=== PATIENT | male | born 1940 | race Caucasian/White ===

== ENCOUNTER 2018-01-11 00:01 | Inpatient (IN) | payer MEDICARE, OTHER, SELFPAY ==
[2018-01-11] VITALS (19 sets, daily range): BP systolic 108–172; BP diastolic 46–68; PULSE 80–84; RESP 13–29; TEMP 36.9–38.6; O2SAT 93–100
--- NOTE | 2018-01-11 00:02 | DI.RAD.S_ITS ---
PROCEDURE: XR CHEST 1V INDICATIONS: 77 year-old male with shortness of breath. TECHNIQUE: One view of the chest was acquired. COMPARISON: [facility], , CHEST 1 VIEW, 07/28/2017, 4:42. [facility], CR, CHEST 1 VIEW, 03/27/2017, 19:44. [facility], CR, XR CHEST 2VW, 05/14/2016, 15:29. FINDINGS: Surgical changes and devices: Left chest wall dual chamber pacemaker is present. Lungs and pleura: No pleural effusions or pneumothorax. Lungs are clear. Mediastinum: Mediastinal contours appear normal. Heart size is normal. There is aortic atherosclerosis. Bones and chest wall: No suspicious bony lesions. Overlying soft tissues appear unremarkable. IMPRESSION: No acute cardiopulmonary disease. Dictated by: Piotr Marsh M.D. on 01/11/2018 at 6:00 Approved by: Piotr Marsh M.D. on 01/11/2018 at 6:00
--- NOTE | 2018-01-11 00:02 | DI.CT.S_ITS ---
PROCEDURE: CT HEAD/BRAIN WO CON INDICATIONS: 77 year-old male with confusion. TECHNIQUE: Noncontrast 4.5 mm thick angled axial sections acquired from the foramen magnum to the vertex, with coronal and sagittal reformats. For radiation dose reduction, the following was used: automated exposure control, adjustment of mA and/or kV according to patient size. COMPARISON: [facility], CT, HEAD WITHOUT CONTRAST, 03/27/2017, 19:55. FINDINGS: Preliminary interpretation rendered by [facility]. Image quality: Several images are degraded by patient motion. CSF spaces: Basal cisterns are patent. No extra-axial fluid collections. The ventricles are symmetric in size and shape. Brain: No intracranial bleeds or masses. Nonacute left subinsular lacunar infarct is again noted. There is intracranial internal carotid and bilateral vertebral artery atherosclerosis. Skull and face: Calvarium and visualized facial bones appear intact, without suspicious lesions. Sinuses: There is near-complete opacification of the right maxillary sinus. Other visualized sinuses and mastoids are clear. IMPRESSION: 1. No acute intracranial abnormalities. Nonacute left subinsular lacunar infarct. 2. Interval decreased amount of right maxillary sinus fluid opacification, consistent with persistent or recurrent chronic sinusitis. Dictated by: Piotr Marsh M.D. on 01/11/2018 at 6:16 Approved by: Piotr Marsh M.D. on 01/11/2018 at 6:22
--- NOTE | 2018-01-11 00:04 | ED_ITS ---
HPI - Altered Mental Status General Chief Complaint: Altered Mental Status Stated Complaint: Confusion Time Seen by Provider: 01/11/18 00:03 Source: EMS Mode of arrival: EMS Limitations: other (Patient's willingness/ability to be involved with the history and physical.) History of Present Illness HPI narrative: Patient arrived by EMS after they were called by someone who the patient is living with. EMS did not know who initially made the call. They did report that the house was in disarray. Unsure as the exact reason why they were called however they were told that the patient was ?altered ?in some way. Was also some concerns for cellulitis of his left lower extremity. Patient was only minimally helpful in providing history of why he was here. Would only answer some of the questions that he was asked. He denied any symptoms at the time of my evaluation. Related Data Home Medications Medication Instructions Recorded Confirmed atorvastatin [Lipitor] 20 mg PO QDAY #0 03/28/17 escitalopram oxalate [Lexapro] 10 mg PO QDAY #0 08/19/17 potassium chloride [K-Tab] 20 meq PO BID #810 10/29/17 torsemide 20 mg PO QDAY #90 10/29/17 [KRILL OIL] 1 cap PO QDAY #0 11/01/17 calcium carbonate-vitamin D3 1 cap PO BID #0 11/01/17 [Calcium 600 with Vitamin D3] eplerenone 25 mg PO QDAY #0 11/01/17 folic acid 0.4 mg PO QDAY #0 11/01/17 ipratropium-albuterol [Combivent 1 puff INH BID #0 11/01/17 Respimat] magnesium oxide 500 mg PO TID #0 11/01/17 metoprolol tartrate 12.5 mg PO BID #0 11/01/17 multivitamin [Multiple Vitamins] 1 tab PO QDAY #0 11/01/17 nitroglycerin [Nitrostat] 0.4 mg SUBLINGUAL PRN PRN #0 11/01/17 Previous Rx's Medication Instructions Recorded glipizide [Glucotrol XL] 10 mg PO AMCC #30 tab 10/29/16 metolazone 2.5 mg PO EVERY OTHER DAY #30 tab 03/28/17 Glucose: Test Strips 0 str SEE INSTRUCTIONS #100 str 05/13/17 gabapentin [Neurontin] 900 mg PO TID #270 cap 09/23/17 diphenoxylate-atropine 1 tab PO PRN #30 tab 10/04/17 cefazolin 2,000 mg IV Q8H 24 Days #0 ml 11/05/17 phytonadione (vitamin K1) 10 mg PO QDAY #3 tab 11/05/17 [Mephyton] omeprazole 20 mg PO BID #60 cap 12/17/17 Allergies Allergy/AdvReac Type Severity Reaction Status Date / Time camphor [CAMPHOR] Allergy Mild RASH Verified 01/11/18 00:30 cyclobenzaprine Allergy Mild HIVES Verified 01/11/18 00:30 [CYCLOBENZAPRINE] lisinopril [LISINOPRIL] Allergy Mild COUGH/DRY Verified 01/11/18 00:30 THROAT menthol [MENTHOL] Allergy Mild RASH Verified 01/11/18 00:30 methyl salicylate Allergy Mild RASH Verified 01/11/18 00:30 [METHYL SALICYLATE] Review of Systems Review of Systems unobtainable due to mental condition Exam Initial Vital Signs Initial Vital Signs: Vital Signs Temperature 98.4 F 01/11/18 00:03 Pulse Rate 80 01/11/18 00:03 Respiratory Rate 29 H 01/11/18 00:03 Pulse Oximetry 100 01/11/18 00:03 Const General: comfortable and No acute distress Nutritional Appearance: average body habitus Orientation: alert, awake, oriented to person, oriented to place, not oriented to time and confused [facility] Head: normal to inspection and normocephalic Ears: hearing grossly normal bilaterally Nose: external nose normal Eyes Pupils: PERRL EOM: EOM intact bilaterally Resp Effort & Inspection: normal respiratory effort, no respiratory distress and no use of accessory muscles Auscultation: not clear to auscultation bilaterally, no rales, no rhonchi and wheezes expiratory wheezes, left lower and left upper Cardio Rate: regular rate Heart Sounds: no click, no gallops, no murmurs and no rubs Pulses: normal peripheral pulses GI Inspection: normal to inspection and non-distended Palpation: soft Back/Spine/Pelvis Back: No CVA tenderness Skin Other: Patient with chronic venous changes bilateral lower extremities Patient with red and warm and tender left lower extremity from knee to toes. Does have 2 wounds on the bottom of his left foot and not draining. Neuro General: alert and awake Speech: speech normal Extrem Other: No gross deformities Moves all 4 extremities See skin section for description of left lower extremity Psych Appearance: disheveled Affect: blunted Course Orders Ordered: ED Orders 01/11/18 MRSA PCR Stat 01/11/18 00:01 B Type Natriuretic Peptide Stat Complete Blood Count AUTO DIFF Stat Comprehensive Metabolic Panel Stat Ethanol (ETOH) Stat Partial Thromboplastin Time Stat Prothrombin Time INR Stat Troponin I Stat 01/11/18 00:02 CT head/brain wo con Stat XR chest 1V Stat EKG-12 Lead Stat 01/11/18 00:16 Lactate (Lactic Acid) Stat 01/11/18 00:38 Arterial Blood Gas Stat 01/11/18 00:42 Blood Culture Stat 01/11/18 02:25 Consult to Physician Routine 01/11/18 05:00 Troponin I Stat Hydromorphone HCl (Dilaudid) 0.5 mg IV Q4HR PRN PRN Reason: Pain, Severe Sodium Chloride (Normal Saline 0.9%) 1,000 mls @ 150 mls/hr IV CONT DANNY Last Admin: 01/11/18 01:05 Dose: 150 mls/hr Ondansetron HCl 4 mg/ Sodium (Chloride) 102 mls @ 204 mls/hr IV Q4HR DANNY Discontinued Medications Albuterol/Ipratropium (Duoneb) 3 ml INH NOW ONE Stop: 01/11/18 00:02 Last Admin: 01/11/18 00:15 Dose: 3 ml Vancomycin HCl/Dextrose (Vancomycin) 1,000 mg in 200 mls @ 200 mls/hr IV NOW ONE Stop: 01/11/18 01:53 Last Infusion: 01/11/18 02:15 Dose: 0 mls/hr Admin: 01/11/18 01:05 Dose: 200 mls/hr Morphine Sulfate (Morphine) 4 mg IV NOW ONE Stop: 01/11/18 01:19 Last Admin: 01/11/18 01:27 Dose: 4 mg Vital Signs - 8 hr 01/11/18 00:03 01/11/18 00:35 01/11/18 00:40 Temperature 98.4 F Pulse Rate 80 82 84 Respiratory Rate 29 H 22 28 H Blood Pressure Blood Pressure [Right Arm] 141/66 H Pulse Oximetry 100 97 100 01/11/18 02:13 01/11/18 02:53 01/11/18 03:11 Temperature 101.5 F H Pulse Rate 80 80 80 Respiratory Rate 19 21 28 H Blood Pressure 139/53 H 142/53 H Blood Pressure [Right Arm] 145/61 H Pulse Oximetry 96 95 98 MDM - Altered Mental Status Lab Data Attestation: I reviewed the patient's lab results. Result diagrams: 01/11/18 00:01 01/11/18 00:01 Lab Results 01/11/18 01/11/18 01/11/18 Range/Units 00:01 00:01 00:01 WBC 17.6 H (4.5-11.0) X10^3/uL RBC 4.67 (4.5-5.9) X10^6/uL Hgb 11.6 L (13.5-17.5) g/dL Hct 36.4 L (41-53) % MCV 77.8 L (80-100) fL MCH 24.9 L (26-34) PG MCHC 32.0 (30-36) % RDW 18.1 H (11.6-14.8) % Plt Count 153 (150-400) X10^3/uL Neut % (Auto) 87.5 H (50-75) % Lymph % (Auto) 6.4 L (25-40) % [place] % (Auto) 6.0 (3-14) % Eos % (Auto) 0.0 L (2-4) % Baso % (Auto) 0.1 (0-2) % Neut # (Auto) 97559 H (3011-7877) /uL PT 20.7 H (10.1-12.7) SECONDS INR 1.9 H (0.9-1.3) APTT 32 (26.4-36.2) SECONDS ABG pH (7.35-7.45) ABG pCO2 (35-45) mmHg ABG pO2 (80-105) mmHg ABG HCO3 (23-27) mmol/L ABG Total CO2 (23-27) mmol/L ABG O2 Saturation (95-100) % ABG Base Excess (-2-3) mmol/L FiO2 Sodium (137-145) mmol/L Potassium (3.4-5.1) mmol/L Chloride (98-107) mmol/L Carbon Dioxide (22-32) mmol/L BUN (9-20) mg/dL Creatinine (0.66-1.25) mg/dL Estimated GFR (>60) mL/min BUN/Creatinine Ratio (6-22) Glucose (80-110) mg/dL Lactate (0.7-2.1) mmol/L Calcium (8.4-10.2) mg/dL Total Bilirubin (0.2-1.3) mg/dL AST (17-59) IU/L ALT (21-72) IU/L Alkaline Phosphatase (38-126) U/L Troponin I (0.01-0.034) ng/mL B-Natriuretic Peptide 498.0 H (<100) Total Protein (6.3-8.2) g/dL Albumin (3.5-5.0) g/dL Globulin (1.7-4.1) g/dL Albumin/Globulin Ratio (1.0-2.8) Ethyl Alcohol < 10 mg/dL 01/11/18 01/11/18 01/11/18 Range/Units 00:01 00:16 00:38 WBC (4.5-11.0) X10^3/uL RBC (4.5-5.9) X10^6/uL Hgb (13.5-17.5) g/dL Hct (41-53) % MCV (80-100) fL MCH (26-34) PG MCHC (30-36) % RDW (11.6-14.8) % Plt Count (150-400) X10^3/uL Neut % (Auto) (50-75) % Lymph % (Auto) (25-40) % [place] % (Auto) (3-14) % Eos % (Auto) (2-4) % Baso % (Auto) (0-2) % Neut # (Auto) (0673-1663) /uL PT (10.1-12.7) SECONDS INR (0.9-1.3) APTT (26.4-36.2) SECONDS ABG pH 7.48 H (7.35-7.45) ABG pCO2 24.4 L* (35-45) mmHg ABG pO2 72 L (80-105) mmHg ABG HCO3 18 L (23-27) mmol/L ABG Total CO2 19 L (23-27) mmol/L ABG O2 Saturation 96 (95-100) % ABG Base Excess -5.0 L (-2-3) mmol/L FiO2 21 Sodium 139 (137-145) mmol/L Potassium 4.4 (3.4-5.1) mmol/L Chloride 99 (98-107) mmol/L Carbon Dioxide 22 (22-32) mmol/L BUN 53 H (9-20) mg/dL Creatinine 2.80 H (0.66-1.25) mg/dL Estimated GFR 22.0 L (>60) mL/min BUN/Creatinine Ratio 18.9 (6-22) Glucose 188 H (80-110) mg/dL Lactate 2.8 H (0.7-2.1) mmol/L Calcium 8.8 (8.4-10.2) mg/dL Total Bilirubin 2.9 H (0.2-1.3) mg/dL AST 111 H (17-59) IU/L ALT 90 H (21-72) IU/L Alkaline Phosphatase 94 (38-126) U/L Troponin I 0.111 H (0.01-0.034) ng/mL B-Natriuretic Peptide (<100) Total Protein 7.5 (6.3-8.2) g/dL Albumin 3.8 (3.5-5.0) g/dL Globulin 3.7 (1.7-4.1) g/dL Albumin/Globulin Ratio 1.0 (1.0-2.8) Ethyl Alcohol mg/dL Imaging Data CT scan - head: Radiologist's impression: Stable mild cerebral atrophy. Stable mild bilateral periventricular small vessel ischemic disease Chest x-ray: Radiologist's impression: Mild CHF. Dual chamber cardiac pacer ECG Data Attestation: I personally reviewed and interpreted this ECG as follows: Prior ECG tracings: not available for review Interpretation: Ventricularly paced Rate of 81 MDM Narrative Medical decision making narrative: Patient somewhat unwilling/unable to participate in the history and physical. Does have an elevated white blood cell count and elevated lactate and in the setting of his left lower extremity physical exam concerning for worsening cellulitis of his left lower extremity. Patient is on Coumadin secondary to his atrial fibrillation. This was obtained by reviewing his medical records. Patient also has an elevated troponin. He denied any chest pain. EKG is not consistent with ST-elevation [place]. Patient stated that he was allergic to aspirin so he was not given an aspirin here in the ER. Patient with baseline chronic kidney disease with seems to be worsening over the past several months. Given his infection elevated white count and elevated lactate to does meet sepsis criteria. He was given vancomycin here in the ER. Blood cultures were obtained. His cellulitis most likely the source of this infection. He was not hypotensive. Fluids were given at a maintenance rate secondary to his reported history of CHF. Patient clinically not in heart failure currently. I discussed the case with Dr. Rudolph who will admit the patient. I did inform the patient of my recommendation for him to be admitted the hospital. He did expressed understanding and agreement plan Discharge Plan Departure Patient Disposition: Admitted As Inpatient Clinical Impression: Cellulitis of left foot, Sepsis, Elevated troponin, Chronic kidney disease Discharge Date/Time: 01/11/18 02:54 Interventions: ED Discharge Assessment Last Done: 01/11/18 02:53 Admit Date/Time: 01/11/18 02:34 Admit Provider: Baylee Rudolph
[2018-01-11] MEDS: ALBUTEROL/IPRATROPIUM 3 ML AMPUL INH (00:15)
[2018-01-11 00:21] LABS: Add Manual Diff / Slide Review NO; Basophils Percent Auto 0.1 % (0-2); Hematocrit 36.4 % (41-53); Hemoglobin 11.6 g/dL (13.5-17.5); INR 1.9 (0.9-1.3); Lymphocytes Percent Auto 6.4 % (25-40); Mean Corpuscular Hemoglobin 24.9 PG (26-34); Mean Corpuscular Volume 77.8 fL (80-100); Neutrophils Absolute Auto 15400 /uL (3000-5900); Neutrophils Percent Auto 87.5 % (50-75); Platelet Count 153 X10^3/uL (150-400); Prothrombin Time 20.7 SECONDS (10.1-12.7); Red Blood Cell Count 4.67 X10^6/uL (4.5-5.9); Red Cell Distribution Width 18.1 % (11.6-14.8); White Blood Cell Count 17.6 X10^3/uL (4.5-11.0)
[2018-01-11 00:24] LABS: Ethanol (ETOH) < 10 mg/dL; PTT Partial Thromboplastin Tim 32 SECONDS (26.4-36.2)
[2018-01-11 00:25] LABS: Alanine Aminotransferase 90 IU/L (21-72); Albumin 3.8 g/dL (3.5-5.0); Alkaline Phosphatase 94 U/L (38-126); Aspartate Aminotransferase 111 IU/L (17-59); BUN Creatinine Ratio 18.9 (6-22); Bilirubin Total 2.9 mg/dL (0.2-1.3); Blood Urea Nitrogen 53 mg/dL (9-20); Calcium 8.8 mg/dL (8.4-10.2); Carbon Dioxide 22 mmol/L (22-32); Chloride 99 mmol/L (98-107); Globulin 3.7 g/dL (1.7-4.1); Glucose 188 mg/dL (80-110); HEMOLYSIS < 15 (0-50); Potassium 4.4 mmol/L (3.4-5.1); Sodium 139 mmol/L (137-145); Total Protein 7.5 g/dL (6.3-8.2)
[2018-01-11 00:36] LABS: Troponin I 0.111 ng/mL (0.01-0.034)
[2018-01-11 00:45] LABS: Lactate (Lactic Acid) 2.8 mmol/L (0.7-2.1)
[2018-01-11] MEDS: SODIUM CHLORIDE 0.9% 1,000 ML 150 ML IV ×4 (01:05→22:18)
[2018-01-11] MEDS: VANCOMYCIN 1,000 MG/200 ML FROZ.PIGGY 200 MG IV (01:05)
[2018-01-11] MEDS: MORPHINE 4 MG/ML INJ IV (01:27)
[2018-01-11 01:34] LABS: pH ABG 7.48 (7.35-7.45)
[2018-01-11 01:35] LABS: PCO2 ABG 24.4 mmHg (35-45)
[2018-01-11 01:36] LABS: Fractionated Inspired Oxygen 21; HCO3 ABG 18 mmol/L (23-27); Oxygen Saturation ABG 96 % (95-100); PO2 ABG 72 mmHg (80-105); TCO2 ABG 19 mmol/L (23-27)
[2018-01-11] MEDS: HYDROMORPHONE 0.5 MG INJ IV (03:40)
[2018-01-11 04:33] LABS: Reflexed Lactate in 2 Hours Y
[2018-01-11 05:24] LABS: Lactate 2HR (Lactic Acid Rflx) 2.3 mmol/L (0.7-2.1)
--- NOTE | 2018-01-11 05:30 | PC.ADMIT ---
[email or web address] Admission Note: The patient,Arben Peacock,77 y/o, was given written information regarding hospital policies, unit procedures and contact persons. Patient's smoking status: Never smoker. Vital Signs - 8 hr 01/11/18 00:03 01/11/18 00:35 01/11/18 00:40 Temperature 98.4 F Pulse Rate 80 82 84 Respiratory Rate 29 H 22 28 H Blood Pressure Blood Pressure [Right Arm] 141/66 H Pulse Oximetry 100 97 100 01/11/18 02:13 01/11/18 02:53 01/11/18 03:11 Temperature 101.5 F H Pulse Rate 80 80 80 Respiratory Rate 19 21 28 H Blood Pressure 139/53 H 142/53 H Blood Pressure [Right Arm] 145/61 H Pulse Oximetry 96 95 98 01/11/18 04:59 Temperature Pulse Rate Respiratory Rate Blood Pressure Blood Pressure [Right Arm] Pulse Oximetry 97 Patient admitted to ICU room 101 at 0245. Awake, mostly non-verbal, not answering admit questions, will nod or say yes/no to simple questions. Grimaces and moans during turning. 0.5mg IV Dilaudid given per prn order. Temp upon admit 101.1, no extra blankets, A-fib CVR, BBB. SpO2 96% on 2L, mild shortness of breath with exertion, breath sounds clear. LLE elevated on pillow, hot to touch, erythema, edema, no weeping noted. NS @ 150ml/hr
[2018-01-11 05:37] LABS: Troponin I 0.108 ng/mL (0.01-0.034)
[2018-01-11] MEDS: NYSTATIN 30 GM POWDER 1 APPLIC TOP (08:17)
[2018-01-11] MEDS: CEFAZOLIN 2 GM/100 ML FROZ.PIGGY IV ×2 (08:17→15:11)
[2018-01-11 08:47] LABS: Bacteria Urine None Seen
[2018-01-11 09:02] LABS: Amorphous Sediment Urine 2+; Culture Indicated Urine Cult Not Indicated; RBC Urine 10-30/HPF (0-5/HPF); WBC Urine 0-1/HPF (0-5/HPF)
[2018-01-11 09:05] LABS: Alanine Aminotransferase 94 IU/L (21-72); Albumin 3.6 g/dL (3.5-5.0); Alkaline Phosphatase 96 U/L (38-126); Aspartate Aminotransferase 120 IU/L (17-59); BUN Creatinine Ratio 20.7 (6-22); Bilirubin Total 3.1 mg/dL (0.2-1.3); Blood Urea Nitrogen 56 mg/dL (9-20); Calcium 8.5 mg/dL (8.4-10.2); Carbon Dioxide 20 mmol/L (22-32); Chloride 102 mmol/L (98-107); Globulin 3.6 g/dL (1.7-4.1); Glucose 187 mg/dL (80-110); HEMOLYSIS < 15 (0-50); Potassium 4.6 mmol/L (3.4-5.1); Sodium 139 mmol/L (137-145); Total Protein 7.2 g/dL (6.3-8.2)
[2018-01-11 09:10] LABS: Hematocrit 35.1 % (41-53); Hemoglobin 11.4 g/dL (13.5-17.5); Mean Corpuscular HGB Conc 32.4 % (30-36); Mean Corpuscular Hemoglobin 24.7 PG (26-34); Mean Corpuscular Volume 76.2 fL (80-100); Platelet Count 102 X10^3/uL (150-400); Red Blood Cell Count 4.61 X10^6/uL (4.5-5.9); White Blood Cell Count 13.3 X10^3/uL (4.5-11.0)
[2018-01-11 09:11] LABS: Add Manual Diff / Slide Review YES
[2018-01-11 09:49] LABS: Neutrophils Absolute Manual 11837 /uL (3000-5900); Total Cells Counted 100
--- NOTE | 2018-01-11 10:38 | CM.DANOTE ---
DCP: assessment: Case received, EMR reviewed (ER note only physician note yet available), spoke with Dr. Rudolph and then with [employer] Mary Jane Barnes Called pt's daughter (oldest of 6) Miranda Bautista/Chadron [phone] in response to her earlier call to ICU and introduced self and role. 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 Dr. Rudolph is seeing him this weekend. PCP: Dr. Campbell. Pt is currently not A/O and is unable to be interviewed at this point. DCP template completed with information currently available and including info from Miranda. Pt lives in [place] with his spouse Tierney. NO POA has been granted to anyone. Pt was recently in and did d/c to [facility] for rehab/recovery under his Medicare benefit. [facility], confirms he has only uses a small portion of his 100 snf days. Payer: Medicare and [employer]. Miranda states that she and other siblings (adult children and step children: total of 8) had planned to meet on January 27 to put together a plan for care of pt and his that will meet theri needs going forward. She has been looking into assisted living facilities in [facility]. Pt's has been at [facility] [place] for about 3 weeks. She was taken to ER by her , was airlifted to [facility] [place] and is currently on the ventilator. Pt has been driving back and forth to see her, staying for 2-3 days at a time at the hospital mot. Miranda says the family know this is not a great situation but my dad is very stubborn. At this point Dr. Rudolph and Miranda would like to see pt transition to [facility] for snf level care when he is stable to leave hospital. Unclear if IV antibiotics will be needed. Referral is into [facility] who does have a bed and will accept. Plan: discuss above with pt when he is medically and cognitively able to do so.
[2018-01-11 10:46] LABS: Troponin I 0.101 ng/mL (0.01-0.034)
[2018-01-11] MEDS: INSULIN ASPART 100 UNIT/ML INSULN PEN SUBCUT ×3 (11:43→21:14)
--- NOTE | 2018-01-11 11:58 | PM.HP.1 ---
History of Present Illness Date Patient Seen: 01/11/18 Time Patient Seen: 07:30 Chief complaint: Confusion Narrative: Patient is a 77-year-old male with type 2 diabetes, diabetic neuropathy, hypertension, hyperlipidemia, atrial fibrillation on chronic anticoagulation and CKD stage 3 also with recurrent left lower extremity wound. Patient was unable to provide any history today. History obtained from ER notes and past records. Patient was reportedly at home when a friend or neighbor called EMS last night due to confusion in the patient. In the emergency department patient was minimally responsive to questions and disoriented. He was found to have erythema of his left lower leg consistent with cellulitis. Labs were remarkable for elevated white blood cell count, elevated lactate and elevated troponin. EKG without acute ST changes to suggest ACS. Head CT and chest x-ray were negative. He was started on IV fluids and vancomycin. Later after transfer to the floor nursing discovered that his has been hospitalized at [facility] recently and he has not had any help at home. Family was planning to come to [facility] soon to help. In review of available clinic records it appears that he has no showed several Coumadin checks in the last month. Last clinic visit was in November. Patient History Medical History Osteomyelitis of left foot (Chronic) Chronic obstructive pulmonary disease (Chronic 07/08/15) Chronic diastolic congestive heart failure (Chronic 05/23/15) Chronic renal failure, stage 2 (mild) (Chronic 04/04/15) Chronic atrial fibrillation (Chronic 02/17/15) Uncontrolled type 2 diabetes mellitus with hyperglycemia, without long-term current use of insulin (Chronic 08/20/17) Osteoarthritis, knee (Chronic) Hyperlipidemia (Chronic) Peripheral neuropathy (Chronic) Bilateral shoulder pain (Chronic) Coronary artery disease (Chronic) Current use of intermediate card tender anticoagulation (Chronic) Diabetic foot ulcer (Chronic) Obstructive sleep apnea syndrome (Chronic 04/03/11) Gastroesophageal reflux disease without esophagitis (Chronic 04/03/11) Migraine with aura and without status migrainosus, not intractable (Chronic 04/03/11) Gout (Chronic 04/03/11) Essential hypertension (Chronic 12/14/11) 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) 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) Dyskinesia of esophagus (Chronic 12/14/11) Chronic pain of both knees (Chronic 03/23/16) Morbid obesity with body mass index (BMI) of 40.0 to 44.9 in adult (Chronic 03/23/16) Surgical History Prostate cancer (Chronic 04/03/11) History of knee replacement (10/12/13) Status post endoscopic retrograde cholangiopancreatography Status post laparoscopic cholecystectomy Family & Social History Family History: Reviewed 01/11/18 by Baylee Rudolph DO Social History: household members spouse Prior Living Arrangements House Tobacco & Substance use: Smoking Status Never smoker alcohol intake frequency 0-2 drinks per day Substance Use Type does not use Meds Home Medications Medication Instructions Recorded Confirmed Type glipizide [Glucotrol XL] 10 mg PO AMCC #30 tab 10/29/16 01/11/18 Rx atorvastatin [Lipitor] 20 mg PO QDAY #0 03/28/17 01/11/18 History metolazone 2.5 mg PO EVERY OTHER DAY #30 tab 03/28/17 01/11/18 Rx Glucose: Test Strips 0 str SEE INSTRUCTIONS #100 str 05/13/17 01/11/18 Rx escitalopram oxalate [Lexapro] 10 mg PO QDAY #0 08/19/17 01/11/18 History gabapentin [Neurontin] 900 mg PO TID #270 cap 09/23/17 01/11/18 Rx diphenoxylate-atropine 1 tab PO PRN #30 tab 10/04/17 01/11/18 Rx potassium chloride [K-Tab] 20 meq PO BID #810 10/29/17 01/11/18 History torsemide 20 mg PO QDAY #90 10/29/17 01/11/18 History [KRILL OIL] 1 cap PO QDAY #0 11/01/17 01/11/18 History calcium carbonate-vitamin D3 1 cap PO BID #0 11/01/17 01/11/18 History [Calcium 600 with Vitamin D3] eplerenone 25 mg PO QDAY #0 11/01/17 01/11/18 History folic acid 0.4 mg PO QDAY #0 11/01/17 01/11/18 History ipratropium-albuterol [Combivent 1 puff INH BID #0 11/01/17 01/11/18 History Respimat] magnesium oxide 500 mg PO TID #0 11/01/17 01/11/18 History metoprolol tartrate 12.5 mg PO BID #0 11/01/17 01/11/18 History multivitamin [Multiple Vitamins] 1 tab PO QDAY #0 11/01/17 01/11/18 History nitroglycerin [Nitrostat] 0.4 mg SUBLINGUAL PRN PRN #0 11/01/17 01/11/18 History cefazolin 2,000 mg IV Q8H 24 Days #0 ml 11/05/17 01/11/18 Rx phytonadione (vitamin K1) 10 mg PO QDAY #3 tab 11/05/17 01/11/18 Rx [Mephyton] omeprazole 20 mg PO BID #60 cap 12/17/17 01/11/18 Rx Allergies Allergy/AdvReac Type Severity Reaction Status Date / Time camphor [CAMPHOR] Allergy Mild RASH Verified 01/11/18 00:30 cyclobenzaprine Allergy Mild HIVES Verified 01/11/18 00:30 [CYCLOBENZAPRINE] lisinopril [LISINOPRIL] Allergy Mild COUGH/DRY Verified 01/11/18 00:30 THROAT menthol [MENTHOL] Allergy Mild RASH Verified 01/11/18 00:30 methyl salicylate Allergy Mild RASH Verified 01/11/18 00:30 [METHYL SALICYLATE] Review of Systems Review of Systems Patient unable to provide review of systems. Exam Vital Signs (past 8 hours): Vital Signs - 8 hr 01/11/18 04:59 01/11/18 06:03 01/11/18 07:51 Temperature 100.6 F H Pulse Rate 80 80 Respiratory Rate 18 20 Blood Pressure 124/46 H 172/61 H Pulse Oximetry 97 96 96 01/11/18 08:56 01/11/18 09:03 01/11/18 10:00 Temperature 99.0 F Pulse Rate 80 80 Respiratory Rate 19 18 Blood Pressure 118/50 L 109/48 L Pulse Oximetry 95 98 96 01/11/18 11:54 Temperature Pulse Rate 80 Respiratory Rate 13 Blood Pressure Pulse Oximetry 97 Pulse Oximetry 97 Oxygen Delivery Method Nasal Cannula Oxygen Flow Rate 2 Narrative Exam Narrative: General: Ill-appearing older gentleman resting in bed with eyes closed. Does not answer questions. HEENT: NCAT, EOMI, moist oral mucosa CV: Regular rate and rhythm, no murmurs, rubs or gallops Lungs: Breathing slightly labored. CTAB, no wheezes, rales, or rhonchi. Abdomen: Soft, nontender; bowel tones active; no hepatosplenomegaly Extremities: Warm, no edema of the right lower extremity, 1+ edema in diffuse erythema of the left lower extremity. On the plantar surface near the fifth metatarsal head is a black callus which appears nontender to palpation. Objective Labs Result Diagrams: 01/11/18 08:40 01/11/18 08:40 Labs: Laboratory Results - last 24 hr 01/11/18 01/11/18 01/11/18 00:01 00:01 00:01 WBC 17.6 H RBC 4.67 Hgb 11.6 L Hct 36.4 L MCV 77.8 L MCH 24.9 L MCHC 32.0 RDW 18.1 H Plt Count 153 Neut % (Auto) 87.5 H Lymph % (Auto) 6.4 L [place] % (Auto) 6.0 Eos % (Auto) 0.0 L Baso % (Auto) 0.1 Neut # (Auto) 39049 H Total Counted Seg Neutrophils % Lymphocytes % (Manual) Monocytes % (Manual) Neutrophils # (Manual) RBC Morphology PT 20.7 H INR 1.9 H APTT 32 ABG pH ABG pCO2 ABG pO2 ABG HCO3 ABG Total CO2 ABG O2 Saturation ABG Base Excess FiO2 Sodium Potassium Chloride Carbon Dioxide BUN Creatinine Estimated GFR BUN/Creatinine Ratio Glucose Lactate Calcium Total Bilirubin AST ALT Alkaline Phosphatase Troponin I B-Natriuretic Peptide 498.0 H Total Protein Albumin Globulin Albumin/Globulin Ratio Urine RBC Urine WBC Amorphous Sediment Urine Bacteria Ur Culture Indicated? Micro UA Comment Nasal Screen MRSA (PCR) Ethyl Alcohol < 10 01/11/18 01/11/18 01/11/18 00:01 00:16 00:38 WBC RBC Hgb Hct MCV MCH MCHC RDW Plt Count Neut % (Auto) Lymph % (Auto) [place] % (Auto) Eos % (Auto) Baso % (Auto) Neut # (Auto) Total Counted Seg Neutrophils % Lymphocytes % (Manual) Monocytes % (Manual) Neutrophils # (Manual) RBC Morphology PT INR APTT ABG pH 7.48 H ABG pCO2 24.4 L* ABG pO2 72 L ABG HCO3 18 L ABG Total CO2 19 L ABG O2 Saturation 96 ABG Base Excess -5.0 L FiO2 21 Sodium 139 Potassium 4.4 Chloride 99 Carbon Dioxide 22 BUN 53 H Creatinine 2.80 H Estimated GFR 22.0 L BUN/Creatinine Ratio 18.9 Glucose 188 H Lactate 2.8 H Calcium 8.8 Total Bilirubin 2.9 H AST 111 H ALT 90 H Alkaline Phosphatase 94 Troponin I 0.111 H B-Natriuretic Peptide Total Protein 7.5 Albumin 3.8 Globulin 3.7 Albumin/Globulin Ratio 1.0 Urine RBC Urine WBC Amorphous Sediment Urine Bacteria Ur Culture Indicated? Micro UA Comment Nasal Screen MRSA (PCR) Ethyl Alcohol 01/11/18 01/11/18 01/11/18 03:00 04:55 04:55 WBC RBC Hgb Hct MCV MCH MCHC RDW Plt Count Neut % (Auto) Lymph % (Auto) [place] % (Auto) Eos % (Auto) Baso % (Auto) Neut # (Auto) Total Counted Seg Neutrophils % Lymphocytes % (Manual) Monocytes % (Manual) Neutrophils # (Manual) RBC Morphology PT INR APTT ABG pH ABG pCO2 ABG pO2 ABG HCO3 ABG Total CO2 ABG O2 Saturation ABG Base Excess FiO2 Sodium Potassium Chloride Carbon Dioxide BUN Creatinine Estimated GFR BUN/Creatinine Ratio Glucose Lactate 2.3 H Calcium Total Bilirubin AST ALT Alkaline Phosphatase Troponin I 0.108 H B-Natriuretic Peptide Total Protein Albumin Globulin Albumin/Globulin Ratio Urine RBC Urine WBC Amorphous Sediment Urine Bacteria Ur Culture Indicated? Micro UA Comment Nasal Screen MRSA (PCR) Positive for mrsa H Ethyl Alcohol 01/11/18 01/11/18 01/11/18 08:40 08:40 08:40 WBC 13.3 H RBC 4.61 Hgb 11.4 L Hct 35.1 L MCV 76.2 L MCH 24.7 L MCHC 32.4 RDW 18.0 H Plt Count 102 L Neut % (Auto) Not Reportable Lymph % (Auto) Not Reportable [place] % (Auto) Not Reportable Eos % (Auto) Not Reportable Baso % (Auto) Not Reportable Neut # (Auto) Total Counted 100 Seg Neutrophils % 89.0 H Lymphocytes % (Manual) 5.0 L Monocytes % (Manual) 6.0 Neutrophils # (Manual) 33531 H RBC Morphology Not Reportable PT INR APTT ABG pH ABG pCO2 ABG pO2 ABG HCO3 ABG Total CO2 ABG O2 Saturation ABG Base Excess FiO2 Sodium 139 Potassium 4.6 Chloride 102 Carbon Dioxide 20 L BUN 56 H Creatinine 2.70 H Estimated GFR 23.0 L BUN/Creatinine Ratio 20.7 Glucose 187 H Lactate 2.0 Calcium 8.5 Total Bilirubin 3.1 H AST 120 H ALT 94 H Alkaline Phosphatase 96 Troponin I B-Natriuretic Peptide Total Protein 7.2 Albumin 3.6 Globulin 3.6 Albumin/Globulin Ratio 1.0 Urine RBC Urine WBC Amorphous Sediment Urine Bacteria Ur Culture Indicated? Micro UA Comment Nasal Screen MRSA (PCR) Ethyl Alcohol 01/11/18 01/11/18 08:40 08:40 WBC RBC Hgb Hct MCV MCH MCHC RDW Plt Count Neut % (Auto) Lymph % (Auto) [place] % (Auto) Eos % (Auto) Baso % (Auto) Neut # (Auto) Total Counted Seg Neutrophils % Lymphocytes % (Manual) Monocytes % (Manual) Neutrophils # (Manual) RBC Morphology PT INR APTT ABG pH ABG pCO2 ABG pO2 ABG HCO3 ABG Total CO2 ABG O2 Saturation ABG Base Excess FiO2 Sodium Potassium Chloride Carbon Dioxide BUN Creatinine Estimated GFR BUN/Creatinine Ratio Glucose Lactate Calcium Total Bilirubin AST ALT Alkaline Phosphatase Troponin I 0.101 H B-Natriuretic Peptide Total Protein Albumin Globulin Albumin/Globulin Ratio Urine RBC 10-30/hpf H Urine WBC 0-1/hpf Amorphous Sediment 2+ Urine Bacteria None seen Ur Culture Indicated? Cult not indicated Micro UA Comment Not Reportable Nasal Screen MRSA (PCR) Ethyl Alcohol Assessment & Plan (1) Sepsis: Qualifiers: Sepsis type: sepsis due to unspecified organism Qualified Code(s): A41.9 - Sepsis, unspecified organism Current visit: Yes Status: Acute (2) Elevated troponin: Current visit: Yes Status: Acute (3) Chronic kidney disease: Qualifiers: Chronic kidney disease stage: unspecified stage Qualified Code(s): N18.9 - Chronic kidney disease, unspecified Current visit: Yes Status: Acute (4) Chronic kidney disease, stage 3: Current visit: Yes Status: Acute (5) Acute encephalopathy: Current visit: Yes Status: Acute (6) Cellulitis of left lower extremity: Current visit: Yes Status: Acute (7) Chronic diastolic congestive heart failure: Current visit: No Status: Chronic (8) Uncontrolled type 2 diabetes mellitus with hyperglycemia, without long-term current use of insulin: Current visit: No Status: Chronic (9) Obstructive sleep apnea syndrome: Current visit: No Status: Chronic Plan: Assessment/Plan Narrative: Sepsis present on admission with fever and leukocytosis. Presumed source cellulitis of the left lower extremity, probable chronic osteomyelitis. - this is the patient's third hospitalization in the last six months for infection in his left leg - past wound cultures have grown MSSA sensitive to cefazolin so will discontinue vancomycin and start cefazolin, no open wounds to culture now - plan for now will be to treat his sepsis with antibiotics and IV fluids, he likely will need more intervention on his left foot such as wound care or orthopedic evaluation, will defer this until he is more stable Acute metabolic encephalopathy secondary to sepsis - negative head CT - already beginning to clear with treatment of sepsis Elevated troponin without associated acute EKG changes - down trending, likely due to chronic kidney disease rather than ACS Atrial fibrillation on chronic anticoagulation - currently rate controlled, hold metoprolol due to lower blood pressures - continue warfarin, monitor INR Chronic kidney disease stage 3 - slightly worse from baseline, continue fluid resuscitation and monitor creatinine Chronic diastolic congestive heart failure without acute exacerbation - monitor volume status closely, restart diuretics as needed Type 2 diabetes - monitor blood sugars, restart glipizide when more alert Obstructive sleep apnea - CPAP Diabetic diet DVT prophylaxis: Warfarin Code status: Full code Disposition: I anticipate care of this patient across at least two midnights and likely more while treating sepsis and cellulitis. Will consult social work for discharge planning as he was obviously failing at home with no support. He is date at [facility] in the past after his previous hospitalizations. Quality VTE Deep Vein Thrombosis/Pulmonary Embolism Present on Admission: No
[2018-01-11 12:06] LABS: Enterococcus species Not Detected (Not Detect); Listeria monocytogenes Not Detected (Not Detect); Staphylococcus species Not Detected (Not Detect)
[2018-01-11 12:07] LABS: Acinetobacter baumannii Not Detected (Not Detect); Candida albicans Not Detected (Not Detect); Candida glabrata Not Detected (Not Detect); Candida krusei Not Detected (Not Detect); Candida parapsilosis Not Detected (Not Detect); Candida tropicalis Not Detected (Not Detect); E. coli Not Detected (Not Detect); Enterobacter cloacae complex Not Detected (Not Detect); Enterobacteriaceae species Not Detected (Not Detect); Haemophilus influenzae Not Detected (Not Detect); Neisseria meningitidis Not Detected (Not Detect); Proteus species Not Detected (Not Detect); Pseudomonas aeruginosa Not Detected (Not Detect); Serratia marcescens Not Detected (Not Detect); Streptococcus agalactiae (Gr B Detected (Not Detect); Streptococcus pneumonia Not Detected (Not Detect); Streptococcus pyogenes (Gr A) Not Detected (Not Detect); Streptococcus species Detected (Not Detect)
[2018-01-11] MEDS: WARFARIN 3 MG TABLET PO (17:30)
--- NOTE | 2018-01-11 22:03 | PC.NURSE ---
Patient answers questions with yes/no answers. Mostly noncommunicative- sighing when asked questions about pain/comfort. INquired if he would rather be home, and patient chucklled. Patient's daughter in to visit, and agreed patient not talking due to not feeling well. However denied pain/ discomfort when asked with each check. Breathing in the low 20's, large obese abdomen- says he sleeps in recliner at home. REluctant to reposition off his back. Daughter says patient's is in ICU @ [facility] on ventilator- has been ill for past several weeks.
[2018-01-12] VITALS (11 sets, daily range): BP systolic 112–132; BP diastolic 54–80; PULSE 80–82; RESP 17–22; TEMP 36.8–38.3; O2SAT 95–98
[2018-01-12] MEDS: CEFAZOLIN 2 GM/100 ML FROZ.PIGGY IV ×4 (00:28→23:48)
[2018-01-12] MEDS: ACETAMINOPHEN 325 MG TABLET 650 MG PO ×3 (00:29→23:50)
[2018-01-12 05:30] LABS: INR 2.1 (0.9-1.3); Prothrombin Time 22.9 SECONDS (10.1-12.7)
[2018-01-12 05:32] LABS: Hematocrit 30.4 % (41-53); Hemoglobin 9.8 g/dL (13.5-17.5); Mean Corpuscular HGB Conc 32.2 % (30-36); Mean Corpuscular Hemoglobin 24.7 PG (26-34); Mean Corpuscular Volume 76.6 fL (80-100); Platelet Count 107 X10^3/uL (150-400); Red Blood Cell Count 3.96 X10^6/uL (4.5-5.9); White Blood Cell Count 7.6 X10^3/uL (4.5-11.0)
[2018-01-12] MEDS: SODIUM CHLORIDE 0.9% 1,000 ML 150 ML IV (05:37)
[2018-01-12 05:44] LABS: Alanine Aminotransferase 81 IU/L (21-72); Albumin 2.8 g/dL (3.5-5.0); Albumin Globulin Ratio 0.8 (1.0-2.8); Alkaline Phosphatase 73 U/L (38-126); Aspartate Aminotransferase 97 IU/L (17-59); Bilirubin Total 1.8 mg/dL (0.2-1.3); Blood Urea Nitrogen 52 mg/dL (9-20); Calcium 7.8 mg/dL (8.4-10.2); Carbon Dioxide 20 mmol/L (22-32); Chloride 101 mmol/L (98-107); Globulin 3.5 g/dL (1.7-4.1); Glucose 157 mg/dL (80-110); HEMOLYSIS < 15 (0-50); Sodium 131 mmol/L (137-145); Total Protein 6.3 g/dL (6.3-8.2)
[2018-01-12 05:56] LABS: Add Manual Diff / Slide Review YES
--- NOTE | 2018-01-12 06:57 | PC.NURSE ---
Patient has been awake most of the night watching TV, calm and more interactive, expresses needs and uses call light appropriately, but still not answering some questions. Denies pain, PO Tylenol given for Temp 101.0, 98.8 in am. IV Abx given as ordered, tolerating NS @ 150ml/hr without respiratory distress, SpO2 >94% on RA, occas non-productive cough. Edema to LLE has decreased some, PPP.
[2018-01-12 08:01] LABS: Neutrophils Absolute Manual 5852 /uL (3000-5900); Nucleated Red Blood Cells 1 #/Diff; Ovalocytes 1+; Total Cells Counted 100
[2018-01-12] MEDS: PANTOPRAZOLE 20 MG TABLET PO ×2 (08:41→20:57)
[2018-01-12] MEDS: NYSTATIN 30 GM POWDER 1 APPLIC TOP (08:41)
[2018-01-12] MEDS: INSULIN ASPART 100 UNIT/ML INSULN PEN SUBCUT ×4 (08:41→20:56)
[2018-01-12] MEDS: glipiZIDE XL 5 MG TAB 10 MG PO (08:41)
[2018-01-12] MEDS: EPLERENONE 25 MG TABLET PO (08:41)
[2018-01-12] MEDS: DOCUSATE 100 MG CAPSULE PO (08:42)
--- NOTE | 2018-01-12 12:05 | P.PN_ITS ---
Subjective Date Patient Seen: 01/12/18 Time Patient Seen: 08:30 Interval history: No overnight events however patient was febrile. He is feeling significantly improved today though still quite tired. He is oriented and able to converse. Denies pain this morning. He is short of breath but states ?I am always short of breath and have been for a long time. His is hospitalized at [facility] in [place]. When asked why his in the hospital patient states, ?the short answer is dementia. He does not volunteer much information. Before this hospitalization he was home and sustained a fall. He was down for an unknown amount of time, he believes at least several hours but less than a day. Friends or acquaintances attempted to help him off the floor but were unsuccessful. Another neighbor or friend arrived to help in ultimately contacted EMS. Patient states [facility] because of his 's condition. Exam Vital Signs (past 8 hours): Vital Signs - 8 hr 3 01/12/18 04:00 01/12/18 05:35 01/12/18 06:00 Temperature 98.9 F 98.9 F Pulse Rate 81 80 Respiratory Rate 20 19 Blood Pressure 121/57 H 118/59 L Pulse Oximetry 95 96 3 01/12/18 07:38 Temperature 99.1 F Pulse Rate 82 Respiratory Rate 22 Blood Pressure 122/62 H Pulse Oximetry 96 Pulse Oximetry 96 Oxygen Delivery Method Room Air Oxygen Flow Rate 2 General: Obese older gentleman sitting up watching TV, NAD. Speaks in full sentences though breathing appears somewhat labored. HEENT: NCAT, EOMI, moist oral mucosa CV: Regular rate and rhythm, no murmurs, rubs or gallops Lungs: CTAB, no wheezes, rales, or rhonchi Abdomen: Large abdomen. Soft, nontender; bowel tones active; no hepatosplenomegaly Extremities: Darkening erythema of left lower extremity with 1+ edema. Black callus remains unchanged on the plantar surface of the fifth metatarsal. Trace edema of the right lower extremity. Objective Labs Result Diagrams: 01/12/18 04:50 01/12/18 04:50 Labs: Laboratory Results - last 24 hr 01/11/18 01/12/18 01/12/18 10:45 04:50 04:50 WBC 7.6 RBC 3.96 L Hgb 9.8 L Hct 30.4 L MCV 76.6 L MCH 24.7 L MCHC 32.2 RDW 18.0 H Plt Count 107 L Neut % (Auto) Not Reportable Lymph % (Auto) Not Reportable [place] % (Auto) Not Reportable Eos % (Auto) Not Reportable Baso % (Auto) Not Reportable Total Counted 100 Seg Neutrophils % 77.0 H Lymphocytes % (Manual) 13.0 L Monocytes % (Manual) 9.0 Eosinophils % (Manual) 1.0 L Neutrophils # (Manual) 5852 Nucleated RBCs 1 H RBC Morphology Not Reportable Ovalocytes 1+ H PT 22.9 H INR 2.1 H Sodium Potassium Chloride Carbon Dioxide BUN Creatinine Estimated GFR BUN/Creatinine Ratio Glucose Calcium Total Bilirubin AST ALT Alkaline Phosphatase Total Protein Albumin Globulin Albumin/Globulin Ratio A. baumannii (PCR) Not detected Mary albicans (PCR) Not detected C. glabrata (PCR) Not detected C. krusei (PCR) Not detected C. parapsilosis (PCR) Not detected C. tropicalis (PCR) Not detected Enterobacteriac sp PCR Not detected E. cloacae complex PCR Not detected Enterococcus sp PCR Not detected E. coli (PCR) Not detected H. influenzae (PCR) Not detected Klebsiella oxytoca PCR Not detected Klebsiella pneumoniae Not detected List. monocytogenes PCR Not detected N. meningitidis (PCR) Not detected Proteus species (PCR) Not detected Serratia marcescens PCR Not detected Staphylococcus sp PCR Not detected Staph aureus (PCR) Not detected mecA-Methicil Res Gene TNP Streptococcus sp PCR Detected H Group A Strep (PCR) Not detected Strep agalactiae (PCR) Detected H Strep pneumoniae (PCR) Not detected P. aeruginosa (PCR) Not detected Saranya/B-Vanco Res Genes TNP KPC-Carbap Res Gene PCR TNP 01/12/18 04:50 WBC RBC Hgb Hct MCV MCH MCHC RDW Plt Count Neut % (Auto) Lymph % (Auto) [place] % (Auto) Eos % (Auto) Baso % (Auto) Total Counted Seg Neutrophils % Lymphocytes % (Manual) Monocytes % (Manual) Eosinophils % (Manual) Neutrophils # (Manual) Nucleated RBCs RBC Morphology Ovalocytes PT INR Sodium 131 L Potassium 4.0 Chloride 101 Carbon Dioxide 20 L BUN 52 H Creatinine 2.60 H Estimated GFR 24.0 L BUN/Creatinine Ratio 20.0 Glucose 157 H Calcium 7.8 L Total Bilirubin 1.8 H AST 97 H ALT 81 H Alkaline Phosphatase 73 Total Protein 6.3 Albumin 2.8 L Globulin 3.5 Albumin/Globulin Ratio 0.8 L A. baumannii (PCR) Mary albicans (PCR) C. glabrata (PCR) C. krusei (PCR) C. parapsilosis (PCR) C. tropicalis (PCR) Enterobacteriac sp PCR E. cloacae complex PCR Enterococcus sp PCR E. coli (PCR) H. influenzae (PCR) Klebsiella oxytoca PCR Klebsiella pneumoniae List. monocytogenes PCR N. meningitidis (PCR) Proteus species (PCR) Serratia marcescens PCR Staphylococcus sp PCR Staph aureus (PCR) mecA-Methicil Res Gene Streptococcus sp PCR Group A Strep (PCR) Strep agalactiae (PCR) Strep pneumoniae (PCR) P. aeruginosa (PCR) Saranya/B-Vanco Res Genes KPC-Carbap Res Gene PCR Assessment & Plan (1) Sepsis: Qualifiers: Sepsis type: sepsis due to unspecified organism Qualified Code(s): A41.9 - Sepsis, unspecified organism Current visit: Yes Status: Acute (2) Cellulitis of left lower extremity: Current visit: Yes Status: Acute (3) Acute encephalopathy: Current visit: Yes Status: Acute (4) Chronic kidney disease, stage 3: Current visit: Yes Status: Chronic (5) Chronic diastolic congestive heart failure: Current visit: No Status: Chronic (6) Chronic obstructive pulmonary disease: Current visit: No Status: Chronic (7) Chronic atrial fibrillation: Current visit: No Status: Chronic (8) Uncontrolled type 2 diabetes mellitus with hyperglycemia, without long-term current use of insulin: Current visit: No Status: Chronic Plan: Assessment/Plan Narrative: Sepsis secondary to left lower extremity cellulitis - two of two blood cultures with group B strep, awaiting sensitivities - continue cefazolin - consider wound care consultation tomorrow for the left lower extremity wound Acute encephalopathy - resolved with treatment of sepsis Chronic diastolic congestive heart failure without acute exacerbation - monitoring volume status closely, will decrease IV fluids today, likely need to restart diuretics tomorrow Atrial fibrillation - hold metoprolol due to lower blood pressures - INR is therapeutic, continue warfarin Chronic kidney disease - slowly improving with IV fluid support - monitor daily Type 2 diabetes - continue glipizide, monitor blood sugars Disposition: Appreciate care management assistance with discharge planning. I expect patient will need to remain in the hospital several more days. There certainly are concerns about his ability to care for himself at home, especially during this time when his is hospitalized in [place]. [facility] has taken care of him in the past and is willing to have him again if needed. Quality VTE Deep Vein Thrombosis/Pulmonary Embolism Present on Admission: No
--- NOTE | 2018-01-12 13:06 | PT.IIE ---
Current Diagnoses Sepsis, unspecified organism (01/11/18) Type 2 diabetes mellitus with hyperglycemia (01/11/18) Obstructive sleep apnea (adult) (pediatric) (01/11/18) Encephalopathy, unspecified (01/11/18) Chronic atrial fibrillation (01/11/18) Chronic diastolic (congestive) heart failure (01/11/18) Chronic obstructive pulmonary disease, unspecified (01/11/18) Cellulitis of left lower limb (01/11/18) Chronic kidney disease, stage 3 (moderate) (01/11/18) Chronic kidney disease, unspecified (01/11/18) Abnormal levels of other serum enzymes (01/11/18) Surgical History (Last Reviewed 01/11/18 @ 12:15 by Baylee Rudolph DO) Prostate cancer (Chronic 04/03/11) History of knee replacement (10/12/13) Status post endoscopic retrograde cholangiopancreatography Status post laparoscopic cholecystectomy Medical History (Last Updated 01/12/18 @ 12:04 by Baylee Rudolph DO) Osteomyelitis of left foot (Chronic) Chronic obstructive pulmonary disease (Chronic 07/08/15) Chronic diastolic congestive heart failure (Chronic 05/23/15) Chronic atrial fibrillation (Chronic 02/17/15) Uncontrolled type 2 diabetes mellitus with hyperglycemia, without long-term current use of insulin (Chronic 08/20/17) Osteoarthritis, knee (Chronic) Hyperlipidemia (Chronic) Peripheral neuropathy (Chronic) Bilateral shoulder pain (Chronic) Coronary artery disease (Chronic) Current use of termite treater helper anticoagulation (Chronic) Diabetic foot ulcer (Chronic) Obstructive sleep apnea syndrome (Chronic 04/03/11) Gastroesophageal reflux disease without esophagitis (Chronic 04/03/11) Migraine with aura and without status migrainosus, not intractable (Chronic 04/03/11) Gout (Chronic 04/03/11) Essential hypertension (Chronic 12/14/11) 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) 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 I/ADLs including driving (was driving currently to [facility] to visit his ) . Social History Household Members spouse Living Arrangements House Number of Floors (Floors) Two Floors Number of Stairs To Enter/Railing? 10 bilateral rails. 6 steps bilateral rails inside. Home Environment Standard Height Toilet Walk in Shower Home Equipment Straight Cane Employment Status Retired Additional Social History Comment currently hospitalized @ [facility], reportedly on a ventilator currently. M2 PT-IP Current Condition Start: 01/12/18 12:55 Freq: Status: Active Protocol: Document 01/12/18 12:10 [facility] (Rec: 01/12/18 13:06 [facility] [email or web address]) Physical Therapy Current Condition Current Condition Evaluation Date 01/12/18 Treatment Diagnosis Sepsis, LLE cellulitis, confusion, impaired activity tolerance Onset Date 01/11/18 Precautions Other Precautions Contact precautions. M3 PT-IP Subjective Start: 01/12/18 12:55 Freq: Status: Active Protocol: Document 01/12/18 12:10 [facility] (Rec: 01/12/18 13:06 [facility] [email or web address]) Subjective Physical Therapy Visit Type Type Initial Evaluation Visit Start Time 11:45 Visit Stop Time 12:10 Total Visit Minutes 25 Number of FISH CONSERVATIONIST Visits 0 Physical Therapy Visit Comments Patient Comments Pt initially not wanting to mobilize but agreeable to stand. Patient/Caregiver Goals Get better. Therapy Pain Assessment Pain Present Pain Present Pain Reported Location Left Leg Pain Behaviors Facial Grimacing Wincing Pain Management Techniques Modification of Treatment M4 PT-IP Mobility and Gait Start: 01/12/18 12:55 Freq: Status: Active Protocol: Document 01/12/18 12:10 [facility] (Rec: 01/12/18 13:06 [facility] [email or web address]) PT-Bed Mobility Assessment Supine to Sit Supine to Sit Moderate Assistance 1 Person Assistance Scooting Scooting to Edge of Bed Moderate Assistance PT-Transfer Assessment Sit to and From Stand Sit to and from Stand Moderate Assistance 1 Person Assistance Equipment Transfer Assistive Device Gait Belt Front Wheeled Walker Transfers Transfer Destination Chair Transfer Technique Stand Step Pivot Transfer Ability Level of Assist Minimal Assistance 1 Person Assistance Comments Mobility Comments Decreased foot clearance, antalgic LLE in standing. Gait Assessment Comments Gait Comments not able to tolerate. PT-Balance Assessment Sitting Balance and Reactions Static Sitting Balance Ability Good Dynamic Sitting Balance Ability Good Standing Balance and Reactions Static Standing Balance Ability Fair Dynamic Standing Balance Ability Poor Device Used FWW M5 PT-IP Objective Assessments Start: 01/12/18 12:55 Freq: Status: Active Protocol: Document 01/12/18 12:10 [facility] (Rec: 01/12/18 13:06 [facility] [email or web address]) Orientation Orientation/Cognition Level of Alertness Alert Orientation Name Place Situation Safety Awareness Decreased Safety Awareness Strength Comments Strength Comments L hip flexion 3/5, R 3+/5; grossly 3+/5 Coordination Assessment Gross Coordination Gross Coordination WNL Sensation Assessment Sensation Gross Sensation Right LE Impaired Left LE Impaired Sensation Description Numbness Comments Sensation Comments peripheral neuropathy. M6 PT-IP Treatment Start: 01/12/18 12:55 Freq: Status: Active Protocol: Document 01/12/18 12:10 [facility] (Rec: 01/12/18 13:06 [facility] [email or web address]) Physical Therapy Treatment Education Education Provided Safety M7 PT-IP Assessment and Plan Start: 01/12/18 12:55 Freq: Status: Active Protocol: Document 01/12/18 12:10 [facility] (Rec: 01/12/18 13:06 [facility] [email or web address]) PT Summary Assessment and Plan Potential Rehabilitation Potential Good Status of Condition at Evaluation Evolving Summary Impairments Pain Strength Balance Sensation Cognition Bed Mobility Transfers Gait Activity Tolerance Assessment Summary Pt lethargic, able to respond appropriately to questions but flat affect. Pt agreeable to get up to standing and to chair, with increased coaxing. Overall, pt appears to be well below his functional baseline of an indep. community ambulator with a SPC and driving. He is not safe to return to his prior living situation at this time, and no caregiver assist at home. Pt would greatly from SNF rehabilitation upon d/c to promote a safe d/c, increase safety and activity tolerance, and to return to prior level of function. Goals Bed Mobility Goal Contact Guard Assistance Transfer Goal Contact Guard Assistance Gait Goal Contact Guard Assistance Gait Distance 150 Other Goals up/down 10 step with B rails and CGA Days to Meet Goals 5 Frequency of Treatment Frequency Of Treatment Twice a Day Treatment Plan Physical Therapy Treatment Plan Bed Mobility Training Transfer Training Gait Training Therapeutic Exercise Balance Retraining Discharge Planning Neuromuscular Re-ed Recommendations To Nursing Amount of Assist Needed 2 Person Assist Discharge Recommendations PT Discharge Recommendations SNF Rehab Provider Visit Care Team Role Provider Type Hernesto Campbell MD Family Provider Physician Primary Care Provider Specialty: Internal Medicine Price Hui DO Emergency Provider Physician Specialty: Emergency Medicine Baylee Rudolph DO Admit Provider Physician Attending Provider Other Providers Specialty: Family Practice
[2018-01-12] MEDS: SODIUM CHLORIDE 0.9% 1,000 ML 75 ML IV (13:37)
--- NOTE | 2018-01-12 14:05 | PC.NURSE ---
pt continues with flat affect at times not responding to questioning at all- he did get up to chair with PT - he lasted approx 15 minutes before requesting to go back to bed- declined in staff removing gus will come out tomorrow- this RN instructed him-he continues to have a npc and reports this as baseline-
--- NOTE | 2018-01-12 14:42 | PT.IPTN ---
Current Diagnoses Sepsis, unspecified organism (01/11/18) Type 2 diabetes mellitus with hyperglycemia (01/11/18) Obstructive sleep apnea (adult) (pediatric) (01/11/18) Encephalopathy, unspecified (01/11/18) Chronic atrial fibrillation (01/11/18) Chronic diastolic (congestive) heart failure (01/11/18) Chronic obstructive pulmonary disease, unspecified (01/11/18) Cellulitis of left lower limb (01/11/18) Chronic kidney disease, stage 3 (moderate) (01/11/18) Chronic kidney disease, unspecified (01/11/18) Abnormal levels of other serum enzymes (01/11/18) Physical Therapy Treatment Note M2 PT-IP Current Condition Start: 01/12/18 12:55 Freq: Status: Active Protocol: Document 01/12/18 12:10 [facility] (Rec: 01/12/18 13:06 [facility] [email or web address]) Physical Therapy Current Condition Current Condition Evaluation Date 01/12/18 Treatment Diagnosis Sepsis, LLE cellulitis, confusion, impaired activity tolerance Onset Date 01/11/18 Precautions Other Precautions Contact precautions. M3 PT-IP Subjective Start: 01/12/18 12:55 Freq: Status: Active Protocol: Document 01/12/18 14:20 [facility] (Rec: 01/12/18 14:41 [facility] [id number]) Subjective Physical Therapy Visit Type Type Treatment Note Visit Start Time 14:20 Visit Stop Time 14:30 Total Visit Minutes 10 Number of TRAILER TRUCK DRIVER Visits 1 Physical Therapy Visit Comments Patient Comments Pt refused to get OOB but agreed to bed ther ex. M4 PT-IP Mobility and Gait Start: 01/12/18 12:55 Freq: Status: Active Protocol: Document 01/12/18 12:10 [facility] (Rec: 01/12/18 13:06 [facility] [email or web address]) PT-Bed Mobility Assessment Supine to Sit Supine to Sit Moderate Assistance 1 Person Assistance Scooting Scooting to Edge of Bed Moderate Assistance PT-Transfer Assessment Sit to and From Stand Sit to and from Stand Moderate Assistance 1 Person Assistance Equipment Transfer Assistive Device Gait Belt Front Wheeled Walker Transfers Transfer Destination Chair Transfer Technique Stand Step Pivot Transfer Ability Level of Assist Minimal Assistance 1 Person Assistance Comments Mobility Comments Decreased foot clearance, antalgic LLE in standing. Gait Assessment Comments Gait Comments not able to tolerate. PT-Balance Assessment Sitting Balance and Reactions Static Sitting Balance Ability Good Dynamic Sitting Balance Ability Good Standing Balance and Reactions Static Standing Balance Ability Fair Dynamic Standing Balance Ability Poor Device Used FWW M5 PT-IP Objective Assessments Start: 01/12/18 12:55 Freq: Status: Active Protocol: Document 01/12/18 12:10 [facility] (Rec: 01/12/18 13:06 [facility] [email or web address]) Orientation Orientation/Cognition Level of Alertness Alert Orientation Name Place Situation Safety Awareness Decreased Safety Awareness Strength Comments Strength Comments L hip flexion 3/5, R 3+/5; grossly 3+/5 Coordination Assessment Gross Coordination Gross Coordination WNL Sensation Assessment Sensation Gross Sensation Right LE Impaired Left LE Impaired Sensation Description Numbness Comments Sensation Comments peripheral neuropathy. M6 PT-IP Treatment Start: 01/12/18 12:55 Freq: Status: Active Protocol: Document 01/12/18 14:20 [facility] (Rec: 01/12/18 14:41 [facility] [id number]) Physical Therapy Treatment Exercises Exercises Ankle Pumps Quad Sets Heel Slides M7 PT-IP Assessment and Plan Start: 01/12/18 12:55 Freq: Status: Active Protocol: Document 01/12/18 14:20 [facility] (Rec: 01/12/18 14:41 [facility] [id number]) PT Summary Assessment and Plan Potential Rehabilitation Potential Good Status of Condition at Evaluation Evolving Summary Impairments Pain Strength Balance Sensation Cognition Bed Mobility Transfers Gait Activity Tolerance Assessment Summary Pt refused to get OOB stating he was extremely fatigued but was willing to do ther ex in bed. Pt was able to perform 10 reps of each exercise only needing assist with heel slides do to socks not able to slip on bed sheets. Pt would benefit from skilled rehab to increase activity tolerance as he seems below his prior functional baseline at this time. Goals Bed Mobility Goal Contact Guard Assistance Transfer Goal Contact Guard Assistance Gait Goal Contact Guard Assistance Gait Distance 150 Other Goals up/down 10 step with B rails and CGA Days to Meet Goals 5 Frequency of Treatment Frequency Of Treatment Twice a Day Treatment Plan Physical Therapy Treatment Plan Bed Mobility Training Transfer Training Gait Training Therapeutic Exercise Balance Retraining Discharge Planning Neuromuscular Re-ed Recommendations To Nursing Amount of Assist Needed 2 Person Assist Discharge Recommendations PT Discharge Recommendations SNF Rehab
[2018-01-12] MEDS: WARFARIN 3 MG TABLET PO (17:18)
[2018-01-12] MEDS: ESCITALOPRAM 10 MG TABLET PO (17:18)
[2018-01-12] MEDS: TRAMADOL 50 MG TABLET PO (17:20)
--- NOTE | 2018-01-12 23:15 | PC.NURSE ---
pt not having pain control with tylenol. Pt does not want narcotics. Called and got order for tramadol. Pt says it did not help leg pain.
[2018-01-13] MEDS: SODIUM CHLORIDE 0.9% 1,000 ML 75 ML IV ×2 (03:36→17:13)
[2018-01-13] MEDS: TRAMADOL 50 MG TABLET PO ×3 (03:40→21:49)
[2018-01-13 03:41] VITALS: BP 134/71; PULSE 80; RESP 23; TEMP 37.3; O2SAT 95
[2018-01-13 05:32] LABS: Add Manual Diff / Slide Review NO; Basophils Percent Auto 0.3 % (0-2); Eosinophils Percent Auto 0.6 % (2-4); Hematocrit 32.8 % (41-53); Hemoglobin 10.5 g/dL (13.5-17.5); Lymphocytes Percent Auto 9.1 % (25-40); Mean Corpuscular HGB Conc 31.9 % (30-36); Mean Corpuscular Hemoglobin 24.5 PG (26-34); Mean Corpuscular Volume 76.8 fL (80-100); Monocytes Percent Auto 10.3 % (3-14); Neutrophils Absolute Auto 8200 /uL (3000-5900); Neutrophils Percent Auto 79.7 % (50-75); Platelet Count 116 X10^3/uL (150-400); Red Blood Cell Count 4.27 X10^6/uL (4.5-5.9); Red Cell Distribution Width 17.8 % (11.6-14.8); White Blood Cell Count 10.3 X10^3/uL (4.5-11.0)
[2018-01-13 05:39] LABS: Alanine Aminotransferase 37 IU/L (21-72); Albumin 3.1 g/dL (3.5-5.0); Albumin Globulin Ratio 0.9 (1.0-2.8); Alkaline Phosphatase 102 U/L (38-126); Aspartate Aminotransferase 94 IU/L (17-59); BUN Creatinine Ratio 19.2 (6-22); Bilirubin Total 1.6 mg/dL (0.2-1.3); Blood Urea Nitrogen 46 mg/dL (9-20); Calcium 8.1 mg/dL (8.4-10.2); Carbon Dioxide 20 mmol/L (22-32); Chloride 100 mmol/L (98-107); Estimated Glomerular Filt Rate 26.3 mL/min (>60); Globulin 3.6 g/dL (1.7-4.1); Glucose 157 mg/dL (80-110); HEMOLYSIS < 15 (0-50); Potassium 4.1 mmol/L (3.4-5.1); Sodium 134 mmol/L (137-145); Total Protein 6.7 g/dL (6.3-8.2)
[2018-01-13 06:15] LABS: INR 3.6 (0.9-1.3); Prothrombin Time 38.3 SECONDS (10.1-12.7)
--- NOTE | 2018-01-13 08:21 | PM.PN.1 ---
Subjective Date Patient Seen: 01/13/18 Time Patient Seen: 08:21 Interval history: Patient seems to be at or near baseline from a mental status standpoint to me this morning. He is somewhat slow to answer but he normally is. Can't tell me a lot of detail about his who is hospitalized in [place] because of a significant aortic dissection (she is also my patient so I have basic details). He says he is not having any pain in his leg right now. Feels somewhat better today than he did when he 1st came to the hospital. Does not have a lot of recollection about the last couple of days at home prior to coming to the hospital. Exam Vital Signs (past 8 hours): Vital Signs - 8 hr 01/13/18 03:41 Temperature 99.1 F Pulse Rate 80 Respiratory Rate 23 Blood Pressure 134/71 H Pulse Oximetry 95 Pulse Oximetry 95 Oxygen Delivery Method Room Air Oxygen Flow Rate 2 Narrative Exam Narrative: Chronically ill-appearing elderly male in no obvious distress lying in hospital bed in the ICU HEENT-unremarkable, normocephalic atraumatic Neck-no lymphadenopathy no bruits Lungs-clear anteriorly and posteriorly no wheezes no crackles good breath sounds Heart-irregular rate and rhythm no murmur rub or gallop normal S1-S2 Abdomen-positive bowel tones soft nontender nondistended no hepatosplenomegaly no masses palpable Neuro-alert and oriented to self and place and myself, no focal defects, gait not tested Extremities-bilateral lower extremity chronic edema with bright red erythema left lower extremity that is also warm to the touch, right lower extremity shows chronic darker colored erythema that is not warm, 3+ pitting edema pretibial areas bilaterally, eschar right toe unchanged from previous Objective Labs Result Diagrams: 01/13/18 04:43 01/13/18 04:43 Labs: Laboratory Results - last 24 hr 01/13/18 01/13/18 01/13/18 04:43 04:43 04:43 WBC 10.3 RBC 4.27 L Hgb 10.5 L Hct 32.8 L MCV 76.8 L MCH 24.5 L MCHC 31.9 RDW 17.8 H Plt Count 116 L Neut % (Auto) 79.7 H Lymph % (Auto) 9.1 L [place] % (Auto) 10.3 Eos % (Auto) 0.6 L Baso % (Auto) 0.3 Neut # (Auto) 8200 H PT 38.3 H D INR 3.6 H Sodium 134 L Potassium 4.1 Chloride 100 Carbon Dioxide 20 L BUN 46 H Creatinine 2.40 H Estimated GFR 26.3 L BUN/Creatinine Ratio 19.2 Glucose 157 H Calcium 8.1 L Total Bilirubin 1.6 H AST 94 H ALT 37 Alkaline Phosphatase 102 Total Protein 6.7 Albumin 3.1 L Globulin 3.6 Albumin/Globulin Ratio 0.9 L Assessment & Plan Plan: Assessment/Plan Narrative: 1. Sepsis secondary to lower extremity cellulitis infection now growing group B strep from blood. On appropriate IV antibiotics. Vital signs stabilized. White count now normal. Continue with current therapies. 2. Acute on chronic renal failure-numbers continue to improve with IV hydration. Continue with current IV fluids without change. Will probably need to institute some element of diuretic therapy next 24-48 hours. Patient's baseline creatinine is somewhere between 1.6 and 2.2 or so. 3. Chronic anticoagulation-patient is super therapeutic this morning. Will hold warfarin and recheck tomorrow. Likely due to multiple factors as above. 4. Chronic atrial fibrillation-patient is adequately rate controlled 5. COPD-patient seems to be asymptomatic at this time. Continue with current meds. 6. Metabolic encephalopathy-patient appears to be either cleared or certainly very near having completely cleared his encephalopathic picture from previous. 7. Type 2 diabetes-patient's numbers are not out of control but not well controlled. We will advance his coverage regimen. 8. Disposition-seems unlikely the patient will be able to go home. Will insure social director and physical therapy are consulted regarding discharge planning. Will probably need to go to [facility] upon discharge. Anticipate several more days in the hospital however. Quality VTE Deep Vein Thrombosis/Pulmonary Embolism Present on Admission: No
[2018-01-13 08:23] VITALS: BP 151/80; PULSE 82; RESP 24; TEMP 37.1; O2SAT 95
--- NOTE | 2018-01-13 08:26 | P.PN_ITS ---
Subjective Date Patient Seen: 01/13/18 Time Patient Seen: 08:21 Interval history: Patient seems to be at or near baseline from a mental status standpoint to me this morning. He is somewhat slow to answer but he normally is. Can't tell me a lot of detail about his who is hospitalized in [place] because of a significant aortic dissection (she is also my patient so I have basic details). He says he is not having any pain in his leg right now. Feels somewhat better today than he did when he 1st came to the hospital. Does not have a lot of recollection about the last couple of days at home prior to coming to the hospital. Exam Vital Signs (past 8 hours): Vital Signs - 8 hr 3 01/13/18 03:41 Temperature 99.1 F Pulse Rate 80 Respiratory Rate 23 Blood Pressure 134/71 H Pulse Oximetry 95 Pulse Oximetry 95 Oxygen Delivery Method Room Air Oxygen Flow Rate 2 Narrative Exam Narrative: Chronically ill-appearing elderly male in no obvious distress lying in hospital bed in the ICU HEENT-unremarkable, normocephalic atraumatic Neck-no lymphadenopathy no bruits Lungs-clear anteriorly and posteriorly no wheezes no crackles good breath sounds Heart-irregular rate and rhythm no murmur rub or gallop normal S1-S2 Abdomen-positive bowel tones soft nontender nondistended no hepatosplenomegaly no masses palpable Neuro-alert and oriented to self and place and myself, no focal defects, gait not tested Extremities-bilateral lower extremity chronic edema with bright red erythema left lower extremity that is also warm to the touch, right lower extremity shows chronic darker colored erythema that is not warm, 3+ pitting edema pretibial areas bilaterally, eschar right toe unchanged from previous Objective Labs Result Diagrams: 01/13/18 04:43 01/13/18 04:43 Labs: Laboratory Results - last 24 hr 01/13/18 01/13/18 01/13/18 04:43 04:43 04:43 WBC 10.3 RBC 4.27 L Hgb 10.5 L Hct 32.8 L MCV 76.8 L MCH 24.5 L MCHC 31.9 RDW 17.8 H Plt Count 116 L Neut % (Auto) 79.7 H Lymph % (Auto) 9.1 L [place] % (Auto) 10.3 Eos % (Auto) 0.6 L Baso % (Auto) 0.3 Neut # (Auto) 8200 H PT 38.3 H D INR 3.6 H Sodium 134 L Potassium 4.1 Chloride 100 Carbon Dioxide 20 L BUN 46 H Creatinine 2.40 H Estimated GFR 26.3 L BUN/Creatinine Ratio 19.2 Glucose 157 H Calcium 8.1 L Total Bilirubin 1.6 H AST 94 H ALT 37 Alkaline Phosphatase 102 Total Protein 6.7 Albumin 3.1 L Globulin 3.6 Albumin/Globulin Ratio 0.9 L Assessment & Plan Plan: Assessment/Plan Narrative: 1. Sepsis secondary to lower extremity cellulitis infection now growing group B strep from blood. On appropriate IV antibiotics. Vital signs stabilized. White count now normal. Continue with current therapies. 2. Acute on chronic renal failure-numbers continue to improve with IV hydration. Continue with current IV fluids without change. Will probably need to institute some element of diuretic therapy next 24-48 hours. Patient's baseline creatinine is somewhere between 1.6 and 2.2 or so. 3. Chronic anticoagulation-patient is super therapeutic this morning. Will hold warfarin and recheck tomorrow. Likely due to multiple factors as above. 4. Chronic atrial fibrillation-patient is adequately rate controlled 5. COPD-patient seems to be asymptomatic at this time. Continue with current meds. 6. Metabolic encephalopathy-patient appears to be either cleared or certainly very near having completely cleared his encephalopathic picture from previous. 7. Type 2 diabetes-patient's numbers are not out of control but not well controlled. We will advance his coverage regimen. 8. Disposition-seems unlikely the patient will be able to go home. Will insure social work coordinator and physical therapy are consulted regarding discharge planning. Will probably need to go to jail upon discharge. Anticipate several more days in the hospital however. Quality VTE Deep Vein Thrombosis/Pulmonary Embolism Present on Admission: No
[2018-01-13] MEDS: CEFAZOLIN 2 GM/100 ML FROZ.PIGGY IV ×2 (08:50→17:12)
--- NOTE | 2018-01-13 08:51 | PT.IPTN ---
Current Diagnoses Sepsis, unspecified organism (01/11/18) Type 2 diabetes mellitus with hyperglycemia (01/11/18) Obstructive sleep apnea (adult) (pediatric) (01/11/18) Encephalopathy, unspecified (01/11/18) Chronic atrial fibrillation (01/11/18) Chronic diastolic (congestive) heart failure (01/11/18) Chronic obstructive pulmonary disease, unspecified (01/11/18) Cellulitis of left lower limb (01/11/18) Chronic kidney disease, stage 3 (moderate) (01/11/18) Chronic kidney disease, unspecified (01/11/18) Abnormal levels of other serum enzymes (01/11/18) Physical Therapy Treatment Note Subjective Physical Therapy Visit Type Type Administrative Note Visit Start Time 08:50 Visit Stop Time 08:50 Total Visit Minutes 0 Notes Pt refused all attempts at any form of mobility or exercises . Pt rather short and impatient with this public relations writer, requesting we just leave him alone to sleep.
[2018-01-13] MEDS: EPLERENONE 25 MG TABLET PO (08:52)
[2018-01-13] MEDS: NYSTATIN 30 GM POWDER 1 APPLIC TOP (08:52)
[2018-01-13] MEDS: PANTOPRAZOLE 20 MG TABLET PO ×2 (08:52→21:46)
[2018-01-13] MEDS: glipiZIDE XL 5 MG TAB 10 MG PO (08:52)
[2018-01-13] MEDS: INSULIN ASPART 100 UNIT/ML INSULN PEN 6 UNIT SUBCUT ×2 (08:52→12:17)
[2018-01-13] MEDS: ACETAMINOPHEN 325 MG TABLET 650 MG PO (08:59)
[2018-01-13] MEDS: DOCUSATE 100 MG CAPSULE PO (09:00)
[2018-01-13] MEDS: ESCITALOPRAM 10 MG TABLET PO (09:00)
[2018-01-13] MEDS: INSULIN ASPART 100 UNIT/ML INSULN PEN SUBCUT ×3 (12:19→21:46)
[2018-01-13 14:04] VITALS: BP 134/62; PULSE 82; RESP 18; TEMP 37.1; O2SAT 95
--- NOTE | 2018-01-13 14:32 | PC.NURSE ---
pt doing better this date- able to sit on edge of bed unassisted - has refused pt but is more verbal- pt refused weber removal today- told him it will be removed 01-14-18 in am he is agreeable to this
[2018-01-13 16:13] VITALS: BP 139/62; PULSE 81; RESP 14; TEMP 37.5; O2SAT 96
--- NOTE | 2018-01-13 16:38 | PT.IPTN ---
Current Diagnoses Sepsis, unspecified organism (01/11/18) Type 2 diabetes mellitus with hyperglycemia (01/11/18) Obstructive sleep apnea (adult) (pediatric) (01/11/18) Encephalopathy, unspecified (01/11/18) Chronic atrial fibrillation (01/11/18) Chronic diastolic (congestive) heart failure (01/11/18) Chronic obstructive pulmonary disease, unspecified (01/11/18) Cellulitis of left lower limb (01/11/18) Chronic kidney disease, stage 3 (moderate) (01/11/18) Chronic kidney disease, unspecified (01/11/18) Abnormal levels of other serum enzymes (01/11/18) Physical Therapy Treatment Note M2 PT-IP Current Condition Start: 01/12/18 12:55 Freq: Status: Active Protocol: Document 01/12/18 12:10 RCC (Rec: 01/12/18 13:06 RCC [id number]) Physical Therapy Current Condition Current Condition Evaluation Date 01/12/18 Treatment Diagnosis Sepsis, LLE cellulitis, confusion, impaired activity tolerance Onset Date 01/11/18 Precautions Other Precautions Contact precautions. M3 PT-IP Subjective Start: 01/12/18 12:55 Freq: Status: Active Protocol: Document 01/13/18 16:36 TMS (Rec: 01/13/18 16:37 TMS [id number]) Subjective Physical Therapy Visit Type Type Patient Refusal Physical Therapy Visit Comments Patient Comments Pt. states he was up this morning, not willing to get up again. Will check on pt. in AM. M4 PT-IP Mobility and Gait Start: 01/12/18 12:55 Freq: Status: Active Protocol: Document 01/12/18 12:10 RCC (Rec: 01/12/18 13:06 RCC [email or web address]) PT-Bed Mobility Assessment Supine to Sit Supine to Sit Moderate Assistance 1 Person Assistance Scooting Scooting to Edge of Bed Moderate Assistance PT-Transfer Assessment Sit to and From Stand Sit to and from Stand Moderate Assistance 1 Person Assistance Equipment Transfer Assistive Device Gait Belt Front Wheeled Walker Transfers Transfer Destination Chair Transfer Technique Stand Step Pivot Transfer Ability Level of Assist Minimal Assistance 1 Person Assistance Comments Mobility Comments Decreased foot clearance, antalgic LLE in standing. Gait Assessment Comments Gait Comments not able to tolerate. PT-Balance Assessment Sitting Balance and Reactions Static Sitting Balance Ability Good Dynamic Sitting Balance Ability Good Standing Balance and Reactions Static Standing Balance Ability Fair Dynamic Standing Balance Ability Poor Device Used FWW M5 PT-IP Objective Assessments Start: 01/12/18 12:55 Freq: Status: Active Protocol: Document 01/12/18 12:10 RCC (Rec: 01/12/18 13:06 RCC [email or web address]) Orientation Orientation/Cognition Level of Alertness Alert Orientation Name Place Situation Safety Awareness Decreased Safety Awareness Strength Comments Strength Comments L hip flexion 3/5, R 3+/5; grossly 3+/5 Coordination Assessment Gross Coordination Gross Coordination WNL Sensation Assessment Sensation Gross Sensation Right LE Impaired Left LE Impaired Sensation Description Numbness Comments Sensation Comments peripheral neuropathy. M6 PT-IP Treatment Start: 01/12/18 12:55 Freq: Status: Active Protocol: Document 01/12/18 14:20 CLB (Rec: 01/12/18 14:41 CLB [id number]) Physical Therapy Treatment Exercises Exercises Ankle Pumps Quad Sets Heel Slides M7 PT-IP Assessment and Plan Start: 01/12/18 12:55 Freq: Status: Active Protocol: Document 01/12/18 14:20 CLB (Rec: 01/12/18 14:41 CLB [id number]) PT Summary Assessment and Plan Potential Rehabilitation Potential Good Status of Condition at Evaluation Evolving Summary Impairments Pain Strength Balance Sensation Cognition Bed Mobility Transfers Gait Activity Tolerance Assessment Summary Pt refused to get OOB stating he was extremely fatigued but was willing to do ther ex in bed. Pt was able to perform 10 reps of each exercise only needing assist with heel slides do to socks not able to slip on bed sheets. Pt would benefit from skilled rehab to increase activity tolerance as he seems below his prior functional baseline at this time. Goals Bed Mobility Goal Contact Guard Assistance Transfer Goal Contact Guard Assistance Gait Goal Contact Guard Assistance Gait Distance 150 Other Goals up/down 10 step with B rails and CGA Days to Meet Goals 5 Frequency of Treatment Frequency Of Treatment Twice a Day Treatment Plan Physical Therapy Treatment Plan Bed Mobility Training Transfer Training Gait Training Therapeutic Exercise Balance Retraining Discharge Planning Neuromuscular Re-ed Recommendations To Nursing Amount of Assist Needed 2 Person Assist Discharge Recommendations PT Discharge Recommendations SNF Rehab
[2018-01-13 21:00] VITALS: BP 121/55; PULSE 78; RESP 16; TEMP 37.1; O2SAT 95
--- NOTE | 2018-01-13 23:14 | PC.NURSE ---
veronica note pt refused to work with phys. therapy this afternoon. Later in shift, pt wanted to sit at edge of bed. Pt required 2 person assist to get to edge of bed. Max assist with FWW to stand pt and do side steps to reposition higher inbed. Pt initally refused offer of tylenol and tramadol, but accepted tramadol at bedtime.
[2018-01-14] VITALS (7 sets, daily range): BP systolic 123–146; BP diastolic 54–76; PULSE 76–84; RESP 17–20; TEMP 36.6–37.3; O2SAT 94–97
[2018-01-14] MEDS: CEFAZOLIN 2 GM/100 ML FROZ.PIGGY IV ×3 (00:15→15:45)
[2018-01-14 05:13] LABS: Blood Urea Nitrogen 44 mg/dL (9-20); Calcium 8.2 mg/dL (8.4-10.2); Carbon Dioxide 20 mmol/L (22-32); Chloride 102 mmol/L (98-107); Estimated Glomerular Filt Rate 29.1 mL/min (>60); Glucose 135 mg/dL (80-110); HEMOLYSIS < 15 (0-50); Potassium 3.7 mmol/L (3.4-5.1); Sodium 134 mmol/L (137-145)
[2018-01-14 05:38] LABS: INR 6.3 (0.9-1.3)
[2018-01-14 05:39] LABS: Prothrombin Time 67.8 SECONDS (10.1-12.7)
--- NOTE | 2018-01-14 07:49 | PM.PN.1 ---
Subjective Date Patient Seen: 01/14/18 Time Patient Seen: 07:49 Interval history: Patient appears to be doing better. I think his mental status is actually improving. May have been a bit optimistic yesterday about his return to baseline but I do think he is closer to that today than yesterday. He and I were able have a reasonable conversation about his 's medical history and status in the hospital in [place]. (I received a large volume of records from [facility] on her yesterday) No new complaints. Was able to get up with physical therapy yesterday morning but refused in the afternoon. Exam Vital Signs (past 8 hours): Vital Signs - 8 hr 01/14/18 00:00 01/14/18 00:15 01/14/18 04:00 Temperature 98.5 F 98.7 F Pulse Rate 80 84 Respiratory Rate 17 17 Blood Pressure 146/76 H 141/71 H Pulse Oximetry 96 94 97 Pulse Oximetry 97 Oxygen Delivery Method Room Air Oxygen Flow Rate 0 Narrative Exam Narrative: HEENT-unremarkable, normocephalic atraumatic Neck-no lymphadenopathy no bruits Lungs-clear anteriorly and posteriorly no wheezes no crackles diminished breath sounds bilaterally Heart-regular rate and rhythm no murmur rub or gallop normal S1-S2 Abdomen-positive bowel tones soft nontender nondistended no hepatosplenomegaly no masses palpable Neuro-normal to screening exam, gait not tested Extremities-erythema left lower extremity less bright red/pink and becoming darker, leg is also less warm than yesterday and similar to right side, basically improved Objective Labs Result Diagrams: 01/13/18 04:43 01/14/18 04:38 Labs: Laboratory Results - last 24 hr 01/14/18 01/14/18 04:38 04:38 PT 67.8 H D INR 6.3 H* Sodium 134 L Potassium 3.7 Chloride 102 Carbon Dioxide 20 L BUN 44 H Creatinine 2.20 H Estimated GFR 29.1 L BUN/Creatinine Ratio 20.0 Glucose 135 H Calcium 8.2 L Assessment & Plan Plan: Assessment/Plan Narrative: 1. Sepsis-resolved 2. Cellulitis left lower extremity-appears to be improving slowly. Has chronic venous stasis changes and this is present bilaterally of course. However he has improving erythema decreased edema and his temperature or the palpable warmth of the left lower extremity is if not back to baseline almost there. White count remained normal as of yesterday. No changed antibiotic therapy 3. Acute on chronic renal failure-numbers continue to improve. I am concerned about volume overload now at this point which has been an issue for this patient with significant diastolic dysfunction. I am going to therefore DC IV fluids and monitor carefully. 4. Chronic anticoagulation-patient remains supratherapeutic with an INR that actually went up. I am going to DC the warfarin altogether and give some vitamin K over the next 3 days. Patient's risk due to excessive anticoagulation is higher than his risk of lack of anticoagulation. 5. COPD-patient is relatively asymptomatic. Having a bit more dyspnea which has always been difficult to sort out with him whether it is primary lung disease verses congestive heart failure versus other 6. Metabolic encephalopathy-patient appears to be approaching baseline. There still seems to be a overall slowness to his cognition but he was able to tell me for instance this morning that he was expecting a [employer] baseball game at 7 when he finally realized it was morning not evening and he laughed at that. I think he is not quite normal but approaching same 7. Type 2 diabetes-numbers do appear to be improved with changes to insulin regimen yesterday. I am not going to make further changes today but if necessary we will alter again tomorrow 8. Disposition-patient clearly needs snf. Continue with physical therapy and when appropriate occupational therapy. He is probably within 3 days or so plus-minus a couple of days from discharge from medical standpoint. Quality VTE Deep Vein Thrombosis/Pulmonary Embolism Present on Admission: No
--- NOTE | 2018-01-14 07:56 | P.PN_ITS ---
Subjective Date Patient Seen: 01/14/18 Time Patient Seen: 07:49 Interval history: Patient appears to be doing better. I think his mental status is actually improving. May have been a bit optimistic yesterday about his return to baseline but I do think he is closer to that today than yesterday. He and I were able have a reasonable conversation about his 's medical history and status in the hospital in [place]. (I received a large volume of records from [facility] on her yesterday) No new complaints. Was able to get up with physical therapy yesterday morning but refused in the afternoon. Exam Vital Signs (past 8 hours): Vital Signs - 8 hr 3 01/14/18 00:00 01/14/18 00:15 01/14/18 04:00 Temperature 98.5 F 98.7 F Pulse Rate 80 84 Respiratory Rate 17 17 Blood Pressure 146/76 H 141/71 H Pulse Oximetry 96 94 97 Pulse Oximetry 97 Oxygen Delivery Method Room Air Oxygen Flow Rate 0 Narrative Exam Narrative: HEENT-unremarkable, normocephalic atraumatic Neck-no lymphadenopathy no bruits Lungs-clear anteriorly and posteriorly no wheezes no crackles diminished breath sounds bilaterally Heart-regular rate and rhythm no murmur rub or gallop normal S1-S2 Abdomen-positive bowel tones soft nontender nondistended no hepatosplenomegaly no masses palpable Neuro-normal to screening exam, gait not tested Extremities-erythema left lower extremity less bright red/pink and becoming darker, leg is also less warm than yesterday and similar to right side, basically improved Objective Labs Result Diagrams: 01/13/18 04:43 01/14/18 04:38 Labs: Laboratory Results - last 24 hr 01/14/18 01/14/18 04:38 04:38 PT 67.8 H D INR 6.3 H* Sodium 134 L Potassium 3.7 Chloride 102 Carbon Dioxide 20 L BUN 44 H Creatinine 2.20 H Estimated GFR 29.1 L BUN/Creatinine Ratio 20.0 Glucose 135 H Calcium 8.2 L Assessment & Plan Plan: Assessment/Plan Narrative: 1. Sepsis-resolved 2. Cellulitis left lower extremity-appears to be improving slowly. Has chronic venous stasis changes and this is present bilaterally of course. However he has improving erythema decreased edema and his temperature or the palpable warmth of the left lower extremity is if not back to baseline almost there. White count remained normal as of yesterday. No changed antibiotic therapy 3. Acute on chronic renal failure-numbers continue to improve. I am concerned about volume overload now at this point which has been an issue for this patient with significant diastolic dysfunction. I am going to therefore DC IV fluids and monitor carefully. 4. Chronic anticoagulation-patient remains supratherapeutic with an INR that actually went up. I am going to DC the warfarin altogether and give some vitamin K over the next 3 days. Patient's risk due to excessive anticoagulation is higher than his risk of lack of anticoagulation. 5. COPD-patient is relatively asymptomatic. Having a bit more dyspnea which has always been difficult to sort out with him whether it is primary lung disease verses congestive heart failure versus other 6. Metabolic encephalopathy-patient appears to be approaching baseline. There still seems to be a overall slowness to his cognition but he was able to tell me for instance this morning that he was expecting a [employer] baseball game at 7 when he finally realized it was morning not evening and he laughed at that. I think he is not quite normal but approaching same 7. Type 2 diabetes-numbers do appear to be improved with changes to insulin regimen yesterday. I am not going to make further changes today but if necessary we will alter again tomorrow 8. Disposition-patient clearly needs shelter. Continue with physical therapy and when appropriate occupational therapy. He is probably within 3 days or so plus-minus a couple of days from discharge from medical standpoint. Quality VTE Deep Vein Thrombosis/Pulmonary Embolism Present on Admission: No
[2018-01-14] MEDS: PHYTONADIONE (VIT K1) 5 MG TABLET 10 MG PO (08:10)
[2018-01-14] MEDS: EPLERENONE 25 MG TABLET PO (08:13)
[2018-01-14] MEDS: glipiZIDE XL 5 MG TAB 10 MG PO (08:13)
[2018-01-14] MEDS: ESCITALOPRAM 10 MG TABLET PO (08:13)
[2018-01-14] MEDS: INSULIN ASPART 100 UNIT/ML INSULN PEN 6 UNIT SUBCUT ×3 (08:14→17:17)
[2018-01-14] MEDS: PANTOPRAZOLE 20 MG TABLET PO ×2 (08:14→20:34)
--- NOTE | 2018-01-14 10:46 | CM.DPC ---
DCP Cont: Per MD, pt making progress but likely still here another couple days before d/c to SNF. [facility] has accepted. SW met bedside with pt and explained role and pt confirmed that he is agreeable with d/c plan to [facility] before safe return home. SW provided his Medicare Rights and pt signed his Medicare Message. Plan: SW to follow for pt d/c to [facility] when medically stable. SW to keep family updated if not bedside at d/c. JAMES Shaw
[2018-01-14] MEDS: TRAMADOL 50 MG TABLET PO ×2 (10:56→20:32)
[2018-01-14] MEDS: INSULIN ASPART 100 UNIT/ML INSULN PEN SUBCUT ×2 (12:41→17:17)
--- NOTE | 2018-01-14 15:25 | PT.IPTN ---
Current Diagnoses Sepsis, unspecified organism (01/11/18) Type 2 diabetes mellitus with hyperglycemia (01/11/18) Obstructive sleep apnea (adult) (pediatric) (01/11/18) Encephalopathy, unspecified (01/11/18) Chronic atrial fibrillation (01/11/18) Chronic diastolic (congestive) heart failure (01/11/18) Chronic obstructive pulmonary disease, unspecified (01/11/18) Cellulitis of left lower limb (01/11/18) Chronic kidney disease, stage 3 (moderate) (01/11/18) Chronic kidney disease, unspecified (01/11/18) Abnormal levels of other serum enzymes (01/11/18) Physical Therapy Treatment Note M2 PT-IP Current Condition Start: 01/12/18 12:55 Freq: Status: Active Protocol: Document 01/12/18 12:10 RCC (Rec: 01/12/18 13:06 RCC [id number]) Physical Therapy Current Condition Current Condition Evaluation Date 01/12/18 Treatment Diagnosis Sepsis, LLE cellulitis, confusion, impaired activity tolerance Onset Date 01/11/18 Precautions Other Precautions Contact precautions. M3 PT-IP Subjective Start: 01/12/18 12:55 Freq: Status: Active Protocol: Document 01/14/18 15:22 AB (Rec: 01/14/18 15:25 AB [id number]) Subjective Physical Therapy Visit Type Type Patient Unavailable Notes checked with pt and pt refused therapy. educated pt regarding importance of therapy and pt got agitated when asked to do therapy again . pt stated that he understands but also adamantly staing I told you already, I don't want to do it. informed nurse. pt with repeated refusals and has refused since eval. nurse aware that pt will be discharged from PT at this time until pt is willing to participate. nurse agreed. Pt will be d/c'd from PT.
[2018-01-14] MEDS: ACETAMINOPHEN 325 MG TABLET 650 MG PO (15:45)
[2018-01-14] MEDS: NYSTATIN 30 GM POWDER 1 APPLIC TOP (20:34)
[2018-01-14] MEDS: MAGNESIUM HYDROXIDE 30 ML UDC PO (20:52)
--- NOTE | 2018-01-14 21:27 | PC.NURSE ---
Pt daughter request pain rx. States that pt is moaning. Pt reports pain 6 of 10 to LLE. LE elevated, erythemic and warm to touch. Faint pulses. Tramadol given. Discussed bowel meds, pt agreeable to take MOM. Snack provided.
[2018-01-15] MEDS: CEFAZOLIN 2 GM/100 ML FROZ.PIGGY IV ×3 (00:29→16:34)
[2018-01-15] MEDS: ACETAMINOPHEN 325 MG TABLET 650 MG PO (00:29)
[2018-01-15 00:36] VITALS: BP 138/66; PULSE 84; RESP 22; TEMP 36.9; O2SAT 94
[2018-01-15 04:53] VITALS: BP 139/58; PULSE 95; RESP 20; TEMP 36.9; O2SAT 94
[2018-01-15 05:48] LABS: BUN Creatinine Ratio 20.5 (6-22); Blood Urea Nitrogen 43 mg/dL (9-20); Calcium 8.3 mg/dL (8.4-10.2); Carbon Dioxide 20 mmol/L (22-32); Chloride 103 mmol/L (98-107); Estimated Glomerular Filt Rate 30.7 mL/min (>60); Glucose 125 mg/dL (80-110); HEMOLYSIS < 15 (0-50); Potassium 3.6 mmol/L (3.4-5.1); Sodium 137 mmol/L (137-145)
[2018-01-15 05:49] LABS: Add Manual Diff / Slide Review NO; Basophils Percent Auto 0.5 % (0-2); Eosinophils Percent Auto 2.5 % (2-4); Hematocrit 32.3 % (41-53); Hemoglobin 10.5 g/dL (13.5-17.5); Lymphocytes Percent Auto 9.2 % (25-40); Mean Corpuscular HGB Conc 32.5 % (30-36); Mean Corpuscular Hemoglobin 24.5 PG (26-34); Mean Corpuscular Volume 75.6 fL (80-100); Monocytes Percent Auto 7.7 % (3-14); Neutrophils Absolute Auto 7700 /uL (3000-5900); Neutrophils Percent Auto 80.1 % (50-75); Platelet Count 157 X10^3/uL (150-400); Red Blood Cell Count 4.28 X10^6/uL (4.5-5.9); Red Cell Distribution Width 18.3 % (11.6-14.8); White Blood Cell Count 9.6 X10^3/uL (4.5-11.0)
[2018-01-15 05:55] LABS: INR 2.2 (0.9-1.3); Prothrombin Time 23.6 SECONDS (10.1-12.7)
--- NOTE | 2018-01-15 06:42 | PC.NURSE ---
Patient has been offered urinal or toileting throughout night, has refused need to void and brief has been dry. This am at 0615 says his brief is wet, but refused to allow staff to change it at this time, he will be assist to shower soon, states I don't want a new brief on now, then have to have another one after I shower Patient is irritable.
[2018-01-15 07:39] VITALS: BP 126/71; PULSE 79; RESP 20; TEMP 36.8; O2SAT 95
--- NOTE | 2018-01-15 07:53 | P.PN_ITS ---
Subjective Date Patient Seen: 01/15/18 Time Patient Seen: 07:52 Interval history: Patient really has no new complaints. He has basically been refusing care. He has refused physical therapy enough that they have DC physical therapy. He is refusing to have his brief change this morning even though he is wet. He does not really want to even get up to a chair. As I spoke to him however though he knowledge is that he is in the hospital in part because he was too weak and basically just collapsed at home. He recognizes that he is not going to just jump out of the bed and resume his usual activities that will take time for him to recover. Still with this however he really does not want to cooperate with any interventions. To some degree this is patient's baseline, which as he himself said, probably contributed to why he is here in the hospital in the 1st place Exam Vital Signs (past 8 hours): Vital Signs - 8 hr 3 01/15/18 00:36 01/15/18 04:53 01/15/18 07:39 Temperature 98.5 F 98.4 F 98.3 F Pulse Rate 84 95 H 79 Respiratory Rate 22 20 20 Blood Pressure 138/66 H 139/58 H 126/71 H Pulse Oximetry 94 94 95 Pulse Oximetry 95 Oxygen Delivery Method Room Air Oxygen Flow Rate 0 Narrative Exam Narrative: HEENT-unremarkable Neck-no lymphadenopathy Lungs-decreased breath sounds perhaps some crackles at the bases although such limited breath sounds hard to know Heart-irregular Abdomen-benign Extremities-erythema left lower extremity still present, appears in darker than when I 1st examined him 2 days ago and similar to yesterday, still warm to the touch Objective Labs Result Diagrams: 01/15/18 04:42 01/15/18 04:42 Labs: Laboratory Results - last 24 hr 01/15/18 01/15/18 01/15/18 04:42 04:42 04:42 WBC 9.6 RBC 4.28 L Hgb 10.5 L Hct 32.3 L MCV 75.6 L MCH 24.5 L MCHC 32.5 RDW 18.3 H Plt Count 157 Neut % (Auto) 80.1 H Lymph % (Auto) 9.2 L Day % (Auto) 7.7 Eos % (Auto) 2.5 Baso % (Auto) 0.5 Neut # (Auto) 7700 H PT 23.6 H D INR 2.2 H Sodium 137 Potassium 3.6 Chloride 103 Carbon Dioxide 20 L BUN 43 H Creatinine 2.10 H Estimated GFR 30.7 L BUN/Creatinine Ratio 20.5 Glucose 125 H Calcium 8.3 L Assessment & Plan Plan: Assessment/Plan Narrative: 1. Sepsis-resolved 2. Cellulitis left lower extremity-appears to be improving slowly. Has chronic venous stasis changes and this is present bilaterally of course. However he has improving erythema decreased edema and his temperature or the palpable warmth of the left lower extremity is if not back to baseline almost there. White count remained normal as of yesterday. No change in antibiotic therapy 3. Acute on chronic renal failure-numbers continue to improve. I am concerned about volume overload now at this point which has been an issue for this patient with significant diastolic dysfunction. He is complaining of some increased dyspnea. Urine output has been very limited since we took the catheter out of course. I am going to add back some furosemide and follow carefully 4. Chronic anticoagulation-patient remains supratherapeutic with an INR that actually went up. Vitamin K was administered yesterday. Pharmacy convince me that single dose and re-evaluate was appropriate and indeed his INR is within therapeutic range today. I will resume warfarin today and monitor carefully. I anticipate his INRs like to go down due to the vitamin K before it begins to go up. 5. COPD-patient is relatively asymptomatic. Having a bit more dyspnea which has always been difficult to sort out with him whether it is primary lung disease verses congestive heart failure versus other, I am going to add Lasix as above. 6. Metabolic encephalopathy-patient appears to be approaching baseline. There still seems to be a overall slowness to his cognition but his contrary nature is coming through which I think is assigned he is returning to normal. 7. Type 2 diabetes-numbers do appear to be improved with changes to insulin regimen. I am not going to make further changes today but if necessary we will alter again tomorrow. Does appear to be improved. 8. Disposition-patient clearly needs custodial. Think at this point we should plan to discharge patient to custodial in the next 24-48 hours. I have done my best to convince him to cooperate with skilled therapies. 9. Depression-patient's affect and overall appearance is consistent with increasing depressive symptoms. He certainly has reasons for this that are logical. I am going to increase his dose of Lexapro. Quality VTE Deep Vein Thrombosis/Pulmonary Embolism Present on Admission: No
[2018-01-15] MEDS: EPLERENONE 25 MG TABLET PO (08:08)
[2018-01-15] MEDS: glipiZIDE XL 5 MG TAB 10 MG PO (08:08)
[2018-01-15] MEDS: ESCITALOPRAM 10 MG TABLET 20 MG PO (08:09)
[2018-01-15] MEDS: FUROSEMIDE 40 MG/4 ML VIAL IV (08:09)
[2018-01-15] MEDS: INSULIN ASPART 100 UNIT/ML INSULN PEN SUBCUT ×3 (08:09→16:45)
[2018-01-15] MEDS: PANTOPRAZOLE 20 MG TABLET PO ×2 (08:09→20:58)
[2018-01-15] MEDS: INSULIN ASPART 100 UNIT/ML INSULN PEN 6 UNIT SUBCUT ×3 (08:10→16:44)
[2018-01-15] MEDS: SODIUM CHLORIDE 0.9% FLUSH 10 ML IV ×2 (08:11→20:58)
[2018-01-15 11:59] VITALS: BP 130/83; PULSE 91; RESP 22; TEMP 36.9; O2SAT 95
[2018-01-15] MEDS: TRAMADOL 50 MG TABLET PO (13:48)
--- NOTE | 2018-01-15 16:02 | PC.NURSE ---
1550 - Physical therapy arrived to work with patient. Patient refused to listen or move with therapist. This nurse came in to do physical assessment. Patient answered a couple of questions appropriately, but then became angry and yelled just get out of here and leave me alone. Patient refuses to participate in care at this time. Resting in bed with bed alarm on.
[2018-01-15 16:05] VITALS: BP 149/68; PULSE 82; RESP 20; TEMP 37.4; O2SAT 95
--- NOTE | 2018-01-15 16:31 | PT.IPTN ---
Current Diagnoses Sepsis, unspecified organism (01/11/18) Type 2 diabetes mellitus with hyperglycemia (01/11/18) Obstructive sleep apnea (adult) (pediatric) (01/11/18) Encephalopathy, unspecified (01/11/18) Chronic atrial fibrillation (01/11/18) Chronic diastolic (congestive) heart failure (01/11/18) Chronic obstructive pulmonary disease, unspecified (01/11/18) Cellulitis of left lower limb (01/11/18) Chronic kidney disease, stage 3 (moderate) (01/11/18) Chronic kidney disease, unspecified (01/11/18) Abnormal levels of other serum enzymes (01/11/18) Physical Therapy Treatment Note M2 PT-IP Current Condition Start: 01/12/18 12:55 Freq: Status: Active Protocol: Document 01/12/18 12:10 RCC (Rec: 01/12/18 13:06 RCC [id number]) Physical Therapy Current Condition Current Condition Evaluation Date 01/12/18 Treatment Diagnosis Sepsis, LLE cellulitis, confusion, impaired activity tolerance Onset Date 01/11/18 Precautions Other Precautions Contact precautions. M3 PT-IP Subjective Start: 01/12/18 12:55 Freq: Status: Active Protocol: Document 01/15/18 16:27 AB (Rec: 01/15/18 16:31 AB [id number]) Subjective Physical Therapy Visit Type Type Patient Refusal Notes checked pt for PT eval. Pt ignoring PT when PT came in to inform regarding doctor's order for evaluation. talked to nurse and nurse talked to pt with PT present. Pt did not say anything. Motivated pt to participate and educated on importance of PT. When PT started to assist pt to mobility, pt said Just leave me be! informed nurse. Pt has h/o refusals and was just d/c'd from PT due to refusals. Will f/u tomorrow but if pt continues to refuse, will d/c PT eval order.
[2018-01-15] MEDS: WARFARIN 3 MG TABLET PO (17:29)
[2018-01-15 19:26] VITALS: BP 144/71; PULSE 91; RESP 19; TEMP 37.7; O2SAT 94
[2018-01-16] MEDS: SODIUM CHLORIDE 0.9% FLUSH 10 ML IV ×2 (00:13→08:45)
[2018-01-16] MEDS: CEFAZOLIN 2 GM/100 ML FROZ.PIGGY IV ×2 (00:13→08:44)
[2018-01-16 00:36] VITALS: BP 131/61; PULSE 80; RESP 20; TEMP 37.4; O2SAT 95
[2018-01-16] MEDS: TRAMADOL 50 MG TABLET PO (05:02)
[2018-01-16 05:07] VITALS: BP 133/67; PULSE 80; RESP 18; TEMP 37.4; O2SAT 95
[2018-01-16 06:01] LABS: BUN Creatinine Ratio 18.5 (6-22); Blood Urea Nitrogen 37 mg/dL (9-20); Calcium 8.4 mg/dL (8.4-10.2); Carbon Dioxide 19 mmol/L (22-32); Chloride 103 mmol/L (98-107); Estimated Glomerular Filt Rate 32.5 mL/min (>60); Glucose 117 mg/dL (80-110); HEMOLYSIS < 15 (0-50); Potassium 3.6 mmol/L (3.4-5.1); Sodium 137 mmol/L (137-145)
[2018-01-16 06:16] LABS: INR 2.1 (0.9-1.3)
[2018-01-16 08:10] VITALS: BP 123/58; PULSE 80; RESP 19; TEMP 36.8; O2SAT 97
--- NOTE | 2018-01-16 08:34 | PM.DS.1 ---
History of Present Illness Date Patient Seen: 01/16/18 Time Patient Seen: 08:35 Chief complaint: Confusion Narrative: Patient is a 77-year-old male with type 2 diabetes, diabetic neuropathy, hypertension, hyperlipidemia, atrial fibrillation on chronic anticoagulation and CKD stage 3 also with recurrent left lower extremity wound. Patient was unable to provide any history today. History obtained from ER notes and past records. Patient was reportedly at home when a friend or neighbor called EMS last night due to confusion in the patient. In the emergency department patient was minimally responsive to questions and disoriented. He was found to have erythema of his left lower leg consistent with cellulitis. Labs were remarkable for elevated white blood cell count, elevated lactate and elevated troponin. EKG without acute ST changes to suggest ACS. Head CT and chest x-ray were negative. He was started on IV fluids and vancomycin. Later after transfer to the floor nursing discovered that his has been hospitalized at [facility] recently and he has not had any help at home. Family was planning to come to [facility] soon to help. In review of available clinic records it appears that he has no showed several Coumadin checks in the last month. Last clinic visit was in November. {from Dr. Rudolph's history and physical 01/11/18} Discharge Providers Date of admission: 01/11/18 02:34 Primary care physician: Hernesto Campbell MD Consults: Discharge provider: Hernesto Campbell MD Discharge Date: 01/16/18 Summary Discharge Diagnosis: 1. Sepsis, resolved 2. Cellulitis left lower extremity, improving 3. Group B strep growing from blood 4. Iatrogenic coagulopathy, improved 5. Acute on chronic (stage III) renal failure, improving 6. COPD 7. Acute on chronic diastolic base congestive heart failure, resolved 8. Type 2 diabetes 9. Depression 10. Metabolic encephalopathy, resolved 11. Paroxysmal atrial fibrillation 12. Long-term use of oral anticoagulation 13. Chronic bilateral lower extremity venous stasis with dermatitis Hospital Course: 1. Cellulitis-patient's cellulitis was treated with IV antibiotics. Blood cultures did subsequent return group B strep. He did show slow but steady improvement in his cellulitis with decreasing warmth and his bright pink erythema became more darker color consistent with his longstanding venous stasis. Patient will need to continue on extended course of antibiotic therapy as an outpatient but it was felt to be improved enough to switch to oral antibiotic therapy. 1st generation cephalosporin was employed and seem to be effective and will be continued as an outpatient. 2. Sepsis-patient was septic with evidence of renal dysfunction febrile as well as confusional state and evidence of obvious infection. With appropriate treatment of underlying medical issues patient's sepsis seems to resolve 3. Mental status-patient was fairly encephalopathic upon admission. This resolved with appropriate treatment of his infection and replacement of his fluids in his dehydrated state. At baseline he is somewhat slow functioning but seems to be normal. Time of discharge he had not yet returned completely to baseline but seemed to be improving day by day by day 4. Acute on chronic renal failure-patient's numbers improved back to baseline with IV fluids which were eventually discontinued during this hospitalization. Patient was restarted on his chronic diuretic therapy for his known chronic diastolic dysfunction. 5. Depression-patient is felt to be significantly depressed on top of everything else. His long-term antidepressant Lexapro was increased in dose although no specific improvement was noted during this short hospitalization 6. Diabetes-patient's diabetes was poorly controlled initially. Preprandial insulin with additional coverage short-acting insulin was added and patient much improved blood sugar control. He will continue on this in correction 7. Weakness-patient was found down at home obviously too weak to participate with anything here in the hospital. He also refused physical therapy and was discontinued from physical therapy. He is not able to return home and will need to go to correction facility to continue to work with skilled therapies to help regain his strength so he may return home. Part of his refusal to participate I believe ties into his encephalopathic picture which was improving although not completely resolved at time of discharge 8. Paroxysmal atrial fibrillation with long-term anticoagulation-patient's protime spiked up with an INR peaking at over 6. His warfarin was held and his dose was reduced. He is given a single dose of oral vitamin K which helps significantly. At time of discharge his INR was 2.1 which is well within the therapeutic range on need to be followed carefully Status at Discharge Cognitive/behavioral status at discharge: Patient still has disorder thinking and seems to be slowly of mental function not quite back to baseline. Functional status at discharge: bed bound Overall status at discharge: patient is not back to baseline Time Spent with Patient Greater than 30 minutes Exam Vital Signs (past 8 hours): Vital Signs - 8 hr 01/16/18 00:36 01/16/18 05:07 Temperature 99.4 F 99.3 F Pulse Rate 80 80 Respiratory Rate 20 18 Blood Pressure 131/61 H 133/67 H Pulse Oximetry 95 95 Pulse Oximetry 95 Oxygen Delivery Method Room Air Oxygen Flow Rate 0 Narrative Exam Narrative: HEENT-unremarkable, normocephalic atraumatic Neck-no lymphadenopathy no bruits Lungs-clear anteriorly and posteriorly no wheezes no crackles diminished breath sounds bilaterally Heart-regular rate and rhythm no murmur rub or gallop normal S1-S2 Abdomen-positive bowel tones soft nontender nondistended no hepatosplenomegaly no masses palpable Neuro-normal to screening exam, gait not tested Extremities-bilateral chronic edema lower extremities, erythema left lower extremity becoming darker, warmth left lower extremity improved over yesterday, venous stasis changes bilateral with venous stasis dermatitis present bilaterally, overall improved Objective Labs Result Diagrams: 01/15/18 04:42 01/16/18 04:52 Labs: Laboratory Results - last 24 hr 01/16/18 01/16/18 04:52 04:52 PT 23.0 H INR 2.1 H Sodium 137 Potassium 3.6 Chloride 103 Carbon Dioxide 19 L BUN 37 H Creatinine 2.00 H Estimated GFR 32.5 L BUN/Creatinine Ratio 18.5 Glucose 117 H Calcium 8.4 Discharge Plan Discharge Plan Patient Disposition: SNF Transfer to: [facility] Under care of provider: Khoi Campbell MD [facility] Labs: PROTIME/INR 01/18/18 Consult as needed: Dental, Hearing, Mental health, Podiatry and Vision I certify the postop hospital correction care is medically necessary on a continuing basis for any conditions for which he/ she received care during this hospitalization.: Yes The receiving facility has agreed to accept transfer and provide medical treatment.: Yes Discharge Health Status Multidrug resistant organism: No MDRO Precautions: [place] Provider Discharge Instructions Diet: Diet as Tolerated and Carb-consistent/Diabetic Liquid consistency: Normal/Thin Food texture: Regular Activity: AD MINDY, FALL PRECAUTIONS Special Rehabilitation Services Reason for rehabilitation: Recovery r/t decondition Rehab type: Physical therapy and Occupational therapy Discharge Data Primary Care Provider: Hernesto Campbell Attending Provider: Baylee Rudolph Admit Date/Time: 01/11/18 02:34 Discharges patient from system. Discharge Date/Time: 01/16/18 15:16 Quality VTE Deep Vein Thrombosis/Pulmonary Embolism Present on Admission: No
[2018-01-16] MEDS: INSULIN ASPART 100 UNIT/ML INSULN PEN SUBCUT ×2 (08:43→13:45)
[2018-01-16] MEDS: INSULIN ASPART 100 UNIT/ML INSULN PEN 6 UNIT SUBCUT ×2 (08:44→13:45)
[2018-01-16] MEDS: glipiZIDE XL 5 MG TAB 10 MG PO (08:44)
[2018-01-16] MEDS: EPLERENONE 25 MG TABLET PO (08:44)
[2018-01-16] MEDS: FUROSEMIDE 40 MG/4 ML VIAL IV (08:45)
[2018-01-16] MEDS: PANTOPRAZOLE 20 MG TABLET PO (08:45)
[2018-01-16] MEDS: ESCITALOPRAM 10 MG TABLET 20 MG PO (08:45)
--- NOTE | 2018-01-16 08:47 | P.DS_ITS ---
History of Present Illness Date Patient Seen: 01/16/18 Time Patient Seen: 08:35 Chief complaint: Confusion Narrative: Patient is a 77-year-old male with type 2 diabetes, diabetic neuropathy, hypertension, hyperlipidemia, atrial fibrillation on chronic anticoagulation and CKD stage 3 also with recurrent left lower extremity wound. Patient was unable to provide any history today. History obtained from ER notes and past records. Patient was reportedly at home when a friend or neighbor called EMS last night due to confusion in the patient. In the emergency department patient was minimally responsive to questions and disoriented. He was found to have erythema of his left lower leg consistent with cellulitis. Labs were remarkable for elevated white blood cell count, elevated lactate and elevated troponin. EKG without acute ST changes to suggest ACS. Head CT and chest x-ray were negative. He was started on IV fluids and vancomycin. Later after transfer to the floor nursing discovered that his has been hospitalized at [facility] recently and he has not had any help at home. Family was planning to come to [facility] soon to help. In review of available clinic records it appears that he has no showed several Coumadin checks in the last month. Last clinic visit was in November. {from Dr. Rudolph's history and physical 01/11/18} Discharge Providers Date of admission: 01/11/18 02:34 Primary care physician: Hernesto Campbell MD Consults: Discharge provider: Hernesto Campbell MD Discharge Date: 01/16/18 Summary Discharge Diagnosis: 1. Sepsis, resolved 2. Cellulitis left lower extremity, improving 3. Group B strep growing from blood 4. Iatrogenic coagulopathy, improved 5. Acute on chronic (stage III) renal failure, improving 6. COPD 7. Acute on chronic diastolic base congestive heart failure, resolved 8. Type 2 diabetes 9. Depression 10. Metabolic encephalopathy, resolved 11. Paroxysmal atrial fibrillation 12. Long-term use of oral anticoagulation 13. Chronic bilateral lower extremity venous stasis with dermatitis Hospital Course: 1. Cellulitis-patient's cellulitis was treated with IV antibiotics. Blood cultures did subsequent return group B strep. He did show slow but steady improvement in his cellulitis with decreasing warmth and his bright pink erythema became more darker color consistent with his longstanding venous stasis. Patient will need to continue on extended course of antibiotic therapy as an outpatient but it was felt to be improved enough to switch to oral antibiotic therapy. 1st generation cephalosporin was employed and seem to be effective and will be continued as an outpatient. 2. Sepsis-patient was septic with evidence of renal dysfunction febrile as well as confusional state and evidence of obvious infection. With appropriate treatment of underlying medical issues patient's sepsis seems to resolve 3. Mental status-patient was fairly encephalopathic upon admission. This resolved with appropriate treatment of his infection and replacement of his fluids in his dehydrated state. At baseline he is somewhat slow functioning but seems to be normal. Time of discharge he had not yet returned completely to baseline but seemed to be improving day by day by day 4. Acute on chronic renal failure-patient's numbers improved back to baseline with IV fluids which were eventually discontinued during this hospitalization. Patient was restarted on his chronic diuretic therapy for his known chronic diastolic dysfunction. 5. Depression-patient is felt to be significantly depressed on top of everything else. His long-term antidepressant Lexapro was increased in dose although no specific improvement was noted during this short hospitalization 6. Diabetes-patient's diabetes was poorly controlled initially. Preprandial insulin with additional coverage short-acting insulin was added and patient much improved blood sugar control. He will continue on this in [facility] 7. Weakness-patient was found down at home obviously too weak to participate with anything here in the hospital. He also refused physical therapy and was discontinued from physical therapy. He is not able to return home and will need to go to [facility] facility to continue to work with skilled therapies to help regain his strength so he may return home. Part of his refusal to participate I believe ties into his encephalopathic picture which was improving although not completely resolved at time of discharge 8. Paroxysmal atrial fibrillation with long-term anticoagulation-patient's protime spiked up with an INR peaking at over 6. His warfarin was held and his dose was reduced. He is given a single dose of oral vitamin K which helps significantly. At time of discharge his INR was 2.1 which is well within the therapeutic range on need to be followed carefully Status at Discharge Cognitive/behavioral status at discharge: Patient still has disorder thinking and seems to be slowly of mental function not quite back to baseline. Functional status at discharge: bed bound Overall status at discharge: patient is not back to baseline Time Spent with Patient Greater than 30 minutes Exam Vital Signs (past 8 hours): Vital Signs - 8 hr 3 01/16/18 00:36 01/16/18 05:07 Temperature 99.4 F 99.3 F Pulse Rate 80 80 Respiratory Rate 20 18 Blood Pressure 131/61 H 133/67 H Pulse Oximetry 95 95 Pulse Oximetry 95 Oxygen Delivery Method Room Air Oxygen Flow Rate 0 Narrative Exam Narrative: HEENT-unremarkable, normocephalic atraumatic Neck-no lymphadenopathy no bruits Lungs-clear anteriorly and posteriorly no wheezes no crackles diminished breath sounds bilaterally Heart-regular rate and rhythm no murmur rub or gallop normal S1-S2 Abdomen-positive bowel tones soft nontender nondistended no hepatosplenomegaly no masses palpable Neuro-normal to screening exam, gait not tested Extremities-bilateral chronic edema lower extremities, erythema left lower extremity becoming darker, warmth left lower extremity improved over yesterday, venous stasis changes bilateral with venous stasis dermatitis present bilaterally, overall improved Objective Labs Result Diagrams: 01/15/18 04:42 01/16/18 04:52 Labs: Laboratory Results - last 24 hr 01/16/18 01/16/18 04:52 04:52 PT 23.0 H INR 2.1 H Sodium 137 Potassium 3.6 Chloride 103 Carbon Dioxide 19 L BUN 37 H Creatinine 2.00 H Estimated GFR 32.5 L BUN/Creatinine Ratio 18.5 Glucose 117 H Calcium 8.4 Discharge Plan Discharge Plan Patient Disposition: SNF Transfer to: [facility] Under care of provider: Khoi Campbell MD [facility] Labs: PROTIME/INR 01/18/18 Consult as needed: Dental, Hearing, Mental health, Podiatry and Vision I certify the postop hospital [facility] care is medically necessary on a continuing basis for any conditions for which he/ she received care during this hospitalization.: Yes The receiving facility has agreed to accept transfer and provide medical treatment.: Yes Discharge Health Status Multidrug resistant organism: No MDRO Precautions: [place] Provider Discharge Instructions Diet: Diet as Tolerated and Carb-consistent/Diabetic Liquid consistency: Normal/Thin Food texture: Regular Activity: AD MINDY, FALL PRECAUTIONS Special Rehabilitation Services Reason for rehabilitation: Recovery r/t decondition Rehab type: Physical therapy and Occupational therapy Discharge Data Primary Care Provider: Hernesto Campbell Attending Provider: Baylee Rudolph Admit Date/Time: 01/11/18 02:34 Discharges patient from system. Discharge Date/Time: 01/16/18 15:16 Quality VTE Deep Vein Thrombosis/Pulmonary Embolism Present on Admission: No
[2018-01-16 13:13] VITALS: BP 124/67; PULSE 80; RESP 18; TEMP 36.7; O2SAT 95
--- NOTE | 2018-01-16 14:20 | CM.DPNOTE ---
DC Note: DC order in place for [facility]. Met w/pt, reviewed DCP, he remains agreeable. Updated Viv at [facility] and faxed completed PASSR and signed DC meds/ppk to [facility]. Arranged w/c p/u for 143, RN agreeable. According to the pt, no one needs to be contacted re his DC today. JAMES Mathsi
== END 2018-01-16 15:16 | DRG 871 ==
LOC: ED 02:32 → ICU 10:35
PROVIDERS: Admitting Provider Family Medicine; Emergency Provider Emergency Medicine; Family Provider Internal Medicine; PCP Internal Medicine; Visit Provider Family Medicine
DX: A40.1 Sepsis due to streptococcus, group B (principal); G93.41 Metabolic encephalopathy; I50.33 Acute on chronic diastolic (congestive) heart failure; L03.116 Cellulitis of left lower limb; N17.9 Acute kidney failure, unspecified; I13.0 Hypertensive heart and chronic kidney disease with heart failure and stage 1 through stage 4 chronic kidney disease, or unspecified chronic kidney disease; D68.8 Other specified coagulation defects; R65.20 Severe sepsis without septic shock; E11.22 Type 2 diabetes mellitus with diabetic chronic kidney disease; E11.65 Type 2 diabetes mellitus with hyperglycemia; N18.3 Chronic kidney disease, stage 3 (moderate); Z79.84 Long term (current) use of oral hypoglycemic drugs; E11.40 Type 2 diabetes mellitus with diabetic neuropathy, unspecified; E11.21 Type 2 diabetes mellitus with diabetic nephropathy; G47.33 Obstructive sleep apnea (adult) (pediatric); E66.9 Obesity, unspecified; Z68.39 Body mass index [BMI] 39.0-39.9, adult; Z79.01 Long term (current) use of anticoagulants; E78.5 Hyperlipidemia, unspecified; Z91.19 Patient's noncompliance with other medical treatment and regimen; F32.9 Major depressive disorder, single episode, unspecified; I25.10 Atherosclerotic heart disease of native coronary artery without angina pectoris; K21.9 Gastro-esophageal reflux disease without esophagitis; E11.621 Type 2 diabetes mellitus with foot ulcer; I87.8 Other specified disorders of veins; J44.9 Chronic obstructive pulmonary disease, unspecified; I48.0 Paroxysmal atrial fibrillation
CPT/HCPCS: 36415; 36600; 70450; 71045; 80048; 80053; 80320; 81015; 82805; 82962; 83605; 83880; 84484; 85025; 85610; 85730; 87040; 87077; 87150; 87186; 87205; 87797; 93005; 94640; 94760; 96361; 96365; 96375; 97110; 97162; 99223; 99233; 99238; 99283; 99285; J0690; J1170; J1940; J2270; J3370

== ENCOUNTER → 2018-03-18 13:04 | Outpatient (CLI) | payer MEDICARE, OTHER, SELFPAY | PROVIDERS: Family Provider Internal Medicine; PCP Internal Medicine; Visit Provider Internal Medicine | DX: E11.621 Type 2 diabetes mellitus with foot ulcer (principal); L97.524 Non-pressure chronic ulcer of other part of left foot with necrosis of bone; I87.2 Venous insufficiency (chronic) (peripheral); L97.821 Non-pressure chronic ulcer of other part of left lower leg limited to breakdown of skin | CPT/HCPCS: 11042; 87070; 87075; 87077; 87147; 87186; 87205 ==

== ENCOUNTER → 2018-03-25 13:39 | Outpatient (CLI) | payer MEDICARE, OTHER, SELFPAY | PROVIDERS: Family Provider Internal Medicine; PCP Internal Medicine; Visit Provider Internal Medicine | DX: E11.622 Type 2 diabetes mellitus with other skin ulcer (principal); L97.822 Non-pressure chronic ulcer of other part of left lower leg with fat layer exposed; E11.621 Type 2 diabetes mellitus with foot ulcer; L97.522 Non-pressure chronic ulcer of other part of left foot with fat layer exposed; L08.89 Other specified local infections of the skin and subcutaneous tissue | CPT/HCPCS: 11042; 36415; 80048; 83036; 83735; 85025; 85610; 85651; 86140 ==

== ENCOUNTER → 2018-03-25 16:51 | Outpatient (CLI) | payer MEDICARE, OTHER, SELFPAY ==
[2018-03-25 17:31] LABS: Add Manual Diff / Slide Review NO; Eosinophils Percent Auto 3.9 % (2-4); Hematocrit 34.7 % (41-53); Lymphocytes Percent Auto 28.3 % (25-40); Mean Corpuscular HGB Conc 31.7 % (30-36); Monocytes Percent Auto 9.1 % (3-14); Neutrophils Absolute Auto 3800 /uL (3000-5900); Neutrophils Percent Auto 56.7 % (50-75); Platelet Count 216 X10^3/uL (150-400); Red Blood Cell Count 4.39 X10^6/uL (4.5-5.9); Red Cell Distribution Width 21.3 % (11.6-14.8); White Blood Cell Count 6.7 X10^3/uL (4.5-11.0)
[2018-03-25 17:36] LABS: INR 2.9 (0.9-1.3); Prothrombin Time 31.9 SECONDS (10.1-12.7)
[2018-03-25 17:43] LABS: Hemoglobin A1C% w Est Avg Glu 6.1 % (4.0-6.0)
[2018-03-25 17:50] LABS: BUN Creatinine Ratio 13.7 (6-22); Blood Urea Nitrogen 37 mg/dL (9-20); C-Reactive Protein Quant 0.7 mg/dL (<1.0); Calcium 9.1 mg/dL (8.4-10.2); Carbon Dioxide 24 mmol/L (22-32); Chloride 103 mmol/L (98-107); Estimated Glomerular Filt Rate 22.9 mL/min (>60); Glucose 132 mg/dL (80-110); HEMOLYSIS < 15 (0-50); Magnesium 1.8 mg/dL (1.6-2.3); Sodium 139 mmol/L (137-145)
[2018-03-25 17:53] LABS: Potassium 5.8 mmol/L (3.4-5.1)
[2018-03-25 18:36] LABS: Microcytosis 1+; Ovalocytes 1+; Poikilocytosis 1+; Polychromasia 1+
[2018-03-25 19:29] LABS: Erythrocyte Sedimentation Rate 31 MM/HR (0-15)
== END ==
PROVIDERS: Family Provider Internal Medicine; PCP Internal Medicine; Visit Provider Internal Medicine
DX: L98.9 Disorder of the skin and subcutaneous tissue, unspecified (principal); L03.116 Cellulitis of left lower limb; N18.3 Chronic kidney disease, stage 3 (moderate); E11.65 Type 2 diabetes mellitus with hyperglycemia; R79.1 Abnormal coagulation profile
CPT/HCPCS: 36415; 80048; 83036; 83735; 85025; 85610; 85651; 86140

== ENCOUNTER 2018-03-26 09:01 | Day surgery (SDC) | payer MEDICARE, OTHER, SELFPAY ==
[2018-03-24 07:30] VITALS: BMI 37.4
[2018-03-26] VITALS (12 sets, daily range): BP systolic 81–125; BP diastolic 47–76; PULSE 78–97; RESP 13–19; TEMP 36.3–36.6; O2SAT 91–97; BMI 37.4
[2018-03-26] MEDS: LACTATED RINGERS 1,000 ML 100 ML IV (10:32)
--- NOTE | 2018-03-26 11:15 | SUR.OPER ---
Supine on padded OR bed, head on pillow, arms secured on padded arm boards at <90 degrees abduction, legs uncrossed, safety belt at thigh, tape over blanket over lower legs.
[2018-03-26] MEDS: CEFAZOLIN 2 GM/100 ML FROZ.PIGGY IV (12:02)
[2018-03-26] MEDS: BUPIVACAINE 0.5% (PF) VIAL 30 ML INJ (12:11)
[2018-03-26] MEDS: LIDOCAINE 1% W/EPI INJ 5 ML INJ (12:13)
--- NOTE | 2018-03-26 14:59 | PC.NURSE ---
1255 Pt arrived from PACU via bed, post op I & D LLE. Site is covered with an samia wrap, pp+, Pt is sleepy/drowsy, arouses with loud verbal stim. Pt has a band aide to L elbow skin tear from a previous fall. VS wnl. SL to R wrist. Pt on r/a, sats 97%. 1430 Pt is awake on & off now.
[2018-03-26] MEDS: GABAPENTIN 300 MG CAPSULE 900 MG PO ×2 (17:06→21:14)
[2018-03-26] MEDS: TORSEMIDE 10 MG TABLET 20 MG PO (17:07)
[2018-03-26] MEDS: EPLERENONE 25 MG TABLET PO (17:07)
[2018-03-26] MEDS: ATORVASTATIN 20 MG TABLET PO (17:07)
[2018-03-26] MEDS: ESCITALOPRAM 10 MG TABLET 20 MG PO (17:07)
[2018-03-26] MEDS: glipiZIDE XL 5 MG TAB 10 MG PO (17:08)
[2018-03-26] MEDS: WARFARIN 3 MG TABLET PO (17:08)
[2018-03-26] MEDS: POTASSIUM CHLORIDE 20 MEQ TAB 40 MEQ PO (21:14)
[2018-03-26] MEDS: METOPROLOL 12.5 MG TABLET PO (21:14)
[2018-03-27 04:46] VITALS: BP 107/60; PULSE 80; RESP 16; TEMP 36.7; O2SAT 95
[2018-03-27] MEDS: PANTOPRAZOLE 20 MG TABLET PO (05:49)
[2018-03-27 08:00] VITALS: BP 116/57; PULSE 81; RESP 16; TEMP 36.6; O2SAT 95
--- NOTE | 2018-03-27 09:02 | CM.DANOTE ---
DCP: Case received, EMR reviewed and met with patient. Introduced self and role. DCP template completed with information currently available. Patient is a 78 year old male who admitted yesterday morning to the care of the hospitalist team. PCP: Dr. Campbell. Payer: confirmed: Medicare/ididwork. Patient came in for excisional debridement of left leg wound. Patient alert and oriented. Stated that his is currently at [facility], but he does have a caregiver come in to help out. P: DCP to continue to assess. Patient may benefit from home health, if ongoing wound care is needed. Gris Hinkle RN/[employer]
--- NOTE | 2018-03-27 09:11 | CM.DPC ---
DCP Cont: Checked patient's record contact. Has a daughter named Miranda. Left her a message to call this caser up for further questions regarding patient's care at home, and what his baseline has been. Gris Hinkle RN/[employer] Technician
[2018-03-27] MEDS: EPLERENONE 25 MG TABLET PO (09:30)
[2018-03-27] MEDS: METOPROLOL 12.5 MG TABLET PO (09:30)
[2018-03-27] MEDS: metOLazone 2.5 MG TABLET PO (09:30)
[2018-03-27] MEDS: MAGNESIUM OXIDE 400 MG TABLET PO (09:30)
[2018-03-27] MEDS: GABAPENTIN 300 MG CAPSULE 900 MG PO (09:30)
[2018-03-27] MEDS: POTASSIUM CHLORIDE 20 MEQ TAB 40 MEQ PO (09:30)
[2018-03-27] MEDS: TORSEMIDE 10 MG TABLET 20 MG PO (09:31)
[2018-03-27] MEDS: glipiZIDE XL 5 MG TAB 10 MG PO (09:31)
[2018-03-27] MEDS: ESCITALOPRAM 10 MG TABLET 20 MG PO (09:31)
[2018-03-27] MEDS: buPROPion SR 150 MG TAB PO (09:31)
[2018-03-27] MEDS: ATORVASTATIN 20 MG TABLET PO (09:31)
[2018-03-27 12:00] VITALS: BP 104/57; PULSE 80; RESP 16; TEMP 36.8; O2SAT 97
--- NOTE | 2018-03-27 13:35 | CM.DPC ---
DCP Cont: Did get in touch with daughter Miranda, she is POA, and she resides in [place]. Asked her about history of patient, there is a marker delivery, who happens to be the grandaughter of his . She lives with patient, and has a 7 year old son. Daughter stated that she has been performing wound care as well, due to patient's history of wounds. Has been going to wound clinic as well. Asked her if patient had ever received any home health, stated he did not, and patient is not home bound, for he drives to [facility] to see his at [facility]. Daughter stated that since caregiver has been living with patient, she has been able to clean up home, for patient and have been hoarders. She also fixes their meals. Asked her if patient had funds to pay for taxi if he is discharged, and she stated that he does. Awaiting for doctor who performed surgery to come in and see patient. Updated nurse Sarah, and encouraged to ask if patient will be going to wound clinic. P: DCP continue to assess. Plan is for patient to go home. Gris Hinkle RN/Central Processing Technician
--- NOTE | 2018-03-27 14:18 | PM.PN.1 ---
Subjective Date Patient Seen: 03/27/18 Time Patient Seen: 14:18 Interval history: No complaints. Very much wants to go home today. Sitting in a chair with his legs in dependent position Exam Vital Signs (past 8 hours): - 03/27/18 08:00 Temperature 98 F Pulse Rate 81 Respiratory Rate 16 Blood Pressure 116/57 L Pulse Oximetry 95 Oxygen Delivery Method Room Air Oxygen Flow Rate 0 Narrative Exam Narrative: Brawny edema is noted bilaterally. Dressing is in place and not to tight. Assessment & Plan Plan: Assessment/Plan Narrative: Cultures still pending. Will discharge to home. He has a follow up appointment with the wound care center tomorrow. Follow up with our office as needed. Quality VTE Deep Vein Thrombosis/Pulmonary Embolism Present on Admission: No
--- NOTE | 2018-03-27 14:38 | CM.DPC ---
DCP Cont: Patient is to be discharged home. Is to be followed up at wound clinic tomorrow. Went ahead and called taxi for patient. Updated daughter, Miranda. P: Discharged home today. Gris Hinkle RN/[employer]
--- NOTE | 2018-03-27 15:04 | PC.NURSE ---
discharge pt spent most of day sleeping in chair. declines pain. up with SBA to bathroom. pt states he took all belongings with her. d/c instructions provided to pt. notified of f/u apt with wound care tomorrow at 1130AM. notified to contact MD if any questions or concerns as well. Pt taken to hospital entrance by RN and picked up by taxi to take pt home.
--- NOTE | 2018-05-29 19:38 | P.OP_ITS ---
Operative Date/Time/Diagnoses Date of procedure: 03/26/18 Time of procedure: 09:36 Pre-op diagnosis: Left lower extremity ulcer Post-op diagnosis: same Procedure & Clinicians Procedure: Exploration, incision, and drainage of left lower extremity wound Same procedure as scheduled: Yes Indications: Nonhealing left lower extremity wound Surgeon: Asya Vizcarra Click Yes if Unassisted: Yes Anesthesia Type: General Operative Notes Findings: Thickened and edematous tissue without gross evidence of infection. No discrete pockets. All 3 lesions on the left lower leg communicate in the subcutaneous tissue. Severe venous insufficiency Closure Type: not applicable Specimen(s): other (Culture of the subcutaneous tissue) Estimated Blood Loss (mL): 10 Procedure in detail: After obtaining informed consent, the patient brought to the operating room and placed in the supine position on the operating table. Following successful induction of general endotracheal anesthesia, appropriate padding of all bony prominences, placement of appropriate monitors, the left lower extremity is prepped and draped in the standard surgical fashion. A time- out was held per [facility] protocol. I began by exploring the open wound in the left lower extremity with a hemostat. It was immediately apparent that all 3 of these left lower extremity wounds communicate in the subcutaneous tissue. An incision was created in the bulus part of the larger wound and drained only some serous fluid. This fluid was cultured. The the muscle tissue that was visible was carefully evaluated. It was pale in color but not necrotic. It was viable as demonstrated by its ability to contract. The entire wound was irrigated with a mixture of saline and Betadine solution. Betadine-soaked quarter-inch gauze was then placed in the subcutaneous tissue connecting all 3 of these open wounds and allowing them to drain. Dry fluffs and a wrap were applied to the lower extremity and covered with a elastic bandage. All sponge, needle, and instrument counts were correct at the conclusion of the case. The patient was taken to the postanesthesia care unit in satisfactory condition Complications: none Condition: stable Disposition: PACU Plan for aftercare: Admit for 23 hr observation.
== END 2018-03-27 15:00 | disposition home or self-care (01) ==
LOC: OR 09:09 → AC 10:40
PROVIDERS: PCP Internal Medicine; Visit Provider Surgery
PROC: (CPT 10140; principal; 2018-03-26 11:00)
DX: E11.622 Type 2 diabetes mellitus with other skin ulcer (principal); Z79.4 Long term (current) use of insulin; E11.42 Type 2 diabetes mellitus with diabetic polyneuropathy; I87.2 Venous insufficiency (chronic) (peripheral); Z79.01 Long term (current) use of anticoagulants; Z95.0 Presence of cardiac pacemaker; I25.10 Atherosclerotic heart disease of native coronary artery without angina pectoris; J44.9 Chronic obstructive pulmonary disease, unspecified; G47.33 Obstructive sleep apnea (adult) (pediatric); I50.32 Chronic diastolic (congestive) heart failure; E66.9 Obesity, unspecified; Z68.41 Body mass index [BMI] 40.0-44.9, adult; N18.3 Chronic kidney disease, stage 3 (moderate); I12.9 Hypertensive chronic kidney disease with stage 1 through stage 4 chronic kidney disease, or unspecified chronic kidney disease; I48.2 Chronic atrial fibrillation
CPT/HCPCS: 10140; 82962; 87070; 87075; 87077; 87147; 87186; 87205; J0690; J2250

== ENCOUNTER → 2018-03-28 11:31 | Outpatient (CLI) | payer MEDICARE, OTHER, SELFPAY ==
[2018-03-26 12:08] VITALS: BMI 37.4
== END ==
PROVIDERS: PCP Internal Medicine; Visit Provider Internal Medicine
DX: I87.2 Venous insufficiency (chronic) (peripheral) (principal); L97.822 Non-pressure chronic ulcer of other part of left lower leg with fat layer exposed; E11.621 Type 2 diabetes mellitus with foot ulcer; L97.522 Non-pressure chronic ulcer of other part of left foot with fat layer exposed; L08.89 Other specified local infections of the skin and subcutaneous tissue
CPT/HCPCS: 11042

== ENCOUNTER 2018-03-31 16:45 | Observation (INO) | payer MEDICARE, OTHER, SELFPAY ==
[2018-03-26 12:08] VITALS: BMI 37.4
[2018-03-31] VITALS (11 sets, daily range): BP systolic 105–128; BP diastolic 53–79; PULSE 78–91; RESP 10–20; TEMP 36.2–36.4; O2SAT 92–100; BMI 35.7; BMI 33.0
--- NOTE | 2018-03-31 18:03 | DI.CT.S_ITS ---
PROCEDURE: CT HEAD/BRAIN WO CON INDICATIONS: falls on coumadin TECHNIQUE: Noncontrast 4.5 mm thick angled axial sections acquired from the foramen magnum to the vertex, with coronal and sagittal reformats. For radiation dose reduction, the following was used: automated exposure control, adjustment of mA and/or kV according to patient size. COMPARISON: None. FINDINGS: Image quality: Excellent. CSF spaces: Basal cisterns are patent. No extra-axial fluid collections. The ventricles are symmetric in size and shape. Brain: No intracranial bleeds or masses. There is cerebral volume loss for age, with resultant ventricular and sulcal prominence. There are periventricular and deep white matter chronic small vessel ischemic changes. There is intracranial internal carotid artery atherosclerosis. Skull and face: Calvarium and visualized facial bones appear intact, without suspicious lesions. Sinuses: There is mild mucosal thickening of the right frontal sinus. Visualized sinuses and mastoids are was clear. IMPRESSION: 1. No acute intracranial findings. 2. Extensive findings likely associated with chronic microvascular ischemic changes. Dictated by: Ivette Talavera M.D. on 03/31/2018 at 18:43 Approved by: Ivette Talavera M.D. on 03/31/2018 at 18:45
--- NOTE | 2018-03-31 18:03 | DI.RAD.S_ITS ---
PROCEDURE: XR CHEST 1V INDICATIONS: falls TECHNIQUE: One view of the chest was acquired. COMPARISON: [facility], , XR CHEST 1V, 01/10/2018, 23:48. FINDINGS: Surgical changes and devices: Cardiac pacer is unchanged. Lungs and pleura: No pleural effusions or pneumothorax. Lungs are clear. Mediastinum: Mediastinal contours appear normal. Heart size is normal. Bones and chest wall: There is a questionable minimally displaced right mid thoracic rib fracture versus rotation of the patient. IMPRESSION: Questionable right lateral rib fracture. Dedicated rib views may be helpful if there is high clinical suspicion for fracture in this region. No other acute cardiopulmonary findings. Dictated by: Ivette Talavera M.D. on 03/31/2018 at 18:40 Approved by: Ivette Talavera M.D. on 03/31/2018 at 18:41
[2018-03-31 18:14] LABS: INR 3.3 (0.9-1.3); Prothrombin Time 36.8 SECONDS (10.1-12.7)
--- NOTE | 2018-03-31 18:15 | ED.WEAKNESS ---
HPI - Weakness General Chief complaint: Weakness Stated complaint: Increased weakness, falls Time Seen by Provider: 03/31/18 17:57 Source: patient and EMS Mode of arrival: EMS Limitations: no limitations History of Present Illness HPI Narrative: Pleasant 78-year-old male with a history of hypertension, coronary artery disease, type 2 diabetes and ongoing treatment for a left leg wound presents by EMS for evaluation of multiple falls this week. The patient lives at home and has 2 caregivers that live with him that have been taking care of him. He has had a size changer the past few days and is now having increasing difficulty managing at home. He has been unable to transfer from bed to toilet and has increasing weakness and is unstable.He was recently seen and evaluated by Dr. Vizcarra who did a surgical debridement of his left leg wound. He denies any fever chills nor nausea or vomiting. he has no chest pain or shortness of breath. He denies striking his head when he fell but he is on Coumadin, hence that head CT. MD Complaint: generalized weakness Onset (ago): day(s) Duration: constant Location: generalized Migration: none Relieving factors: none Exacerbating factors: none Context: recent surgery Associated symptoms: denies other symptoms Related Data Home Medications Medication Instructions Recorded Confirmed potassium chloride [K-Tab] 40 meq PO BID #810 10/29/17 03/31/18 torsemide 10 mg PO QDAY #90 10/29/17 03/31/18 calcium carbonate-vitamin D3 1 cap PO BID #0 11/01/17 03/31/18 [Calcium 600 with Vitamin D3] eplerenone 25 mg PO QDAY #0 11/01/17 03/31/18 folic acid 0.4 mg PO QDAY #0 11/01/17 03/31/18 magnesium oxide 500 mg PO TID #0 11/01/17 03/31/18 metoprolol tartrate 12.5 mg PO BID #0 11/01/17 03/31/18 multivitamin [Multiple Vitamins] 1 tab PO QDAY #0 11/01/17 03/31/18 nitroglycerin [Nitrostat] 0.4 mg SUBLINGUAL PRN PRN #0 11/01/17 03/31/18 ipratropium 20 mcg-albuterol 100 1 puff INHALATION BID gram 03/20/18 03/31/18 mcg/actuation mist for inhalation krill oil 500 mg capsule 500 mg PO DAILY cap 03/20/18 03/31/18 oxycodone 10 mg tablet See Label Instructions .ROUTE 03/20/18 03/31/18 .COMPLEX PRN simvastatin 20 mg tablet 20 mg PO QPM 03/20/18 03/31/18 warfarin [Coumadin] See Label Instructions .ROUTE 03/24/18 03/31/18 .COMPLEX cholestyramine-aspartame 4 g PO BEDTIME 03/31/18 03/31/18 [Prevalite] ipratropium bromide 2 spray INTRANASAL BID 03/31/18 03/31/18 metolazone 2.5 mg PO Q OTHER DAY 03/31/18 03/31/18 Previous Rx's Medication Instructions Recorded glipizide [Glucotrol XL] 10 mg PO [facility] #30 tab 10/29/16 Glucose: Test Strips 0 str SEE INSTRUCTIONS #100 str 05/13/17 gabapentin [Neurontin] 900 mg PO TID #270 cap 09/23/17 omeprazole 20 mg PO BID #60 cap 12/17/17 Disabled [address]ing #1 [id number] 03/25/18 Allergies Allergy/AdvReac Type Severity Reaction Status Date / Time camphor [CAMPHOR] Allergy Mild RASH Verified 03/26/18 09:41 cyclobenzaprine Allergy Mild HIVES Verified 03/26/18 09:41 [CYCLOBENZAPRINE] lisinopril [LISINOPRIL] Allergy Mild COUGH/DRY Verified 03/26/18 09:41 THROAT menthol [MENTHOL] Allergy Mild RASH Verified 03/26/18 09:41 methyl salicylate Allergy Mild RASH Verified 03/26/18 09:41 [METHYL SALICYLATE] Review of Systems Review of Systems All systems reviewed & are unremarkable except as noted in HPI and below Constitutional Denies chills, Denies fever(s), Denies lethargy and Reports weakness Eyes Denies change in vision, Denies eye discharge, Denies irritation and Denies loss of vision ENT Ears, Nose, Mouth, and Throat: Denies change in voice, Denies neck pain and Denies sore throat Cardiovascular Denies chest pain, Denies irregular heart rhythm, Denies lightheadedness, Denies palpitations, Denies dyspnea, Denies dyspnea on exertion and Denies orthopnea Respiratory Denies cough, Denies dyspnea, Denies dyspnea on exertion and Denies wheezing Gastrointestinal Gastrointestinal: Denies abdominal pain, Denies change in bowel habits, Denies diarrhea, Denies nausea and Denies vomiting Genitourinary Denies hematuria, Denies flank pain, Denies urinary incontinence and Denies urinary urgency Musculoskeletal Denies neck pain Integumentary/Breasts Denies pruritus, Denies erythema, Denies rash and Denies wounds Neurologic Denies confusion, Denies loss of vision and Reports weakness Psychiatric Denies anxiety, Denies confusion, Denies depression, Denies homicidal ideation and Denies suicidal ideation Endocrine Denies palpitations Hematologic/Lymphatic Denies easy bruising Allergic/Immunologic Denies wheezing [facility] Medical History Coronary artery disease (Chronic) Hyperlipidemia (Chronic) 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) Essential hypertension (Chronic 12/14/11) Diabetic foot ulcer (Chronic) Edema (Chronic) Leg wound, left (Chronic) Generalized weakness (Chronic) Alcohol use (Chronic) Cellulitis of left lower extremity (Chronic) Chronic kidney disease, stage 3 (Chronic) Osteomyelitis of left foot (Chronic) Skin lesion of left lower extremity (Chronic) Chronic obstructive pulmonary disease (Chronic 07/08/15) Chronic diastolic congestive heart failure (Chronic 05/23/15) Chronic atrial fibrillation (Chronic 02/17/15) Uncontrolled type 2 diabetes mellitus with hyperglycemia, without long-term current use of insulin (Chronic 08/20/17) Osteoarthritis, knee (Chronic) Anemia in chronic kidney disease (Chronic) Prostate cancer (Chronic 04/03/11) Bilateral shoulder pain (Chronic) Current use of fpc anticoagulation (Chronic) Obstructive sleep apnea syndrome (Chronic 04/03/11) Gastroesophageal reflux disease without esophagitis (Chronic 04/03/11) Migraine with aura and without status migrainosus, not intractable (Chronic 04/03/11) Gout (Chronic 04/03/11) Dyskinesia of esophagus (Chronic 12/14/11) Chronic pain of both knees (Chronic 03/23/16) Morbid obesity with body mass index (BMI) of 40.0 to 44.9 in adult (Resolved 03/23/16) Surgical History History of knee replacement (Resolved 10/12/13) History of prostatectomy (Resolved) Status post endoscopic retrograde cholangiopancreatography (Resolved 12/2014) Status post laparoscopic cholecystectomy (Resolved 12/2014) Status post placement of cardiac pacemaker (Resolved 11/2011) Social History marital status: number of children: 6 household members: friend(s) lives independently: Yes caregiver/support person: Yes (Minimal) housing: house pets and animals: Yes education level: master's degree occupational status: other (Retired.) Previous occupational history: Technical Training and Safety Engineering. alberto/moravian: [employer] leisure activities: reading and other (Watching TV) Smoking Status: Former smoker Tobacco: How many years used: 4 Smokeless tobacco user: other (Cigarettes and Pipe) quit status: quit date established (~1981) second hand exposure: No alcohol intake: current substance use type: does not use Exam Narrative Exam Narrative: Frail 78-year-old male appears quite weak, he states this is a departure from his normal Initial Vital Signs Initial Vital Signs: Vital Signs Pulse Rate 80 03/31/18 16:45 Respiratory Rate 18 03/31/18 16:45 Blood Pressure 109/64 03/31/18 16:45 Pulse Oximetry 97 03/31/18 16:45 Const General: cooperative, in distress and frail appearing Nutritional Appearance: well nourished Orientation: alert, awake, oriented x3 and not confused HENMN Head: normocephalic and atraumatic Ears: external ears normal and TM's normal bilaterally Nose: external nose normal and No nasal discharge Face and sinus: sinuses nontender, face symmetric, no sinus tenderness and dry mucous membranes Mouth: moist mucous membranes Throat: tonsils normal and uvula midline Eyes General: appearance normal, both eyes and all related structures Eyelids: eyelids normal Conjunctivae: conjunctivae normal Sclera: sclerae normal Pupils: PERRL EOM: EOM intact bilaterally Chest Chest: normal inspection of the chest Resp Effort & Inspection: normal respiratory effort, able to speak in complete sentences, no respiratory distress and no use of accessory muscles Auscultation: clear to auscultation bilaterally, no rales, no rhonchi and no wheezes Cardio Rate: regular rate Rhythm: regular rhythm Heart Sounds: no click, no gallops, no murmurs and no rubs Pulses: normal peripheral pulses GI Inspection: non-distended Palpation: soft, no hepatosplenomegaly, No guarding, No pulsatile mass and No tender Auscultation: normal bowel sounds Back/Spine/Pelvis Back: No CVA tenderness Cervical Spine: cervical ROM normal and No pain with cervical ROM Thoracic/Lumbar Spine: thoracic and lumbar spine normal to inspection Skin Other: dry scaly skin, poor turgor Course Orders Ordered: ED Orders 03/31/18 17:46 Complete Blood Count AUTO DIFF Stat Comprehensive Metabolic Panel Stat Lipase Stat Partial Thromboplastin Time Stat Prothrombin Time INR Stat Troponin & CK Cardiac Panel Stat 03/31/18 17:58 Urine Microscopic Stat 03/31/18 18:03 CT head/brain wo con Stat XR chest 1V Stat 03/31/18 18:23 XR finger LT min 2V Stat XR knee RT 3V Stat 03/31/18 21:55 Consult to Physical Therapy Evaluate & Treat Sodium Chloride (Normal Saline 0.9%) 1,000 mls @ 80 mls/hr IV CONT DANNY Last Admin: 03/31/18 22:22 Dose: 80 mls/hr Discontinued Medications Sodium Chloride (Normal Saline 0.9%) 1,000 mls @ 1,000 mls/hr IV BOLUS ONE Stop: 03/31/18 18:57 Last Infusion: 03/31/18 19:31 Dose: 0 mls/hr Admin: 03/31/18 18:31 Dose: 1,000 mls/hr Sodium Chloride (Normal Saline 0.9%) 1,000 mls @ 150 mls/hr IV CONT DANNY Last Admin: 03/31/18 22:23 Dose: Consultations Consultation #1: Dr. Carlin happy to admit Vital Signs - 8 hr 03/31/18 18:00 03/31/18 18:46 03/31/18 19:23 Temperature Pulse Rate 80 83 Pulse Rate [Orthostatic Lying] Pulse Rate [Orthostatic Sitting] Pulse Rate [Orthostatic Standing] Respiratory Rate 18 20 10 L Blood Pressure Blood Pressure [Orthostatic Lying] Blood Pressure [Orthostatic Sitting] Blood Pressure [Orthostatic Standing] Blood Pressure [Right Arm] 122/66 H 115/62 Pulse Oximetry 100 97 100 03/31/18 20:07 03/31/18 20:37 03/31/18 21:03 Temperature Pulse Rate 80 83 Pulse Rate [Orthostatic Lying] 91 H Pulse Rate [Orthostatic Sitting] 80 Pulse Rate [Orthostatic Standing] 80 Respiratory Rate 12 18 17 Blood Pressure Blood Pressure [Orthostatic Lying] 128/78 H Blood Pressure [Orthostatic Sitting] 121/79 H Blood Pressure [Orthostatic Standing] 112/55 L Blood Pressure [Right Arm] 109/57 L 118/66 Pulse Oximetry 94 92 95 03/31/18 21:50 03/31/18 23:49 Temperature 97.2 F L 97.4 F L Pulse Rate 79 78 Pulse Rate [Orthostatic Lying] Pulse Rate [Orthostatic Sitting] Pulse Rate [Orthostatic Standing] Respiratory Rate 16 19 Blood Pressure 121/58 H 109/67 Blood Pressure [Orthostatic Lying] Blood Pressure [Orthostatic Sitting] Blood Pressure [Orthostatic Standing] Blood Pressure [Right Arm] Pulse Oximetry 98 99 MDM - Weakness Differential Diagnosis Differential diagnosis: Likely acute myocardial infarction, anemia, hypoglycemia, hypothyroidism, rhabdomyolysis, sepsis, dehydration and other Medical Records Attestation: I reviewed the patient's medical records. Lab Data Attestation: I reviewed the patient's lab results. Result diagrams: 03/31/18 17:46 03/31/18 17:46 Lab Results 03/31/18 03/31/18 03/31/18 Range/Units 17:46 17:46 17:46 WBC 7.4 (4.5-11.0) X10^3/uL RBC 4.26 L (4.5-5.9) X10^6/uL Hgb 10.6 L (13.5-17.5) g/dL Hct 32.9 L (41-53) % MCV 77.3 L (80-100) fL MCH 25.0 L (26-34) PG MCHC 32.3 (30-36) % RDW 20.4 H (11.6-14.8) % Plt Count 130 L (150-400) X10^3/uL Neut % (Auto) 54.0 (50-75) % Lymph % (Auto) 27.8 (25-40) % [place] % (Auto) 13.3 (3-14) % Eos % (Auto) 3.7 (2-4) % Baso % (Auto) 1.2 (0-2) % Neut # (Auto) 4000 (5972-5172) /uL RBC Morphology Not Reportable Poikilocytosis 1+ H Anisocytosis 2+ H Microcytosis 1+ H PT 36.8 H (10.1-12.7) SECONDS INR 3.3 H (0.9-1.3) APTT 36 D (26.4-36.2) SECONDS Sodium 140 (137-145) mmol/L Potassium 3.8 D (3.4-5.1) mmol/L Chloride 99 (98-107) mmol/L Carbon Dioxide 30 (22-32) mmol/L BUN 43 H (9-20) mg/dL Creatinine 1.90 H (0.66-1.25) mg/dL Estimated GFR 34.4 L (>60) mL/min BUN/Creatinine Ratio 22.6 H (6-22) Glucose 124 H (80-110) mg/dL Calcium 8.6 (8.4-10.2) mg/dL Total Bilirubin 1.2 (0.2-1.3) mg/dL AST 28 (17-59) IU/L ALT 26 (21-72) IU/L Alkaline Phosphatase 140 H (38-126) U/L Total Creatine Kinase 29 L (55-170) U/L CK-MB (CK-2) TNP Troponin I < 0.012 (0.01-0.034) ng/mL Total Protein 7.2 (6.3-8.2) g/dL Albumin 3.7 (3.5-5.0) g/dL Globulin 3.5 (1.7-4.1) g/dL Albumin/Globulin Ratio 1.1 (1.0-2.8) Lipase 161 (23-300) U/L Urine RBC (0-5/HPF) Urine WBC (0-5/HPF) Ur Squamous Epith Cells Urine Bacteria (None) Ur Culture Indicated? Micro UA Comment 03/31/18 Range/Units 17:58 WBC (4.5-11.0) X10^3/uL RBC (4.5-5.9) X10^6/uL Hgb (13.5-17.5) g/dL Hct (41-53) % MCV (80-100) fL MCH (26-34) PG MCHC (30-36) % RDW (11.6-14.8) % Plt Count (150-400) X10^3/uL Neut % (Auto) (50-75) % Lymph % (Auto) (25-40) % [place] % (Auto) (3-14) % Eos % (Auto) (2-4) % Baso % (Auto) (0-2) % Neut # (Auto) (2587-8749) /uL RBC Morphology Poikilocytosis Anisocytosis Microcytosis PT (10.1-12.7) SECONDS INR (0.9-1.3) APTT (26.4-36.2) SECONDS Sodium (137-145) mmol/L Potassium (3.4-5.1) mmol/L Chloride (98-107) mmol/L Carbon Dioxide (22-32) mmol/L BUN (9-20) mg/dL Creatinine (0.66-1.25) mg/dL Estimated GFR (>60) mL/min BUN/Creatinine Ratio (6-22) Glucose (80-110) mg/dL Calcium (8.4-10.2) mg/dL Total Bilirubin (0.2-1.3) mg/dL AST (17-59) IU/L ALT (21-72) IU/L Alkaline Phosphatase (38-126) U/L Total Creatine Kinase (55-170) U/L CK-MB (CK-2) Troponin I (0.01-0.034) ng/mL Total Protein (6.3-8.2) g/dL Albumin (3.5-5.0) g/dL Globulin (1.7-4.1) g/dL Albumin/Globulin Ratio (1.0-2.8) Lipase (23-300) U/L Urine RBC 5-10/hpf H (0-5/HPF) Urine WBC None seen (0-5/HPF) Ur Squamous Epith Cells 0-1 /hpf Urine Bacteria Occasional (0-1) (None) Ur Culture Indicated? Cult not indicated Micro UA Comment Not Reportable MDM Narrative Medical decision making narrative: 78-year-old male with complicated medical history who presents with increasing weakness and multiple falls over the course of the week. He has an unremarkable exam and labs appear at his baseline. He admitted the feels unsafe at home and though he has some help states that his knees exceed the help that he can receive. Patient required significant help from multiple people to get up and transfer today. He has multiple falls and takes Coumadin and poses a significant risk to himself going home prior to being stabilized Discharge Plan Departure Patient Disposition: Admitted as Observation Clinical Impression: Episode of generalized weakness Discharge Date/Time: 03/31/18 21:44 Interventions: ED Discharge Assessment Last Done: 03/31/18 21:43 Admit Date/Time: 03/31/18 20:42 Admit Provider: Eliazar Carlin
[2018-03-31 18:17] LABS: PTT Partial Thromboplastin Tim 36 SECONDS (26.4-36.2)
[2018-03-31 18:22] LABS: Alanine Aminotransferase 26 IU/L (21-72); Albumin 3.7 g/dL (3.5-5.0); Albumin Globulin Ratio 1.1 (1.0-2.8); Alkaline Phosphatase 140 U/L (38-126); Aspartate Aminotransferase 28 IU/L (17-59); BUN Creatinine Ratio 22.6 (6-22); Bilirubin Total 1.2 mg/dL (0.2-1.3); Blood Urea Nitrogen 43 mg/dL (9-20); Calcium 8.6 mg/dL (8.4-10.2); Carbon Dioxide 30 mmol/L (22-32); Chloride 99 mmol/L (98-107); Creatine Kinase 29 U/L (55-170); Estimated Glomerular Filt Rate 34.4 mL/min (>60); Globulin 3.5 g/dL (1.7-4.1); Glucose 124 mg/dL (80-110); HEMOLYSIS < 15 (0-50); Lipase 161 U/L (23-300); Potassium 3.8 mmol/L (3.4-5.1); Sodium 140 mmol/L (137-145); Total Protein 7.2 g/dL (6.3-8.2)
--- NOTE | 2018-03-31 18:23 | DI.RAD.S_ITS ---
PROCEDURE: XR KNEE RT 3V INDICATIONS: fall with knee pain TECHNIQUE: 3 views of the knee were acquired. COMPARISON: None. FINDINGS: Bones: No fractures or dislocations. No suspicious bony lesions. Soft tissues: No joint effusion. No suspicious soft tissue calcifications. IMPRESSION: No acute radiographic findings. If pain persists, repeat study in 5-7 days is recommended to exclude occult fracture. Dictated by: Ivette Talavera M.D. on 03/31/2018 at 18:41 Approved by: Ivette Talavera M.D. on 03/31/2018 at 18:41
--- NOTE | 2018-03-31 18:23 | DI.RAD.S_ITS ---
PROCEDURE: XR FINGER LT MIN 2V INDICATIONS: fall with pain TECHNIQUE: AP hand, 2 views of the left second finger(s) acquired. COMPARISON: None. FINDINGS: Bones: There is posterior dislocation of the PIP joint of the left second digit. No definite fracture visualized. No other fractures or dislocations. Soft tissues: No suspicious soft tissue calcifications. IMPRESSION: Dislocated second PIP joint. No definite fracture. If pain persists, repeat study in 5-7 days is recommended to exclude occult fracture. Dictated by: Ivette Talavera M.D. on 03/31/2018 at 18:41 Approved by: Ivette Talavera M.D. on 03/31/2018 at 18:42
[2018-03-31] MEDS: SODIUM CHLORIDE 0.9% 1,000 ML 1000 ML IV (18:31)
[2018-03-31 18:35] LABS: Troponin I < 0.012 ng/mL (0.01-0.034)
[2018-03-31 18:46] LABS: WBC Urine None Seen (0-5/HPF)
[2018-03-31 18:48] LABS: Add Manual Diff / Slide Review NO; Basophils Percent Auto 1.2 % (0-2); Eosinophils Percent Auto 3.7 % (2-4); Hematocrit 32.9 % (41-53); Hemoglobin 10.6 g/dL (13.5-17.5); Lymphocytes Percent Auto 27.8 % (25-40); Mean Corpuscular HGB Conc 32.3 % (30-36); Mean Corpuscular Volume 77.3 fL (80-100); Monocytes Percent Auto 13.3 % (3-14); Neutrophils Absolute Auto 4000 /uL (3000-5900); Platelet Count 130 X10^3/uL (150-400); Red Blood Cell Count 4.26 X10^6/uL (4.5-5.9); Red Cell Distribution Width 20.4 % (11.6-14.8); White Blood Cell Count 7.4 X10^3/uL (4.5-11.0)
[2018-03-31 18:56] LABS: Bacteria Urine Occasional (0-1); Culture Indicated Urine Cult Not Indicated; RBC Urine 5-10/HPF (0-5/HPF); Squamous Epithelial Cell Urine 0-1 /HPF
[2018-03-31 19:18] LABS: Anisocytosis 2+; Microcytosis 1+; Poikilocytosis 1+
--- NOTE | 2018-03-31 20:25 | ED_ITS ---
HPI - Weakness General Chief complaint: Weakness Stated complaint: Increased weakness, falls Time Seen by Provider: 03/31/18 17:57 Source: patient and EMS Mode of arrival: EMS Limitations: no limitations History of Present Illness HPI Narrative: Pleasant 78-year-old male with a history of hypertension, coronary artery disease, type 2 diabetes and ongoing treatment for a left leg wound presents by EMS for evaluation of multiple falls this week. The patient lives at home and has 2 caregivers that live with him that have been taking care of him. 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 He has been unable to transfer from bed to toilet and has increasing weakness and is unstable.He was recently seen and evaluated by Dr. Vizcarra who did a surgical debridement of his left leg wound. He denies any fever chills nor nausea or vomiting. he has no chest pain or shortness of breath. He denies striking his head when he fell but he is on Coumadin, hence that head CT. MD Complaint: generalized weakness Onset (ago): day(s) Duration: constant Location: generalized Migration: none Relieving factors: none Exacerbating factors: none Context: recent surgery Associated symptoms: denies other symptoms Related Data Home Medications Medication Instructions Recorded Confirmed potassium chloride [K-Tab] 40 meq PO BID #810 10/29/17 03/31/18 torsemide 10 mg PO QDAY #90 10/29/17 03/31/18 calcium carbonate-vitamin D3 1 cap PO BID #0 11/01/17 03/31/18 [Calcium 600 with Vitamin D3] eplerenone 25 mg PO QDAY #0 11/01/17 03/31/18 folic acid 0.4 mg PO QDAY #0 11/01/17 03/31/18 magnesium oxide 500 mg PO TID #0 11/01/17 03/31/18 metoprolol tartrate 12.5 mg PO BID #0 11/01/17 03/31/18 multivitamin [Multiple Vitamins] 1 tab PO QDAY #0 11/01/17 03/31/18 nitroglycerin [Nitrostat] 0.4 mg SUBLINGUAL PRN PRN #0 11/01/17 03/31/18 ipratropium 20 mcg-albuterol 100 1 puff INHALATION BID gram 03/20/18 03/31/18 mcg/actuation mist for inhalation krill oil 500 mg capsule 500 mg PO DAILY cap 03/20/18 03/31/18 oxycodone 10 mg tablet See Label Instructions .ROUTE 03/20/18 03/31/18 .COMPLEX PRN simvastatin 20 mg tablet 20 mg PO QPM 03/20/18 03/31/18 warfarin [Coumadin] See Label Instructions .ROUTE 03/24/18 03/31/18 .COMPLEX cholestyramine-aspartame 4 g PO BEDTIME 03/31/18 03/31/18 [Prevalite] ipratropium bromide 2 spray INTRANASAL BID 03/31/18 03/31/18 metolazone 2.5 mg PO Q OTHER DAY 03/31/18 03/31/18 Previous Rx's Medication Instructions Recorded glipizide [Glucotrol XL] [address] [facility] #30 tab 10/29/16 Glucose: Test Strips 0 str SEE INSTRUCTIONS #100 str 05/13/17 gabapentin [Neurontin] 900 mg PO TID #270 cap 09/23/17 omeprazole 20 mg PO BID #60 cap 12/17/17 Disabled Parking #1 [id number] 03/25/18 Allergies Allergy/AdvReac Type Severity Reaction Status Date / Time camphor [CAMPHOR] Allergy Mild RASH Verified 03/26/18 09:41 cyclobenzaprine Allergy Mild HIVES Verified 03/26/18 09:41 [CYCLOBENZAPRINE] lisinopril [LISINOPRIL] Allergy Mild COUGH/DRY Verified 03/26/18 09:41 THROAT menthol [MENTHOL] Allergy Mild RASH Verified 03/26/18 09:41 methyl salicylate Allergy Mild RASH Verified 03/26/18 09:41 [METHYL SALICYLATE] Review of Systems Review of Systems All systems reviewed & are unremarkable except as noted in HPI and below Constitutional Denies chills, Denies fever(s), Denies lethargy and Reports weakness Eyes Denies change in vision, Denies eye discharge, Denies irritation and Denies loss of vision ENT Ears, Nose, Mouth, and Throat: Denies change in voice, Denies neck pain and Denies sore throat Cardiovascular Denies chest pain, Denies irregular heart rhythm, Denies lightheadedness, Denies palpitations, Denies dyspnea, Denies dyspnea on exertion and Denies orthopnea Respiratory Denies cough, Denies dyspnea, Denies dyspnea on exertion and Denies wheezing Gastrointestinal Gastrointestinal: Denies abdominal pain, Denies change in bowel habits, Denies diarrhea, Denies nausea and Denies vomiting Genitourinary Denies hematuria, Denies flank pain, Denies urinary incontinence and Denies urinary urgency Musculoskeletal Denies neck pain Integumentary/Breasts Denies pruritus, Denies erythema, Denies rash and Denies wounds Neurologic Denies confusion, Denies loss of vision and Reports weakness Psychiatric Denies anxiety, Denies confusion, Denies depression, Denies homicidal ideation and Denies suicidal ideation Endocrine Denies palpitations Hematologic/Lymphatic Denies easy bruising Allergic/Immunologic Denies wheezing [facility] Medical History Coronary artery disease (Chronic) Hyperlipidemia (Chronic) 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) Essential hypertension (Chronic 12/14/11) Diabetic foot ulcer (Chronic) Edema (Chronic) Leg wound, left (Chronic) Generalized weakness (Chronic) Alcohol use (Chronic) Cellulitis of left lower extremity (Chronic) Chronic kidney disease, stage 3 (Chronic) Osteomyelitis of left foot (Chronic) Skin lesion of left lower extremity (Chronic) Chronic obstructive pulmonary disease (Chronic 07/08/15) Chronic diastolic congestive heart failure (Chronic 05/23/15) Chronic atrial fibrillation (Chronic 02/17/15) Uncontrolled type 2 diabetes mellitus with hyperglycemia, without long-term current use of insulin (Chronic 08/20/17) Osteoarthritis, knee (Chronic) Anemia in chronic kidney disease (Chronic) Prostate cancer (Chronic 04/03/11) Bilateral shoulder pain (Chronic) Current use of halfway anticoagulation (Chronic) Obstructive sleep apnea syndrome (Chronic 04/03/11) Gastroesophageal reflux disease without esophagitis (Chronic 04/03/11) Migraine with aura and without status migrainosus, not intractable (Chronic 04/07) Gout (Chronic 04/03/11) Dyskinesia of esophagus (Chronic 12/14/11) Chronic pain of both knees (Chronic 03/23/16) Morbid obesity with body mass index (BMI) of 40.0 to 44.9 in adult (Resolved ) Surgical History History of knee replacement (Resolved 10/12/13) History of prostatectomy (Resolved) Status post endoscopic retrograde cholangiopancreatography (Resolved 12/2014) Status post laparoscopic cholecystectomy (Resolved 12/2014) Status post placement of cardiac pacemaker (Resolved 11/2011) Social History marital status: number of children: 6 household members: friend(s) lives independently: Yes caregiver/support person: Yes (Minimal) housing: house pets and animals: Yes education level: master's degree occupational status: other (Retired.) Previous occupational history: Technical Training and Safety Engineering. alberto/yazidism: Taoism leisure activities: reading and other (Watching TV) Smoking Status: Former smoker Tobacco: How many years used: 4 Smokeless tobacco user: other (Cigarettes and Pipe) quit status: quit date established (~1981) second hand exposure: No alcohol intake: current substance use type: does not use Exam Narrative Exam Narrative: Frail 78-year-old male appears quite weak, he states this is a departure from his normal Initial Vital Signs Initial Vital Signs: Vital Signs Pulse Rate 80 03/31/18 16:45 Respiratory Rate 18 03/31/18 16:45 Blood Pressure 109/64 03/31/18 16:45 Pulse Oximetry 97 03/31/18 16:45 Const General: cooperative, in distress and frail appearing Nutritional Appearance: well nourished Orientation: alert, awake, oriented x3 and not confused HENWV Head: normocephalic and atraumatic Ears: external ears normal and TM's normal bilaterally Nose: external nose normal and No nasal discharge Face and sinus: sinuses nontender, face symmetric, no sinus tenderness and dry mucous membranes Mouth: moist mucous membranes Throat: tonsils normal and uvula midline Eyes General: appearance normal, both eyes and all related structures Eyelids: eyelids normal Conjunctivae: conjunctivae normal Sclera: sclerae normal Pupils: PERRL EOM: EOM intact bilaterally Chest Chest: normal inspection of the chest Resp Effort & Inspection: normal respiratory effort, able to speak in complete sentences, no respiratory distress and no use of accessory muscles Auscultation: clear to auscultation bilaterally, no rales, no rhonchi and no wheezes Cardio Rate: regular rate Rhythm: regular rhythm Heart Sounds: no click, no gallops, no murmurs and no rubs Pulses: normal peripheral pulses GI Inspection: non-distended Palpation: soft, no hepatosplenomegaly, No guarding, No pulsatile mass and No tender Auscultation: normal bowel sounds Back/Spine/Pelvis Back: No CVA tenderness Cervical Spine: cervical ROM normal and No pain with cervical ROM Thoracic/Lumbar Spine: thoracic and lumbar spine normal to inspection Skin Other: dry scaly skin, poor turgor Course Orders Ordered: ED Orders 03/31/18 17:46 Complete Blood Count AUTO DIFF Stat Comprehensive Metabolic Panel Stat Lipase Stat Partial Thromboplastin Time Stat Prothrombin Time INR Stat Troponin & CK Cardiac Panel Stat 03/31/18 17:58 Urine Microscopic Stat 03/31/18 18:03 CT head/brain wo con Stat XR chest 1V Stat 03/31/18 18:23 XR finger LT min 2V Stat XR knee RT 3V Stat 03/31/18 21:55 Consult to Physical Therapy Evaluate & Treat Sodium Chloride (Normal Saline 0.9%) 1,000 mls @ 80 mls/hr IV CONT DANNY Last Admin: 03/31/18 22:22 Dose: 80 mls/hr Discontinued Medications Sodium Chloride (Normal Saline 0.9%) 1,000 mls @ 1,000 mls/hr IV BOLUS ONE Stop: 03/31/18 18:57 Last Infusion: 03/31/18 19:31 Dose: 0 mls/hr Admin: 03/31/18 18:31 Dose: 1,000 mls/hr Sodium Chloride (Normal Saline 0.9%) 1,000 mls @ 150 mls/hr IV CONT DANNY Last Admin: 03/31/18 22:23 Dose: Consultations Consultation #1: Dr. Carlin happy to admit Vital Signs - 8 hr 03/31/18 18:00 03/31/18 18:46 03/31/18 19:23 Temperature Pulse Rate 80 83 Pulse Rate [Orthostatic Lying] Pulse Rate [Orthostatic Sitting] Pulse Rate [Orthostatic Standing] Respiratory Rate 18 20 10 L Blood Pressure Blood Pressure [Orthostatic Lying] Blood Pressure [Orthostatic Sitting] Blood Pressure [Orthostatic Standing] Blood Pressure [Right Arm] 122/66 H 115/62 Pulse Oximetry 100 97 100 03/31/18 20:07 03/31/18 20:37 03/31/18 21:03 Temperature Pulse Rate 80 83 Pulse Rate [Orthostatic Lying] 91 H Pulse Rate [Orthostatic Sitting] 80 Pulse Rate [Orthostatic Standing] 80 Respiratory Rate 12 18 17 Blood Pressure Blood Pressure [Orthostatic Lying] 128/78 H Blood Pressure [Orthostatic Sitting] 121/79 H Blood Pressure [Orthostatic Standing] 112/55 L Blood Pressure [Right Arm] 109/57 L 118/66 Pulse Oximetry 94 92 95 03/31/18 21:50 03/31/18 23:49 Temperature 97.2 F L 97.4 F L Pulse Rate 79 78 Pulse Rate [Orthostatic Lying] Pulse Rate [Orthostatic Sitting] Pulse Rate [Orthostatic Standing] Respiratory Rate 16 19 Blood Pressure 121/58 H 109/67 Blood Pressure [Orthostatic Lying] Blood Pressure [Orthostatic Sitting] Blood Pressure [Orthostatic Standing] Blood Pressure [Right Arm] Pulse Oximetry 98 99 MDM - Weakness Differential Diagnosis Differential diagnosis: Likely acute myocardial infarction, anemia, hypoglycemia , hypothyroidism, rhabdomyolysis, sepsis, dehydration and other Medical Records Attestation: I reviewed the patient's medical records. Lab Data Attestation: I reviewed the patient's lab results. Result diagrams: 03/31/18 17:46 03/31/18 17:46 Lab Results 03/31/18 03/31/18 03/31/18 Range/Units 17:46 17:46 17:46 WBC 7.4 (4.5-11.0) X10^3/uL RBC 4.26 L (4.5-5.9) X10^6/uL Hgb 10.6 L (13.5-17.5) g/dL Hct 32.9 L (41-53) % MCV 77.3 L (80-100) fL MCH 25.0 L (26-34) PG MCHC 32.3 (30-36) % RDW 20.4 H (11.6-14.8) % Plt Count 130 L (150-400) X10^3/uL Neut % (Auto) 54.0 (50-75) % Lymph % (Auto) 27.8 (25-40) % [place] % (Auto) 13.3 (3-14) % Eos % (Auto) 3.7 (2-4) % Baso % (Auto) 1.2 (0-2) % Neut # (Auto) 4000 (6726-4774) /uL RBC Morphology Not Reportable Poikilocytosis 1+ H Anisocytosis 2+ H Microcytosis 1+ H PT 36.8 H (10.1-12.7) SECONDS INR 3.3 H (0.9-1.3) APTT 36 D (26.4-36.2) SECONDS Sodium 140 (137-145) mmol/L Potassium 3.8 D (3.4-5.1) mmol/L Chloride 99 (98-107) mmol/L Carbon Dioxide 30 (22-32) mmol/L BUN 43 H (9-20) mg/dL Creatinine 1.90 H (0.66-1.25) mg/dL Estimated GFR 34.4 L (>60) mL/min BUN/Creatinine Ratio 22.6 H (6-22) Glucose 124 H (80-110) mg/dL Calcium 8.6 (8.4-10.2) mg/dL Total Bilirubin 1.2 (0.2-1.3) mg/dL AST 28 (17-59) IU/L ALT 26 (21-72) IU/L Alkaline Phosphatase 140 H (38-126) U/L Total Creatine Kinase 29 L (55-170) U/L CK-MB (CK-2) TNP Troponin I < 0.012 (0.01-0.034) ng/mL Total Protein 7.2 (6.3-8.2) g/dL Albumin 3.7 (3.5-5.0) g/dL Globulin 3.5 (1.7-4.1) g/dL Albumin/Globulin Ratio 1.1 (1.0-2.8) Lipase 161 (23-300) U/L Urine RBC (0-5/HPF) Urine WBC (0-5/HPF) Ur Squamous Epith Cells Urine Bacteria (None) Ur Culture Indicated? Micro UA Comment 03/31/18 Range/Units 17:58 WBC (4.5-11.0) X10^3/uL RBC (4.5-5.9) X10^6/uL Hgb (13.5-17.5) g/dL Hct (41-53) % MCV (80-100) fL MCH (26-34) PG MCHC (30-36) % RDW (11.6-14.8) % Plt Count (150-400) X10^3/uL Neut % (Auto) (50-75) % Lymph % (Auto) (25-40) % [place] % (Auto) (3-14) % Eos % (Auto) (2-4) % Baso % (Auto) (0-2) % Neut # (Auto) (1907-4401) /uL RBC Morphology Poikilocytosis Anisocytosis Microcytosis PT (10.1-12.7) SECONDS INR (0.9-1.3) APTT (26.4-36.2) SECONDS Sodium (137-145) mmol/L Potassium (3.4-5.1) mmol/L Chloride (98-107) mmol/L Carbon Dioxide (22-32) mmol/L BUN (9-20) mg/dL Creatinine (0.66-1.25) mg/dL Estimated GFR (>60) mL/min BUN/Creatinine Ratio (6-22) Glucose (80-110) mg/dL Calcium (8.4-10.2) mg/dL Total Bilirubin (0.2-1.3) mg/dL AST (17-59) IU/L ALT (21-72) IU/L Alkaline Phosphatase (38-126) U/L Total Creatine Kinase (55-170) U/L CK-MB (CK-2) Troponin I (0.01-0.034) ng/mL Total Protein (6.3-8.2) g/dL Albumin (3.5-5.0) g/dL Globulin (1.7-4.1) g/dL Albumin/Globulin Ratio (1.0-2.8) Lipase (23-300) U/L Urine RBC 5-10/hpf H (0-5/HPF) Urine WBC None seen (0-5/HPF) Ur Squamous Epith Cells 0-1 /hpf Urine Bacteria Occasional (0-1) (None) Ur Culture Indicated? Cult not indicated Micro UA Comment Not Reportable MDM Narrative Medical decision making narrative: 78-year-old male with complicated medical history who presents with increasing weakness and multiple falls over the course of the week. He has an unremarkable exam and labs appear at his baseline. He admitted the feels unsafe at home and though he has some help states that his knees exceed the help that he can receive. Patient required significant help from multiple people to get up and transfer today. He has multiple falls and takes Coumadin and poses a significant risk to himself going home prior to being stabilized Discharge Plan Departure Patient Disposition: Admitted as Observation Clinical Impression: Episode of generalized weakness Discharge Date/Time: 03/31/18 21:44 Interventions: ED Discharge Assessment Last Done: 03/31/18 21:43 Admit Date/Time: 03/31/18 20:42 Admit Provider: Eliazar Carlin
--- NOTE | 2018-03-31 20:25 | PC.NURSE ---
Patient was able to sit and then stand at bedside, became weak in his legs quickly and after 30 seconds started to sway and at that point I helped him back into bed safely.
[2018-03-31] MEDS: SODIUM CHLORIDE 0.9% 1,000 ML 80 ML IV (22:22)
--- NOTE | 2018-03-31 22:41 | PC.ADMIT ---
[email or web address] Admission Note: The patient,Arben Peacock,78 y/o, was given written information regarding hospital policies, unit procedures and contact persons. Patient's smoking status: Former smoker. Vital Signs - 8 hr 03/31/18 16:45 03/31/18 17:03 03/31/18 17:30 Temperature 97.6 F Pulse Rate 80 80 80 Pulse Rate [Orthostatic Lying] Pulse Rate [Orthostatic Sitting] Pulse Rate [Orthostatic Standing] Respiratory Rate 18 16 18 Blood Pressure 115/53 L Blood Pressure [Orthostatic Lying] Blood Pressure [Orthostatic Sitting] Blood Pressure [Orthostatic Standing] Blood Pressure [Right Arm] 109/64 115/53 L 105/57 L Pulse Oximetry 97 99 100 03/31/18 18:00 03/31/18 18:46 03/31/18 19:23 Temperature Pulse Rate 80 83 Pulse Rate [Orthostatic Lying] Pulse Rate [Orthostatic Sitting] Pulse Rate [Orthostatic Standing] Respiratory Rate 18 20 10 L Blood Pressure Blood Pressure [Orthostatic Lying] Blood Pressure [Orthostatic Sitting] Blood Pressure [Orthostatic Standing] Blood Pressure [Right Arm] 122/66 H 115/62 Pulse Oximetry 100 97 100 03/31/18 20:07 03/31/18 20:37 03/31/18 21:03 Temperature Pulse Rate 80 83 Pulse Rate [Orthostatic Lying] 91 H Pulse Rate [Orthostatic Sitting] 80 Pulse Rate [Orthostatic Standing] 80 Respiratory Rate 12 18 17 Blood Pressure Blood Pressure [Orthostatic Lying] 128/78 H Blood Pressure [Orthostatic Sitting] 121/79 H Blood Pressure [Orthostatic Standing] 112/55 L Blood Pressure [Right Arm] 109/57 L 118/66 Pulse Oximetry 94 92 95 03/31/18 21:50 Temperature 97.2 F L Pulse Rate 79 Pulse Rate [Orthostatic Lying] Pulse Rate [Orthostatic Sitting] Pulse Rate [Orthostatic Standing] Respiratory Rate 16 Blood Pressure 121/58 H Blood Pressure [Orthostatic Lying] Blood Pressure [Orthostatic Sitting] Blood Pressure [Orthostatic Standing] Blood Pressure [Right Arm] Pulse Oximetry 98 pt arrived to ac floor via stretcher. 2 assist to ac bed via slider board. Pt tolerated well. A&O, calm and cooperative.
--- NOTE | 2018-03-31 23:25 | PC.NURSE ---
Desirae shift note: Patient admitted to AC from ED in stable condition, alert, oriented, and pleasant. Ambulated to bathroom with FWW, steady gait, no weakness or dizziness. Had BM x1 and voided. Dressing to LLE lateral distal leg, dressed by wound care. Bruising to large left upper buttocks, right lateral hip, right knee (quarter size). Left 4th finger with echymosis, edema, and limited ROM d/t dislocation. Edema LLE 2+. Dressing to Right forearm, from skin tear. Checked BG 140. Awaiting for Hospitalist for further orders.
[2018-04-01] VITALS (9 sets, daily range): BP systolic 92–113; BP diastolic 54–69; PULSE 79–82; RESP 16–18; TEMP 36.4–36.7; O2SAT 94–98
--- NOTE | 2018-04-01 05:51 | PC.NURSE ---
Assumed care of pt from outgoing shift at 2300 8-27. Pt dressing changed to sites. pt compliant with nursing assessments. pt complains of discomfort to left shoulder, pt has bandaid to left shoulder and states oh well they must have given me a flu shot then, huh?. Pt dressing to left outer cheema is saturated, removed and wet to dry dressing replaced. (saline cleaned, saline soak gauze placed in wound bed and abd pad placed on top, wrapped in kirlex) Pt tolerated well. Pt uses call light. belongings and call light within reach. will continue to monitor. Pt up to obtain orthostatic vs, and pt complained of dizziness from sitting to standing. Pt had walker to use and he stated he felt more secure with this. bed alarm on. side rails upx3 for pt safety. fluids infusing, tolerating. will continue to monitor.
--- NOTE | 2018-04-01 07:37 | PM.HP.1 ---
History of Present Illness Date Patient Seen: 04/01/18 Time Patient Seen: 07:38 Chief complaint: Increased weakness, falls Narrative: 78-year-old male admitted for weakness Patient was hospitalized here after being found down at home with acute on chronic renal failure severe depression weakness etc. [facility] where he was very slow to improve. He did improve enough that he basically left against medical advise within the last 10 days. He did very poorly at home failing to check his blood sugars failing to be very active at all. He was hospitalized for debridement of the wound on his lower extremity (details of that procedure and hospitalization not yet available in the EMR) and went home at the end of the week last week. Apparently since returning home he has been pretty much in mobile spinning all of his time in his chair at his home. Has some caregivers were providing some assistance but basically failing at home. He actually called my office asking to be readmitted to penitentiary as he was unable to care for himself at home. He has had multiple falls at home. Apparently fractured finger on the left hand has fallen onto his right knee multiple times. Has some shoulder discomfort and bruising on the right shoulder. Basically unable to care for himself at home. In addition his home medication list appears to be inaccurate not clear what he was taking exactly. 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) Essential hypertension (Chronic 12/14/11) Diabetic foot ulcer (Chronic) Edema (Chronic) Leg wound, left (Chronic) Generalized weakness (Chronic) Paroxysmal atrial fibrillation (Chronic) Alcohol use (Chronic) Cellulitis of left lower extremity (Chronic) Chronic kidney disease, stage 3 (Chronic) Osteomyelitis of left foot (Chronic) Skin lesion of left lower extremity (Chronic) Chronic obstructive pulmonary disease (Chronic 07/08/15) Chronic diastolic congestive heart failure (Chronic 05/23/15) Uncontrolled type 2 diabetes mellitus with hyperglycemia, without long-term current use of insulin (Chronic 08/20/17) Osteoarthritis, knee (Chronic) Anemia in chronic kidney disease (Chronic) Prostate cancer (Chronic 04/03/11) Bilateral shoulder pain (Chronic) Current use of senior living anticoagulation (Chronic) Obstructive sleep apnea syndrome (Chronic 04/03/11) Gastroesophageal reflux disease without esophagitis (Chronic 04/03/11) Migraine with aura and without status migrainosus, not intractable (Chronic 04/03/11) Gout (Chronic 04/03/11) Dyskinesia of esophagus (Chronic 12/14/11) Chronic pain of both knees (Chronic 03/23/16) Chronic atrial fibrillation (Resolved 02/17/15) Morbid obesity with body mass index (BMI) of 40.0 to 44.9 in adult (Resolved 03/23/16) Surgical History History of knee replacement (Resolved 10/12/13) History of prostatectomy (Resolved) Status post endoscopic retrograde cholangiopancreatography (Resolved 12/2014) Status post laparoscopic cholecystectomy (Resolved 12/2014) Status post placement of cardiac pacemaker (Resolved 11/2011) Family & Social History Family History: Reviewed 04/01/18 by Hernesto Campbell MD Social History: household members friend(s) Prior Living Arrangements House lives independently Yes caregiver/support person Yes: Minimal Safety & Behavioral: Feels Safe in Current Yes Environment Been Physically Hurt or No Threatened By a Person Suicidal Ideation Description None Suicide Plan Description No Plan Tobacco & Substance use: Smoking Status Former smoker alcohol intake current alcohol intake frequency holiday/special occasion Substance Use Type does not use Meds Home Medications Medication Instructions Recorded Confirmed Type glipizide [Glucotrol XL] 10 mg [facility] tab 10/29/16 03/31/18 Rx Glucose: Test Strips 0 str SEE INSTRUCTIONS #100 str 05/13/17 03/31/18 Rx gabapentin [Neurontin] 900 mg PO TID #270 cap 09/23/17 03/31/18 Rx potassium chloride [K-Tab] 40 meq PO BID #810 10/29/17 03/31/18 History torsemide 10 mg PO QDAY #90 10/29/17 03/31/18 History calcium carbonate-vitamin D3 1 cap PO BID #0 11/01/17 03/31/18 History [Calcium 600 with Vitamin D3] eplerenone 25 mg PO QDAY #0 11/01/17 03/31/18 History folic acid 0.4 mg PO QDAY #0 11/01/17 03/31/18 History magnesium oxide 500 mg PO TID #0 11/01/17 03/31/18 History metoprolol tartrate 12.5 mg PO BID #0 11/01/17 03/31/18 History multivitamin [Multiple Vitamins] 1 tab PO QDAY #0 11/01/17 03/31/18 History nitroglycerin [Nitrostat] 0.4 mg SUBLINGUAL PRN PRN #0 11/01/17 03/31/18 History omeprazole 20 mg PO BID #60 cap 12/17/17 03/31/18 Rx ipratropium 20 mcg-albuterol 100 1 puff INHALATION BID gram 03/20/18 03/31/18 History mcg/actuation mist for inhalation krill oil 500 mg capsule 500 mg PO DAILY cap 03/20/18 03/31/18 History oxycodone 10 mg tablet See Label Instructions .ROUTE 03/20/18 03/31/18 History .COMPLEX PRN simvastatin 20 mg tablet 20 mg PO QPM 03/20/18 03/31/18 History warfarin [Coumadin] See Label Instructions .ROUTE 03/24/18 03/31/18 History .COMPLEX Disabled Parking #1 [id number] 03/25/18 Rx cholestyramine-aspartame 4 g PO BEDTIME 03/31/18 03/31/18 History [Prevalite] ipratropium bromide 2 spray INTRANASAL BID 03/31/18 03/31/18 History metolazone 2.5 mg PO Q OTHER DAY 03/31/18 03/31/18 History Allergies Allergy/AdvReac Type Severity Reaction Status Date / Time camphor [CAMPHOR] Allergy Mild RASH Verified 03/26/18 09:41 cyclobenzaprine Allergy Mild HIVES Verified 03/26/18 09:41 [CYCLOBENZAPRINE] lisinopril [LISINOPRIL] Allergy Mild COUGH/DRY Verified 03/26/18 09:41 THROAT menthol [MENTHOL] Allergy Mild RASH Verified 03/26/18 09:41 methyl salicylate Allergy Mild RASH Verified 03/26/18 09:41 [METHYL SALICYLATE] Review of Systems Constitutional Constitutional: Denies excessive sweating, Denies fever(s), Denies headache(s), Reports lack of energy, Reports malaise, Reports poor appetite, Reports weakness, Denies weight gain and Denies weight loss Eyes Eyes: Denies change in vision, Denies itchy eyes, Denies loss of vision and Denies other visual disturbances ENT Ears, Nose, Mouth, and Throat: No difficulty swallowing, No headache(s) and No neck pain Cardiovascular Cardiovascular: Denies chest pain, Denies fainting, Denies fast heart rate, Denies irregular heart rhythm, Denies rapid, pounding, or irregular heartbeat, Reports shortness of breath (Chronic), Reports shortness of breath with activity (Chronic and unchanged) and Denies slow heart rate Respiratory Respiratory: Reports dyspnea (Chronic) and Reports dyspnea on exertion (Chronic and unchanged) Gastrointestinal Gastrointestinal: Denies abdominal pain, Denies bloating, Denies change in bowel habits, Denies change in stool character, Denies dysphagia, Denies nausea, Denies vomiting and Denies hematemesis Genitourinary Genitourinary: Denies hematuria, Denies difficulty urinating and Denies urinary frequency Musculoskeletal Musculoskeletal: Reports abnormal gait (Very weak unable to really take more than very few steps), Denies myalgias, Denies arthralgias, Denies limited range of motion and Denies neck pain Integumentary/Breasts Skin/Breast: Denies bleeding lesions, Denies change in pigmentation, Denies changing lesions, Denies new lesions, Denies rash, Denies skin swelling, Denies sores and Denies jaundice Neurologic Neurologic: Reports abnormal gait (Very weak unable to really take more than very few steps), Denies behavioral changes, Denies confusion, Denies syncope, Denies headache(s), Denies loss of vision, Denies memory loss and Reports weakness Psychiatric Psychiatric: Denies behavioral changes, Reports change in appetite (Diminished), Denies confusion, Denies difficulty concentrating, Denies auditory hallucinations, Denies memory loss, Denies mood swings and Denies suicidal ideation Endocrine Endocrine: Denies excessive sweating and Denies palpitations Hematologic/Lymphatic Hematologic/Lymphatic: Denies easy bleeding, Denies easy bruising and Denies lymphadenopathy Allergic/Immunologic Allergic/Immunologic: Denies itchy eyes Exam Vital Signs (past 8 hours): - 03/31/18 23:49 04/01/18 01:00 04/01/18 03:59 Temperature 97.4 F L 97.5 F L Pulse Rate 78 79 Pulse Rate [Orthostatic Lying] 82 Pulse Rate [Orthostatic Sitting] 81 Pulse Rate [Orthostatic Standing] 82 Respiratory Rate 19 17 Blood Pressure 109/67 100/58 L Blood Pressure [Orthostatic Lying] 113/67 Blood Pressure [Orthostatic Sitting] 96/58 L Blood Pressure [Orthostatic Standing] 99/60 Pulse Oximetry 99 96 Oxygen Delivery Method Room Air Const General: cooperative, healthy appearing, comfortable and well developed Nutritional Appearance: well nourished Orientation: alert, awake and oriented x3 HENMT Head: normocephalic, atraumatic, No cyanosis of lips/distal nose, No raccoon eyes and No periorbital ecchymosis Ears: hearing grossly normal bilaterally and external ears normal Nose: external nose normal and nares normal Face and sinus: normal facial exam and face symmetric Mouth: oral mucosae normal, lip normal and tongue normal Eyes Alignment and Position: alignment normal Periorbital: periorbital findings normal Eyelids: eyelids normal Conjunctivae: conjunctivae normal Sclera: sclerae normal Cornea: corneas normal Pupils: PERRL EOM: EOM intact bilaterally Neck Neck: normal visual inspection, full ROM, trachea midline and No anterior neck swelling Thyroid: not diffusely enlarged Carotids: normal carotid upstroke Lymphatic: No lymphadenopathy Chest Chest: normal inspection of the chest, No crepitus and No tenderness Breast inspection: normal inspection of the breasts Resp Effort & Inspection: normal respiratory effort, able to speak in complete sentences, no audible wheezes, no cough, no retractions and not tachypneic Auscultation: abnormal I/E ratio (Prolonged expiratory phase), diminished lung sounds (Chronic and at baseline) bilaterally, no rales, no rhonchi, wheezes (End-expiratory) and no rubs Percussion: percussion normal Tactile Fremitus: tactile fremitus absent Cardio Palpation: normal PMI Rate: regular rate Rhythm: regular rhythm Heart Sounds: S1 normal, S2 normal and normal, physiologic split S2 Bruits: no carotid bruits Pulses: brachial pulses present and radial pulses present GI Inspection: normal to inspection Palpation: soft and no hepatosplenomegaly Percussion: normal to percussion Auscultation: normal bowel sounds Back/Spine/Pelvis Back: No CVA tenderness Cervical Spine: normal cervical lordosis Thoracic/Lumbar Spine: thoracic and lumbar spine normal to inspection Skin General: no rashes or lesions noted, ecchymosis, No excoriations, No induration, No jaundice, No mottling and No petechiae Lesions: no lesions (no worrisome/abl lesions) Rashes: no rashes Wounds: no wounds Hair: normal Neuro General: alert, awake, oriented x3, tone normal and normal light touch, pain and propioception Cranial Nerves: CN's II-XI intact bilaterally Cognition: normal cognition Speech: speech normal Motor: muscle tone normal throughout Sensory Exam: no sensory deficits noted DTR's: Rt Biceps: 2+, Lt Biceps: 2+, Rt Brachioradialis: 2+, Lt Brachioradialis: 2+, Rt Patellar: 2+ and Lt Patellar: 2+ Extrem General: normal to inspection, no clubbing, cyanosis or edema and No calf tenderness Right upper extremity: abnormal to inspection (Bruising and scrapes right hand) Left upper extremity: abnormal to inspection Right lower extremity: abnormal to inspection (Bruising right knee) Left lower extremity: abnormal to inspection (Bandage left lower extremity not removed) Psych Appearance: grossly normal Mental Status: mental status grossly normal Speech and Movement: speech and movement normal and speech clear Mood: congruent mood Affect: normal affect Attitude: cooperative Thought Process: normal Thought Content: normal Judgment: judgment good Objective Labs Result Diagrams: 03/31/18 17:46 03/31/18 17:46 Labs: Laboratory Results - last 24 hr 03/31/18 03/31/18 03/31/18 17:46 17:46 17:46 WBC 7.4 RBC 4.26 L Hgb 10.6 L Hct 32.9 L MCV 77.3 L MCH 25.0 L MCHC 32.3 RDW 20.4 H Plt Count 130 L Neut % (Auto) 54.0 Lymph % (Auto) 27.8 Bacon % (Auto) 13.3 Eos % (Auto) 3.7 Baso % (Auto) 1.2 Neut # (Auto) 4000 RBC Morphology Not Reportable Poikilocytosis 1+ H Anisocytosis 2+ H Microcytosis 1+ H PT 36.8 H INR 3.3 H APTT 36 D Sodium 140 Potassium 3.8 D Chloride 99 Carbon Dioxide 30 BUN 43 H Creatinine 1.90 H Estimated GFR 34.4 L BUN/Creatinine Ratio 22.6 H Glucose 124 H Calcium 8.6 Total Bilirubin 1.2 AST 28 ALT 26 Alkaline Phosphatase 140 H Total Creatine Kinase 29 L CK-MB (CK-2) TNP Troponin I < 0.012 Total Protein 7.2 Albumin 3.7 Globulin 3.5 Albumin/Globulin Ratio 1.1 Lipase 161 Urine RBC Urine WBC Ur Squamous Epith Cells Urine Bacteria Ur Culture Indicated? Micro UA Comment 03/31/18 17:58 WBC RBC Hgb Hct MCV MCH MCHC RDW Plt Count Neut % (Auto) Lymph % (Auto) Bacon % (Auto) Eos % (Auto) Baso % (Auto) Neut # (Auto) RBC Morphology Poikilocytosis Anisocytosis Microcytosis PT INR APTT Sodium Potassium Chloride Carbon Dioxide BUN Creatinine Estimated GFR BUN/Creatinine Ratio Glucose Calcium Total Bilirubin AST ALT Alkaline Phosphatase Total Creatine Kinase CK-MB (CK-2) Troponin I Total Protein Albumin Globulin Albumin/Globulin Ratio Lipase Urine RBC 5-10/hpf H Urine WBC None seen Ur Squamous Epith Cells 0-1 /hpf Urine Bacteria Occasional (0-1) Ur Culture Indicated? Cult not indicated Micro UA Comment Not Reportable Assessment & Plan (1) Paroxysmal atrial fibrillation: Current visit: No Status: Chronic Plan: Assessment/Plan Narrative: 1. Global weakness-will have him reassessed by physical therapy and occupational therapy. Patient I think basically left pen[facility]entiary weight 2 soon had not yet achieved independence. I am not actually sure he will be able to achieve independence again. No evidence of complicating factor such as recurrent infection sepsis renal dysfunction etc on his ER evaluation yesterday. At This point he will likely need to return to penitentiary when ready for discharge from the hospital. 2. Lower extremity wound-will consult wound care clinic to ensure continued management of this appropriately. Doubt another surgical intervention necessary. Cultures from last week's debridement are negative. Will hold off on any antibiotic therapy until seen by wound care 3. Diabetes-continue on diabetic diet with usual medications and sliding scale insulin as necessary 4. Chronic renal failure-continue to monitor carefully 5. Depression-this was a significant issue I think complicating his recovery. His spouse had a serious life-threatening event and was hospitalized in [place] for extended length of time. He is now back in pen[facility]entiary in [place] but while physically improving not mentally herself at all. Continue with patient's current antidepressants. 6. Patient's other medical problems including his diabetes his hypertension is generalized weakness his COPD etc. To be stable. Continue usual medications 7. DVT prophylaxis-patient on warfarin and therapeutic Overall, patient is really too debilitated to return home to his independent living environment. Unfortunately were not really finding a lot of active serious medical issues. Patient has lots of chronic medical disease and is chronically ill with multiple things as noted above. However these appear to be relatively stable. He was admitted under observation which I think initially is entirely appropriate. Continue to look for additional issues. Patient is not safe to return home in my opinion. He was certainly benefit from return to penitentiary hopefully we can find appropriate diagnoses and medical issues to help support that. He clearly needs skilled therapies. Quality VTE Deep Vein Thrombosis/Pulmonary Embolism Present on Admission: No
--- NOTE | 2018-04-01 07:44 | P.HP_ITS ---
History of Present Illness Date Patient Seen: 04/01/18 Time Patient Seen: 07:38 Chief complaint: Increased weakness, falls Narrative: 78-year-old male admitted for weakness Patient was hospitalized here after being found down at home with acute on chronic renal failure severe depression weakness etc. He went from [facility] to [facility] where he was very slow to improve. He did improve enough that he basically left against medical advise within the last 10 days. He did very poorly at home failing to check his blood sugars failing to be very active at all. He was hospitalized for debridement of the wound on his lower extremity (details of that procedure and hospitalization not yet available in the EMR) and went home at the end of the week last week. Apparently since returning home he has been pretty much in mobile spinning all of his time in his chair at his home. Has some caregivers were providing some assistance but basically failing at home. He actually called my office asking to be readmitted to [facility] as he was unable to care for himself at home. He has had multiple falls at home. Apparently fractured finger on the left hand has fallen onto his right knee multiple times. Has some shoulder discomfort and bruising on the right shoulder. Basically unable to care for himself at home. In addition his home medication list appears to be inaccurate not clear what he was taking exactly. 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) Essential hypertension (Chronic 12/14/11) Diabetic foot ulcer (Chronic) Edema (Chronic) Leg wound, left (Chronic) Generalized weakness (Chronic) Paroxysmal atrial fibrillation (Chronic) Alcohol use (Chronic) Cellulitis of left lower extremity (Chronic) Chronic kidney disease, stage 3 (Chronic) Osteomyelitis of left foot (Chronic) Skin lesion of left lower extremity (Chronic) Chronic obstructive pulmonary disease (Chronic 07/08/15) Chronic diastolic congestive heart failure (Chronic 05/23/15) Uncontrolled type 2 diabetes mellitus with hyperglycemia, without long-term current use of insulin (Chronic 08/20/17) Osteoarthritis, knee (Chronic) Anemia in chronic kidney disease (Chronic) Prostate cancer (Chronic 04/03/11) Bilateral shoulder pain (Chronic) Current use of half-way anticoagulation (Chronic) Obstructive sleep apnea syndrome (Chronic 04/03/11) Gastroesophageal reflux disease without esophagitis (Chronic 04/03/11) Migraine with aura and without status migrainosus, not intractable (Chronic 04/07) Gout (Chronic 04/03/11) Dyskinesia of esophagus (Chronic 12/14/11) Chronic pain of both knees (Chronic 03/23/16) Chronic atrial fibrillation (Resolved 02/17/15) Morbid obesity with body mass index (BMI) of 40.0 to 44.9 in adult (Resolved ) Surgical History History of knee replacement (Resolved 10/12/13) History of prostatectomy (Resolved) Status post endoscopic retrograde cholangiopancreatography (Resolved 12/2014) Status post laparoscopic cholecystectomy (Resolved 12/2014) Status post placement of cardiac pacemaker (Resolved 11/2011) Family & Social History Family History: Reviewed 04/01/18 by Hernesto Campbell MD Social History: household members friend(s) Prior Living Arrangements House lives independently Yes caregiver/support person Yes: Minimal Safety & Behavioral: Feels Safe in Current Yes Environment Been Physically Hurt or No Threatened By a Person Suicidal Ideation Description None Suicide Plan Description No Plan Tobacco & Substance use: Smoking Status Former smoker alcohol intake current alcohol intake frequency holiday/special occasion Substance Use Type does not use Meds Home Medications Medication Instructions Recorded Confirmed Type glipizide [Glucotrol XL] 10 mg PO [facility] #30 tab 10/29/16 03/31/18 Rx Glucose: Test Strips 0 str SEE INSTRUCTIONS #100 str 05/13/17 03/31/18 Rx gabapentin [Neurontin] 900 mg PO TID #270 cap 09/23/17 03/31/18 Rx potassium chloride [K-Tab] 40 meq PO BID #810 10/29/17 03/31/18 History torsemide 10 mg PO QDAY #90 10/29/17 03/31/18 History calcium carbonate-vitamin D3 1 cap PO BID #0 11/01/17 03/31/18 History [Calcium 600 with Vitamin D3] eplerenone 25 mg PO QDAY #0 11/01/17 03/31/18 History folic acid 0.4 mg PO QDAY #0 11/01/17 03/31/18 History magnesium oxide 500 mg PO TID #0 11/01/17 03/31/18 History metoprolol tartrate 12.5 mg PO BID #0 11/01/17 03/31/18 History multivitamin [Multiple Vitamins] 1 tab PO QDAY #0 11/01/17 03/31/18 History nitroglycerin [Nitrostat] 0.4 mg SUBLINGUAL PRN PRN #0 11/01/17 03/31/18 History omeprazole 20 mg PO BID #60 cap 12/17/17 03/31/18 Rx ipratropium 20 mcg-albuterol 100 1 puff INHALATION BID gram 03/20/18 03/31/18 History mcg/actuation mist for inhalation krill oil 500 mg capsule 500 mg PO DAILY cap 03/20/18 03/31/18 History oxycodone 10 mg tablet See Label Instructions .ROUTE 03/20/18 03/31/18 History .COMPLEX PRN simvastatin 20 mg tablet 20 mg PO QPM 03/20/18 03/31/18 History warfarin [Coumadin] See Label Instructions .ROUTE 03/24/18 03/31/18 History .COMPLEX Disabled Parking #1 [id number] 03/25/18 Rx cholestyramine-aspartame 4 g PO BEDTIME 03/31/18 03/31/18 History [Prevalite] ipratropium bromide 2 spray INTRANASAL BID 03/31/18 03/31/18 History metolazone 2.5 mg PO Q OTHER DAY 03/31/18 03/31/18 History Allergies Allergy/AdvReac Type Severity Reaction Status Date / Time camphor [CAMPHOR] Allergy Mild RASH Verified 03/26/18 09:41 cyclobenzaprine Allergy Mild HIVES Verified 03/26/18 09:41 [CYCLOBENZAPRINE] lisinopril [LISINOPRIL] Allergy Mild COUGH/DRY Verified 03/26/18 09:41 THROAT menthol [MENTHOL] Allergy Mild RASH Verified 03/26/18 09:41 methyl salicylate Allergy Mild RASH Verified 03/26/18 09:41 [METHYL SALICYLATE] Review of Systems Constitutional Constitutional: Denies excessive sweating, Denies fever(s), Denies headache(s), Reports lack of energy, Reports malaise, Reports poor appetite, Reports weakness , Denies weight gain and Denies weight loss Eyes Eyes: Denies change in vision, Denies itchy eyes, Denies loss of vision and Denies other visual disturbances ENT Ears, Nose, Mouth, and Throat: No difficulty swallowing, No headache(s) and No neck pain Cardiovascular Cardiovascular: Denies chest pain, Denies fainting, Denies fast heart rate, Denies irregular heart rhythm, Denies rapid, pounding, or irregular heartbeat, Reports shortness of breath (Chronic), Reports shortness of breath with activity (Chronic and unchanged) and Denies slow heart rate Respiratory Respiratory: Reports dyspnea (Chronic) and Reports dyspnea on exertion (Chronic and unchanged) Gastrointestinal Gastrointestinal: Denies abdominal pain, Denies bloating, Denies change in bowel habits, Denies change in stool character, Denies dysphagia, Denies nausea , Denies vomiting and Denies hematemesis Genitourinary Genitourinary: Denies hematuria, Denies difficulty urinating and Denies urinary frequency Musculoskeletal Musculoskeletal: Reports abnormal gait (Very weak unable to really take more than very few steps), Denies myalgias, Denies arthralgias, Denies limited range of motion and Denies neck pain Integumentary/Breasts Skin/Breast: Denies bleeding lesions, Denies change in pigmentation, Denies changing lesions, Denies new lesions, Denies rash, Denies skin swelling, Denies sores and Denies jaundice Neurologic Neurologic: Reports abnormal gait (Very weak unable to really take more than very few steps), Denies behavioral changes, Denies confusion, Denies syncope, Denies headache(s), Denies loss of vision, Denies memory loss and Reports weakness Psychiatric Psychiatric: Denies behavioral changes, Reports change in appetite (Diminished) , Denies confusion, Denies difficulty concentrating, Denies auditory hallucinations, Denies memory loss, Denies mood swings and Denies suicidal ideation Endocrine Endocrine: Denies excessive sweating and Denies palpitations Hematologic/Lymphatic Hematologic/Lymphatic: Denies easy bleeding, Denies easy bruising and Denies lymphadenopathy Allergic/Immunologic Allergic/Immunologic: Denies itchy eyes Exam Vital Signs (past 8 hours): - 03/31/18 23:49 04/01/18 01:00 04/01/18 03:59 Temperature 97.4 F L 97.5 F L Pulse Rate 78 79 Pulse Rate [Orthostatic Lying] 82 Pulse Rate [Orthostatic Sitting] 81 Pulse Rate [Orthostatic Standing] 82 Respiratory Rate 19 17 Blood Pressure 109/67 100/58 L Blood Pressure [Orthostatic Lying] 113/67 Blood Pressure [Orthostatic Sitting] 96/58 L Blood Pressure [Orthostatic Standing] 99/60 Pulse Oximetry 99 96 Oxygen Delivery Method Room Air Const General: cooperative, healthy appearing, comfortable and well developed Nutritional Appearance: well nourished Orientation: alert, awake and oriented x3 HENMT Head: normocephalic, atraumatic, No cyanosis of lips/distal nose, No raccoon eyes and No periorbital ecchymosis Ears: hearing grossly normal bilaterally and external ears normal Nose: external nose normal and nares normal Face and sinus: normal facial exam and face symmetric Mouth: oral mucosae normal, lip normal and tongue normal Eyes Alignment and Position: alignment normal Periorbital: periorbital findings normal Eyelids: eyelids normal Conjunctivae: conjunctivae normal Sclera: sclerae normal Cornea: corneas normal Pupils: PERRL EOM: EOM intact bilaterally Neck Neck: normal visual inspection, full ROM, trachea midline and No anterior neck swelling Thyroid: not diffusely enlarged Carotids: normal carotid upstroke Lymphatic: No lymphadenopathy Chest Chest: normal inspection of the chest, No crepitus and No tenderness Breast inspection: normal inspection of the breasts Resp Effort & Inspection: normal respiratory effort, able to speak in complete sentences, no audible wheezes, no cough, no retractions and not tachypneic Auscultation: abnormal I/E ratio (Prolonged expiratory phase), diminished lung sounds (Chronic and at baseline) bilaterally, no rales, no rhonchi, wheezes (End -expiratory) and no rubs Percussion: percussion normal Tactile Fremitus: tactile fremitus absent Cardio Palpation: normal PMI Rate: regular rate Rhythm: regular rhythm Heart Sounds: S1 normal, S2 normal and normal, physiologic split S2 Bruits: no carotid bruits Pulses: brachial pulses present and radial pulses present GI Inspection: normal to inspection Palpation: soft and no hepatosplenomegaly Percussion: normal to percussion Auscultation: normal bowel sounds Back/Spine/Pelvis Back: No CVA tenderness Cervical Spine: normal cervical lordosis Thoracic/Lumbar Spine: thoracic and lumbar spine normal to inspection Skin General: no rashes or lesions noted, ecchymosis, No excoriations, No induration , No jaundice, No mottling and No petechiae Lesions: no lesions (no worrisome/abl lesions) Rashes: no rashes Wounds: no wounds Hair: normal Neuro General: alert, awake, oriented x3, tone normal and normal light touch, pain and propioception Cranial Nerves: CN's II-XI intact bilaterally Cognition: normal cognition Speech: speech normal Motor: muscle tone normal throughout Sensory Exam: no sensory deficits noted DTR's: Rt Biceps: 2+, Lt Biceps: 2+, Rt Brachioradialis: 2+, Lt Brachioradialis : 2+, Rt Patellar: 2+ and Lt Patellar: 2+ Extrem General: normal to inspection, no clubbing, cyanosis or edema and No calf tenderness Right upper extremity: abnormal to inspection (Bruising and scrapes right hand) Left upper extremity: abnormal to inspection Right lower extremity: abnormal to inspection (Bruising right knee) Left lower extremity: abnormal to inspection (Bandage left lower extremity not removed) Psych Appearance: grossly normal Mental Status: mental status grossly normal Speech and Movement: speech and movement normal and speech clear Mood: congruent mood Affect: normal affect Attitude: cooperative Thought Process: normal Thought Content: normal Judgment: judgment good Objective Labs Result Diagrams: 03/31/18 17:46 03/31/18 17:46 Labs: Laboratory Results - last 24 hr 03/31/18 03/31/18 03/31/18 17:46 17:46 17:46 WBC 7.4 RBC 4.26 L Hgb 10.6 L Hct 32.9 L MCV 77.3 L MCH 25.0 L MCHC 32.3 RDW 20.4 H Plt Count 130 L Neut % (Auto) 54.0 Lymph % (Auto) 27.8 [place] % (Auto) 13.3 Eos % (Auto) 3.7 Baso % (Auto) 1.2 Neut # (Auto) 4000 RBC Morphology Not Reportable Poikilocytosis 1+ H Anisocytosis 2+ H Microcytosis 1+ H PT 36.8 H INR 3.3 H APTT 36 D Sodium 140 Potassium 3.8 D Chloride 99 Carbon Dioxide 30 BUN 43 H Creatinine 1.90 H Estimated GFR 34.4 L BUN/Creatinine Ratio 22.6 H Glucose 124 H Calcium 8.6 Total Bilirubin 1.2 AST 28 ALT 26 Alkaline Phosphatase 140 H Total Creatine Kinase 29 L CK-MB (CK-2) TNP Troponin I < 0.012 Total Protein 7.2 Albumin 3.7 Globulin 3.5 Albumin/Globulin Ratio 1.1 Lipase 161 Urine RBC Urine WBC Ur Squamous Epith Cells Urine Bacteria Ur Culture Indicated? Micro UA Comment 03/31/18 17:58 WBC RBC Hgb Hct MCV MCH MCHC RDW Plt Count Neut % (Auto) Lymph % (Auto) [place] % (Auto) Eos % (Auto) Baso % (Auto) Neut # (Auto) RBC Morphology Poikilocytosis Anisocytosis Microcytosis PT INR APTT Sodium Potassium Chloride Carbon Dioxide BUN Creatinine Estimated GFR BUN/Creatinine Ratio Glucose Calcium Total Bilirubin AST ALT Alkaline Phosphatase Total Creatine Kinase CK-MB (CK-2) Troponin I Total Protein Albumin Globulin Albumin/Globulin Ratio Lipase Urine RBC 5-10/hpf H Urine WBC None seen Ur Squamous Epith Cells 0-1 /hpf Urine Bacteria Occasional (0-1) Ur Culture Indicated? Cult not indicated Micro UA Comment Not Reportable Assessment & Plan (1) Paroxysmal atrial fibrillation: Current visit: No Status: Chronic Plan: Assessment/Plan Narrative: 1. Global weakness-will have him reassessed by physical therapy and occupational therapy. Patient I think basically left [facility] weight 2 soon had not yet achieved independence. I am not actually sure he will be able to achieve independence again. No evidence of complicating factor such as recurrent infection sepsis renal dysfunction etc on his ER evaluation yesterday. At This point he will likely need to return to [facility] when ready for discharge from the hospital. 2. Lower extremity wound-will consult wound care clinic to ensure continued management of this appropriately. Doubt another surgical intervention necessary. Cultures from last week's debridement are negative. Will hold off on any antibiotic therapy until seen by wound care 3. Diabetes-continue on diabetic diet with usual medications and sliding scale insulin as necessary 4. Chronic renal failure-continue to monitor carefully 5. Depression-this was a significant issue I think complicating his recovery. His spouse had a serious life-threatening event and was hospitalized in [place] for extended length of time. He is now back in [facility] in [place] but while physically improving not mentally herself at all. Continue with patient's current antidepressants. 6. Patient's other medical problems including his diabetes his hypertension is generalized weakness his COPD etc. To be stable. Continue usual medications 7. DVT prophylaxis-patient on warfarin and therapeutic Overall, patient is really too debilitated to return home to his independent living environment. Unfortunately were not really finding a lot of active serious medical issues. Patient has lots of chronic medical disease and is chronically ill with multiple things as noted above. However these appear to be relatively stable. He was admitted under observation which I think initially is entirely appropriate. Continue to look for additional issues. Patient is not safe to return home in my opinion. He was certainly benefit from return to [facility] hopefully we can find appropriate diagnoses and medical issues to help support that. He clearly needs skilled therapies. Quality VTE Deep Vein Thrombosis/Pulmonary Embolism Present on Admission: No
--- NOTE | 2018-04-01 09:11 | CM.DANOTE ---
DCP: Case received, EMR reviewed and met with patient. Introduced self and role. DCP template completed with information currently available. Patient is a 78 year old male who admitted yesterday evening to the care of the hospitalist team. PCP: Dr. Campbell. Payer: confirmed: Medicare/ for Life. Patient was admitted to hospital due to ground level fall, and weakness. Patient has history of falls, his is in a skilled facility, and he lives with 2 caregivers, one is his [id number]. Moira, caregiver, is concerned about the level of care that patient needs at this point. At this time, patient is on observation status. Has a daughter named Shannon, who lives out of town. Her phone number is: [phone]. Left her a message to call this case manager specialist back. Patient has been at [facility] before, but left when he felt better. P: DCP to continue to assess. Is observation status at this time, although skilled may be a more appropriate setting for him. Continue to reach out to daughter, Shannon. Gris Hinkle RN/Photographic Processor
--- NOTE | 2018-04-01 10:01 | CM.DPC ---
DCP Cont: Spoke with Miranda, confirmed that she is patient's durable power of ip technology transactions attorney. She was not aware that patient was in hospital, stated that patient's caregiver, Moira, usually notifies her. Updated daughter, and concerns that caregivers have about him returning home. Discussed options, such as assisted living facilities, stated that he makes about 4,000 dollars a month, but may not object to this. Let her know that at this time, patient is under observation status, unless this changes. , Tierney, is at [facility], and may be discharged soon. P: DCP to continue to assess and update daughter on status. Gris Hinkle RN/Service Crew Leader
[2018-04-01] MEDS: glipiZIDE XL 5 MG TAB 10 MG PO (10:16)
[2018-04-01] MEDS: PANTOPRAZOLE 20 MG TABLET PO ×2 (10:16→21:11)
[2018-04-01] MEDS: METOPROLOL 12.5 MG TABLET PO ×2 (10:17→21:21)
[2018-04-01] MEDS: ESCITALOPRAM 10 MG TABLET 20 MG PO (10:17)
[2018-04-01] MEDS: EPLERENONE 25 MG TABLET PO (10:18)
[2018-04-01] MEDS: FOLIC ACID 0.4 MG TABLET PO (10:18)
[2018-04-01] MEDS: MAGNESIUM OXIDE 400 MG TABLET PO ×3 (10:18→21:10)
[2018-04-01] MEDS: buPROPion SR 150 MG TAB PO (10:19)
[2018-04-01] MEDS: CALCIUM CARB/VIT D3 500/200 TABLET 1 EACH PO ×2 (10:19→21:10)
[2018-04-01] MEDS: GABAPENTIN 300 MG CAPSULE 900 MG PO ×3 (10:19→21:10)
[2018-04-01] MEDS: MULTIVITAMIN 1 TABLET 1 TAB PO (10:20)
[2018-04-01] MEDS: POTASSIUM CHLORIDE 20 MEQ TAB 40 MEQ PO ×2 (10:20→21:11)
[2018-04-01] MEDS: metOLazone 2.5 MG TABLET PO (10:20)
[2018-04-01] MEDS: TORSEMIDE 10 MG TABLET PO (10:21)
--- NOTE | 2018-04-01 11:58 | PC.NURSE ---
Addendum entered by Su Aguilar R.N. 04/01/18 14:49: [facility] - phys therapy in and mobilized to chair, removed kerlex wrap to lle, cleaned with normal saline, gently dried, no discomfort, wound bed bright red w/small qty serosang, gent ointment applied and foam dsg over, noted bandaid to skin tear l elbow was soiled, gently removed, has skin tear from prev fall, placed allevyn dsg, also noted new small superficial opening below l knee, gently cleaned and placed allevyn gentle border dsg over. Original Note: AM NOTE - alert, states did not sleep well last denies, declines any pain medication, including tylenol, kerlex wrap to lle cdi, kerlex to r wrist cdi, small healing diabetic ulcer l plantar area foot w/o drainage, mult abraisons r hand and edema with bruising l index finger, declines ice, hr 78, ra 95%.
[2018-04-01] MEDS: INSULIN ASPART 100 UNIT/ML INSULN PEN SUBCUT (12:17)
--- NOTE | 2018-04-01 12:17 | PT.IIE ---
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) Essential hypertension (Chronic 12/14/11) Diabetic foot ulcer (Chronic) Edema (Chronic) Leg wound, left (Chronic) Generalized weakness (Chronic) Paroxysmal atrial fibrillation (Chronic) Alcohol use (Chronic) Cellulitis of left lower extremity (Chronic) Chronic kidney disease, stage 3 (Chronic) Osteomyelitis of left foot (Chronic) Skin lesion of left lower extremity (Chronic) Chronic obstructive pulmonary disease (Chronic 07/08/15) Chronic diastolic congestive heart failure (Chronic 05/23/15) Uncontrolled type 2 diabetes mellitus with hyperglycemia, without long-term current use of insulin (Chronic 08/20/17) Osteoarthritis, knee (Chronic) Anemia in chronic kidney disease (Chronic) Prostate cancer (Chronic 04/03/11) Bilateral shoulder pain (Chronic) Current use of buttermaker anticoagulation (Chronic) Obstructive sleep apnea syndrome (Chronic 04/03/11) Gastroesophageal reflux disease without esophagitis (Chronic 04/03/11) Migraine with aura and without status migrainosus, not intractable (Chronic 04/03/11) Gout (Chronic 04/03/11) Dyskinesia of esophagus (Chronic 12/14/11) Chronic pain of both knees (Chronic 03/23/16) Chronic atrial fibrillation (Resolved 02/17/15) Morbid obesity with body mass index (BMI) of 40.0 to 44.9 in adult (Resolved 03/23/16) Physical Therapy Inpatient Evaluation/Re-Eval Medical Review Prior Functional Status Medical History Reviewed Yes Diet/Fluid Consistency Regular Mobility and Gait pt reports being mod ind w/ SPC Activities of Daily Living and IADL's pt reports being ind to mod ind for ADLs Prior Functional Level (Other details) does endorse multiple falls Social History Household Members friend(s) Living Arrangements House Number of Floors (Floors) Two Floors Number of Stairs To Enter/Railing? 9E w/ bilat rails, 2x6 steps w/ bilat rails inside Home Environment Standard Height Toilet Walk in Shower Tub/Shower Home Equipment Front Wheel Walker Straight Cane Shower Seat without Backrest Hand Held Shower Additional Social History Comment pt has two people who live with him, he refers to them as caregivers but they don't actually provide him physical assist, they clean his house. Physical Therapy Current Condition Current Condition Evaluation Date 04/01/18 Treatment Diagnosis weakness/mx falls Onset Date 03/31/18 Precautions Other Precautions fall precautions Subjective Physical Therapy Visit Type Type Initial Evaluation Visit Start Time 11:00 Visit Stop Time 11:55 Total Visit Minutes 55 Physical Therapy Visit Comments Patient Comments Pt reports being weak, having multiple falls. Therapy Pain Assessment Pain When Pain Assessed At Rest Pain Present Pain Present Pain Reported PT-Bed Mobility Assessment Supine to Sit Supine to Sit Contact Guard Assistance Sit to Supine Sit to Supine Contact Guard Assistance Scooting Scooting to Edge of Bed Contact Guard Assistance Scooting Up and Down in Bed Maximum Assistance PT-Transfer Assessment Sit to and From Stand Sit to and from Stand Contact Guard Assistance 1 Person Assistance Use of Upper Extremities Equipment Transfer Assistive Device Gait Belt Straight Cane Front Wheeled Walker Transfers Transfer Technique Stand Step Pivot Transfer Ability Level of Assist Minimal Assistance Comments Mobility Comments Pt needs min A when using SPC and CGA when using FWW. Gait Assessment Gait Gait Assistance Required: Minimum Assistance Distance (Feet) (feet) 5 Assistive Devices Assistive Device Gait Belt Straight Cane Gait Deviations General Gait Pattern Antalgic Ataxic Decreased Stride Length Decreased Feet Clearance Wide Based Gait Factors Limiting Gait Function Factors Limiting Gait Function Decreased Activity Tolerance Decreased Sensation Decreased Strength Pain Poor Balance Comments Gait Comments Pt is quite unsteady with SPC and tries to furniture walk when using SPC. With the FWW pt it much more stable but still shaky and slow. Stair Climbing Assessment Comments Stair Climbing Comments not appropriate to assess at this time PT-Balance Assessment Sitting Balance and Reactions Static Sitting Balance Ability Normal Dynamic Sitting Balance Ability Good Standing Balance and Reactions Static Standing Balance Ability Fair Dynamic Standing Balance Ability Poor Orientation Orientation/Cognition Level of Alertness Alert Orientation Name Age Birthday Month Date Year Day of Week Place Situation Language Function Ability No Deficits Noted Safety Awareness Understands Safety Issues Memory Description No Deficits Noted Gross Range of Motion Upper Extremity ROM Assessment Within Functional Limits Lower Extremity ROM Assessment Within Functional Limits Strength Upper Extremity Strength Assessment Within Functional Limits Comments Strength Comments BLE grossly 3/5 but with impaired endurance Physical Therapy Treatment Education Education Provided Precautions Weight Bearing Status Safety PT Summary Assessment and Plan Potential Rehabilitation Potential Fair Status of Condition at Evaluation Evolving Summary Impairments Pain Strength Balance Bed Mobility Transfers Gait Activity Tolerance Progress Towards Goals Progressing Toward Goals Assessment Summary Pt has admitted to after having multiple falls at home. Pt presents today with gross weakness and poor activity tolerance. Most notably pt's balance is poor and is at a high fall risk. Pt is below his reported functional baseline but does have potential for functional improvement. Pt will benefit from transitioning to SNF for ongoing subacute therapies to optimize independence and reduce fall risk. To return home in it's current condition pt will need to be mod ind w/ SPC (pt reports not having room for a walker). Goals Bed Mobility Goal Standby Assistance Transfer Goal Standby Assistance Front Wheeled Walker Gait Goal Standby Assistance Front Wheel Walker Gait Distance 50 Frequency of Treatment Frequency Of Treatment Twice a Day Treatment Plan Physical Therapy Treatment Plan Bed Mobility Training Transfer Training Gait Training Therapeutic Exercise Balance Retraining Discharge Planning Neuromuscular Re-ed Other Recommendations and Next Treatment balance and strengthening Focus Recommendations To Nursing Amount of Assist Needed 1 Person Assist Discharge Recommendations PT Discharge Recommendations SNF Rehab
--- NOTE | 2018-04-01 12:29 | CM.DPC ---
DCP Cont: Spoke to patient and offered Medicare choice list, as far as discharge. Patient was recently at [facility], and should be still covered by Medicare. Left message with Carlie regarding patient, have not yet heard back. Patient stated that he definately wants to go to [facility], because he knows the therapists there. Will continue to follow up with Carlie. P: [facility], pending response from Carlie. Gris Hinkle RN/Hotel Reservation Agent
[2018-04-01] MEDS: GENTAMICIN 0.1% OINT 30 GM 1 APPLIC TOP (14:17)
--- NOTE | 2018-04-01 14:23 | CM.DPC ---
DCP Cont: Did speak to Carlie at [facility] regarding patient. She was going to do research on this patient, for this supportive employment case manager mentioned that patient was there recently, and may qualify under Medicare guidlines. She is aware that patient is under observation status. Other option would be for patient to pay privately, for a short time for rehab and med management. P: DCP continue to assess. Await call back from Carlie at [facility]. Gris Hinkle RN/Health Diagnostics Teacher
--- NOTE | 2018-04-01 15:22 | PT.IPTN ---
Physical Therapy Treatment Note M2 PT-IP Current Condition Start: 04/01/18 08:07 Freq: NEEDED Status: Active Protocol: Document 04/01/18 11:55 RS (Rec: 04/01/18 12:17 RS [email or web address]) Physical Therapy Current Condition Current Condition Evaluation Date 04/01/18 Treatment Diagnosis weakness/mx falls Onset Date 03/31/18 Precautions Other Precautions fall precautions M3 PT-IP Subjective Start: 04/01/18 08:07 Freq: NEEDED Status: Active Protocol: Document 04/01/18 14:45 CLB (Rec: 04/01/18 15:22 CLB [id number]) Subjective Physical Therapy Visit Type Type Treatment Note Visit Start Time 14:45 Visit Stop Time 15:00 Total Visit Minutes 15 Number of TEST EQUIPMENT MECHANIC Visits 1 Physical Therapy Visit Comments Patient Comments Pt agreeable to do therapy. Therapy Pain Assessment Pain When Pain Assessed During Mobility Location Left Leg Intensity 6 Scale Used Numeric (1 - 10) Description Aching Stabbing M4 PT-IP Mobility and Gait Start: 04/01/18 08:07 Freq: NEEDED Status: Active Protocol: Document 04/01/18 14:45 CLB (Rec: 04/01/18 15:22 CLB [id number]) PT-Transfer Assessment Sit to and From Stand Sit to and from Stand Contact Guard Assistance 1 Person Assistance Use of Upper Extremities Equipment Transfer Assistive Device Gait Belt Front Wheeled Walker Orthotic/Prosthetic Devices or Brace: Yes Transfer Ability Level of Assist Contact Guard Assistance Comments Mobility Comments Pt CGA with use of FWW. Gait Assessment Gait Gait Assistance Required: Contact Guard Assist Distance (Feet) (feet) 15 Assistive Devices Assistive Device Gait Belt Front Wheeled Walker Gait Deviations General Gait Pattern Antalgic Ataxic Decreased Stride Length Decreased Feet Clearance Wide Based Gait Factors Limiting Gait Function Factors Limiting Gait Function Decreased Activity Tolerance Decreased Sensation Decreased Strength Pain Poor Balance Comments Gait Comments Pt steadier with FWW although he doesn't like to use it but agreed to this session. Stair Climbing Assessment Comments Stair Climbing Comments not appropriate to assess at this time PT-Balance Assessment Sitting Balance and Reactions Static Sitting Balance Ability Normal Dynamic Sitting Balance Ability Good Standing Balance and Reactions Static Standing Balance Ability Fair Dynamic Standing Balance Ability Poor M5 PT-IP Objective Assessments Start: 04/01/18 08:07 Freq: NEEDED Status: Active Protocol: Document 04/01/18 11:55 RS (Rec: 04/01/18 12:17 RS [email or web address]) Orientation Orientation/Cognition Level of Alertness Alert Orientation Name Age Birthday Month Date Year Day of Week Place Situation Language Function Ability No Deficits Noted Safety Awareness Understands Safety Issues Memory Description No Deficits Noted Gross Range of Motion Upper Extremity ROM Assessment Within Functional Limits Lower Extremity ROM Assessment Within Functional Limits Strength Upper Extremity Strength Assessment Within Functional Limits Comments Strength Comments BLE grossly 3/5 but with impaired endurance M6 PT-IP Treatment Start: 04/01/18 08:07 Freq: NEEDED Status: Active Protocol: Document 04/01/18 11:55 RS (Rec: 04/01/18 12:17 RS [email or web address]) Physical Therapy Treatment Education Education Provided Precautions Weight Bearing Status Safety M7 PT-IP Assessment and Plan Start: 04/01/18 08:07 Freq: NEEDED Status: Active Protocol: Document 04/01/18 14:45 CLB (Rec: 04/01/18 15:22 CLB [email or web address]) PT Summary Assessment and Plan Potential Rehabilitation Potential Fair Status of Condition at Evaluation Evolving Summary Impairments Pain Strength Balance Bed Mobility Transfers Gait Activity Tolerance Progress Towards Goals Progressing Toward Goals Assessment Summary Pt agreed to use FWW agreeing that it is easier to get up from chair with FWW. Pt was able to increase his ambulation with use of FWW needing cues for counter approach and standing inside walker for safety. Pt ambulates slowly and c/o left knee pain. Pt has shoe for offloading left foot but refused to wear it stating he hates it. Pt will benefit from skilled rehab to improve strength and endurance to improve balance for safety. Goals Bed Mobility Goal Standby Assistance Transfer Goal Standby Assistance Front Wheeled Walker Gait Goal Standby Assistance Front Wheel Walker Gait Distance 50 Frequency of Treatment Frequency Of Treatment Twice a Day Treatment Plan Physical Therapy Treatment Plan Bed Mobility Training Transfer Training Gait Training Therapeutic Exercise Balance Retraining Discharge Planning Neuromuscular Re-ed Other Recommendations and Next Treatment balance and strengthening Focus Recommendations To Nursing Amount of Assist Needed 1 Person Assist Discharge Recommendations PT Discharge Recommendations SNF Rehab
--- NOTE | 2018-04-01 15:31 | CM.DPC ---
DCP Cont: Spoke to Carlie at [facility]. Stated that patient has 21 days left of Medicare coverage. Stated that they should be able to take him tomorrow, if discharged. Discussed terminal gauger supervisor plan, and stated that he may benefit from assisted living or adult family home. Did state that patient has been non-compliant at times, from when he was last there, for he left prematurely against medical advice. Will consult with Dr. Campbell tomorrow on plan for discharge. P: DCP continue to assess. May discharge to [facility] Gris Hinkle RN/Electrical Worker
--- NOTE | 2018-04-01 16:14 | OT.IP.EVAL ---
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) Essential hypertension (Chronic 12/14/11) Diabetic foot ulcer (Chronic) Edema (Chronic) Leg wound, left (Chronic) Generalized weakness (Chronic) Paroxysmal atrial fibrillation (Chronic) Alcohol use (Chronic) Cellulitis of left lower extremity (Chronic) Chronic kidney disease, stage 3 (Chronic) Osteomyelitis of left foot (Chronic) Skin lesion of left lower extremity (Chronic) Chronic obstructive pulmonary disease (Chronic 07/08/15) Chronic diastolic congestive heart failure (Chronic 05/23/15) Uncontrolled type 2 diabetes mellitus with hyperglycemia, without long-term current use of insulin (Chronic 08/20/17) Osteoarthritis, knee (Chronic) Anemia in chronic kidney disease (Chronic) Prostate cancer (Chronic 04/03/11) Bilateral shoulder pain (Chronic) Current use of half-way anticoagulation (Chronic) Obstructive sleep apnea syndrome (Chronic 04/03/11) Gastroesophageal reflux disease without esophagitis (Chronic 04/03/11) Migraine with aura and without status migrainosus, not intractable (Chronic 04/03/11) Gout (Chronic 04/03/11) Dyskinesia of esophagus (Chronic 12/14/11) Chronic pain of both knees (Chronic 03/23/16) Chronic atrial fibrillation (Resolved 02/17/15) Morbid obesity with body mass index (BMI) of 40.0 to 44.9 in adult (Resolved 03/23/16) Surgical History (Last Reviewed 04/01/18 @ 07:38 by Hernesto Campbell MD) History of knee replacement (Resolved 10/12/13) History of prostatectomy (Resolved) Status post endoscopic retrograde cholangiopancreatography (Resolved 12/2014) Status post laparoscopic cholecystectomy (Resolved 12/2014) Status post placement of cardiac pacemaker (Resolved 11/2011) Occupational Therapy Inpatient Evaluation/Re-Eval M1 PT/OT-IP Prior Functional Status Start: 04/01/18 08:07 Freq: NEEDED Status: Active Protocol: Document 04/01/18 15:48 GABY (Rec: 04/01/18 16:14 GABY [id number]) Medical Review Prior Functional Status Medical History Reviewed Yes Diet/Fluid Consistency Regular Communication WFL Mobility and Gait pt reports being mod ind w/ SPC Activities of Daily Living and IADL's pt reports being ind to mod ind for ADLs Prior Functional Level (Other details) does endorse multiple falls, pt states he has 3 falls in 10 days he was home, one in shower and 2 while trying to arise from chair. Pt states he has non skid stickers for shower floor which have not been installed and has shower seat but was not using it (it is sitting in my living room') Social History Household Members friend(s) Living Arrangements House Number of Floors (Floors) Two Floors Number of Stairs To Enter/Railing? 9STE w/ bilat rails, 2x6 steps w/ bilat rails inside Home Environment Standard Height Toilet Walk in Shower Tub/Shower Home Equipment Front Wheel Walker Straight Cane Shower Seat without Backrest Hand Held Shower Employment Status Retired Additional Social History Comment pt has two roommates (and 9 yr old child of roommate)who live with him, he refers to them as caregivers but they don't actually provide him physical assist, they clean his house and do yardwork. M2 OT-IP Current Condition Start: 04/01/18 15:44 Freq: Status: Active Protocol: Document 04/01/18 15:48 PJM (Rec: 04/01/18 16:14 [facility] [id number]) Occupational Therapy Current Condition Current Condition Evaluation Date 04/01/18 Treatment Diagnosis decreased self care, mobility, safety awareness s/p multiple falls at home Diagnosis Onset Date 04/01/18 Post Operative Precautions Other Precautions fall precautions, bed/chair alarm M3 OT- IP Subjective and Pain Start: 04/01/18 15:44 Freq: Status: Active Protocol: Document 04/01/18 15:48 PJM (Rec: 04/01/18 16:14 [facility] [id number]) OT- Subjective Occupational Therapy Visit Type Type Initial Evaluation Visit Start Time 15:15 Visit Stop Time 15:37 Total Visit Minutes 23 Occupational Therapy Visit Comments Patient/Caregiver Goals I eventually want to get back home. OT Pain Assessment Pain When Pain Assessed After Treatment Location Left Finger Scale Used L index finger does not rate pain Description Aching Acute Pain Behaviors Guarding M4 OT- IP ADL's Start: 04/01/18 15:44 Freq: Status: Active Protocol: Document 04/01/18 15:48 PJM (Rec: 04/01/18 16:14 [facility] [id number]) OT [id number] General Evaluation Self-Feeding Ability Independent Comments OT Self-Feeding Comments may need some assist with opening containers due to L index finger pain/edema OT ADL-Grooming General Evaluation Grooming Ability Standby Assistance Areas Needing Assistance Retrieving/Set-up of Grooming Items Face Washing Comments OT Grooming Comments seated in chair OT ADL-Oral Care General Eval Oral Care Ability Standby Assistance Areas of Assistance Retrieving/Set-Up of Items Comments Oral Care Comments seated in chair OT ADL-Dressing General Eval Lower Body Dressing Ability Minimal Assistance Areas Needing Assistance Underpants/Brief Socks Shoes Comments OT Dressing Comments Pt reluctant to use technician support association or sock aid despite difficulty completing lower body dressing without them. Located pt's R shoe and L unloading shoe due to ulcer on bottom of L foot. OT ADL-Toileting General Evaluation Toileting Ability Standby Assistance Devices Toileting Assistive Devices Urinal Comments OT Toileting Comments seated in chair OT ADL-Bathing Comments OT Bathing Comments to be assessed; note pt fell in shower at home and was not using shower chair even though one was available in the house M5 OT- IP IADL's Start: 04/01/18 15:44 Freq: Status: Active Protocol: Document 04/01/18 15:48 PJM (Rec: 04/01/18 16:14 [facility] [id number]) OT-Instrumental Activities of Daily Living Deficits IADL Deficits Identified Deficits Home Safety Awareness Awareness of Need for Assistance at Home Decreased Awareness Ability to Problem Solve Emergency Unable to Problem Solve Situations Home Safety Comments pt demonstrates significantly decreased insight into home safety issues; did not have roommates apply non skid stickers to bottom of shower stall and was not using available shower chair Medication Management Medication Management Comments Per chart notes, pt was not checking blood sugar or managing diabetes at home. Pt irritable when asked about this with decreased insight into how this will affect wound healing and overall health. Meal Preparation Meal Preparation Caregiver Provides Assist Meal Preparation Comments pt states he has assistance from roommates Dog Boarder Dog Boarder Caregiver Provides Assist Dog Boarder Comments pt states he has assistance from roommates Driving Driving Concerns Identified Regarding Safety M6 OT- IP Functional Cognition Start: 04/01/18 15:44 Freq: Status: Active Protocol: Document 04/01/18 15:48 PJM (Rec: 04/01/18 16:14 [facility] [id number]) Cognitive Factors Limiting Selfcare Function Cognitive Ability Level of Alertness Alert Patient Orientation Name Month Date Attention Span Ability Capable of Focused Attention Ability to Follow Commands Able to Follow One Step Commands Safety Awareness Decreased Ability to Apply Precautions Underestimates Need for Assistance Problem Solving Ability Needs Assist to Identify Solutions Executive Function Ability Unable to Organize Plans Unable to Integrate Past Experience With Present Action Abstract Thinking Ability Unable to Draw Logical Conclusions Unable to Be Adaptable in Thinking Cognitive Comments Cognitive Assessment Comments Pt appears to have significantly decreased insight into current medical issues and home safety resulting in poor management of diabetes and multiple falls at home. Pt not using bathroom safety equipment at home even though it is available to him. Pt irritable with questions about home safety and diabetes management . OT- Vision and Hearing OT- Hearing Assessment OT- Hearing Assessment WFL OT- Vision Assessment Visual Acuity WFL Vision Assessment Comments Pt denies any recent vision changes M7 OT- IP Mobility and Balance Start: 04/01/18 15:44 Freq: Status: Active Protocol: Document 04/01/18 15:48 PJM (Rec: 04/01/18 16:14 [facility] [id number]) OT-Transfer Assessment Sit to and From Stand Sit to and from Stand Contact Guard Assistance Devices Transfer Assistive Devices Front Wheeled Walker OT- Gait Assessment Comments Gait Ability Comments See P.T. notes OT- Balance Assessment Sitting Balance and Reactions Static Sitting Balance Ability Good Standing Balance and Reactions Static Standing Balance Ability Fair Comments Other Balance Tests/Deviations/Treatment standing with FWW during lower : body clothing management M8 OT- IP Objective Assessments Start: 04/01/18 15:44 Freq: Status: Active Protocol: Document 04/01/18 15:48 PJM (Rec: 04/01/18 16:14 [facility] [id number]) OT Gross Range of Motion Upper Extremity Range of Motion Assessment Within Functional Limits ROM Impairments except L index finger has <50% composite flexion due to PIP dislocation during recent fall , no splint being used OT Strength Upper Extremity Strength Assessment Within Functional Limits Comments Strength Comments decreased functional L hand director semiconductor and pinch strength due to L index finger injury OT- Coordination Assessment Comments Coordination Comments L hand functional coordination impaired by L index finger injury OT-Muscle Tone Assessment Muscle Tone WNL Yes OT Sensation Assessment Comments Summary Comments Pt denies deficits in BUE's Edema Edema Present Edema Comments L index finger mod edema around PIP joint M9 OT- IP Assessment and Plan Start: 04/01/18 15:44 Freq: Status: Active Protocol: Document 04/01/18 15:48 PJWu (Rec: 04/01/18 16:14 PJM [id number]) OT Summary Assessment and Plan Potential Analytic Complexity at Evaluation Low Summary OT Impairments Pain Strength Balance Functional Cognition Functional Mobility Dressing Toileting Bathing Toilet Transfers Shower Transfers Assessment Summary Low complexity OT assessment completed. Pt presents with significant performance deficits in all functional mobility/transfers with multiple falls at home prior to admit. Pt also has performance deficits in standing grooming, dressing, bathing and toileting due to decreased balance and difficulty reaching feet. In addition, pt has new L (non dominant) index finger injury which is impairing functional use of his hand during self care tasks. Pt has significantly decreased insight re: home safety and health management issues and has not been managing diabetes or using bathroom safety equipt available to him at home despite falls. Pt not safe to discharge home at this time. Persons living with him , who he describes as caregivers, are not assisting him with self care of medication management as needed. Goals Grooming Goal Standby Assistance Dressing Goal Standby Assistance Toileting Goal Standby Assistance Bathing Goal Standby Assistance Toilet Transfer Goal Standby Assistance Shower Transfer Goal Contact Guard Assistance Days to Meet Goals 7 Frequency of Treatment Frequency Of Treatment Once a Day Treatment Plan OT Treatment Plan ADL Training Functional Cognition Training Functional Mobility Patient/Family Education Discharge Recommendations OT Discharge Recommendations SNF Rehab Other Discharge Recommendations long-term goal of [facility] vs CARE HOME
[2018-04-01] MEDS: WARFARIN 3 MG TABLET PO (17:07)
[2018-04-01] MEDS: ATORVASTATIN 20 MG TABLET PO (21:09)
--- NOTE | 2018-04-02 00:27 | PC.NURSE ---
Assumed care of pt from outgoing shift at 2300 8-28. Pt awake, denies pain. pt compliant with nursing assessments. Pt dressings throughout body are c/d/i. Pt denies dizziness upon standing. Pt uses urinal at bedside. Pt uses call light. belongings and call light within reach. will continue to monitor. Pt states IV is tender. will continue to monitor.
[2018-04-02 04:22] VITALS: BP 100/56; PULSE 80; RESP 17; TEMP 36.5; O2SAT 94
[2018-04-02 06:09] LABS: Add Manual Diff / Slide Review NO; Basophils Percent Auto 1.5 % (0-2); Eosinophils Percent Auto 5.3 % (2-4); Hematocrit 31.1 % (41-53); Lymphocytes Percent Auto 29.4 % (25-40); Mean Corpuscular HGB Conc 32.1 % (30-36); Mean Corpuscular Hemoglobin 24.9 PG (26-34); Mean Corpuscular Volume 77.7 fL (80-100); Monocytes Percent Auto 14.9 % (3-14); Neutrophils Absolute Auto 3500 /uL (3000-5900); Neutrophils Percent Auto 48.9 % (50-75); Platelet Count 119 X10^3/uL (150-400); Red Cell Distribution Width 20.8 % (11.6-14.8); White Blood Cell Count 7.1 X10^3/uL (4.5-11.0)
[2018-04-02 06:14] LABS: BUN Creatinine Ratio 21.2 (6-22); Blood Urea Nitrogen 36 mg/dL (9-20); Calcium 9.3 mg/dL (8.4-10.2); Carbon Dioxide 29 mmol/L (22-32); Chloride 102 mmol/L (98-107); Estimated Glomerular Filt Rate 39.1 mL/min (>60); Glucose 108 mg/dL (80-110); HEMOLYSIS < 15 (0-50); Potassium 3.9 mmol/L (3.4-5.1); Sodium 141 mmol/L (137-145)
[2018-04-02 06:53] LABS: Anisocytosis 1+
[2018-04-02 07:00] VITALS: O2SAT 95
[2018-04-02 07:35] VITALS: BP 113/55; PULSE 82; RESP 18; TEMP 36.9; O2SAT 94
--- NOTE | 2018-04-02 08:00 | PM.PN.1 ---
Subjective Date Patient Seen: 04/02/18 Time Patient Seen: 08:00 Interval history: Patient basically is doing well. He was up with physical therapy and occupational therapy yesterday and this felt to need [facility] as expected Not yet seen by wound care but no active issues with his foot Blood sugars have been well controlled Basically doing well except for global weakness Exam Vital Signs (past 8 hours): - 04/02/18 04:22 Temperature 97.7 F Pulse Rate 80 Respiratory Rate 17 Blood Pressure 100/56 L Pulse Oximetry 94 Oxygen Delivery Method Room Air Oxygen Flow Rate 0 Narrative Exam Narrative: Unchanged from previous Objective Labs Result Diagrams: 04/02/18 05:44 04/02/18 05:44 Labs: Laboratory Results - last 24 hr 04/02/18 04/02/18 05:44 05:44 WBC 7.1 RBC 4.00 L Hgb 10.0 L Hct 31.1 L MCV 77.7 L MCH 24.9 L MCHC 32.1 RDW 20.8 H Plt Count 119 L Neut % (Auto) 48.9 L Lymph % (Auto) 29.4 [place] % (Auto) 14.9 H Eos % (Auto) 5.3 H Baso % (Auto) 1.5 Neut # (Auto) 3500 RBC Morphology Not Reportable Anisocytosis 1+ H Sodium 141 Potassium 3.9 Chloride 102 Carbon Dioxide 29 BUN 36 H Creatinine 1.70 H Estimated GFR 39.1 L BUN/Creatinine Ratio 21.2 Glucose 108 Calcium 9.3 Assessment & Plan Plan: Assessment/Plan Narrative: 1. Global weakness-readmit to [facility] when possible. Apparently he will still qualify based on his previous admission (at least the way I understand) and if we can assure he has a bed at [facility] he can likely be discharged later today 2. Lower extremity wound-I am going to start doxycycline backup. Cultures were negative at time of debridement. He will receive wound care via in-house news specialist and library sales consultant at [facility] 3. Diabetes-continue with diabetic diet and usual meds. Blood sugar control has been very good 4. Chronic renal failure stage 3-numbers appear to be stable. 5. Depression-patient seems to be much improved over where he was it is worse. He is much more interactive and I think back to baseline basically at this point 6. Atrial fibrillation-patient continues on warfarin with a bit of a supratherapeutic INR. I reduced his dose slightly and will recheck his PT INR later this week Note: Greater than 30 minutes was spent evaluating the patient on the floor, including examining the patient, discussing clinical course with clinical and nursing staff, reviewing clinical course in the computer, preparing documentation and writing orders for continued management of care, discussing status with family as appropriate, reviewing plans for the next 24 hours with both patient/family and nursing staff as appropriate. Quality VTE Deep Vein Thrombosis/Pulmonary Embolism Present on Admission: No
--- NOTE | 2018-04-02 08:03 | PM.DS.1 ---
History of Present Illness Chief complaint: Increased weakness, falls Narrative: 78-year-old male admitted for weakness Patient was hospitalized here after being found down at home with acute on chronic renal failure severe depression weakness etc. He [facility] where he was very slow to improve. He did improve enough that he basically left against medical advise within the last 10 days. He did very poorly at home failing to check his blood sugars failing to be very active at all. He was hospitalized for debridement of the wound on his lower extremity (details of that procedure and hospitalization not yet available in the EMR) and went home at the end of the week last week. Apparently since returning home he has been pretty much in mobile spinning all of his time in his chair at his home. Has some caregivers were providing some assistance but basically failing at home. He actually called my office asking to be readmitted to [facility] as he was unable to care for himself at home. He has had multiple falls at home. Apparently fractured finger on the left hand has fallen onto his right knee multiple times. Has some shoulder discomfort and bruising on the right shoulder. Basically unable to care for himself at home. In addition his home medication list appears to be inaccurate not clear what he was taking exactly. Does not match what he was discharged with from [facility] nor would he should be taking (for instance atorvastatin was not on his list but simvastatin was and that is the opposite of what should be the case, in addition he had no antidepressants on his home med list which is not accurate either) Discharge Providers Date of admission: 03/31/18 20:42 Primary care physician: Hernesto Campbell MD Consults: 03/31/18 21:55 Consult to Physical Therapy Evaluate & Treat Comment: Physician Instructions: Evaluate and Treat 04/01/18 07:51 Consult to Discharge Planning Routine Comment: 04/01/18 07:52 Consult to Occupational Therapy Evaluate & Treat Comment: Physician Instructions: Evaluate and treat Consult to Physical Therapy Evaluate & Treat Comment: Physician Instructions: Evaluate and Treat Discharge provider: Hernesto Campbell MD Discharge Date: 04/02/18 Summary Discharge Diagnosis: 1. Ground level fall x4 2. Generalized weakness 3. Major depression under partial remission 4. Type 2 diabetes 5. Diabetic foot ulcer 6. Osteomyelitis left toe 7. Paroxysmal atrial fibrillation 8. Chronic renal failure stage 3 9. Chronic diastolic congestive heart failure 10. Chronic obstructive pulmonary disease 11. Hyper 12. Coronary artery disease Hospital Course: Patient was admitted to the hospital floor after presenting to the emergency department after multiple falls at home. Basically was unable to care for himself at home in independent setting. His issues with his longstanding left lower extremity diabetic foot ulcer and osteomyelitis which was recently debrided appear to be stable. His blood sugars were stable. His depression was improved. Overall he seems stable for his various medical issues as detailed above however he was just globally weak Physical therapy and occupational therapy saw him and agreed that he would need placement in [facility] for continued rehabilitation before returning to the lower level of care environment. He was felt to be stable for discharge back to [facility] on the morning of discharge He will need continued management of his lower extremity wounds and was placed on doxycycline empirically (cultures obtained at time of surgical debridement were negative). He will need close management of his PT/INR as well with the antibiotic therapy etc. Status at Discharge Cognitive/behavioral status at discharge: Patient still shows evidence of depression much improved over previous Functional status at discharge: uses cane/walker Overall status at discharge: patient is progressing back to baseline Time Spent with Patient Greater than 30 minutes Exam Vital Signs (past 8 hours): - 04/02/18 04:22 Temperature 97.7 F Pulse Rate 80 Respiratory Rate 17 Blood Pressure 100/56 L Pulse Oximetry 94 Oxygen Delivery Method Room Air Oxygen Flow Rate 0 Objective Labs Result Diagrams: 04/02/18 05:44 04/02/18 05:44 Labs: Laboratory Results - last 24 hr 04/02/18 04/02/18 05:44 05:44 WBC 7.1 RBC 4.00 L Hgb 10.0 L Hct 31.1 L MCV 77.7 L MCH 24.9 L MCHC 32.1 RDW 20.8 H Plt Count 119 L Neut % (Auto) 48.9 L Lymph % (Auto) 29.4 [place] % (Auto) 14.9 H Eos % (Auto) 5.3 H Baso % (Auto) 1.5 Neut # (Auto) 3500 RBC Morphology Not Reportable Anisocytosis 1+ H Sodium 141 Potassium 3.9 Chloride 102 Carbon Dioxide 29 BUN 36 H Creatinine 1.70 H Estimated GFR 39.1 L BUN/Creatinine Ratio 21.2 Glucose 108 Calcium 9.3 Discharge Plan Discharge Plan Discharge Problem: Episode of generalized weakness Patient Disposition: SNF Transfer to: [facility] Under care of provider: CLIVE Ca Transportation: Wheelchair Labs: protime/INR 04/03/18 Consult as needed: Dental, Hearing, Mental health, Podiatry and Vision I certify the postop hospital [facility] care is medically necessary on a continuing basis for any conditions for which he/ she received care during this hospitalization.: Yes The receiving facility has agreed to accept transfer and provide medical treatment.: Yes Discharge Health Status Multidrug resistant organism: No MDRO Precautions: [place] Provider Discharge Instructions Diet: Carb-consistent/Diabetic Liquid consistency: Normal/Thin Food texture: Regular Skin/Wound/Dressing Care Other wound treatment: consult in-house wound summer child caregiver for l foot/toe wound management [facility] Reason for rehabilitation: Recovery r/t decondition Rehab type: Physical therapy and Occupational therapy Discharge Data Primary Care Provider: Hernesto Campbell Attending Provider: Hernesto Campbell Admit Date/Time: 03/31/18 20:42 Discharges patient from system. Discharge Date/Time: 04/02/18 13:20 Quality VTE Deep Vein Thrombosis/Pulmonary Embolism Present on Admission: No
--- NOTE | 2018-04-02 08:07 | P.DS_ITS ---
History of Present Illness Chief complaint: Increased weakness, falls Narrative: 78-year-old male admitted for weakness Patient was hospitalized here after being found down at home with acute on chronic renal failure severe depression weakness etc. He went from [facility] to halfway where he was very slow to improve. He did improve enough that he basically left against medical advise within the last 10 days. He did very poorly at home failing to check his blood sugars failing to be very active at all. He was hospitalized for debridement of the wound on his lower extremity (details of that procedure and hospitalization not yet available in the EMR) and went home at the end of the week last week. Apparently since returning home he has been pretty much in mobile spinning all of his time in his chair at his home. Has some caregivers were providing some assistance but basically failing at home. He actually called my office asking to be readmitted to halfway as he was unable to care for himself at home. He has had multiple falls at home. Apparently fractured finger on the left hand has fallen onto his right knee multiple times. Has some shoulder discomfort and bruising on the right shoulder. Basically unable to care for himself at home. In addition his home medication list appears to be inaccurate not clear what he was taking exactly. Does not match what he was discharged with from halfway nor would he should be taking (for instance atorvastatin was not on his list but simvastatin was and that is the opposite of what should be the case, in addition he had no antidepressants on his home med list which is not accurate either) Discharge Providers Date of admission: 03/31/18 20:42 Primary care physician: Hernesto Campbell MD Consults: 03/31/18 21:55 Consult to Physical Therapy Evaluate & Treat Comment: Physician Instructions: Evaluate and Treat 04/01/18 07:51 Consult to Discharge Planning Routine Comment: 04/01/18 07:52 Consult to Occupational Therapy Evaluate & Treat Comment: Physician Instructions: Evaluate and treat Consult to Physical Therapy Evaluate & Treat Comment: Physician Instructions: Evaluate and Treat Discharge provider: Hernesto Campbell MD Discharge Date: 04/02/18 Summary Discharge Diagnosis: 1. Ground level fall x4 2. Generalized weakness 3. Major depression under partial remission 4. Type 2 diabetes 5. Diabetic foot ulcer 6. Osteomyelitis left toe 7. Paroxysmal atrial fibrillation 8. Chronic renal failure stage 3 9. Chronic diastolic congestive heart failure 10. Chronic obstructive pulmonary disease 11. Hyper 12. Coronary artery disease Hospital Course: Patient was admitted to the hospital floor after presenting to the emergency department after multiple falls at home. Basically was unable to care for himself at home in independent setting. His issues with his longstanding left lower extremity diabetic foot ulcer and osteomyelitis which was recently debrided appear to be stable. His blood sugars were stable. His depression was improved. Overall he seems stable for his various medical issues as detailed above however he was just globally weak Physical therapy and occupational therapy saw him and agreed that he would need placement in halfway for continued rehabilitation before returning to the lower level of care environment. He was felt to be stable for discharge back to halfway on the morning of discharge He will need continued management of his lower extremity wounds and was placed on doxycycline empirically (cultures obtained at time of surgical debridement were negative). He will need close management of his PT/INR as well with the antibiotic therapy etc. Status at Discharge Cognitive/behavioral status at discharge: Patient still shows evidence of depression much improved over previous Functional status at discharge: uses cane/walker Overall status at discharge: patient is progressing back to baseline Time Spent with Patient Greater than 30 minutes Exam Vital Signs (past 8 hours): - 04/02/18 04:22 Temperature 97.7 F Pulse Rate 80 Respiratory Rate 17 Blood Pressure 100/56 L Pulse Oximetry 94 Oxygen Delivery Method Room Air Oxygen Flow Rate 0 Objective Labs Result Diagrams: 04/02/18 05:44 04/02/18 05:44 Labs: Laboratory Results - last 24 hr 04/02/18 04/02/18 05:44 05:44 WBC 7.1 RBC 4.00 L Hgb 10.0 L Hct 31.1 L MCV 77.7 L MCH 24.9 L MCHC 32.1 RDW 20.8 H Plt Count 119 L Neut % (Auto) 48.9 L Lymph % (Auto) 29.4 [place] % (Auto) 14.9 H Eos % (Auto) 5.3 H Baso % (Auto) 1.5 Neut # (Auto) 3500 RBC Morphology Not Reportable Anisocytosis 1+ H Sodium 141 Potassium 3.9 Chloride 102 Carbon Dioxide 29 BUN 36 H Creatinine 1.70 H Estimated GFR 39.1 L BUN/Creatinine Ratio 21.2 Glucose 108 Calcium 9.3 Discharge Plan Discharge Plan Discharge Problem: Episode of generalized weakness Patient Disposition: SNF Transfer to: [facility] Under care of provider: CLIVE Ca Transportation: Wheelchair Labs: protime/INR 04/03/18 Consult as needed: Dental, Hearing, Mental health, Podiatry and Vision I certify the postop hospital halfway care is medically necessary on a continuing basis for any conditions for which he/ she received care during this hospitalization.: Yes The receiving facility has agreed to accept transfer and provide medical treatment.: Yes Discharge Health Status Multidrug resistant organism: No MDRO Precautions: [place] Provider Discharge Instructions Diet: Carb-consistent/Diabetic Liquid consistency: Normal/Thin Food texture: Regular Skin/Wound/Dressing Care Other wound treatment: consult in-house wound emergency care attendant for l foot/toe wound management Special Rehabilitation Services Reason for rehabilitation: Recovery r/t decondition Rehab type: Physical therapy and Occupational therapy Discharge Data Primary Care Provider: Hernesto Campbell Attending Provider: Hernesto Campbell Admit Date/Time: 03/31/18 20:42 Discharges patient from system. Discharge Date/Time: 04/02/18 13:20 Quality VTE Deep Vein Thrombosis/Pulmonary Embolism Present on Admission: No
[2018-04-02] MEDS: DOXYCYCLINE HYCLATE 100 MG TABLET PO (08:25)
[2018-04-02] MEDS: METOPROLOL 12.5 MG TABLET PO (08:25)
[2018-04-02] MEDS: MAGNESIUM OXIDE 400 MG TABLET PO (08:25)
[2018-04-02] MEDS: MULTIVITAMIN 1 TABLET 1 TAB PO (08:26)
[2018-04-02] MEDS: glipiZIDE XL 5 MG TAB 10 MG PO (08:26)
[2018-04-02] MEDS: PANTOPRAZOLE 20 MG TABLET PO (08:26)
[2018-04-02] MEDS: TORSEMIDE 10 MG TABLET PO (08:26)
[2018-04-02] MEDS: FOLIC ACID 0.4 MG TABLET PO (08:26)
[2018-04-02] MEDS: GABAPENTIN 300 MG CAPSULE 900 MG PO (08:27)
[2018-04-02] MEDS: DOCUSATE 100 MG CAPSULE PO (08:27)
[2018-04-02] MEDS: EPLERENONE 25 MG TABLET PO (08:27)
[2018-04-02] MEDS: ESCITALOPRAM 10 MG TABLET 20 MG PO (08:27)
[2018-04-02] MEDS: buPROPion SR 150 MG TAB PO (08:27)
[2018-04-02] MEDS: CALCIUM CARB/VIT D3 500/200 TABLET 1 EACH PO (08:27)
--- NOTE | 2018-04-02 09:16 | PM.CN ---
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) Essential hypertension (Chronic 12/14/11) Diabetic foot ulcer (Chronic) Edema (Chronic) Leg wound, left (Chronic) Generalized weakness (Chronic) Paroxysmal atrial fibrillation (Chronic) Alcohol use (Chronic) Cellulitis of left lower extremity (Chronic) Chronic kidney disease, stage 3 (Chronic) Osteomyelitis of left foot (Chronic) Skin lesion of left lower extremity (Chronic) Chronic obstructive pulmonary disease (Chronic 07/08/15) Chronic diastolic congestive heart failure (Chronic 05/23/15) Uncontrolled type 2 diabetes mellitus with hyperglycemia, without long-term current use of insulin (Chronic 08/20/17) Osteoarthritis, knee (Chronic) Anemia in chronic kidney disease (Chronic) Prostate cancer (Chronic 04/03/11) Bilateral shoulder pain (Chronic) Current use of computer terminal operator anticoagulation (Chronic) Obstructive sleep apnea syndrome (Chronic 04/03/11) Gastroesophageal reflux disease without esophagitis (Chronic 04/03/11) Migraine with aura and without status migrainosus, not intractable (Chronic 04/03/11) Gout (Chronic 04/03/11) Dyskinesia of esophagus (Chronic 12/14/11) Chronic pain of both knees (Chronic 03/23/16) Chronic atrial fibrillation (Resolved 02/17/15) Morbid obesity with body mass index (BMI) of 40.0 to 44.9 in adult (Resolved 03/23/16) Surgical History History of knee replacement (Resolved 10/12/13) History of prostatectomy (Resolved) Status post endoscopic retrograde cholangiopancreatography (Resolved 12/2014) Status post laparoscopic cholecystectomy (Resolved 12/2014) Status post placement of cardiac pacemaker (Resolved 11/2011) Family History: Reviewed 04/01/18 by Hernesto Campbell MD Social History marital status: number of children: 6 household members: friend(s) lives independently: Yes caregiver/support person: Yes (Minimal) housing: house pets and animals: Yes education level: master's degree occupational status: other (Retired.) Previous occupational history: Technical Training and Safety Engineering. alberto/cheondoism: Restoration leisure activities: reading and other (Watching TV) Smoking Status: Former smoker Tobacco: How many years used: 4 Smokeless tobacco user: other (Cigarettes and Pipe) quit status: quit date established (~1981) second hand exposure: No alcohol intake: current substance use type: does not use Meds Home Medications Medication Instructions Recorded Confirmed Type glipizide [Glucotrol XL] 10 mg PO AMCC #30 tab 10/29/16 03/31/18 Rx gabapentin [Neurontin] 900 mg PO TID #270 cap 09/23/17 03/31/18 Rx potassium chloride [K-Tab] 40 meq PO BID #810 10/29/17 03/31/18 History torsemide 10 mg PO QDAY #90 10/29/17 03/31/18 History calcium carbonate-vitamin D3 1 cap PO BID #0 11/01/17 03/31/18 History [Calcium 600 with Vitamin D3] eplerenone 25 mg PO QDAY #0 11/01/17 03/31/18 History folic acid 0.4 mg PO QDAY #0 11/01/17 03/31/18 History magnesium oxide 500 mg PO TID #0 11/01/17 03/31/18 History metoprolol tartrate 12.5 mg PO BID #0 11/01/17 03/31/18 History multivitamin [Multiple Vitamins] 1 tab PO QDAY #0 11/01/17 03/31/18 History nitroglycerin [Nitrostat] 0.4 mg SUBLINGUAL PRN PRN #0 11/01/17 03/31/18 History omeprazole 20 mg PO BID #60 cap 12/17/17 03/31/18 Rx ipratropium 20 mcg-albuterol 100 1 puff INHALATION BID gram 03/20/18 03/31/18 History mcg/actuation mist for inhalation cholestyramine-aspartame 4 g PO BEDTIME 03/31/18 03/31/18 History [Prevalite] metolazone 2.5 mg PO Q OTHER DAY 03/31/18 03/31/18 History atorvastatin [Lipitor] 20 mg PO BEDTIME #30 tab 04/02/18 Rx bupropion HCl [Wellbutrin SR] 150 mg PO DAILY #30 tab 04/02/18 Rx doxycycline hyclate 100 mg PO BID #28 tab 04/02/18 Rx escitalopram oxalate [Lexapro] 20 mg PO DAILY #30 tab 04/02/18 Rx gentamicin 1 applictn TOP TID #30 gram 04/02/18 Rx ipratropium bromide 2 spray INTRANASAL BID #1 inh 04/02/18 Rx krill oil 500 mg PO DAILY #30 cap 04/02/18 Rx oxycodone See Label Instructions .ROUTE 04/02/18 Rx .COMPLEX PRN #60 tab warfarin [Coumadin] 3 mg PO DAILY #0 tab 04/02/18 03/31/18 Rx Allergies Allergy/AdvReac Type Severity Reaction Status Date / Time camphor [CAMPHOR] Allergy Mild RASH Verified 03/26/18 09:41 cyclobenzaprine Allergy Mild HIVES Verified 03/26/18 09:41 [CYCLOBENZAPRINE] lisinopril [LISINOPRIL] Allergy Mild COUGH/DRY Verified 03/26/18 09:41 THROAT menthol [MENTHOL] Allergy Mild RASH Verified 03/26/18 09:41 methyl salicylate Allergy Mild RASH Verified 03/26/18 09:41 [METHYL SALICYLATE] Review of Systems Review of Systems All systems reviewed & are unremarkable except as noted in HPI and below Exam Vital Signs (past 8 hours): - 04/02/18 04:22 Temperature 97.7 F Pulse Rate 80 Respiratory Rate 17 Blood Pressure 100/56 L Pulse Oximetry 94 Oxygen Delivery Method Room Air Oxygen Flow Rate 0 Extrem Other: Left lower leg and lateral plantar foot ulcers appear stable; no signs of clinically significant infection Objective Labs Result Diagrams: 04/02/18 05:44 04/02/18 05:44 Labs: Laboratory Results - last 24 hr 04/02/18 04/02/18 05:44 05:44 WBC 7.1 RBC 4.00 L Hgb 10.0 L Hct 31.1 L MCV 77.7 L MCH 24.9 L MCHC 32.1 RDW 20.8 H Plt Count 119 L Neut % (Auto) 48.9 L Lymph % (Auto) 29.4 [place] % (Auto) 14.9 H Eos % (Auto) 5.3 H Baso % (Auto) 1.5 Neut # (Auto) 3500 RBC Morphology Not Reportable Anisocytosis 1+ H Sodium 141 Potassium 3.9 Chloride 102 Carbon Dioxide 29 BUN 36 H Creatinine 1.70 H Estimated GFR 39.1 L BUN/Creatinine Ratio 21.2 Glucose 108 Calcium 9.3 Assessment & Plan Plan: Assessment/Plan Narrative: 1) left lower leg non-pressure ulcer and left plantar foot 5th MTPJ diabetic foot ulcers Both ulcers appear unchanged from my previous review in the wound care clinic. I'd hold antibiotics at this time however the ulcers should be monitored closely for deterioration and signs of infection while in long-term. Dressing changes and wound care will be managed on site in long-term however if need we'll be happy to see him in the wound center also.
--- NOTE | 2018-04-02 09:29 | P.CONS_ITS ---
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) Essential hypertension (Chronic 12/14/11) Diabetic foot ulcer (Chronic) Edema (Chronic) Leg wound, left (Chronic) Generalized weakness (Chronic) Paroxysmal atrial fibrillation (Chronic) Alcohol use (Chronic) Cellulitis of left lower extremity (Chronic) Chronic kidney disease, stage 3 (Chronic) Osteomyelitis of left foot (Chronic) Skin lesion of left lower extremity (Chronic) Chronic obstructive pulmonary disease (Chronic 07/08/15) Chronic diastolic congestive heart failure (Chronic 05/23/15) Uncontrolled type 2 diabetes mellitus with hyperglycemia, without long-term current use of insulin (Chronic 08/20/17) Osteoarthritis, knee (Chronic) Anemia in chronic kidney disease (Chronic) Prostate cancer (Chronic 04/03/11) Bilateral shoulder pain (Chronic) Current use of terminal makeup operator anticoagulation (Chronic) Obstructive sleep apnea syndrome (Chronic 04/03/11) Gastroesophageal reflux disease without esophagitis (Chronic 04/03/11) Migraine with aura and without status migrainosus, not intractable (Chronic 04/07) Gout (Chronic 04/03/11) Dyskinesia of esophagus (Chronic 12/14/11) Chronic pain of both knees (Chronic 03/23/16) Chronic atrial fibrillation (Resolved 02/17/15) Morbid obesity with body mass index (BMI) of 40.0 to 44.9 in adult (Resolved ) Surgical History History of knee replacement (Resolved 10/12/13) History of prostatectomy (Resolved) Status post endoscopic retrograde cholangiopancreatography (Resolved 12/2014) Status post laparoscopic cholecystectomy (Resolved 12/2014) Status post placement of cardiac pacemaker (Resolved 11/2011) Family History: Reviewed 04/01/18 by Hernesto Campbell MD Social History marital status: number of children: 6 household members: friend(s) lives independently: Yes caregiver/support person: Yes (Minimal) housing: house pets and animals: Yes education level: master's degree occupational status: other (Retired.) Previous occupational history: Technical Training and Safety Engineering. alberto/denominational: Denominational leisure activities: reading and other (Watching TV) Smoking Status: Former smoker Tobacco: How many years used: 4 Smokeless tobacco user: other (Cigarettes and Pipe) quit status: quit date established (~1981) second hand exposure: No alcohol intake: current substance use type: does not use Meds Home Medications Medication Instructions Recorded Confirmed Type glipizide [Glucotrol XL] 10 mg PO AMCC #30 tab 10/29/16 03/31/18 Rx gabapentin [Neurontin] 900 mg PO TID #270 cap 09/23/17 03/31/18 Rx potassium chloride [K-Tab] 40 meq PO BID #810 10/29/17 03/31/18 History torsemide 10 mg PO QDAY #90 10/29/17 03/31/18 History calcium carbonate-vitamin D3 1 cap PO BID #0 11/01/17 03/31/18 History [Calcium 600 with Vitamin D3] eplerenone 25 mg PO QDAY #0 11/01/17 03/31/18 History folic acid 0.4 mg PO QDAY #0 11/01/17 03/31/18 History magnesium oxide 500 mg PO TID #0 11/01/17 03/31/18 History metoprolol tartrate 12.5 mg PO BID #0 11/01/17 03/31/18 History multivitamin [Multiple Vitamins] 1 tab PO QDAY #0 11/01/17 03/31/18 History nitroglycerin [Nitrostat] 0.4 mg SUBLINGUAL PRN PRN #0 11/01/17 03/31/18 History omeprazole 20 mg PO BID #60 cap 12/17/17 03/31/18 Rx ipratropium 20 mcg-albuterol 100 1 puff INHALATION BID gram 03/20/18 03/31/18 History mcg/actuation mist for inhalation cholestyramine-aspartame 4 g PO BEDTIME 03/31/18 03/31/18 History [Prevalite] metolazone 2.5 mg PO Q OTHER DAY 03/31/18 03/31/18 History atorvastatin [Lipitor] 20 mg PO BEDTIME #30 tab 04/02/18 Rx bupropion HCl [Wellbutrin SR] 150 mg PO DAILY #30 tab 04/02/18 Rx doxycycline hyclate 100 mg PO BID #28 tab 04/02/18 Rx escitalopram oxalate [Lexapro] 20 mg PO DAILY #30 tab 04/02/18 Rx gentamicin 1 applictn TOP TID #30 gram 04/02/18 Rx ipratropium bromide 2 spray INTRANASAL BID #1 inh 04/02/18 Rx krill oil 500 mg PO DAILY #30 cap 04/02/18 Rx oxycodone See Label Instructions .ROUTE 04/02/18 Rx .COMPLEX PRN #60 tab warfarin [Coumadin] 3 mg PO DAILY #0 tab 04/02/18 03/31/18 Rx Allergies Allergy/AdvReac Type Severity Reaction Status Date / Time camphor [CAMPHOR] Allergy Mild RASH Verified 03/26/18 09:41 cyclobenzaprine Allergy Mild HIVES Verified 03/26/18 09:41 [CYCLOBENZAPRINE] lisinopril [LISINOPRIL] Allergy Mild COUGH/DRY Verified 03/26/18 09:41 THROAT menthol [MENTHOL] Allergy Mild RASH Verified 03/26/18 09:41 methyl salicylate Allergy Mild RASH Verified 03/26/18 09:41 [METHYL SALICYLATE] Review of Systems Review of Systems All systems reviewed & are unremarkable except as noted in HPI and below Exam Vital Signs (past 8 hours): - 04/02/18 04:22 Temperature 97.7 F Pulse Rate 80 Respiratory Rate 17 Blood Pressure 100/56 L Pulse Oximetry 94 Oxygen Delivery Method Room Air Oxygen Flow Rate 0 Extrem Other: Left lower leg and lateral plantar foot ulcers appear stable; no signs of clinically significant infection Objective Labs Result Diagrams: 04/02/18 05:44 04/02/18 05:44 Labs: Laboratory Results - last 24 hr 04/02/18 04/02/18 05:44 05:44 WBC 7.1 RBC 4.00 L Hgb 10.0 L Hct 31.1 L MCV 77.7 L MCH 24.9 L MCHC 32.1 RDW 20.8 H Plt Count 119 L Neut % (Auto) 48.9 L Lymph % (Auto) 29.4 [place] % (Auto) 14.9 H Eos % (Auto) 5.3 H Baso % (Auto) 1.5 Neut # (Auto) 3500 RBC Morphology Not Reportable Anisocytosis 1+ H Sodium 141 Potassium 3.9 Chloride 102 Carbon Dioxide 29 BUN 36 H Creatinine 1.70 H Estimated GFR 39.1 L BUN/Creatinine Ratio 21.2 Glucose 108 Calcium 9.3 Assessment & Plan Plan: Assessment/Plan Narrative: 1) left lower leg non-pressure ulcer and left plantar foot 5th MTPJ diabetic foot ulcers Both ulcers appear unchanged from my previous review in the wound care clinic. I 'd hold antibiotics at this time however the ulcers should be monitored closely for deterioration and signs of infection while in intermediate. Dressing changes and wound care will be managed on site in intermediate however if need we'll be happy to see him in the wound center also.
--- NOTE | 2018-04-02 10:19 | CM.DPC ---
DCP Cont: Spoke to Dr. Campbell's nurse at clinic, Randi, to inquire if physician can sign discharge orders. Dr. Campbell did talk to this clinical case manager and stated that he can sign orders. Spoke to Nikia at [facility], and she stated that she needs to check with her mailroom supervisor before admitting. Let her know that this clinical case manager had spoken to Carlie yesterday, and she stated that they could accept him. Nikia stated that she would call this clinical case manager back. P: To [facility] is they will accept. Will continue to update Dr. Campbell. Gris Hinkle RN/Track And Field Coach
--- NOTE | 2018-04-02 11:31 | CM.DPC ---
Addendum entered by Gris Hinkle R.N. 04/02/18 11:36: Updated daughter, Miranda, regarding plan for patient to go to [facility] today. Original Note: DCP Cont: Dr. Campbell came over to sign discharge orders, as well as medications. Nikia from [facility] came over to assess patient. Was requesting to see wounds, which were skin tears. Also requested certain doses of medications. Went ahead and gave Nikia copies of therapy notes. Faxed over [facility], signed med list, as well as discharge summary. P: Patient is to be picked up at approximately 1:00 to go to [facility]. Gris Hinkle RN/Outside Deliverer
--- NOTE | 2018-04-02 12:07 | PT.IPTN ---
Current Diagnoses Type 2 diabetes mellitus with foot ulcer (03/31/18) Paroxysmal atrial fibrillation (03/31/18) Non-pressure chronic ulcer of other part of left foot with fat layer exposed (03/31/18) Unspecified open wound, left lower leg, initial encounter (03/31/18) Physical Therapy Treatment Note M2 PT-IP Current Condition Start: 04/01/18 08:07 Freq: NEEDED Status: Active Protocol: Document 04/01/18 11:55 RS (Rec: 04/01/18 12:17 RS [email or web address]) Physical Therapy Current Condition Current Condition Evaluation Date 04/01/18 Treatment Diagnosis weakness/hx falls Onset Date 03/31/18 Precautions Other Precautions fall precautions M3 PT-IP Subjective Start: 04/01/18 08:07 Freq: NEEDED Status: Active Protocol: Document 04/02/18 12:01 DLM (Rec: 04/02/18 12:07 DLM [id number]) Subjective Physical Therapy Visit Type Type Treatment Note Visit Start Time 11:31 Visit Stop Time 11:51 Total Visit Minutes 20 Number of AUTOMOTIVE [employer]S ADVISOR Visits 0 Physical Therapy Visit Comments Patient Comments He did not sleep well last night so is tired today M4 PT-IP Mobility and Gait Start: 04/01/18 08:07 Freq: NEEDED Status: Active Protocol: Document 04/02/18 12:01 DLM (Rec: 04/02/18 12:07 DLM [id number]) PT-Bed Mobility Assessment Supine to Sit Supine to Sit Minimal Assistance Scooting Scooting to Edge of Bed Standby Assistance PT-Transfer Assessment Sit to and From Stand Sit to and from Stand Contact Guard Assistance Minimal Assistance Equipment Transfer Assistive Device Gait Belt Front Wheeled Walker Gait Assessment Gait Gait Assistance Required: Contact Guard Assist Distance (Feet) (feet) 16 Assistive Devices Assistive Device Gait Belt Front Wheeled Walker Orthotic/Prosthetic Devices or Brace: No Factors Limiting Gait Function Factors Limiting Gait Function Decreased Activity Tolerance Comments Gait Comments gait to and from bathroom due to urgent need to urinate, he declined his shoes due to urgent need, length of therapy visit limited due to nursing need to change his dressings on multiple wounds, pt left up in recliner with feet elevated PT-Balance Assessment Sitting Balance and Reactions Static Sitting Balance Ability Good Dynamic Sitting Balance Ability Good Standing Balance and Reactions Static Standing Balance Ability Good Dynamic Standing Balance Ability Fair Device Used FWW M5 PT-IP Objective Assessments Start: 04/01/18 08:07 Freq: NEEDED Status: Active Protocol: Document 04/01/18 11:55 RS (Rec: 04/01/18 12:17 RS [id number]) Orientation Orientation/Cognition Level of Alertness Alert Orientation Name Age Birthday Month Date Year Day of Week Place Situation Language Function Ability No Deficits Noted Safety Awareness Understands Safety Issues Memory Description No Deficits Noted Gross Range of Motion Upper Extremity ROM Assessment Within Functional Limits Lower Extremity ROM Assessment Within Functional Limits Strength Upper Extremity Strength Assessment Within Functional Limits Comments Strength Comments BLE grossly 3/5 but with impaired endurance M6 PT-IP Treatment Start: 04/01/18 08:07 Freq: NEEDED Status: Active Protocol: Document 04/01/18 11:55 RS (Rec: 04/01/18 12:17 RS [email or web address]) Physical Therapy Treatment Education Education Provided Precautions Weight Bearing Status Safety M7 PT-IP Assessment and Plan Start: 04/01/18 08:07 Freq: NEEDED Status: Active Protocol: Document 04/02/18 12:01 DLM (Rec: 04/02/18 12:07 DLM [id number]) PT Summary Assessment and Plan Summary Progress Towards Goals Progressing Toward Goals Assessment Summary Pt up ambulating to toilet this visit. He reports he is tired today but agreed to ambulate in his room. Pt left up in recliner with nursing addressing his wounds. Frequency of Treatment Frequency Of Treatment Twice a Day Treatment Plan Physical Therapy Treatment Plan Bed Mobility Training Transfer Training Gait Training Therapeutic Exercise Balance Retraining Discharge Planning Neuromuscular Re-ed Recommendations To Nursing Amount of Assist Needed 1 Person Assist Discharge Recommendations PT Discharge Recommendations SNF Rehab
[2018-04-02] MEDS: GENTAMICIN 0.1% OINT 30 GM 1 APPLIC TOP (12:42)
[2018-04-02] MEDS: POTASSIUM CHLORIDE 20 MEQ TAB 40 MEQ PO (12:43)
== END 2018-04-02 13:20 ==
LOC: ED 20:36 → AC 20:43
PROVIDERS: Emergency Medicine; Admitting Provider Family Medicine; Emergency Provider Emergency Medicine; PCP Internal Medicine; Visit Provider Internal Medicine
DX: I48.0 Paroxysmal atrial fibrillation (principal); S81.802A Unspecified open wound, left lower leg, initial encounter; L97.522 Non-pressure chronic ulcer of other part of left foot with fat layer exposed; E11.621 Type 2 diabetes mellitus with foot ulcer; R53.1 Weakness; I25.10 Atherosclerotic heart disease of native coronary artery without angina pectoris; Z91.81 History of falling; N18.9 Chronic kidney disease, unspecified; J44.9 Chronic obstructive pulmonary disease, unspecified; I12.9 Hypertensive chronic kidney disease with stage 1 through stage 4 chronic kidney disease, or unspecified chronic kidney disease; Z79.4 Long term (current) use of insulin; F32.9 Major depressive disorder, single episode, unspecified; Z87.891 Personal history of nicotine dependence
CPT/HCPCS: 36415; 36591; 70450; 71045; 73140; 73562; 80048; 80053; 81003; 81015; 82550; 82962; 83690; 84484; 85025; 85610; 85730; 93005; 93010; 96360; 97116; 97162; 97165; 97530; 99220; 99226; 99284; 99285; G0378

== ENCOUNTER → 2018-04-21 07:09 | Outpatient (REF) | payer MEDICARE, OTHER, SELFPAY ==
[2018-03-31 21:56] VITALS: BMI 33.0
[2018-04-21 07:48] LABS: INR 2.8 (0.9-1.3); Prothrombin Time 30.8 SECONDS (10.1-12.7)
== END ==
LOC: LAB 07:09
PROVIDERS: PCP Internal Medicine; Visit Provider Hospitalist
DX: I48.91 Unspecified atrial fibrillation (principal)
CPT/HCPCS: 36415; 85610

== ENCOUNTER → 2018-04-28 07:49 | Outpatient (REF) | payer MEDICARE, OTHER, SELFPAY ==
[2018-03-31 21:56] VITALS: BMI 33.0
[2018-04-28 09:07] LABS: INR 2.7 (0.9-1.3); Prothrombin Time 29.6 SECONDS (10.1-12.7)
== END ==
LOC: LAB 07:49
PROVIDERS: PCP Internal Medicine; Visit Provider Hospitalist
DX: Z79.01 Long term (current) use of anticoagulants (principal)
CPT/HCPCS: 36415; 85610

== ENCOUNTER → 2018-04-29 18:40 | Outpatient (REF) | payer MEDICARE, OTHER, SELFPAY ==
[2018-03-31 21:56] VITALS: BMI 33.0
[2018-04-29 19:18] LABS: BUN Creatinine Ratio 21.4 (6-22); Blood Urea Nitrogen 47 mg/dL (9-20); Calcium 9.2 mg/dL (8.4-10.2); Carbon Dioxide 31 mmol/L (22-32); Chloride 95 mmol/L (98-107); Glucose 146 mg/dL (80-110); HEMOLYSIS < 15 (0-50); Magnesium 2.3 mg/dL (1.6-2.3); Potassium 3.2 mmol/L (3.4-5.1); Sodium 140 mmol/L (137-145)
== END ==
LOC: LAB 18:40
PROVIDERS: PCP Internal Medicine; Visit Provider Hospitalist
DX: R25.1 Tremor, unspecified (principal)
CPT/HCPCS: 80048; 83735

== ENCOUNTER → 2018-04-30 07:22 | Outpatient (REF) | payer MEDICARE, OTHER, SELFPAY ==
[2018-03-31 21:56] VITALS: BMI 33.0
[2018-04-30 09:24] LABS: INR 2.5 (0.9-1.3); Prothrombin Time 28.1 SECONDS (10.1-12.7)
[2018-04-30 09:33] LABS: BUN Creatinine Ratio 20.5 (6-22); Blood Urea Nitrogen 45 mg/dL (9-20); Carbon Dioxide 35 mmol/L (22-32); Chloride 97 mmol/L (98-107); Glucose 81 mg/dL (80-110); HEMOLYSIS < 15 (0-50); Magnesium 2.4 mg/dL (1.6-2.3); Sodium 143 mmol/L (137-145)
== END ==
LOC: LAB 07:22
PROVIDERS: PCP Internal Medicine; Visit Provider Hospitalist
DX: N18.9 Chronic kidney disease, unspecified (principal); Z51.81 Encounter for therapeutic drug level monitoring
CPT/HCPCS: 36415; 80048; 83735; 85610

== ENCOUNTER → 2018-05-02 07:21 | Outpatient (REF) | payer MEDICARE, OTHER, SELFPAY ==
[2018-03-31 21:56] VITALS: BMI 33.0
[2018-05-02 08:11] LABS: INR 2.5 (0.9-1.3); Prothrombin Time 28.1 SECONDS (10.1-12.7)
== END ==
LOC: LAB 07:21
PROVIDERS: PCP Internal Medicine
DX: Z51.81 Encounter for therapeutic drug level monitoring (principal)
CPT/HCPCS: 36415; 85610

== ENCOUNTER → 2018-05-05 06:49 | Outpatient (REF) | payer MEDICARE, OTHER, SELFPAY ==
[2018-03-31 21:56] VITALS: BMI 33.0
[2018-05-05 07:51] LABS: INR 2.8 (0.9-1.3); Prothrombin Time 30.6 SECONDS (10.1-12.7)
[2018-05-05 08:01] LABS: BUN Creatinine Ratio 20.9 (6-22); Blood Urea Nitrogen 48 mg/dL (9-20); Calcium 9.3 mg/dL (8.4-10.2); Carbon Dioxide 32 mmol/L (22-32); Chloride 96 mmol/L (98-107); Estimated Glomerular Filt Rate 27.6 mL/min (>60); Glucose 107 mg/dL (80-110); HEMOLYSIS < 15 (0-50); Potassium 2.9 mmol/L (3.4-5.1); Sodium 142 mmol/L (137-145)
== END ==
LOC: LAB 06:49
PROVIDERS: PCP Internal Medicine; Visit Provider Nurse Practitioner
DX: Z79.01 Long term (current) use of anticoagulants (principal)
CPT/HCPCS: 36415; 80048; 85610

== ENCOUNTER → 2018-05-07 08:30 | Outpatient (REF) | payer MEDICARE, OTHER, SELFPAY ==
[2018-03-31 21:56] VITALS: BMI 33.0
[2018-05-07 09:08] LABS: Prothrombin Time 33.8 SECONDS (10.1-12.7)
== END ==
LOC: LAB 08:30
PROVIDERS: PCP Internal Medicine; Visit Provider Hospitalist
DX: I48.91 Unspecified atrial fibrillation (principal)
CPT/HCPCS: 36415; 85610

== ENCOUNTER → 2018-05-12 07:03 | Outpatient (REF) | payer MEDICARE, OTHER, SELFPAY ==
[2018-03-31 21:56] VITALS: BMI 33.0
[2018-05-12 07:39] LABS: INR 2.6 (0.9-1.3); Prothrombin Time 28.4 SECONDS (10.1-12.7)
== END ==
LOC: LAB 07:03
PROVIDERS: PCP Internal Medicine; Visit Provider Hospitalist
DX: Z79.01 Long term (current) use of anticoagulants (principal)
CPT/HCPCS: 36415; 85610

== ENCOUNTER → 2018-05-14 07:57 | Outpatient (REF) | payer MEDICARE, OTHER, SELFPAY ==
[2018-03-31 21:56] VITALS: BMI 33.0
[2018-05-14 08:47] LABS: INR 2.2 (0.9-1.3); Prothrombin Time 24.7 SECONDS (10.1-12.7)
== END ==
LOC: LAB 07:57
PROVIDERS: PCP Internal Medicine; Visit Provider Hospitalist
DX: I48.91 Unspecified atrial fibrillation (principal)
CPT/HCPCS: 36415; 85610

== ENCOUNTER 2018-05-17 14:03 | Emergency (ER) | payer MEDICARE, OTHER, SELFPAY ==
[2018-03-31 21:56] VITALS: BMI 33.0
[2018-05-17 14:11] VITALS: BP 121/76; PULSE 70; RESP 20; TEMP 35.9; O2SAT 99; BMI 38.7
--- NOTE | 2018-05-17 14:21 | DI.RAD.S_ITS ---
PROCEDURE: XR CHEST 1V INDICATIONS: SOB TECHNIQUE: One view of the chest was acquired. COMPARISON: [facility], CR, XR CHEST 1V, 03/31/2018, 17:43. FINDINGS: Surgical changes and devices: Dual-lead cardiac pacer is stable.. Lungs and pleura: No pleural effusions or pneumothorax. Lungs are clear. Possible 1 cm nodule in the right lung base versus nipple shadow. Mediastinum: Mediastinal contours appear normal. Heart size is normal. Bones and chest wall: No suspicious bony lesions. Overlying soft tissues appear unremarkable. IMPRESSION: 1. No acute cardiopulmonary disease process. 2. Possible 1 cm nodule in the right lung base versus nipple shadow. Recommend standard 2 view chest when clinically feasible. Dictated by: Roya Diaz MD, PhD on 05/17/2018 at 14:43 Approved by: Roya Diaz MD, PhD on 05/17/2018 at 14:44
[2018-05-17 15:08] VITALS: BP 133/70; PULSE 75; RESP 14; O2SAT 99
--- NOTE | 2018-05-17 15:15 | PC.NURSE ---
To room 1 w/ h/o rapid weight gain including lower leg / pedal edema, sacral edema. Can not lay flat r/t increased sob. Easy work of breathing at rest. Increased wob w/ exertion. Usually lives alone. Currently at [facility] rehab after a fall for strengthening.
[2018-05-17 15:30] VITALS: BP 126/79; PULSE 70; RESP 18; O2SAT 98
[2018-05-17 15:37] LABS: Add Manual Diff / Slide Review NO; Basophils Percent Auto 1.6 % (0-2); Eosinophils Percent Auto 5.2 % (2-4); Hematocrit 34.7 % (41-53); Hemoglobin 10.8 g/dL (13.5-17.5); Lymphocytes Percent Auto 21.6 % (25-40); Mean Corpuscular Hemoglobin 24.3 PG (26-34); Mean Corpuscular Volume 78.3 fL (80-100); Monocytes Percent Auto 10.6 % (3-14); Neutrophils Absolute Auto 4100 /uL (3000-5900); Platelet Count 193 X10^3/uL (150-400); Red Blood Cell Count 4.43 X10^6/uL (4.5-5.9); Red Cell Distribution Width 18.9 % (11.6-14.8); White Blood Cell Count 6.8 X10^3/uL (4.5-11.0)
[2018-05-17 15:41] LABS: Alanine Aminotransferase 25 IU/L (21-72); Albumin 3.7 g/dL (3.5-5.0); Albumin Globulin Ratio 1.1 (1.0-2.8); Alkaline Phosphatase 134 U/L (38-126); Aspartate Aminotransferase 16 IU/L (17-59); Bilirubin Total 1.1 mg/dL (0.2-1.3); Blood Urea Nitrogen 26 mg/dL (9-20); Calcium 8.8 mg/dL (8.4-10.2); Carbon Dioxide 27 mmol/L (22-32); Chloride 106 mmol/L (98-107); Creatine Kinase 32 U/L (55-170); Estimated Glomerular Filt Rate 32.4 mL/min (>60); Globulin 3.4 g/dL (1.7-4.1); Glucose 126 mg/dL (80-110); HEMOLYSIS < 15 (0-50); Lipase 106 U/L (23-300); Potassium 4.7 mmol/L (3.4-5.1); Sodium 144 mmol/L (137-145); Total Protein 7.1 g/dL (6.3-8.2)
--- NOTE | 2018-05-17 15:49 | ED.SOB ---
HPI - SOB/Dyspnea General Chief Complaint: Shortness of Breath/Dyspnea Stated Complaint: sent from across the street for fluids? Time Seen by Provider: 05/17/18 14:18 Source: patient Mode of arrival: ambulatory Limitations: no limitations History of Present Illness 78M with hx of CHF presents with chief complaint of 12# weight gain and swelling legs for the past week. He denies much in the way of shortness of breath or chest pain. He states that if he walks a long way he feels short of breath and admits that he always is short of breath when lying flat. He denies fever or chills. Denies chest pain. He denies any change in the dosage of his medicines or any dietary indiscretions. Onset (ago): day(s) Severity: moderate Consistency/Duration: constant Relieving factors: nothing Exacerbating factors: nothing Known history of: congestive heart failure Treatment prior to arrival: none Related Data Home oxygen amount: none Home Medications Medication Instructions Recorded Confirmed potassium chloride [K-Tab] 40 meq PO BID #810 10/29/17 03/31/18 torsemide 10 mg PO QDAY #90 10/29/17 03/31/18 calcium carbonate-vitamin D3 1 cap PO BID #0 11/01/17 03/31/18 [Calcium 600 with Vitamin D3] eplerenone 25 mg PO QDAY #0 11/01/17 03/31/18 folic acid 0.4 mg PO QDAY #0 11/01/17 03/31/18 magnesium oxide 500 mg PO TID #0 11/01/17 03/31/18 metoprolol tartrate 12.5 mg PO BID #0 11/01/17 03/31/18 multivitamin [Multiple Vitamins] 1 tab PO QDAY #0 11/01/17 03/31/18 nitroglycerin [Nitrostat] 0.4 mg SUBLINGUAL PRN PRN #0 11/01/17 03/31/18 ipratropium 20 mcg-albuterol 100 1 puff INHALATION BID gram 03/20/18 03/31/18 mcg/actuation mist for inhalation cholestyramine-aspartame 4 g PO BEDTIME 03/31/18 03/31/18 [Prevalite] metolazone 2.5 mg PO Q OTHER DAY 03/31/18 03/31/18 Previous Rx's Medication Instructions Recorded glipizide [Glucotrol XL] 10 mg PO AMCC #30 tab 10/29/16 gabapentin [Neurontin] 900 mg PO TID #270 cap 09/23/17 omeprazole 20 mg PO BID #60 cap 12/17/17 atorvastatin [Lipitor] 20 mg PO BEDTIME #30 tab 04/02/18 bupropion HCl [Wellbutrin SR] 150 mg PO DAILY #30 tab 04/02/18 doxycycline hyclate 100 mg PO BID #28 tab 04/02/18 escitalopram oxalate [Lexapro] 20 mg PO DAILY #30 tab 04/02/18 ipratropium bromide 2 spray INTRANASAL BID #1 inh 04/02/18 krill oil 500 mg PO DAILY #30 cap 04/02/18 oxycodone See Label Instructions .ROUTE 04/02/18 .COMPLEX PRN #60 tab warfarin [Coumadin] 3 mg PO DAILY #0 tab 04/02/18 gentamicin 0.1 % topical ointment 1 applictn TOP TID #30 gram 04/14/18 Allergies Allergy/AdvReac Type Severity Reaction Status Date / Time camphor [CAMPHOR] Allergy Mild RASH Verified 03/26/18 09:41 cyclobenzaprine Allergy Mild HIVES Verified 03/26/18 09:41 [CYCLOBENZAPRINE] lisinopril [LISINOPRIL] Allergy Mild COUGH/DRY Verified 03/26/18 09:41 THROAT menthol [MENTHOL] Allergy Mild RASH Verified 03/26/18 09:41 methyl salicylate Allergy Mild RASH Verified 03/26/18 09:41 [METHYL SALICYLATE] Review of Systems Review of Systems All systems reviewed & are unremarkable except as noted in HPI and below Constitutional Denies chills, Denies fever(s), Denies lethargy and Denies weakness Eyes Denies change in vision, Denies eye discharge, Denies irritation and Denies loss of vision ENT Ears, Nose, Mouth, and Throat: Denies change in voice, Denies neck pain and Denies sore throat Cardiovascular Denies chest pain, Denies irregular heart rhythm, Denies lightheadedness, Denies palpitations, Denies dyspnea, Denies dyspnea on exertion and Denies orthopnea Respiratory Denies cough, Denies dyspnea, Denies dyspnea on exertion and Denies wheezing Gastrointestinal Gastrointestinal: Denies abdominal pain, Denies change in bowel habits, Denies diarrhea, Denies nausea and Denies vomiting Genitourinary Denies hematuria, Denies flank pain, Denies urinary incontinence and Denies urinary urgency Musculoskeletal Denies neck pain Integumentary/Breasts Denies pruritus, Denies erythema, Denies rash and Denies wounds Neurologic Denies confusion, Denies loss of vision and Denies weakness Psychiatric Denies anxiety, Denies confusion, Denies depression, Denies homicidal ideation and Denies suicidal ideation Endocrine Denies palpitations Hematologic/Lymphatic Denies easy bruising Allergic/Immunologic Denies wheezing [facility] Medical History Coronary artery disease (Chronic) Hyperlipidemia (Chronic) 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) Essential hypertension (Chronic 12/14/11) Diabetic foot ulcer (Chronic) Edema (Chronic) Leg wound, left (Chronic) Generalized weakness (Chronic) Paroxysmal atrial fibrillation (Chronic) Alcohol use (Chronic) Cellulitis of left lower extremity (Chronic) Chronic kidney disease, stage 3 (Chronic) Osteomyelitis of left foot (Chronic) Skin lesion of left lower extremity (Chronic) Chronic obstructive pulmonary disease (Chronic 07/08/15) Chronic diastolic congestive heart failure (Chronic 05/23/15) Uncontrolled type 2 diabetes mellitus with hyperglycemia, without long-term current use of insulin (Chronic 08/20/17) Osteoarthritis, knee (Chronic) Anemia in chronic kidney disease (Chronic) Prostate cancer (Chronic 04/03/11) Bilateral shoulder pain (Chronic) Current use of emt intermediate anticoagulation (Chronic) Obstructive sleep apnea syndrome (Chronic 04/03/11) Gastroesophageal reflux disease without esophagitis (Chronic 04/03/11) Migraine with aura and without status migrainosus, not intractable (Chronic 04/03/11) Gout (Chronic 04/03/11) Dyskinesia of esophagus (Chronic 12/14/11) Chronic pain of both knees (Chronic 03/23/16) Chronic atrial fibrillation (Resolved 02/17/15) Morbid obesity with body mass index (BMI) of 40.0 to 44.9 in adult (Resolved 03/23/16) Surgical History History of knee replacement (Resolved 10/12/13) History of prostatectomy (Resolved) Status post endoscopic retrograde cholangiopancreatography (Resolved 12/2014) Status post laparoscopic cholecystectomy (Resolved 12/2014) Status post placement of cardiac pacemaker (Resolved 11/2011) Family History Brother Diabetes mellitus Social History marital status: number of children: 6 household members: friend(s) lives independently: Yes caregiver/support person: Yes (Minimal) housing: house pets and animals: Yes education level: master's degree occupational status: other (Retired.) Previous occupational history: Technical Training and Safety Engineering. alberto/sikh: [employer] leisure activities: reading and other (Watching TV) Smoking Status: Former smoker Tobacco: How many years used: 4 Smokeless tobacco user: other (Cigarettes and Pipe) quit status: quit date established (~1981) second hand exposure: No alcohol intake: current substance use type: does not use Exam Narrative Exam Narrative: GENERAL: This is a well-nourished, well-developed patient, in mild distress. HEAD: Atraumatic. Normocephalic. No temporal or scalp tenderness. EYES: Pupils equal round and reactive. Extraocular motions intact. No scleral icterus. No injection or drainage. ENT: Nose without bleeding, purulent drainage or septal hematoma. Throat without erythema, tonsillar hypertrophy or exudate. Uvula midline. Airway patent. NECK: Trachea midline. No JVD or lymphadenopathy. Supple, nontender, no meningeal signs. CARDIOVASCULAR: Regular rate and rhythm without murmurs, gallops, or rubs. RESPIRATORY: Faint crackles in bilateral bases GASTROINTESTINAL: Abdomen soft, non-tender, nondistended. No hepato-splenomegaly, or palpable masses. No guarding. EXTREMITIES: Chronic wounds on left lower extremity appear stable and at baseline. He does have 1+ pitting edema in bilateral lower extremities consistent with his exacerbation of CHF BACK: Nontender without deformity or crepitance. No flank tenderness. NEURO: AOx3. SKIN: No rash or erythema. Initial Vital Signs Initial Vital Signs: Vital Signs Temperature 96.7 F L 05/17/18 14:11 Pulse Rate 70 05/17/18 14:11 Respiratory Rate 20 05/17/18 14:11 Blood Pressure 121/76 05/17/18 14:11 Pulse Oximetry 99 05/17/18 14:11 Course Orders Ordered: ED Orders 05/17/18 14:21 XR chest 1V Stat EKG-12 Lead Stat 05/17/18 15:00 B Type Natriuretic Peptide Stat Complete Blood Count AUTO DIFF Stat Comprehensive Metabolic Panel Stat Lipase Stat Troponin & CK Cardiac Panel Stat 05/17/18 16:10 Urine Microscopic Stat Discontinued Medications Furosemide (Lasix) 40 mg IV NOW ONE Stop: 05/17/18 15:50 Last Admin: 05/17/18 15:55 Dose: 40 mg Reevaluation(s) Reevaluation #1: Patient produces 900 mL of dilute urine after Lasix 40 mg IVP Vital Signs - 8 hr 05/17/18 14:11 05/17/18 15:08 05/17/18 15:30 Temperature 96.7 F L Pulse Rate 70 75 70 Respiratory Rate 20 14 18 Blood Pressure 121/76 Blood Pressure [Right Arm] 133/70 126/79 Pulse Oximetry 99 99 98 05/17/18 16:03 05/17/18 17:25 Temperature Pulse Rate 70 70 Respiratory Rate 18 18 Blood Pressure Blood Pressure [Right Arm] 126/70 125/70 Pulse Oximetry 98 MDM - SOB/Dyspnea Differential Diagnosis Likely congestive heart failure and community acquired pneumonia Lab Data Result diagrams: 05/17/18 15:00 05/17/18 15:00 Lab Results 05/17/18 05/17/18 05/17/18 Range/Units 15:00 15:00 16:10 WBC 6.8 (4.5-11.0) X10^3/uL RBC 4.43 L (4.5-5.9) X10^6/uL Hgb 10.8 L (13.5-17.5) g/dL Hct 34.7 L (41-53) % MCV 78.3 L (80-100) fL MCH 24.3 L (26-34) PG MCHC 31.0 (30-36) % RDW 18.9 H (11.6-14.8) % Plt Count 193 (150-400) X10^3/uL Neut % (Auto) 61.0 (50-75) % Lymph % (Auto) 21.6 L (25-40) % Bound[place] % (Auto) 10.6 (3-14) % Eos % (Auto) 5.2 H (2-4) % Baso % (Auto) 1.6 (0-2) % Neut # (Auto) 4100 (7798-7945) /uL Sodium 144 (137-145) mmol/L Potassium 4.7 (3.4-5.1) mmol/L Chloride 106 (98-107) mmol/L Carbon Dioxide 27 (22-32) mmol/L BUN 26 H (9-20) mg/dL Creatinine 2.00 H (0.66-1.25) mg/dL Estimated GFR 32.4 L (>60) mL/min BUN/Creatinine Ratio 13.0 (6-22) Glucose 126 H (80-110) mg/dL Calcium 8.8 (8.4-10.2) mg/dL Total Bilirubin 1.1 (0.2-1.3) mg/dL AST 16 L (17-59) IU/L ALT 25 (21-72) IU/L Alkaline Phosphatase 134 H (38-126) U/L Total Creatine Kinase 32 L (55-170) U/L CK-MB (CK-2) TNP CK-MB (CK-2) Rel Index TNP Troponin I < 0.012 (0.01-0.034) ng/mL B-Natriuretic Peptide 853.0 H (<100) Total Protein 7.1 (6.3-8.2) g/dL Albumin 3.7 (3.5-5.0) g/dL Globulin 3.4 (1.7-4.1) g/dL Albumin/Globulin Ratio 1.1 (1.0-2.8) Lipase 106 (23-300) U/L Urine RBC 1-5/hpf (0-5/HPF) Urine WBC None seen (0-5/HPF) Urine Bacteria None seen (None) Ur Culture Indicated? Not Reportable Micro UA Comment Not Reportable Urine Dip Bedside Urine Glucose Negative Bedside Urine Bilirubin - Negative Bedside Urine Ketone - Negative Urine Specific [place] 1.020 Bedside Urine Occult Blood + Bedside Urine pH 6.0 Bedside Urine Protein + 30 Bedside Urine Urobilinogen - Negative Bedside Urine Nitrite - Negative Bedside Urine Leukocytes - Negative Esterase MDM Narrative Medical decision making narrative: Patient has very little in the way of complaints other than some weight gain and swelling in his legs. He denies any shortness of breath or excessive fatigue. At no point is he hypoxic. Though clinically in CHF he does not demonstrate any admission criteria. He responded well to IV Lasix Discharge Plan Departure Patient Disposition: Home Clinical Impression: Acute exacerbation of CHF (congestive heart failure) Discharge Date/Time: 05/17/18 17:27 Interventions: ED Discharge Assessment Last Done: 05/17/18 17:26 Instructions: DI for Heart Failure Activity Restrictions/Additional Instructions: *You have been diagnosed with [ acute CHF ] *What to do: *Take medications as directed: Increase your lasix to 60mg in the morning for the next 3 days *Follow up with your primary care provider in 2-3 days, call for an appointment. Let them know you were seen in the Emergency Department and that we ask that you be seen in follow up *Return to ER if you should have any new, worsening or concerning symptoms Prescriptions: No Action glipizide [Glucotrol XL] 10 MG tablet extended release 24hr 10 mg PO AMCC Qty: 30 RF: 5 gabapentin [Neurontin] 300 MG capsule 900 mg PO TID Qty: 270 RF: 3 torsemide 20 MG tablet 10 mg PO QDAY Qty: 90 RF: 0 potassium chloride [K-Tab] 20 MEQ tablet extended release 40 meq PO BID Qty: 810 RF: 0 eplerenone 25 MG tablet 25 mg PO QDAY Qty: 0 RF: 0 metoprolol tartrate 25 MG tablet 12.5 mg PO BID Qty: 0 RF: 0 folic acid 0.4 MG tablet 0.4 mg PO QDAY Qty: 0 RF: 0 nitroglycerin [Nitrostat] 0.4 MG tablet, sublingual 0.4 mg Sublingual PRN PRN (Reason: Chest Pain) Qty: 0 RF: 0 multivitamin [Multiple Vitamins] 1 EACH tablet 1 tab PO QDAY Qty: 0 RF: 0 calcium carbonate-vitamin D3 [Calcium 600 with Vitamin D3] 600 MG/200 IU capsule 1 cap PO BID Qty: 0 RF: 0 magnesium oxide 500 MG tablet 500 mg PO TID Qty: 0 RF: 0 omeprazole 20 mg capsule,delayed release(DR/EC) 20 mg PO BID Qty: 60 RF: 5 gentamicin 0.1 % ointment 1 applictn TOP TID Qty: 30 RF: 1 ipratropium-albuterol [Combivent Respimat] 20-100 mcg/actuation mist 1 puff INHALATION BID RF: 0 metolazone 2.5 mg Tablet 2.5 mg PO Q OTHER DAY RF: 0 cholestyramine-aspartame [Prevalite] 4 gram Powder In Packet 4 g PO BEDTIME RF: 0 bupropion HCl [Wellbutrin SR] 150 mg Tablet Extended Release 12 Hr 150 mg PO DAILY Qty: 30 RF: 0 atorvastatin [Lipitor] 20 mg Tablet 20 mg PO BEDTIME Qty: 30 RF: 0 doxycycline hyclate 100 mg Tablet 100 mg PO BID Qty: 28 RF: 0 escitalopram oxalate [Lexapro] 10 mg Tablet 20 mg PO DAILY Qty: 30 RF: 0 warfarin [Coumadin] 3 mg tablet 3 mg PO DAILY Qty: 0 RF: 0 oxycodone 10 mg tablet See Label Instructions .ROUTE .COMPLEX PRN (Reason: Pain) Qty: 60 RF: 0 ipratropium bromide 42 mcg (0.06 %) [place],Non-Aerosol 2 spray INTRANASAL BID Qty: 1 RF: 0 krill oil 500 mg capsule 500 mg PO DAILY Qty: 30 RF: 0 Referrals: Hernesto Campbell MD [Primary Care Provider] -
[2018-05-17] MEDS: FUROSEMIDE 40 MG/4 ML VIAL IV (15:55)
[2018-05-17 15:58] LABS: Troponin I < 0.012 ng/mL (0.01-0.034)
[2018-05-17 16:03] VITALS: BP 126/70; PULSE 70; RESP 18
[2018-05-17 16:15] LABS: Bacteria Urine None Seen; WBC Urine None Seen (0-5/HPF)
[2018-05-17 16:27] LABS: RBC Urine 1-5/HPF (0-5/HPF)
[2018-05-17 17:25] VITALS: BP 125/70; PULSE 70; RESP 18; O2SAT 98
== END 2018-05-17 17:27 | disposition home or self-care (01) ==
PROVIDERS: Emergency Provider Emergency Medicine; PCP Internal Medicine
DX: I50.9 Heart failure, unspecified (principal)
CPT/HCPCS: 36591; 71045; 80053; 81003; 81015; 82550; 83690; 83880; 84484; 85025; 93005; 93010; 96374; 99285; J1940

== ENCOUNTER → 2018-05-19 08:31 | Outpatient (REF) | payer MEDICARE, OTHER, SELFPAY ==
[2018-03-31 21:56] VITALS: BMI 33.0
[2018-05-19 10:20] LABS: INR 2.7 (0.9-1.3); Prothrombin Time 29.8 SECONDS (10.1-12.7)
== END ==
LOC: LAB 08:31
PROVIDERS: PCP Internal Medicine; Visit Provider Internal Medicine
DX: I48.91 Unspecified atrial fibrillation (principal); M25.532 Pain in left wrist
CPT/HCPCS: 36415; 85610

== ENCOUNTER → 2018-05-21 08:06 | Outpatient (REF) | payer MEDICARE, OTHER, SELFPAY ==
[2018-03-31 21:56] VITALS: BMI 33.0
[2018-05-21 09:02] LABS: INR 2.9 (0.9-1.3); Prothrombin Time 31.9 SECONDS (10.1-12.7)
[2018-05-21 09:17] LABS: Blood Urea Nitrogen 28 mg/dL (9-20); Carbon Dioxide 30 mmol/L (22-32); Chloride 100 mmol/L (98-107); Estimated Glomerular Filt Rate 32.4 mL/min (>60); Glucose 93 mg/dL (80-110); HEMOLYSIS < 15 (0-50); Potassium 4.6 mmol/L (3.4-5.1); Sodium 141 mmol/L (137-145)
== END ==
LOC: LAB 08:06
PROVIDERS: PCP Internal Medicine; Visit Provider Hospitalist
DX: N18.9 Chronic kidney disease, unspecified (principal)
CPT/HCPCS: 36415; 80048; 85610

== ENCOUNTER → 2018-05-23 07:21 | Outpatient (REF) | payer MEDICARE, OTHER, SELFPAY ==
[2018-03-31 21:56] VITALS: BMI 33.0
[2018-05-23 08:56] LABS: Add Manual Diff / Slide Review NO; Basophils Percent Auto 1.3 % (0-2); Eosinophils Percent Auto 4.2 % (2-4); Hematocrit 33.9 % (41-53); Hemoglobin 10.6 g/dL (13.5-17.5); Lymphocytes Percent Auto 24.6 % (25-40); Mean Corpuscular HGB Conc 31.3 % (30-36); Mean Corpuscular Hemoglobin 24.5 PG (26-34); Mean Corpuscular Volume 78.1 fL (80-100); Monocytes Percent Auto 12.2 % (3-14); Neutrophils Absolute Auto 4000 /uL (3000-5900); Neutrophils Percent Auto 57.7 % (50-75); Platelet Count 194 X10^3/uL (150-400); Red Blood Cell Count 4.34 X10^6/uL (4.5-5.9); Red Cell Distribution Width 18.7 % (11.6-14.8); White Blood Cell Count 6.9 X10^3/uL (4.5-11.0)
[2018-05-23 09:04] LABS: INR 2.5 (0.9-1.3); Prothrombin Time 27.6 SECONDS (10.1-12.7)
[2018-05-23 09:16] LABS: Alanine Aminotransferase 20 IU/L (21-72); Albumin 3.7 g/dL (3.5-5.0); Albumin Globulin Ratio 1.1 (1.0-2.8); Alkaline Phosphatase 133 U/L (38-126); Aspartate Aminotransferase 16 IU/L (17-59); Bilirubin Total 1.2 mg/dL (0.2-1.3); Blood Urea Nitrogen 30 mg/dL (9-20); Calcium 9.2 mg/dL (8.4-10.2); Carbon Dioxide 30 mmol/L (22-32); Chloride 100 mmol/L (98-107); Estimated Glomerular Filt Rate 32.4 mL/min (>60); Globulin 3.4 g/dL (1.7-4.1); Glucose 89 mg/dL (80-110); HEMOLYSIS < 15 (0-50); Magnesium 2.3 mg/dL (1.6-2.3); Phosphorous 3.3 mg/dL (2.3-3.7); Potassium 4.4 mmol/L (3.4-5.1); Sodium 140 mmol/L (137-145); Total Protein 7.1 g/dL (6.3-8.2)
[2018-05-23 09:35] LABS: Vitamin D 25 Hydroxy (D3) 54.8 ng/mL (30.0-100.0)
[2018-05-23 09:45] LABS: Prostate Specific Antigen < 0.064 ng/mL (0.10-4.00)
[2018-05-27 15:03] LABS: Parathyroid Hormone Int 60 pg/mL (14-64)
== END ==
LOC: LAB 07:21
PROVIDERS: PCP Internal Medicine; Visit Provider Hospitalist
DX: E11.9 Type 2 diabetes mellitus without complications (principal); N19 Unspecified kidney failure
CPT/HCPCS: 36415; 80053; 82306; 83735; 83970; 84100; 84153; 85025; 85610

== ENCOUNTER → 2018-05-26 09:54 | Outpatient (REF) | payer MEDICARE, OTHER, SELFPAY ==
[2018-03-31 21:56] VITALS: BMI 33.0
[2018-05-26 11:07] LABS: INR 2.5 (0.9-1.3); Prothrombin Time 27.3 SECONDS (10.1-12.7)
== END ==
LOC: LAB 09:54
PROVIDERS: PCP Internal Medicine; Visit Provider Hospitalist
DX: Z79.01 Long term (current) use of anticoagulants (principal)
CPT/HCPCS: 36415; 85610

== ENCOUNTER → 2018-06-04 08:43 | Outpatient (REF) | payer MEDICARE, OTHER, SELFPAY ==
[2018-03-31 21:56] VITALS: BMI 33.0
[2018-06-04 10:04] LABS: BUN Creatinine Ratio 14.4 (6-22); Blood Urea Nitrogen 26 mg/dL (9-20); Calcium 8.8 mg/dL (8.4-10.2); Carbon Dioxide 26 mmol/L (22-32); Chloride 100 mmol/L (98-107); Estimated Glomerular Filt Rate 36.6 mL/min (>60); Glucose 86 mg/dL (80-110); HEMOLYSIS < 15 (0-50); Potassium 4.4 mmol/L (3.4-5.1); Sodium 139 mmol/L (137-145)
== END ==
LOC: LAB 08:43
PROVIDERS: PCP Internal Medicine; Visit Provider Nurse Practitioner
DX: R44.3 Hallucinations, unspecified (principal)
CPT/HCPCS: 36415; 80048

== ENCOUNTER → 2018-06-05 07:46 | Outpatient (REF) | payer MEDICARE, OTHER, SELFPAY ==
[2018-03-31 21:56] VITALS: BMI 33.0
[2018-06-05 08:01] LABS: Add Manual Diff / Slide Review NO; Basophils Percent Auto 1.3 % (0-2); Eosinophils Percent Auto 4.3 % (2-4); Hematocrit 35.2 % (41-53); Hemoglobin 11.1 g/dL (13.5-17.5); Lymphocytes Percent Auto 28.1 % (25-40); Mean Corpuscular HGB Conc 31.6 % (30-36); Mean Corpuscular Hemoglobin 24.1 PG (26-34); Mean Corpuscular Volume 76.4 fL (80-100); Monocytes Percent Auto 11.6 % (3-14); Neutrophils Absolute Auto 3800 /uL (3000-5900); Neutrophils Percent Auto 54.7 % (50-75); Platelet Count 193 X10^3/uL (150-400); Red Blood Cell Count 4.61 X10^6/uL (4.5-5.9); Red Cell Distribution Width 18.2 % (11.6-14.8)
[2018-06-05 08:19] LABS: Alanine Aminotransferase 27 IU/L (21-72); Albumin 3.9 g/dL (3.5-5.0); Albumin Globulin Ratio 1.2 (1.0-2.8); Alkaline Phosphatase 129 U/L (38-126); Aspartate Aminotransferase 17 IU/L (17-59); BUN Creatinine Ratio 13.9 (6-22); Blood Urea Nitrogen 25 mg/dL (9-20); Calcium 8.9 mg/dL (8.4-10.2); Carbon Dioxide 26 mmol/L (22-32); Chloride 101 mmol/L (98-107); Estimated Glomerular Filt Rate 36.6 mL/min (>60); Globulin 3.3 g/dL (1.7-4.1); Glucose 100 mg/dL (80-110); HEMOLYSIS < 15 (0-50); Potassium 4.5 mmol/L (3.4-5.1); Sodium 140 mmol/L (137-145); Total Protein 7.2 g/dL (6.3-8.2)
== END ==
LOC: LAB 07:46
PROVIDERS: PCP Internal Medicine; Visit Provider Specialist
DX: R03.0 Elevated blood-pressure reading, without diagnosis of hypertension (principal)
CPT/HCPCS: 80053; 85025

== ENCOUNTER → 2018-06-09 08:05 | Outpatient (REF) | payer MEDICARE, OTHER, SELFPAY ==
[2018-03-31 21:56] VITALS: BMI 33.0
[2018-06-09 09:10] LABS: INR 2.2 (0.9-1.3); Prothrombin Time 24.6 SECONDS (10.1-12.7)
== END ==
LOC: LAB 08:05
PROVIDERS: PCP Internal Medicine; Visit Provider Hospitalist
DX: I82.409 Acute embolism and thrombosis of unspecified deep veins of unspecified lower extremity (principal); Z79.01 Long term (current) use of anticoagulants
CPT/HCPCS: 36415; 85610

== ENCOUNTER → 2018-06-16 07:33 | Outpatient (REF) | payer MEDICARE, OTHER, SELFPAY ==
[2018-03-31 21:56] VITALS: BMI 33.0
[2018-06-16 08:11] LABS: Blood Urea Nitrogen 27 mg/dL (9-20); Carbon Dioxide 27 mmol/L (22-32); Chloride 104 mmol/L (98-107); Estimated Glomerular Filt Rate 36.6 mL/min (>60); Glucose 113 mg/dL (80-110); HEMOLYSIS < 15 (0-50); Potassium 4.9 mmol/L (3.4-5.1); Sodium 141 mmol/L (137-145)
[2018-06-20 10:54] LABS: Cholesterol 76 mg/dL (140-199); HDL Cholesterol 32 mg/dL (40-60); LDL Cholesterol Calculated 35 mg/dL (<100); Triglycerides 43 mg/dL (35-150)
== END ==
LOC: LAB 07:33
PROVIDERS: PCP Internal Medicine; Visit Provider Hospitalist
DX: E11.9 Type 2 diabetes mellitus without complications (principal); N18.9 Chronic kidney disease, unspecified
CPT/HCPCS: 36415; 80048; 80061

== ENCOUNTER → 2018-06-23 08:12 | Outpatient (REF) | payer MEDICARE, OTHER, SELFPAY ==
[2018-03-31 21:56] VITALS: BMI 33.0
[2018-06-23 09:23] LABS: INR 2.3 (0.9-1.3); Prothrombin Time 25.1 SECONDS (10.1-12.7)
== END ==
LOC: LAB 08:12
PROVIDERS: PCP Internal Medicine; Visit Provider Nurse Practitioner
DX: Z79.01 Long term (current) use of anticoagulants (principal)
CPT/HCPCS: 36415; 85610

== ENCOUNTER → 2018-07-02 08:59 | Outpatient (REF) | payer MEDICARE, OTHER, SELFPAY ==
[2018-03-31 21:56] VITALS: BMI 33.0
[2018-07-02 10:28] LABS: INR 2.1 (0.9-1.3); Prothrombin Time 23.3 SECONDS (10.1-12.7)
== END ==
LOC: LAB 08:59
PROVIDERS: PCP Internal Medicine; Visit Provider Nurse Practitioner Family
DX: Z51.81 Encounter for therapeutic drug level monitoring (principal)
CPT/HCPCS: 36415; 85610

== ENCOUNTER → 2018-07-04 07:55 | Outpatient (REF) | payer MEDICARE, OTHER, SELFPAY ==
[2018-03-31 21:56] VITALS: BMI 33.0
[2018-07-04 09:58] LABS: BUN Creatinine Ratio 13.8 (6-22); Blood Urea Nitrogen 29 mg/dL (9-20); Calcium 9.1 mg/dL (8.4-10.2); Carbon Dioxide 30 mmol/L (22-32); Chloride 99 mmol/L (98-107); Estimated Glomerular Filt Rate 30.6 mL/min (>60); Glucose 97 mg/dL (80-110); HEMOLYSIS < 15 (0-50); Potassium 3.8 mmol/L (3.4-5.1); Sodium 143 mmol/L (137-145)
== END ==
LOC: LAB 07:55
PROVIDERS: PCP Internal Medicine; Visit Provider Nurse Practitioner Family
DX: R53.1 Weakness (principal); E11.9 Type 2 diabetes mellitus without complications
CPT/HCPCS: 36415; 80048

== ENCOUNTER → 2018-07-10 14:17 | Outpatient (CLI) | payer MEDICARE, OTHER, SELFPAY ==
[2018-03-31 21:56] VITALS: BMI 33.0
[2018-07-10 15:04] LABS: Add Manual Diff / Slide Review NO; Basophils Percent Auto 1.2 % (0-2); Eosinophils Percent Auto 4.3 % (2-4); Hematocrit 36.6 % (41-53); Hemoglobin 11.6 g/dL (13.5-17.5); INR 1.6 (0.9-1.3); Lymphocytes Percent Auto 19.7 % (25-40); Mean Corpuscular HGB Conc 31.6 % (30-36); Mean Corpuscular Hemoglobin 23.4 PG (26-34); Mean Corpuscular Volume 74.1 fL (80-100); Monocytes Percent Auto 12.2 % (3-14); Neutrophils Absolute Auto 5000 /uL (3000-5900); Neutrophils Percent Auto 62.6 % (50-75); Platelet Count 219 X10^3/uL (150-400); Prothrombin Time 18.3 SECONDS (10.1-12.7); Red Blood Cell Count 4.94 X10^6/uL (4.5-5.9); Red Cell Distribution Width 17.3 % (11.6-14.8)
[2018-07-10 15:08] LABS: Hemoglobin A1C% w Est Avg Glu 6.6 % (4.0-6.0)
[2018-07-10 15:19] LABS: Alanine Aminotransferase 22 IU/L (21-72); Albumin 3.9 g/dL (3.5-5.0); Albumin Globulin Ratio 1.1 (1.0-2.8); Alkaline Phosphatase 145 U/L (38-126); Aspartate Aminotransferase 23 IU/L (17-59); BUN Creatinine Ratio 14.7 (6-22); Bilirubin Total 2.6 mg/dL (0.2-1.3); Blood Urea Nitrogen 25 mg/dL (9-20); Calcium 9.4 mg/dL (8.4-10.2); Carbon Dioxide 31 mmol/L (22-32); Chloride 99 mmol/L (98-107); Estimated Glomerular Filt Rate 39.1 mL/min (>60); Globulin 3.5 g/dL (1.7-4.1); Glucose 121 mg/dL (80-110); HEMOLYSIS < 15 (0-50); Potassium 3.5 mmol/L (3.4-5.1); Sodium 143 mmol/L (137-145); Total Protein 7.4 g/dL (6.3-8.2)
== END ==
PROVIDERS: PCP Internal Medicine; Visit Provider Internal Medicine
DX: E11.42 Type 2 diabetes mellitus with diabetic polyneuropathy (principal); I25.10 Atherosclerotic heart disease of native coronary artery without angina pectoris; I48.0 Paroxysmal atrial fibrillation
CPT/HCPCS: 36415; 80053; 83036; 85025; 85610

== ENCOUNTER → 2018-07-15 09:46 | Outpatient (CLI) | payer MEDICARE, OTHER, SELFPAY ==
[2018-03-31 21:56] VITALS: BMI 33.0
== END ==
PROVIDERS: PCP Internal Medicine; Visit Provider Family Medicine
DX: L97.822 Non-pressure chronic ulcer of other part of left lower leg with fat layer exposed (principal); L03.116 Cellulitis of left lower limb; I87.312 Chronic venous hypertension (idiopathic) with ulcer of left lower extremity; Z79.01 Long term (current) use of anticoagulants; N18.3 Chronic kidney disease, stage 3 (moderate)
CPT/HCPCS: 11042; 87070; 87075; 87077; 87147; 87186; 87205; 99213; 99214

== ENCOUNTER → 2018-07-17 13:00 | Outpatient (CLI) | payer MEDICARE, OTHER, SELFPAY ==
[2018-03-31 21:56] VITALS: BMI 33.0
== END ==
PROVIDERS: PCP Internal Medicine; Visit Provider Family Medicine
DX: I87.312 Chronic venous hypertension (idiopathic) with ulcer of left lower extremity (principal); L97.821 Non-pressure chronic ulcer of other part of left lower leg limited to breakdown of skin; L03.116 Cellulitis of left lower limb
CPT/HCPCS: 97602

== ENCOUNTER → 2018-07-24 13:54 | Outpatient (CLI) | payer MEDICARE, OTHER, SELFPAY ==
[2018-03-31 21:56] VITALS: BMI 33.0
== END ==
PROVIDERS: PCP Internal Medicine; Visit Provider Family Medicine
DX: I87.312 Chronic venous hypertension (idiopathic) with ulcer of left lower extremity (principal); L97.822 Non-pressure chronic ulcer of other part of left lower leg with fat layer exposed; L03.116 Cellulitis of left lower limb; Z79.01 Long term (current) use of anticoagulants; N18.3 Chronic kidney disease, stage 3 (moderate); A49.02 Methicillin resistant Staphylococcus aureus infection, unspecified site; I50.32 Chronic diastolic (congestive) heart failure
CPT/HCPCS: 97597; 99213

== ENCOUNTER → 2018-07-31 14:37 | Outpatient (CLI) | payer MEDICARE, OTHER, SELFPAY ==
[2018-03-31 21:56] VITALS: BMI 33.0
== END ==
PROVIDERS: PCP Internal Medicine; Visit Provider Family Medicine
DX: I87.312 Chronic venous hypertension (idiopathic) with ulcer of left lower extremity (principal); L97.822 Non-pressure chronic ulcer of other part of left lower leg with fat layer exposed; L03.116 Cellulitis of left lower limb; Z79.01 Long term (current) use of anticoagulants; A49.02 Methicillin resistant Staphylococcus aureus infection, unspecified site; N18.3 Chronic kidney disease, stage 3 (moderate); I50.32 Chronic diastolic (congestive) heart failure
CPT/HCPCS: 11042

== ENCOUNTER 2018-08-04 09:02 | Inpatient (IN) | payer MEDICARE, OTHER, SELFPAY ==
[2018-03-31 21:56] VITALS: BMI 33.0
[2018-08-04] VITALS (17 sets, daily range): BP systolic 107–136; BP diastolic 38–89; PULSE 80–88; RESP 13–18; TEMP 36.6–37; O2SAT 92–98; BMI 38.8
--- NOTE | 2018-08-04 09:20 | DI.CT.S_ITS ---
PROCEDURE: CT CHEST ABD PEL W CON INDICATIONS: fall, bruising right chest/ right back/side pain on warfarin TECHNIQUE: After the administration of intravenous contrast, 5 mm thick sections acquired from the lung apices to the symphysis. 2.5 mm thick coronal and sagittal reformats were acquired. Additional 7 mm thick coronal maximum intensity projection (MIP) reformats acquired through the lungs. Optional 10-minute delayed imaging may be performed from the kidneys to the bladder. For radiation dose reduction, the following was used: automated exposure control, adjustment of mA and/or kV according to patient size. COMPARISON: None. FINDINGS: Image quality: Excellent. CHEST: Lungs: There is a small right-sided pleural effusion with adjacent contusion/atelectasis in posterior lateral aspect of right lower lobe. Scarring/atelectasis at left lung base is seen. No pneumothorax or hemothorax. Central and peripheral airways appear patent and normal in caliber. Mediastinum: No mediastinal hematomas. Heart size is enlarged. No pericardial effusion. Thoracic aorta and pulmonary arteries demonstrate normal size and enhancement. No mediastinal or hilar adenopathy. Esophagus is normal in caliber. No hiatal hernia. Chest wall: Left chest wall cardiac device leads are seen in the region of right atrium and right ventricle. Acute displaced fracture involving the right lateral sixth and seventh ribs as well as the right posterior medial eighth, ninth and 10th ribs near costovertebral junctions. No subcutaneous emphysema. No axillary or supraclavicular adenopathy. Thyroid gland is within normal limits. ABDOMEN: Solid organs: Liver is normal in size and enhancement, without lacerations. Well circumscribed hypodensities are noted in the right and left hepatic dome measures up to 2.6 x 2 cm in size a left hepatic dome and likely represent hepatic cysts. Gallbladder is surgically absent. Biliary system is non-dilated. Pancreas enhances normally, without transection. Spleen is normal in size and enhancement, without lacerations. No adrenal hematomas. Both kidneys enhance normally, without hydronephrosis or lacerations. There is suggestion of bilateral renal cysts. Peritoneum and bowel: Small to moderate amount of free fluid is seen in the upper abdomen adjacent to liver and spleen. Small amount of free fluid in lower pelvis is also noted. No peritoneal free air. Unenhanced bowel loops demonstrate normal wall thickness and caliber. Nodes and vessels: No retroperitoneal or mesenteric adenopathy. Aorta and inferior vena cava are normal in size and enhancement. Miscellaneous: No ventral hernias. PELVIS: Genitourinary: Bladder wall thickness is normal. Miscellaneous: Mildly prominent right inguinal lymph nodes are seen measures up to 2.3 cm in short axis diameter. Subcentimeter lymph nodes are noted in left inguinal region. No gross inguinal hernia. Bones: There is generalized anasarca. Nondisplaced fracture involving right transverse process of L1 and L2 are seen. Pelvic ring and hip joints appear intact. No vertebral compression fractures. IMPRESSION: 1. Displaced fractures involving right lateral sixth and seventh ribs as well as minimally displaced fractures involving right posterior medial eighth through 10th ribs. Nondisplaced fractures involving right transverse processes of L1 and L2 vertebral bodies. 2. Small right pleural effusion with contusion/atelectasis in posterior lateral aspect of right lower lobe. Scarring/atelectasis in left lung base. No pneumothorax. 3. No mediastinal hematoma. Cardiomegaly, no pericardial effusion. 4. Diffuse anasarca. Small to moderate amount of free fluid in abdomen or pelvis. No gross free air. 5. Likely hepatic cysts as above. No definite solid organ injury within abdomen or pelvis. 6. Nonspecific mildly enlarged right inguinal lymph nodes. Findings were reported to Dr. Campos in the ER at 11:57 AM on 08/04/18. Dictated by: Larry Gloria M.D. on 08/04/2018 at 11:41 Approved by: Larry Gloria M.D. on 08/04/2018 at 11:58
--- NOTE | 2018-08-04 09:22 | ED.FALL ---
HPI - Fall General Chief Complaint: Fall Stated Complaint: Fall yesterday Time Seen by Provider: 08/04/18 09:20 Source: patient, EMS and old records reviewed Mode of arrival: EMS Limitations: no limitations History of Present Illness HPI Narrative: This is a 78-year-old male who states that yesterday he was walking up his stairs from the outside into his house when he fell backwards onto asphalt. Patient states he was on the 2nd stair. Patient states that he was walking into the house he had gone to by [employer] and was caring in both hands, he states he usually has to use at least 1 hand to get up the stairs and did not even though he knew better and fell backwards. He states he did hit his head, he is denying any neck pain but is having pain on his right side and back. He also has a skin tear on his right elbow. He states he does have some bruising. States trying to get up or move around is quite uncomfortable. Patient is on warfarin. Patient states that he is not having any new shortness of breath, he does not really have pain in the anterior chest just on the side and back. He is denying any abdominal pain. He denies any new numbness or weakness. He states he always has some weakness in his legs. Patient has a history of atrial fibrillation which is why he takes the warfarin. He also has a history of congestive heart failure and always has swollen legs. He states that they have been slowly getting worse over 2-3 years but have not had any sudden changes. He denies any headaches, no nausea, no vomiting, no GI or urinary symptoms. Patient states his tetanus is up to date improved Related Data Home Medications Medication Instructions Recorded Confirmed potassium chloride [K-Tab] 40 meq PO BID #810 10/29/17 08/04/18 folic acid 0.4 mg PO DAILY #0 11/01/17 08/04/18 metoprolol tartrate 12.5 mg PO BID #0 11/01/17 08/04/18 nitroglycerin [Nitrostat] 0.4 mg SUBLINGUAL PRN PRN #0 11/01/17 08/04/18 metolazone 2.5 mg tablet 2.5 mg PO TUFR 07/07/18 08/04/18 Fish Oil 500 mg PO DAILY 08/04/18 08/04/18 bupropion HCl [Wellbutrin SR] 150 mg PO BEDTIME 08/04/18 08/04/18 calcium carbonate-vitamin D3 1 tab PO DAILY 08/04/18 08/04/18 [Calcium 600 + D(3)] gabapentin 100 mg PO BID 08/04/18 08/04/18 gabapentin 600 mg PO BID 08/04/18 08/04/18 linezolid 600 mg PO Q12HR 08/04/18 08/04/18 magnesium oxide 400 mg PO TID 08/04/18 08/04/18 multivitamin with minerals 1 tab PO DAILY 08/04/18 08/04/18 warfarin 2 mg PO DAILY 08/04/18 08/04/18 Previous Rx's Medication Instructions Recorded omeprazole 20 mg PO BID #60 cap 12/17/17 atorvastatin [Lipitor] 20 mg PO BEDTIME #30 tab 04/02/18 escitalopram oxalate [Lexapro] 20 mg PO DAILY #30 tab 04/02/18 ipratropium bromide 2 spray INTRANASAL BID #1 inh 04/02/18 lactulose 10 gram/15 mL oral 20 gram PO DAILY PRN #480 ml 07/07/18 solution melatonin 3 mg tablet 3 mg PO BEDTIME PRN #20 tab 07/07/18 tramadol 50 mg tablet 50 mg PO Q6H PRN #30 tab 07/07/18 trazodone 50 mg tablet 25 mg PO BEDTIME #30 tab 07/07/18 furosemide 40 mg tablet 40 mg PO DAILY #30 tab 07/25/18 Allergies Allergy/AdvReac Type Severity Reaction Status Date / Time camphor [CAMPHOR] Allergy Mild RASH Verified 07/10/18 13:29 cyclobenzaprine Allergy Mild HIVES Verified 07/10/18 13:29 [CYCLOBENZAPRINE] lisinopril [LISINOPRIL] Allergy Mild COUGH/DRY Verified 07/10/18 13:29 THROAT menthol [MENTHOL] Allergy Mild RASH Verified 07/10/18 13:29 methyl salicylate Allergy Mild RASH Verified 07/10/18 13:29 [METHYL SALICYLATE] Review of Systems Review of Systems All systems reviewed & are unremarkable except as noted in HPI and below Constitutional Denies chills, Denies fever(s), Denies frequent falls, Denies headache(s), Denies lethargy and Denies weakness ENT Ears, Nose, Mouth, and Throat: Denies headache(s) and Denies neck pain Cardiovascular Denies chest pain, Denies irregular heart rhythm, Denies lightheadedness, Denies palpitations, Denies dyspnea, Denies dyspnea on exertion and Denies orthopnea Respiratory Denies cough, Denies pain with cough, Denies dyspnea, Denies dyspnea on exertion and Denies wheezing Gastrointestinal Gastrointestinal: Denies abdominal pain, Denies change in bowel habits, Denies constipation, Denies diarrhea, Denies nausea and Denies vomiting Genitourinary Denies hematuria, Denies difficulty urinating, Reports flank pain (right flank/back) and Denies urinary urgency Musculoskeletal Reports as per HPI, Reports back pain, Reports limited range of motion, Reports muscle weakness (both legs, no new change), Denies neck pain, Denies numbness, Denies radiating pain into limb and Denies tingling Integumentary/Breasts Reports unusual bruising and Reports wounds (right elbow skin tear) Neurologic Denies frequent falls, Denies headache(s), Denies focal weakness, Denies numbness, Denies tingling and Denies weakness Endocrine Denies palpitations Allergic/Immunologic Denies wheezing Exam Narrative Exam Narrative: GEN: Patient appears in moderate distress. HEAD: No evidence of trauma, no raccoon/Machado sign. NECK: Nontender, painless range of motion, trachea midline Negative Nexus criteria, there is no mid line tenderness, distracting injury, altered mental status, neuro deficit, recent EtOH. EYES: PERRLA, EOMI ENT: External inspection normal, trachea is midline, TM's are normal no hemotypanum, Nares are clear, no septal hematoma, no dental or oral injury, airway is normal and with normal occlusion, No bony tenderness RESP: Chest is nontender and has symmetric movement, patient has small linear area of ecchymosis at the right chest around ribs 9-11, breath sounds are decreased bilaterally, no crackles, wheezes or rales, no tachypnea. CVS: Heart sounds are normal, no murmur noted, No JVD. ABG/GI: Nontender, soft, normal bowel sounds, no distention, no organomegaly, pelvic rock is negative : Patient has erythema of the bilateral inguinal creases and extending underneath towards the gluteal fold and including the entire scrotum. Patient has erythema that in circles the entire penis. Patient has some skin breakdown of the foreskin of the penis. There is some mild swelling. I do not see any subcutaneous tissue. There is some excoriation intermittently. NEURO: Oriented AOx3, neuro is grossly intact, sensation and motor is normal all 4 extremities moving, cranial nerves II through XII are intact, GCS is 15 PSYCH: Normal mood and affect SKIN: Patient has avulsion of the right elbow that is about a cm and half in size. There is no skin flap. Patient also has a healing scab on the left elbow. There is no erythema or signs of cellulitis. warm and dry, no crepitus and without decubitus BACK: No CVA tenderness, no vertebral tenderness, no step-off's, no crepitus EXT: Atraumatic, hips are nontender, no pedal edema, normal color and temperature, normal range of motion of extremities with normal tendon exam, 2+ pulses in all four extremities Initial Vital Signs Initial Vital Signs: Vital Signs Temperature 98.3 F 08/04/18 09:15 Pulse Rate 80 08/04/18 09:15 Respiratory Rate 18 08/04/18 09:15 Blood Pressure 107/77 08/04/18 09:15 Pulse Oximetry 98 08/04/18 09:15 [facility] Medical History Major depression (Chronic) Coronary artery disease (Chronic) Hyperlipidemia (Chronic) 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) Essential hypertension (Chronic 12/14/11) Diabetic foot ulcer (Chronic) Edema (Chronic) Leg wound, left (Chronic) Generalized weakness (Chronic) Paroxysmal atrial fibrillation (Chronic) Alcohol use (Chronic) Cellulitis of left lower extremity (Chronic) Chronic kidney disease, stage 3 (Chronic) Osteomyelitis of left foot (Chronic) Skin lesion of left lower extremity (Chronic) Chronic obstructive pulmonary disease (Chronic 07/08/15) Chronic diastolic congestive heart failure (Chronic 05/23/15) Uncontrolled type 2 diabetes mellitus with hyperglycemia, without long-term current use of insulin (Chronic 08/20/17) Osteoarthritis, knee (Chronic) Anemia in chronic kidney disease (Chronic) Prostate cancer (Chronic 04/03/11) Bilateral shoulder pain (Chronic) Current use of alf anticoagulation (Chronic) Obstructive sleep apnea syndrome (Chronic 04/03/11) Gastroesophageal reflux disease without esophagitis (Chronic 04/03/11) Migraine with aura and without status migrainosus, not intractable (Chronic 04/03/11) Gout (Chronic 04/03/11) Dyskinesia of esophagus (Chronic 12/14/11) Chronic pain of both knees (Chronic 03/23/16) Chronic atrial fibrillation (Resolved 02/17/15) Morbid obesity with body mass index (BMI) of 40.0 to 44.9 in adult (Resolved 03/23/16) Surgical History History of knee replacement (Resolved 10/12/13) History of prostatectomy (Resolved) Status post endoscopic retrograde cholangiopancreatography (Resolved 12/2014) Status post laparoscopic cholecystectomy (Resolved 12/2014) Status post placement of cardiac pacemaker (Resolved 11/2011) Social History marital status: number of children: 6 household members: caregiver lives independently: Yes caregiver/support person: Yes (Minimal) housing: house pets and animals: Yes education level: master's degree occupational status: other (Retired.) Previous occupational history: Technical Training and Safety Engineering. alberto/buddhism: [employer] leisure activities: reading and other (Watching TV) Smoking Status: Former smoker Tobacco: How many years used: 4 Smokeless tobacco user: other (Cigarettes and Pipe) quit status: quit date established (~1981) second hand exposure: No alcohol intake: current substance use type: does not use Course Orders Ordered: ED Orders 08/05/18 04:41 Basic Metabolic Panel Routine Complete Blood Count AUTO DIFF Routine Prothrombin Time INR Routine 08/05/18 19:15 XR chest 1V DAILY 08/06/18 05:00 Basic Metabolic Panel Routine Complete Blood Count AUTO DIFF Routine Acetaminophen (Tylenol) 650 mg PO Q6HR PRN PRN Reason: As Needed for Fever/Mild Pain Atorvastatin Calcium (Lipitor) 20 mg PO BEDTIME [facility] Last Admin: 08/04/18 22:11 Dose: 20 mg Bisacodyl (Dulcolax) 10 mg [place] DAILY PRN PRN Reason: Constipation Bupropion HCl (Wellbutrin Sr) 150 mg PO BEDTIME [facility] Last Admin: 08/04/18 22:12 Dose: 150 mg Docusate Sodium (Colace) 100 mg PO BID [facility] Last Admin: 08/04/18 22:11 Dose: 100 mg Escitalopram Oxalate (Lexapro) 20 mg PO DAILY [facility] Furosemide (Lasix) 40 mg PO DAILY [facility] Gabapentin (Neurontin) 100 mg PO BID [facility] Last Admin: 08/04/18 22:11 Dose: 100 mg Gabapentin (Neurontin) 600 mg PO BID [facility] Last Admin: 08/04/18 22:11 Dose: 600 mg Hydromorphone HCl (Dilaudid) 1 mg IV Q6HR PRN PRN Reason: Pain, Severe (7-10) Last Admin: 08/04/18 22:19 Dose: 1 mg Phytonadione 2.5 mg/ Dextrose 50.25 mls @ 100.5 mls/hr IV NOW ONE Stop: 08/05/18 08:22 Lactulose (Enulose) 20 gm PO DAILY PRN PRN Reason: constipation Magnesium Oxide (Mag Ox) 400 mg PO TID [facility] Last Admin: 08/04/18 22:12 Dose: 400 mg Melatonin (Melatonin) 3 mg PO BEDTIME PRN PRN Reason: sleep Metoprolol Tartrate (Lopressor) 12.5 mg PO BID [facility] Last Admin: 08/04/18 22:13 Dose: 12.5 mg Multivitamins/Calcium (Thera M Plus) 1 tab PO DAILY [facility] Oxycodone HCl (Percolone) 10 mg PO Q6HR PRN PRN Reason: Pain, Severe (7-10) Last Admin: 08/05/18 01:27 Dose: 10 mg Admin: 08/04/18 17:48 Dose: 10 mg Pantoprazole Sodium (Protonix) 20 mg PO BID [facility] Last Admin: 08/04/18 22:15 Dose: 20 mg Sodium Chloride (Normal Saline 0.9% Flush) 10 ml IV PRN PRN PRN Reason: Flush Sodium Chloride (Normal Saline 0.9% Flush) 10 ml IV BID [facility] Trazodone HCl (Desyrel) 25 mg PO BEDTIME [facility] Last Admin: 08/04/18 22:16 Dose: 25 mg Discontinued Medications Morphine Sulfate (Morphine) 4 mg IV NOW ONE Stop: 08/04/18 09:21 Last Admin: 08/04/18 09:42 Dose: 4 mg Morphine Sulfate (Morphine Sulfate) 4 mg IV NOW ONE Stop: 08/04/18 12:45 Last Admin: 08/04/18 12:47 Dose: 4 mg Oxycodone HCl (Percolone) 10 mg PO Q6HR PRN PRN Reason: Pain, Severe (7-10) Phytonadione (Mephyton) 5 mg PO NOW ONE Stop: 08/04/18 12:11 Last Admin: 08/04/18 13:01 Dose: 5 mg Vital Signs - 8 hr 08/05/18 03:09 08/05/18 05:00 08/05/18 08:00 Temperature 98.7 F 97.9 F Pulse Rate 88 81 Respiratory Rate 20 18 Blood Pressure 106/49 L 104/53 L Pulse Oximetry 96 95 96 08/05/18 08:09 Temperature Pulse Rate Respiratory Rate Blood Pressure Pulse Oximetry 96 - Fall Lab Data Attestation: I reviewed the patient's lab results. Result diagrams: 08/05/18 04:41 08/05/18 04:41 Lab Results 08/04/18 08/04/18 08/04/18 Range/Units 09:37 09:37 09:37 WBC 7.6 (4.5-11.0) X10^3/uL RBC 4.15 L (4.5-5.9) X10^6/uL Hgb 9.6 L (13.5-17.5) g/dL Hct 30.5 L (41-53) % MCV 73.3 L (80-100) fL MCH 23.1 L (26-34) PG MCHC 31.4 (30-36) % RDW 18.0 H (11.6-14.8) % Plt Count 87 L (150-400) X10^3/uL Neut % (Auto) 73.7 (50-75) % Lymph % (Auto) 17.9 L (25-40) % Gila % (Auto) 5.6 (3-14) % Eos % (Auto) 2.2 (2-4) % Baso % (Auto) 0.6 (0-2) % Neut # (Auto) 5600 (4742-7399) /uL PT 49.8 H (10.1-12.7) SECONDS INR 4.2 H (0.9-1.3) APTT 35 (26.4-36.2) SECONDS Sodium 135 L (137-145) mmol/L Potassium 3.7 (3.4-5.1) mmol/L Chloride 99 (98-107) mmol/L Carbon Dioxide 20 L (22-32) mmol/L BUN 34 H (9-20) mg/dL Creatinine 2.10 H (0.66-1.25) mg/dL Estimated GFR 30.6 L (>60) mL/min BUN/Creatinine Ratio 16.2 (6-22) Glucose 129 H (80-110) mg/dL Calcium 8.3 L (8.4-10.2) mg/dL Total Bilirubin 1.2 (0.2-1.3) mg/dL AST 26 (17-59) IU/L ALT 28 (21-72) IU/L Alkaline Phosphatase 103 (38-126) U/L Total Protein 6.2 L (6.3-8.2) g/dL Albumin 3.4 L (3.5-5.0) g/dL Globulin 2.8 (1.7-4.1) g/dL Albumin/Globulin Ratio 1.2 (1.0-2.8) Nasal Screen MRSA (PCR) (Negative) Blood Type Antibody Screen 08/04/18 08/04/18 08/05/18 Range/Units 09:38 14:45 04:41 WBC 7.5 (4.5-11.0) X10^3/uL RBC 3.64 L (4.5-5.9) X10^6/uL Hgb 8.4 L (13.5-17.5) g/dL Hct 26.8 L (41-53) % MCV 73.6 L (80-100) fL MCH 23.2 L (26-34) PG MCHC 31.5 (30-36) % RDW 18.1 H (11.6-14.8) % Plt Count 77 L (150-400) X10^3/uL Neut % (Auto) 63.7 (50-75) % Lymph % (Auto) 23.3 L (25-40) % Gila % (Auto) 7.4 (3-14) % Eos % (Auto) 5.0 H (2-4) % Baso % (Auto) 0.6 (0-2) % Neut # (Auto) 4800 (5311-5641) /uL PT (10.1-12.7) SECONDS INR (0.9-1.3) APTT (26.4-36.2) SECONDS Sodium (137-145) mmol/L Potassium (3.4-5.1) mmol/L Chloride (98-107) mmol/L Carbon Dioxide (22-32) mmol/L BUN (9-20) mg/dL Creatinine (0.66-1.25) mg/dL Estimated GFR (>60) mL/min BUN/Creatinine Ratio (6-22) Glucose (80-110) mg/dL Calcium (8.4-10.2) mg/dL Total Bilirubin (0.2-1.3) mg/dL AST (17-59) IU/L ALT (21-72) IU/L Alkaline Phosphatase (38-126) U/L Total Protein (6.3-8.2) g/dL Albumin (3.5-5.0) g/dL Globulin (1.7-4.1) g/dL Albumin/Globulin Ratio (1.0-2.8) Nasal Screen MRSA (PCR) Negative for mrsa (Negative) Blood Type B Positive Antibody Screen Negative 08/05/18 08/05/18 Range/Units 04:41 04:41 WBC (4.5-11.0) X10^3/uL RBC (4.5-5.9) X10^6/uL Hgb (13.5-17.5) g/dL Hct (41-53) % MCV (80-100) fL MCH (26-34) PG MCHC (30-36) % RDW (11.6-14.8) % Plt Count (150-400) X10^3/uL Neut % (Auto) (50-75) % Lymph % (Auto) (25-40) % Gila % (Auto) (3-14) % Eos % (Auto) (2-4) % Baso % (Auto) (0-2) % Neut # (Auto) (8901-6123) /uL PT 42.6 H D (10.1-12.7) SECONDS INR 3.6 H (0.9-1.3) APTT (26.4-36.2) SECONDS Sodium 133 L (137-145) mmol/L Potassium 4.0 (3.4-5.1) mmol/L Chloride 98 (98-107) mmol/L Carbon Dioxide 22 (22-32) mmol/L BUN 32 H (9-20) mg/dL Creatinine 2.10 H (0.66-1.25) mg/dL Estimated GFR 30.6 L (>60) mL/min BUN/Creatinine Ratio 15.2 (6-22) Glucose 124 H (80-110) mg/dL Calcium 8.4 (8.4-10.2) mg/dL Total Bilirubin (0.2-1.3) mg/dL AST (17-59) IU/L ALT (21-72) IU/L Alkaline Phosphatase (38-126) U/L Total Protein (6.3-8.2) g/dL Albumin (3.5-5.0) g/dL Globulin (1.7-4.1) g/dL Albumin/Globulin Ratio (1.0-2.8) Nasal Screen MRSA (PCR) (Negative) Blood Type Antibody Screen Point of Care Testing Glucose POC 120 Urine Dip Bedside Urine Glucose Negative Bedside Urine Bilirubin - Negative Bedside Urine Ketone - Negative Urine Specific [place] 1.015 Bedside Urine Occult Blood - Negative Bedside Urine pH 6.0 Bedside Urine Protein +/- 15 Bedside Urine Urobilinogen - Negative Bedside Urine Nitrite - Negative Bedside Urine Leukocytes - Negative Esterase Imaging Data CT scan - abdomen: Radiologist's impression: [place] [address] CT Scan Report Signed Patient: Arben Peacock MR#: [id number] : 1940 Acct:[id number] Age/Sex: 78 / M Date of Service: 08/04/18 Loc: ED Accession Number: [id number] Procedure: CT chest abd pel w con Ordering Provider: Mitzi Campos D.O. PROCEDURE: CT CHEST ABD PEL W CON INDICATIONS: fall, bruising right chest/ right back/side pain on warfarin TECHNIQUE: After the administration of intravenous contrast, 5 mm thick sections acquired from the lung apices to the symphysis. 2.5 mm thick coronal and sagittal reformats were acquired. Additional 7 mm thick coronal maximum intensity projection (MIP) reformats acquired through the lungs. Optional 10-minute delayed imaging may be performed from the kidneys to the bladder. For radiation dose reduction, the following was used: automated exposure control, adjustment of mA and/or kV according to patient size. COMPARISON: None. FINDINGS: Image quality: Excellent. CHEST: Lungs: There is a small right-sided pleural effusion with adjacent contusion/atelectasis in posterior lateral aspect of right lower lobe. Scarring/atelectasis at left lung base is seen. No pneumothorax or hemothorax. Central and peripheral airways appear patent and normal in caliber. Mediastinum: No mediastinal hematomas. Heart size is enlarged. No pericardial effusion. Thoracic aorta and pulmonary arteries demonstrate normal size and enhancement. No mediastinal or hilar adenopathy. Esophagus is normal in caliber. No hiatal hernia. Chest wall: Left chest wall cardiac device leads are seen in the region of right atrium and right ventricle. Acute displaced fracture involving the right lateral sixth and seventh ribs as well as the right posterior medial eighth, ninth and 10th ribs near costovertebral junctions. No subcutaneous emphysema. No axillary or supraclavicular adenopathy. Thyroid gland is within normal limits. ABDOMEN: Solid organs: Liver is normal in size and enhancement, without lacerations. Well circumscribed hypodensities are noted in the right and left hepatic dome measures up to 2.6 x 2 cm in size a left hepatic dome and likely represent hepatic cysts. Gallbladder is surgically absent. Biliary system is non-dilated. Pancreas enhances normally, without transection. Spleen is normal in size and enhancement, without lacerations. No adrenal hematomas. Both kidneys enhance normally, without hydronephrosis or lacerations. There is suggestion of bilateral renal cysts. Peritoneum and bowel: Small to moderate amount of free fluid is seen in the upper abdomen adjacent to liver and spleen. Small amount of free fluid in lower pelvis is also noted. No peritoneal free air. Unenhanced bowel loops demonstrate normal wall thickness and caliber. Nodes and vessels: No retroperitoneal or mesenteric adenopathy. Aorta and inferior vena cava are normal in size and enhancement. Miscellaneous: No ventral hernias. PELVIS: Genitourinary: Bladder wall thickness is normal. Miscellaneous: Mildly prominent right inguinal lymph nodes are seen measures up to 2.3 cm in short axis diameter. Subcentimeter lymph nodes are noted in left inguinal region. No gross inguinal hernia. Bones: There is generalized anasarca. Nondisplaced fracture involving right transverse process of L1 and L2 are seen. Pelvic ring and hip joints appear intact. No vertebral compression fractures. IMPRESSION: 1. Displaced fractures involving right lateral sixth and seventh ribs as well as minimally displaced fractures involving right posterior medial eighth through 10th ribs. Nondisplaced fractures involving right transverse processes of L1 and L2 vertebral bodies. 2. Small right pleural effusion with contusion/atelectasis in posterior lateral aspect of right lower lobe. Scarring/atelectasis in left lung base. No pneumothorax. 3. No mediastinal hematoma. Cardiomegaly, no pericardial effusion. 4. Diffuse anasarca. Small to moderate amount of free fluid in abdomen or pelvis. No gross free air. 5. Likely hepatic cysts as above. No definite solid organ injury within abdomen or pelvis. 6. Nonspecific mildly enlarged right inguinal lymph nodes. Findings were reported to Dr. Campos in the ER at 11:57 AM on 08/04/18. Dictated by: Larry Gloria M.D. on 08/04/2018 at 11:41 Approved by: Larry Gloria M.D. on 08/04/2018 at 11:58 [facility] Narrative Medical decision making narrative: Patient's CT chest abdomen pelvis shows rib fractures 6 through 10 along with the transverse process fracture L1 and L2. There is a small right pleural effusion which possibly be a hemothorax. Patient's hemoglobin front from 11-9 since the beginning of July. His INR is supratherapeutic at 4 patient's renal function is 2.1 which is close to his baseline. He has been in that range before. Patient pain is somewhat improved with morphine. Based on multiple rib fractures and his age he was upgraded to a modified trauma. Patient was discussed with Dr. Vizcarra from general surgery and she feels he would benefit from being observed here at [facility]. Plane reverse INR but not completely as he does have atrial fibrillation and would benefit from continuing to have that. Patient dose was discussed with Dr. Jackson he has been on vitamin K [address] Lau from Orthopedic surgery and they reviewed the CT imaging and feel that if patient is neurologically intact that this is a stable fracture and he does not have to be on spinal precautions. Initially spoke with the hospitalist but patient actually is a Dr. Campbell patient sewed contacted Dr. Campbell Critical Care Time Critical Care Time: Yes Total Critical Care Time: 90 Attestation: The high probability of a clinically significant, sudden or life threatening deterioration of the [cardiac, respiratory] system(s) required my full and direct attention, intervention and personal management. The aggregate critical care time was [90] minutes. This time is in addition to time spent performing reported procedures but includes the following: [x] Data Review and interpretation [x] Patient assessment and monitoring of vital signs [x] Documentation [x] Medication orders and management Discharge Plan Departure Patient Disposition: Admitted As Inpatient Clinical Impression: Fracture of ribs, multiple, Fracture of transverse process of lumbar vertebra, Supratherapeutic international normalized ratio (INR) Discharge Date/Time: 08/04/18 14:30 Interventions: ED Discharge Assessment Last Done: 08/04/18 14:30 Admit Date/Time: 08/04/18 14:18 Admit Provider: Eliazar Carlin
--- NOTE | 2018-08-04 09:28 | ED_ITS ---
HPI - Fall General Chief Complaint: Fall Stated Complaint: Fall yesterday Time Seen by Provider: 08/04/18 09:20 Source: patient, EMS and old records reviewed Mode of arrival: EMS Limitations: no limitations History of Present Illness HPI Narrative: This is a 78-year-old male who states that yesterday he was walking up his stairs from the outside into his house when he fell backwards onto asphalt. Patient states he was on the 2nd stair. Patient states that he was walking into the house he had gone to by [employer] and was caring in both hands, he states he usually has to use at least 1 hand to get up the stairs and did not even though he knew better and fell backwards. He states he did hit his head, he is denying any neck pain but is having pain on his right side and back. He also has a skin tear on his right elbow. He states he does have some bruising. States trying to get up or move around is quite uncomfortable. Patient is on warfarin. Patient states that he is not having any new shortness of breath, he does not really have pain in the anterior chest just on the side and back. He is denying any abdominal pain. He denies any new numbness or weakness. He states he always has some weakness in his legs. Patient has a history of atrial fibrillation which is why he takes the warfarin. He also has a history of congestive heart failure and always has swollen legs. He states that they have been slowly getting worse over 2-3 years but have not had any sudden changes. He denies any headaches, no nausea, no vomiting, no GI or urinary symptoms. Patient states his tetanus is up to date improved Related Data Home Medications Medication Instructions Recorded Confirmed potassium chloride [K-Tab] 40 meq PO BID #810 10/29/17 08/04/18 folic acid 0.4 mg PO DAILY #0 11/01/17 08/04/18 metoprolol tartrate 12.5 mg PO BID #0 11/01/17 08/04/18 nitroglycerin [Nitrostat] 0.4 mg SUBLINGUAL PRN PRN #0 11/01/17 08/04/18 metolazone 2.5 mg tablet 2.5 mg PO TUFR 07/07/18 08/04/18 Fish Oil 500 mg PO DAILY 08/04/18 08/04/18 bupropion HCl [Wellbutrin SR] 150 mg PO BEDTIME 08/04/18 08/04/18 calcium carbonate-vitamin D3 1 tab PO DAILY 08/04/18 08/04/18 [Calcium 600 + D(3)] gabapentin 100 mg PO BID 08/04/18 08/04/18 gabapentin 600 mg PO BID 08/04/18 08/04/18 linezolid 600 mg PO Q12HR 08/04/18 08/04/18 magnesium oxide 400 mg PO TID 08/04/18 08/04/18 multivitamin with minerals 1 tab PO DAILY 08/04/18 08/04/18 warfarin 2 mg PO DAILY 08/04/18 08/04/18 Previous Rx's Medication Instructions Recorded omeprazole 20 mg PO BID #60 cap 12/17/17 atorvastatin [Lipitor] 20 mg PO BEDTIME #30 tab 04/02/18 escitalopram oxalate [Lexapro] 20 mg PO DAILY #30 tab 04/02/18 ipratropium bromide 2 spray INTRANASAL BID #1 inh 04/02/18 lactulose 10 gram/15 mL oral 20 gram PO DAILY PRN #480 ml 07/07/18 solution melatonin 3 mg tablet 3 mg PO BEDTIME PRN #20 tab 07/07/18 tramadol 50 mg tablet 50 mg PO Q6H PRN #30 tab 07/07/18 trazodone 50 mg tablet 25 mg PO BEDTIME #30 tab 07/07/18 furosemide 40 mg tablet 40 mg PO DAILY #30 tab 07/25/18 Allergies Allergy/AdvReac Type Severity Reaction Status Date / Time camphor [CAMPHOR] Allergy Mild RASH Verified 07/10/18 13:29 cyclobenzaprine Allergy Mild HIVES Verified 07/10/18 13:29 [CYCLOBENZAPRINE] lisinopril [LISINOPRIL] Allergy Mild COUGH/DRY Verified 07/10/18 13:29 THROAT menthol [MENTHOL] Allergy Mild RASH Verified 07/10/18 13:29 methyl salicylate Allergy Mild RASH Verified 07/10/18 13:29 [METHYL SALICYLATE] Review of Systems Review of Systems All systems reviewed & are unremarkable except as noted in HPI and below Constitutional Denies chills, Denies fever(s), Denies frequent falls, Denies headache(s), Denies lethargy and Denies weakness ENT Ears, Nose, Mouth, and Throat: Denies headache(s) and Denies neck pain Cardiovascular Denies chest pain, Denies irregular heart rhythm, Denies lightheadedness, Denies palpitations, Denies dyspnea, Denies dyspnea on exertion and Denies orthopnea Respiratory Denies cough, Denies pain with cough, Denies dyspnea, Denies dyspnea on exertion and Denies wheezing Gastrointestinal Gastrointestinal: Denies abdominal pain, Denies change in bowel habits, Denies constipation, Denies diarrhea, Denies nausea and Denies vomiting Genitourinary Denies hematuria, Denies difficulty urinating, Reports flank pain (right flank/ back) and Denies urinary urgency Musculoskeletal Reports as per HPI, Reports back pain, Reports limited range of motion, Reports muscle weakness (both legs, no new change), Denies neck pain, Denies numbness, Denies radiating pain into limb and Denies tingling Integumentary/Breasts Reports unusual bruising and Reports wounds (right elbow skin tear) Neurologic Denies frequent falls, Denies headache(s), Denies focal weakness, Denies numbness, Denies tingling and Denies weakness Endocrine Denies palpitations Allergic/Immunologic Denies wheezing Exam Narrative Exam Narrative: GEN: Patient appears in moderate distress. HEAD: No evidence of trauma, no raccoon/Machado sign. NECK: Nontender, painless range of motion, trachea midline Negative Nexus criteria, there is no mid line tenderness, distracting injury, altered mental status, neuro deficit, recent EtOH. EYES: PERRLA, EOMI ENT: External inspection normal, trachea is midline, TM's are normal no hemotypanum, Nares are clear, no septal hematoma, no dental or oral injury, airway is normal and with normal occlusion, No bony tenderness RESP: Chest is nontender and has symmetric movement, patient has small linear area of ecchymosis at the right chest around ribs 9-11, breath sounds are decreased bilaterally, no crackles, wheezes or rales, no tachypnea. CVS: Heart sounds are normal, no murmur noted, No JVD. ABG/GI: Nontender, soft, normal bowel sounds, no distention, no organomegaly, pelvic rock is negative : Patient has erythema of the bilateral inguinal creases and extending underneath towards the gluteal fold and including the entire scrotum. Patient has erythema that in circles the entire penis. Patient has some skin breakdown of the foreskin of the penis. There is some mild swelling. I do not see any subcutaneous tissue. There is some excoriation intermittently. NEURO: Oriented AOx3, neuro is grossly intact, sensation and motor is normal all 4 extremities moving, cranial nerves II through XII are intact, GCS is 15 PSYCH: Normal mood and affect SKIN: Patient has avulsion of the right elbow that is about a cm and half in size. There is no skin flap. Patient also has a healing scab on the left elbow. There is no erythema or signs of cellulitis. warm and dry, no crepitus and without decubitus BACK: No CVA tenderness, no vertebral tenderness, no step-off's, no crepitus EXT: Atraumatic, hips are nontender, no pedal edema, normal color and temperature, normal range of motion of extremities with normal tendon exam, 2+ pulses in all four extremities Initial Vital Signs Initial Vital Signs: Vital Signs Temperature 98.3 F 08/04/18 09:15 Pulse Rate 80 08/04/18 09:15 Respiratory Rate 18 08/04/18 09:15 Blood Pressure 107/77 08/04/18 09:15 Pulse Oximetry 98 08/04/18 09:15 [facility] Medical History Major depression (Chronic) Coronary artery disease (Chronic) Hyperlipidemia (Chronic) 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) Essential hypertension (Chronic 12/14/11) Diabetic foot ulcer (Chronic) Edema (Chronic) Leg wound, left (Chronic) Generalized weakness (Chronic) Paroxysmal atrial fibrillation (Chronic) Alcohol use (Chronic) Cellulitis of left lower extremity (Chronic) Chronic kidney disease, stage 3 (Chronic) Osteomyelitis of left foot (Chronic) Skin lesion of left lower extremity (Chronic) Chronic obstructive pulmonary disease (Chronic 07/08/15) Chronic diastolic congestive heart failure (Chronic 05/23/15) Uncontrolled type 2 diabetes mellitus with hyperglycemia, without long-term current use of insulin (Chronic 08/20/17) Osteoarthritis, knee (Chronic) Anemia in chronic kidney disease (Chronic) Prostate cancer (Chronic 04/03/11) Bilateral shoulder pain (Chronic) Current use of long-term anticoagulation (Chronic) Obstructive sleep apnea syndrome (Chronic 04/03/11) Gastroesophageal reflux disease without esophagitis (Chronic 04/03/11) Migraine with aura and without status migrainosus, not intractable (Chronic 04/07) Gout (Chronic 04/03/11) Dyskinesia of esophagus (Chronic 12/14/11) Chronic pain of both knees (Chronic 03/23/16) Chronic atrial fibrillation (Resolved 02/17/15) Morbid obesity with body mass index (BMI) of 40.0 to 44.9 in adult (Resolved ) Surgical History History of knee replacement (Resolved 10/12/13) History of prostatectomy (Resolved) Status post endoscopic retrograde cholangiopancreatography (Resolved 12/2014) Status post laparoscopic cholecystectomy (Resolved 12/2014) Status post placement of cardiac pacemaker (Resolved 11/2011) Social History marital status: number of children: 6 household members: caregiver lives independently: Yes caregiver/support person: Yes (Minimal) housing: house pets and animals: Yes education level: master's degree occupational status: other (Retired.) Previous occupational history: Technical Training and Safety Engineering. alberto/mormon: Congregational leisure activities: reading and other (Watching TV) Smoking Status: Former smoker Tobacco: How many years used: 4 Smokeless tobacco user: other (Cigarettes and Pipe) quit status: quit date established (~1981) second hand exposure: No alcohol intake: current substance use type: does not use Course Orders Ordered: ED Orders 08/05/18 04:41 Basic Metabolic Panel Routine Complete Blood Count AUTO DIFF Routine Prothrombin Time INR Routine 08/05/18 19:15 XR chest 1V DAILY 08/06/18 05:00 Basic Metabolic Panel Routine Complete Blood Count AUTO DIFF Routine Acetaminophen (Tylenol) 650 mg PO Q6HR PRN PRN Reason: As Needed for Fever/Mild Pain Atorvastatin Calcium (Lipitor) 20 mg PO BEDTIME [facility] Last Admin: 08/04/18 22:11 Dose: 20 mg Bisacodyl (Dulcolax) 10 mg [place] DAILY PRN PRN Reason: Constipation Bupropion HCl (Wellbutrin Sr) 150 mg PO BEDTIME [facility] Last Admin: 08/04/18 22:12 Dose: 150 mg Docusate Sodium (Colace) 100 mg PO BID [facility] Last Admin: 08/04/18 22:11 Dose: 100 mg Escitalopram Oxalate (Lexapro) 20 mg PO DAILY [facility] Furosemide (Lasix) 40 mg PO DAILY [facility] Gabapentin (Neurontin) 100 mg PO BID [facility] Last Admin: 08/04/18 22:11 Dose: 100 mg Gabapentin (Neurontin) 600 mg PO BID [facility] Last Admin: 08/04/18 22:11 Dose: 600 mg Hydromorphone HCl (Dilaudid) 1 mg IV Q6HR PRN PRN Reason: Pain, Severe (7-10) Last Admin: 08/04/18 22:19 Dose: 1 mg Phytonadione 2.5 mg/ Dextrose 50.25 mls @ 100.5 mls/hr IV NOW ONE Stop: 08/05/18 08:22 Lactulose (Enulose) 20 gm PO DAILY PRN PRN Reason: constipation Magnesium Oxide (Mag Ox) 400 mg PO TID [facility] Last Admin: 08/04/18 22:12 Dose: 400 mg Melatonin (Melatonin) 3 mg PO BEDTIME PRN PRN Reason: sleep Metoprolol Tartrate (Lopressor) 12.5 mg PO BID [facility] Last Admin: 08/04/18 22:13 Dose: 12.5 mg Multivitamins/Calcium (Thera M Plus) 1 tab PO DAILY [facility] Oxycodone HCl (Percolone) 10 mg PO Q6HR PRN PRN Reason: Pain, Severe (7-10) Last Admin: 08/05/18 01:27 Dose: 10 mg Admin: 08/04/18 17:48 Dose: 10 mg Pantoprazole Sodium (Protonix) 20 mg PO BID [facility] Last Admin: 08/04/18 22:15 Dose: 20 mg Sodium Chloride (Normal Saline 0.9% Flush) 10 ml IV PRN PRN PRN Reason: Flush Sodium Chloride (Normal Saline 0.9% Flush) 10 ml IV BID [facility] Trazodone HCl (Desyrel) 25 mg PO BEDTIME [facility] Last Admin: 08/04/18 22:16 Dose: 25 mg Discontinued Medications Morphine Sulfate (Morphine) 4 mg IV NOW ONE Stop: 08/04/18 09:21 Last Admin: 08/04/18 09:42 Dose: 4 mg Morphine Sulfate (Morphine Sulfate) 4 mg IV NOW ONE Stop: 08/04/18 12:45 Last Admin: 08/04/18 12:47 Dose: 4 mg Oxycodone HCl (Percolone) 10 mg PO Q6HR PRN PRN Reason: Pain, Severe (7-10) Phytonadione (Mephyton) 5 mg PO NOW ONE Stop: 08/04/18 12:11 Last Admin: 08/04/18 13:01 Dose: 5 mg Vital Signs - 8 hr 08/05/18 03:09 08/05/18 05:00 08/05/18 08:00 Temperature 98.7 F 97.9 F Pulse Rate 88 81 Respiratory Rate 20 18 Blood Pressure 106/49 L 104/53 L Pulse Oximetry 96 95 96 08/05/18 08:09 Temperature Pulse Rate Respiratory Rate Blood Pressure Pulse Oximetry 96 - Fall Lab Data Attestation: I reviewed the patient's lab results. Result diagrams: 08/05/18 04:41 08/05/18 04:41 Lab Results 08/04/18 08/04/18 08/04/18 Range/Units 09:37 09:37 09:37 WBC 7.6 (4.5-11.0) X10^3/uL RBC 4.15 L (4.5-5.9) X10^6/uL Hgb 9.6 L (13.5-17.5) g/dL Hct 30.5 L (41-53) % MCV 73.3 L (80-100) fL MCH 23.1 L (26-34) PG MCHC 31.4 (30-36) % RDW 18.0 H (11.6-14.8) % Plt Count 87 L (150-400) X10^3/uL Neut % (Auto) 73.7 (50-75) % Lymph % (Auto) 17.9 L (25-40) % [place] % (Auto) 5.6 (3-14) % Eos % (Auto) 2.2 (2-4) % Baso % (Auto) 0.6 (0-2) % Neut # (Auto) 5600 (0094-1203) /uL PT 49.8 H (10.1-12.7) SECONDS INR 4.2 H (0.9-1.3) APTT 35 (26.4-36.2) SECONDS Sodium 135 L (137-145) mmol/L Potassium 3.7 (3.4-5.1) mmol/L Chloride 99 (98-107) mmol/L Carbon Dioxide 20 L (22-32) mmol/L BUN 34 H (9-20) mg/dL Creatinine 2.10 H (0.66-1.25) mg/dL Estimated GFR 30.6 L (>60) mL/min BUN/Creatinine Ratio 16.2 (6-22) Glucose 129 H (80-110) mg/dL Calcium 8.3 L (8.4-10.2) mg/dL Total Bilirubin 1.2 (0.2-1.3) mg/dL AST 26 (17-59) IU/L ALT 28 (21-72) IU/L Alkaline Phosphatase 103 (38-126) U/L Total Protein 6.2 L (6.3-8.2) g/dL Albumin 3.4 L (3.5-5.0) g/dL Globulin 2.8 (1.7-4.1) g/dL Albumin/Globulin Ratio 1.2 (1.0-2.8) Nasal Screen MRSA (PCR) (Negative) Blood Type Antibody Screen 08/04/18 08/04/18 08/05/18 Range/Units 09:38 14:45 04:41 WBC 7.5 (4.5-11.0) X10^3/uL RBC 3.64 L (4.5-5.9) X10^6/uL Hgb 8.4 L (13.5-17.5) g/dL Hct 26.8 L (41-53) % MCV 73.6 L (80-100) fL MCH 23.2 L (26-34) PG MCHC 31.5 (30-36) % RDW 18.1 H (11.6-14.8) % Plt Count 77 L (150-400) X10^3/uL Neut % (Auto) 63.7 (50-75) % Lymph % (Auto) 23.3 L (25-40) % [place] % (Auto) 7.4 (3-14) % Eos % (Auto) 5.0 H (2-4) % Baso % (Auto) 0.6 (0-2) % Neut # (Auto) 4800 (5431-1411) /uL PT (10.1-12.7) SECONDS INR (0.9-1.3) APTT (26.4-36.2) SECONDS Sodium (137-145) mmol/L Potassium (3.4-5.1) mmol/L Chloride (98-107) mmol/L Carbon Dioxide (22-32) mmol/L BUN (9-20) mg/dL Creatinine (0.66-1.25) mg/dL Estimated GFR (>60) mL/min BUN/Creatinine Ratio (6-22) Glucose (80-110) mg/dL Calcium (8.4-10.2) mg/dL Total Bilirubin (0.2-1.3) mg/dL AST (17-59) IU/L ALT (21-72) IU/L Alkaline Phosphatase (38-126) U/L Total Protein (6.3-8.2) g/dL Albumin (3.5-5.0) g/dL Globulin (1.7-4.1) g/dL Albumin/Globulin Ratio (1.0-2.8) Nasal Screen MRSA (PCR) Negative for mrsa (Negative) Blood Type B Positive Antibody Screen Negative 08/05/18 08/05/18 Range/Units 04:41 04:41 WBC (4.5-11.0) X10^3/uL RBC (4.5-5.9) X10^6/uL Hgb (13.5-17.5) g/dL Hct (41-53) % MCV (80-100) fL MCH (26-34) PG MCHC (30-36) % RDW (11.6-14.8) % Plt Count (150-400) X10^3/uL Neut % (Auto) (50-75) % Lymph % (Auto) (25-40) % [place] % (Auto) (3-14) % Eos % (Auto) (2-4) % Baso % (Auto) (0-2) % Neut # (Auto) (3932-6448) /uL PT 42.6 H D (10.1-12.7) SECONDS INR 3.6 H (0.9-1.3) APTT (26.4-36.2) SECONDS Sodium 133 L (137-145) mmol/L Potassium 4.0 (3.4-5.1) mmol/L Chloride 98 (98-107) mmol/L Carbon Dioxide 22 (22-32) mmol/L BUN 32 H (9-20) mg/dL Creatinine 2.10 H (0.66-1.25) mg/dL Estimated GFR 30.6 L (>60) mL/min BUN/Creatinine Ratio 15.2 (6-22) Glucose 124 H (80-110) mg/dL Calcium 8.4 (8.4-10.2) mg/dL Total Bilirubin (0.2-1.3) mg/dL AST (17-59) IU/L ALT (21-72) IU/L Alkaline Phosphatase (38-126) U/L Total Protein (6.3-8.2) g/dL Albumin (3.5-5.0) g/dL Globulin (1.7-4.1) g/dL Albumin/Globulin Ratio (1.0-2.8) Nasal Screen MRSA (PCR) (Negative) Blood Type Antibody Screen Point of Care Testing Glucose POC 120 Urine Dip Bedside Urine Glucose Negative Bedside Urine Bilirubin - Negative Bedside Urine Ketone - Negative Urine Specific Finley 1.015 Bedside Urine Occult Blood - Negative Bedside Urine pH 6.0 Bedside Urine Protein +/- 15 Bedside Urine Urobilinogen - Negative Bedside Urine Nitrite - Negative Bedside Urine Leukocytes - Negative Esterase Imaging Data CT scan - abdomen: Radiologist's impression: [place] [address] CT Scan Report Signed Patient: Arben Peacock MR#: [id number] : 1940 Acct:[id number] Age/Sex: 78 / M Date of Service: 08/04/18 Loc: ED Accession Number: [id number] Procedure: CT chest abd pel w con Ordering Provider: Mitzi Campos D.O. PROCEDURE: CT CHEST ABD PEL W CON INDICATIONS: fall, bruising right chest/ right back/side pain on warfarin TECHNIQUE: After the administration of intravenous contrast, 5 mm thick sections acquired from the lung apices to the symphysis. 2.5 mm thick coronal and sagittal reformats were acquired. Additional 7 mm thick coronal maximum intensity projection (MIP) reformats acquired through the lungs. Optional 10-minute delayed imaging may be performed from the kidneys to the bladder. For radiation dose reduction, the following was used: automated exposure control, adjustment of mA and/or kV according to patient size. COMPARISON: None. FINDINGS: Image quality: Excellent. CHEST: Lungs: There is a small right-sided pleural effusion with adjacent contusion/ atelectasis in posterior lateral aspect of right lower lobe. Scarring/atelectasis at left lung base is seen. No pneumothorax or hemothorax. Central and peripheral airways appear patent and normal in caliber. Mediastinum: No mediastinal hematomas. Heart size is enlarged. No pericardial effusion. Thoracic aorta and pulmonary arteries demonstrate normal size and enhancement. No mediastinal or hilar adenopathy. Esophagus is normal in caliber. No hiatal hernia. Chest wall: Left chest wall cardiac device leads are seen in the region of right atrium and right ventricle. Acute displaced fracture involving the right lateral sixth and seventh ribs as well as the right posterior medial eighth, ninth and 10th ribs near costovertebral junctions. No subcutaneous emphysema. No axillary or supraclavicular adenopathy. Thyroid gland is within normal limits. ABDOMEN: Solid organs: Liver is normal in size and enhancement, without lacerations. Well circumscribed hypodensities are noted in the right and left hepatic dome measures up to 2.6 x 2 cm in size a left hepatic dome and likely represent hepatic cysts. Gallbladder is surgically absent. Biliary system is non-dilated. Pancreas enhances normally, without transection. Spleen is normal in size and enhancement, without lacerations. No adrenal hematomas. Both kidneys enhance normally, without hydronephrosis or lacerations. There is suggestion of bilateral renal cysts. Peritoneum and bowel: Small to moderate amount of free fluid is seen in the upper abdomen adjacent to liver and spleen. Small amount of free fluid in lower pelvis is also noted. No peritoneal free air. Unenhanced bowel loops demonstrate normal wall thickness and caliber. Nodes and vessels: No retroperitoneal or mesenteric adenopathy. Aorta and inferior vena cava are normal in size and enhancement. Miscellaneous: No ventral hernias. PELVIS: Genitourinary: Bladder wall thickness is normal. Miscellaneous: Mildly prominent right inguinal lymph nodes are seen measures up to 2.3 cm in short axis diameter. Subcentimeter lymph nodes are noted in left inguinal region. No gross inguinal hernia. Bones: There is generalized anasarca. Nondisplaced fracture involving right transverse process of L1 and L2 are seen. Pelvic ring and hip joints appear intact. No vertebral compression fractures. IMPRESSION: 1. Displaced fractures involving right lateral sixth and seventh ribs as well as minimally displaced fractures involving right posterior medial eighth through 10th ribs. Nondisplaced fractures involving right transverse processes of L1 and L2 vertebral bodies. 2. Small right pleural effusion with contusion/atelectasis in posterior lateral aspect of right lower lobe. Scarring/atelectasis in left lung base. No pneumothorax. 3. No mediastinal hematoma. Cardiomegaly, no pericardial effusion. 4. Diffuse anasarca. Small to moderate amount of free fluid in abdomen or pelvis. No gross free air. 5. Likely hepatic cysts as above. No definite solid organ injury within abdomen or pelvis. 6. Nonspecific mildly enlarged right inguinal lymph nodes. Findings were reported to Dr. Campos in the ER at 11:57 AM on 08/04/18. Dictated by: Larry Gloria M.D. on 08/04/2018 at 11:41 Approved by: Larry Gloria M.D. on 08/04/2018 at 11:58 [facility] Narrative Medical decision making narrative: Patient's CT chest abdomen pelvis shows rib fractures 6 through 10 along with the transverse process fracture L1 and L2. There is a small right pleural effusion which possibly be a hemothorax. Patient 's hemoglobin front from 11-9 since the beginning of July. His INR is supratherapeutic at 4 patient's renal function is 2.1 which is close to his baseline. He has been in that range before. Patient pain is somewhat improved with morphine. Based on multiple rib fractures and his age he was upgraded to a modified trauma. Patient was discussed with Dr. Vizcarra from general surgery and she feels he would benefit from being observed here at [facility]. Plane reverse INR but not completely as he does have atrial fibrillation and would benefit from continuing to have that. Patient dose was discussed with Dr. Jackson he has been on vitamin K [address] Lau from Orthopedic surgery and they reviewed the CT imaging and feel that if patient is neurologically intact that this is a stable fracture and he does not have to be on spinal precautions. Initially spoke with the hospitalist but patient actually is a Dr. Campbell patient sewed contacted Dr. Campbell Critical Care Time Critical Care Time: Yes Total Critical Care Time: 90 Attestation: The high probability of a clinically significant, sudden or life threatening deterioration of the [cardiac, respiratory] system(s) required my full and direct attention, intervention and personal management. The aggregate critical care time was [90] minutes. This time is in addition to time spent performing reported procedures but includes the following: [x] Data Review and interpretation [x] Patient assessment and monitoring of vital signs [x] Documentation [x] Medication orders and management Discharge Plan Departure Patient Disposition: Admitted As Inpatient Clinical Impression: Fracture of ribs, multiple, Fracture of transverse process of lumbar vertebra, Supratherapeutic international normalized ratio (INR) Discharge Date/Time: 08/04/18 14:30 Interventions: ED Discharge Assessment Last Done: 08/04/18 14:30 Admit Date/Time: 08/04/18 14:18 Admit Provider: Eliazar Carlin
[2018-08-04] MEDS: MORPHINE 4 MG/ML INJ IV (09:42)
[2018-08-04 09:55] LABS: Add Manual Diff / Slide Review NO; Basophils Percent Auto 0.6 % (0-2); Eosinophils Percent Auto 2.2 % (2-4); Hematocrit 30.5 % (41-53); Hemoglobin 9.6 g/dL (13.5-17.5); Lymphocytes Percent Auto 17.9 % (25-40); Mean Corpuscular HGB Conc 31.4 % (30-36); Mean Corpuscular Hemoglobin 23.1 PG (26-34); Mean Corpuscular Volume 73.3 fL (80-100); Monocytes Percent Auto 5.6 % (3-14); Neutrophils Absolute Auto 5600 /uL (1500-7000); Neutrophils Percent Auto 73.7 % (50-75); Platelet Count 87 X10^3/uL (150-400); Red Blood Cell Count 4.15 X10^6/uL (4.5-5.9); White Blood Cell Count 7.6 X10^3/uL (4.5-11.0)
[2018-08-04 10:06] LABS: INR 4.2 (0.9-1.3); Prothrombin Time 49.8 SECONDS (10.1-12.7)
[2018-08-04 10:09] LABS: PTT Partial Thromboplastin Tim 35 SECONDS (26.4-36.2)
[2018-08-04 10:15] LABS: Alanine Aminotransferase 28 IU/L (21-72); Albumin 3.4 g/dL (3.5-5.0); Albumin Globulin Ratio 1.2 (1.0-2.8); Alkaline Phosphatase 103 U/L (38-126); Aspartate Aminotransferase 26 IU/L (17-59); BUN Creatinine Ratio 16.2 (6-22); Bilirubin Total 1.2 mg/dL (0.2-1.3); Blood Urea Nitrogen 34 mg/dL (9-20); Calcium 8.3 mg/dL (8.4-10.2); Carbon Dioxide 20 mmol/L (22-32); Chloride 99 mmol/L (98-107); Estimated Glomerular Filt Rate 30.6 mL/min (>60); Globulin 2.8 g/dL (1.7-4.1); Glucose 129 mg/dL (80-110); HEMOLYSIS < 15 (0-50); Potassium 3.7 mmol/L (3.4-5.1); Sodium 135 mmol/L (137-145); Total Protein 6.2 g/dL (6.3-8.2)
--- NOTE | 2018-08-04 11:48 | PC.NURSE ---
right elbow with couple skin tears, oozing, cleaned with hibiclens, saline, dried, bacitracin ointment applied,with kerlix tolerated proc well, distal cms intact
--- NOTE | 2018-08-04 11:59 | PC.NURSE ---
pt states, heading upstairs, carrying stuff, unable to hold onto rails, on the second steps, pt fell backward, denies head injuries, denies loc, denies neck pain, here due to right side of back pain worsen with movement. pt states, he understands that he was not supposed to be doing that, he understands that he is supposed to be holding onto something.
[2018-08-04] MEDS: MORPHINE 5 MG/ML INJ 4 MG IV (12:47)
[2018-08-04] MEDS: PHYTONADIONE (VIT K1) 5 MG TABLET PO (13:01)
--- NOTE | 2018-08-04 15:03 | PC.ADMIT ---
.[id number] Admission Note: The patient,Arben Peacock,78 y/o, was given written information regarding hospital policies, unit procedures and contact persons. Patient's smoking status: Former smoker. Vital Signs - 8 hr 08/04/18 09:15 08/04/18 09:18 08/04/18 09:45 Temperature 98.3 F 98.3 F Pulse Rate 80 80 80 Respiratory Rate 18 18 14 Blood Pressure 107/77 Blood Pressure [Left Arm] 107/77 129/49 L Pulse Oximetry 98 98 08/04/18 10:04 08/04/18 10:35 08/04/18 11:15 Temperature Pulse Rate 80 80 80 Respiratory Rate 17 16 15 Blood Pressure Blood Pressure [Left Arm] 121/49 L 121/41 L 136/53 L Pulse Oximetry 95 95 95 08/04/18 11:36 08/04/18 12:15 08/04/18 13:07 Temperature Pulse Rate 80 88 80 Respiratory Rate 17 13 18 Blood Pressure Blood Pressure [Left Arm] 132/55 L 136/47 L 127/43 L Pulse Oximetry 94 92 93 08/04/18 14:31 08/04/18 14:58 Temperature 97.8 F Pulse Rate 83 80 Respiratory Rate 16 16 Blood Pressure 130/56 L Blood Pressure [Left Arm] 127/51 L Pulse Oximetry 93 96 Rec'd pt from ED to rm 102 via stretcher on RA and SL at 1445. Pt is AAO x3 and making his needs known. VSS. Required assist x5 to transfer from stretcher to bed with slider board r/t pain and weakness. Anterior breath sounds are clear but dim to RLL. Pt reports pain to r side is 6/10 and is tolerating. Bruising to r rib noted. R elbow dsg cdi. Rfa bruising. Dsg to LLE intact, pt states he goes to wound care clinic for this. Oriented pt to environment and educated to high fall risk and use of call light. Pt demonstrates use of call light and agrees to use it for any needs.
--- NOTE | 2018-08-04 16:39 | PM.HP.1 ---
History of Present Illness Date Patient Seen: 08/04/18 Time Patient Seen: 16:02 Chief complaint: Fall yesterday Narrative: Patient seen and evaluated. Patient is somewhat of a poor historian. Patient states he yesterday went to [place] to get some food for the family. As he got home he was walking up the stairs into his house. He normally puts things on the stairs and then hold the hand rail as he goes up the stairs. In this case he did not he had 1 bag in 1 hand and another bag any other. He got the 2nd step and fell. Patient fell back onto asphalt ground. Sustaining injuries to his right side right shoulder right decide right lower back. He says he did not lose consciousness. And is not aware of hitting his head. Patient then laid there for short duration of time until his and grandson came out and found him he was able to get up the stairs in into the house. He said he was sore on the right side. He was able to get into bed where he then stayed in took some pain medication. Due to the rough night in the difficulty with pain the following morning he decided to call 911 because he was not able to get up and move and was brought here to the emergency department. His complaints today are shoulder pain and side pain. Says her 7/10 on the pain scale. Pain radiates towards his back. He is not having any hip pain knee pain. He is not having any headache blurry vision. Patient had did not pass out. He is not having chest pain or shortness of breath. Patient was recently in the [facility] and was released approximately 1 month ago. He is from a year with that process. He says he has a host of chronic medical problems. 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) Essential hypertension (Chronic 12/14/11) Diabetic foot ulcer (Chronic) Edema (Chronic) Leg wound, left (Chronic) Generalized weakness (Chronic) Paroxysmal atrial fibrillation (Chronic) Alcohol use (Chronic) Cellulitis of left lower extremity (Chronic) Chronic kidney disease, stage 3 (Chronic) Osteomyelitis of left foot (Chronic) Skin lesion of left lower extremity (Chronic) Chronic obstructive pulmonary disease (Chronic 07/08/15) Chronic diastolic congestive heart failure (Chronic 05/23/15) Uncontrolled type 2 diabetes mellitus with hyperglycemia, without long-term current use of insulin (Chronic 08/20/17) Osteoarthritis, knee (Chronic) Anemia in chronic kidney disease (Chronic) Prostate cancer (Chronic 04/03/11) Bilateral shoulder pain (Chronic) Current use of senior living anticoagulation (Chronic) Obstructive sleep apnea syndrome (Chronic 04/03/11) Gastroesophageal reflux disease without esophagitis (Chronic 04/03/11) Migraine with aura and without status migrainosus, not intractable (Chronic 04/03/11) Gout (Chronic 04/03/11) Dyskinesia of esophagus (Chronic 12/14/11) Chronic pain of both knees (Chronic 03/23/16) Chronic atrial fibrillation (Resolved 02/17/15) Morbid obesity with body mass index (BMI) of 40.0 to 44.9 in adult (Resolved 03/23/16) Surgical History History of knee replacement (Resolved 10/12/13) History of prostatectomy (Resolved) Status post endoscopic retrograde cholangiopancreatography (Resolved 12/2014) Status post laparoscopic cholecystectomy (Resolved 12/2014) Status post placement of cardiac pacemaker (Resolved 11/2011) Family & Social History Social History: household members friend(s) lives independently Yes caregiver/support person Yes: Minimal Safety & Behavioral: Feels Safe in Current Yes Environment Been Physically Hurt or No Threatened By a Person Tobacco & Substance use: Smoking Status Former smoker alcohol intake current alcohol intake frequency holiday/special occasion Substance Use Type does not use Meds Home Medications Medication Instructions Recorded Confirmed Type potassium chloride [K-Tab] 40 meq PO BID #810 10/29/17 08/04/18 History folic acid 0.4 mg PO DAILY #0 11/01/17 08/04/18 History metoprolol tartrate 12.5 mg PO BID #0 11/01/17 08/04/18 History nitroglycerin [Nitrostat] 0.4 mg SUBLINGUAL PRN PRN #0 11/01/17 08/04/18 History omeprazole 20 mg PO BID #60 cap 12/17/17 08/04/18 Rx atorvastatin [Lipitor] 20 mg PO BEDTIME #30 tab 04/02/18 08/04/18 Rx escitalopram oxalate [Lexapro] 20 mg PO DAILY #30 tab 04/02/18 08/04/18 Rx ipratropium bromide 2 spray INTRANASAL BID #1 inh 04/02/18 08/04/18 Rx lactulose 10 gram/15 mL oral 20 gram PO DAILY PRN #480 ml 07/07/18 08/04/18 Rx solution melatonin 3 mg tablet 3 mg PO BEDTIME PRN #20 tab 07/07/18 08/04/18 Rx metolazone 2.5 mg tablet 2.5 mg PO TUFR 07/07/18 08/04/18 History tramadol 50 mg tablet 50 mg PO Q6H PRN #30 tab 07/07/18 08/04/18 Rx trazodone 50 mg tablet 25 mg PO BEDTIME #30 tab 07/07/18 08/04/18 Rx furosemide 40 mg tablet 40 mg PO DAILY #30 tab 07/25/18 08/04/18 Rx Fish Oil 500 mg PO DAILY 08/04/18 08/04/18 History bupropion HCl [Wellbutrin SR] 150 mg PO BEDTIME 08/04/18 08/04/18 History calcium carbonate-vitamin D3 1 tab PO DAILY 08/04/18 08/04/18 History [Calcium 600 + D(3)] gabapentin 100 mg PO BID 08/04/18 08/04/18 History gabapentin 600 mg PO BID 08/04/18 08/04/18 History linezolid 600 mg PO Q12HR 08/04/18 08/04/18 History magnesium oxide 400 mg PO TID 08/04/18 08/04/18 History multivitamin with minerals 1 tab PO DAILY 08/04/18 08/04/18 History warfarin 2 mg PO DAILY 08/04/18 08/04/18 History Allergies Allergy/AdvReac Type Severity Reaction Status Date / Time camphor [CAMPHOR] Allergy Mild RASH Verified 07/10/18 13:29 cyclobenzaprine Allergy Mild HIVES Verified 07/10/18 13:29 [CYCLOBENZAPRINE] lisinopril [LISINOPRIL] Allergy Mild COUGH/DRY Verified 07/10/18 13:29 THROAT menthol [MENTHOL] Allergy Mild RASH Verified 07/10/18 13:29 methyl salicylate Allergy Mild RASH Verified 07/10/18 13:29 [METHYL SALICYLATE] Exam Vital Signs (past 8 hours): - 08/04/18 09:15 08/04/18 09:18 08/04/18 09:45 Temperature 98.3 F 98.3 F Pulse Rate 80 80 80 Respiratory Rate 18 18 14 Blood Pressure 107/77 Blood Pressure [Left Arm] 107/77 129/49 L Pulse Oximetry 98 98 08/04/18 10:04 08/04/18 10:35 08/04/18 11:15 Temperature Pulse Rate 80 80 80 Respiratory Rate 17 16 15 Blood Pressure Blood Pressure [Left Arm] 121/49 L 121/41 L 136/53 L Pulse Oximetry 95 95 95 08/04/18 11:36 08/04/18 12:15 08/04/18 13:07 Temperature Pulse Rate 80 88 80 Respiratory Rate 17 13 18 Blood Pressure Blood Pressure [Left Arm] 132/55 L 136/47 L 127/43 L Pulse Oximetry 94 92 93 08/04/18 14:31 08/04/18 14:58 Temperature 97.8 F Pulse Rate 83 80 Respiratory Rate 16 16 Blood Pressure 130/56 L Blood Pressure [Left Arm] 127/51 L Pulse Oximetry 93 96 Oxygen Delivery Method Room Air Oxygen Flow Rate 0 Narrative Exam Narrative: Gen.: Alert reliable historian HEENT: Pupils equal round and reactive or mucosa is moist neck is supple Cardio: S1-S2 systolic murmur present irregular rate and rhythm Respiratory: Lungs are clear to auscultation no wheezes or crackles. Pain over his chest wall in the right there is a hematoma from his right axillary area down along his ribcage. Moderate in size. Abdomen: Positive bowel tones no appreciable hernias. Abdomen is distended Extremities: Patient has a significant chronic venous stasis and changes. 3+ chronic edema. Pulses are difficult to palpate due to patient's significant edema. Neurologic: No appreciable neurological deficits Objective Imaging CT scan - abdomen: Radiologist's impression: Lungs: There is a small right-sided pleural effusion with adjacent contusion/atelectasis in posterior lateral aspect of right lower lobe. Scarring/atelectasis at left lung base is seen. No pneumothorax or hemothorax. Central and peripheral airways appear patent and normal in caliber. Mediastinum: No mediastinal hematomas. Heart size is enlarged. No pericardial effusion. Thoracic aorta and pulmonary arteries demonstrate normal size and enhancement. No mediastinal or hilar adenopathy. Esophagus is normal in caliber. No hiatal hernia. Chest wall: Left chest wall cardiac device leads are seen in the region of right atrium and right ventricle. Acute displaced fracture involving the right lateral sixth and seventh ribs as well as the right posterior medial eighth, ninth and 10th ribs near costovertebral junctions. No subcutaneous emphysema. No axillary or supraclavicular adenopathy. Thyroid gland is within normal limits. ABDOMEN: Solid organs: Liver is normal in size and enhancement, without lacerations. Well circumscribed hypodensities are noted in the right and left hepatic dome measures up to 2.6 x 2 cm in size a left hepatic dome and likely represent hepatic cysts. Gallbladder is surgically absent. Biliary system is non-dilated. Pancreas enhances normally, without transection. Spleen is normal in size and enhancement, without lacerations. No adrenal hematomas. Both kidneys enhance normally, without hydronephrosis or lacerations. There is suggestion of bilateral renal cysts. Peritoneum and bowel: Small to moderate amount of free fluid is seen in the upper abdomen adjacent to liver and spleen. Small amount of free fluid in lower pelvis is also noted. No peritoneal free air. Unenhanced bowel loops demonstrate normal wall thickness and caliber. Nodes and vessels: No retroperitoneal or mesenteric adenopathy. Aorta and inferior vena cava are normal in size and enhancement. Miscellaneous: No ventral hernias. PELVIS: Genitourinary: Bladder wall thickness is normal. Miscellaneous: Mildly prominent right inguinal lymph nodes are seen measures up to 2.3 cm in short axis diameter. Subcentimeter lymph nodes are noted in left inguinal region. No gross inguinal hernia. Bones: There is generalized anasarca. Nondisplaced fracture involving right transverse process of L1 and L2 are seen. Pelvic ring and hip joints appear intact. No vertebral compression fractures. IMPRESSION: 1. Displaced fractures involving right lateral sixth and seventh ribs as well as minimally displaced fractures involving right posterior medial eighth through 10th ribs. Nondisplaced fractures involving right transverse processes of L1 and L2 vertebral bodies. 2. Small right pleural effusion with contusion/atelectasis in posterior lateral aspect of right lower lobe. Scarring/atelectasis in left lung base. No pneumothorax. 3. No mediastinal hematoma. Cardiomegaly, no pericardial effusion. 4. Diffuse anasarca. Small to moderate amount of free fluid in abdomen or pelvis. No gross free air. 5. Likely hepatic cysts as above. No definite solid organ injury within abdomen or pelvis. 6. Nonspecific mildly enlarged right inguinal lymph nodes. Labs Result Diagrams: 08/04/18 09:37 08/04/18 09:37 Labs: Laboratory Results - last 24 hr 08/04/18 08/04/18 08/04/18 09:37 09:37 09:37 WBC 7.6 RBC 4.15 L Hgb 9.6 L Hct 30.5 L MCV 73.3 L MCH 23.1 L MCHC 31.4 RDW 18.0 H Plt Count 87 L Neut % (Auto) 73.7 Lymph % (Auto) 17.9 L [place] % (Auto) 5.6 Eos % (Auto) 2.2 Baso % (Auto) 0.6 Neut # (Auto) 5600 PT 49.8 H INR 4.2 H APTT 35 Sodium 135 L Potassium 3.7 Chloride 99 Carbon Dioxide 20 L BUN 34 H Creatinine 2.10 H Estimated GFR 30.6 L BUN/Creatinine Ratio 16.2 Glucose 129 H Calcium 8.3 L Total Bilirubin 1.2 AST 26 ALT 28 Alkaline Phosphatase 103 Total Protein 6.2 L Albumin 3.4 L Globulin 2.8 Albumin/Globulin Ratio 1.2 Blood Type Antibody Screen 08/04/18 09:38 WBC RBC Hgb Hct MCV MCH MCHC RDW Plt Count Neut % (Auto) Lymph % (Auto) [place] % (Auto) Eos % (Auto) Baso % (Auto) Neut # (Auto) PT INR APTT Sodium Potassium Chloride Carbon Dioxide BUN Creatinine Estimated GFR BUN/Creatinine Ratio Glucose Calcium Total Bilirubin AST ALT Alkaline Phosphatase Total Protein Albumin Globulin Albumin/Globulin Ratio Blood Type B Positive Antibody Screen Negative Assessment & Plan Plan: Assessment/Plan Narrative: Patient with ground level fall with no loss of consciousness. Patient sustained 6 through 10 right-sided rib fractures. Patient also sustained L1 and L2 right transverse vertebral fractures. Patient's case was discussed with general surgery for trauma and Orthopedic surgery. Patient currently has no neurological deficits. Orthopedic surgery in general surgery will be consult stated here in the hospital and I will be managing patient's medical care while he is here. Will provide pain relief and pain control. Will provided Tylenol oxycodone and Dilaudid as needed for severe pain. Will monitor closely for change in neurological status due to the spinal fractures. I am certainly concerned about his rib fractures multiple he is oxygenating well. He has a hematoma and his hemoglobin and hematocrit is lower and he has got a mild pleural effusion on his lungs which may be a hemo thorax and will repeat an x-ray tomorrow to make sure that that is not increasing in size. Will monitor his oxygen status level his alarm adjuster in place him in the ICU for further evaluation. Multiple rib fractures on the right 6 through 10. Hematoma over the top he has got anemia and drop in his hemoglobin hematocrit due to this. Will recheck his hemoglobin hematocrit provide pain relief. Repeat x-ray to mild to review rule out underlying hemo thorax and continue bleeding. Lumbar spine transverse process L1-L2 fracture. Neurologically intact. Pain controlled monitor orthopedic siddiqui. Atrial fibrillation with chronic anticoagulation patient is in atrial fibrillation he has a pacemaker. Patient's INR will be reversed. He was given vitamin K. No FFP at this point. Hemoglobin hematocrit has decreased a little bit will recheck tomorrow. Recheck his INR. When he came in it was slightly elevated at 4. Anemia. Acute blood loss due to hematoma due to his fall. Possible hemothorax. Monitor closely. He is typed and screen for 2 units. His INR has been reversed. Coronary artery disease hypertension and hyperlipidemia. Patient will be continued on his statin his beta-marcus. His blood pressure is well controlled currently. Diabetes. He is currently not on any diabetic medication on his medication list. Will check his blood sugars and that just and provide appropriate treatment for his blood sugars as needed. He is currently being treated with chronic venous stasis in the foot ulcer by the wound care center. He has finished his last course of antibiotics today. Depression. He will be continued on his Wellbutrin and his the citalopram Chronic kidney disease stage 3. Creatinine is stable. COPD. Chronic and stable at this point. Congestive heart failure. Chronic diastolic. Will continue his Lasix. Monitor his fluid status here in the hospital. Disposition plan patient will be admitted as an inpatient. He will require more than 2 midnights hospitalization due to his comorbid conditions severity of injury and close monitoring.
[2018-08-04] MEDS: OXYCODONE IR 5 MG TABLET 10 MG PO (17:48)
--- NOTE | 2018-08-04 18:33 | PC.NURSE ---
Addendum entered by Keira Key R.N. 08/04/18 23:19: Pt refusing to let staff reposition in bed due to pain with movement. Medicated with Dilaudid. Original Note: veronica paez pt reports 6/10 pain to right side and shoulder. Dr. Carlin in to see pt. Medicated with oxycodone.
[2018-08-04] MEDS: GABAPENTIN 100 MG CAPSULE PO (22:11)
[2018-08-04] MEDS: GABAPENTIN 600 MG TABLET PO (22:11)
[2018-08-04] MEDS: ATORVASTATIN 20 MG TABLET PO (22:11)
[2018-08-04] MEDS: DOCUSATE 100 MG CAPSULE PO (22:11)
[2018-08-04] MEDS: buPROPion SR 150 MG TAB PO (22:12)
[2018-08-04] MEDS: MAGNESIUM OXIDE 400 MG TABLET PO (22:12)
[2018-08-04] MEDS: METOPROLOL IR 25 MG TABLET 12.5 MG PO (22:13)
[2018-08-04] MEDS: PANTOPRAZOLE 20 MG TABLET PO (22:15)
[2018-08-04] MEDS: TRAZODONE 50 MG TABLET 25 MG PO (22:16)
[2018-08-04] MEDS: HYDROMORPHONE 1 MG INJ IV (22:19)
[2018-08-05] VITALS (8 sets, daily range): BP systolic 96–123; BP diastolic 45–63; PULSE 79–88; RESP 18–20; TEMP 36.1–37.1; O2SAT 87–96
--- NOTE | 2018-08-05 | DI.RAD.S_ITS ---
PROCEDURE: XR CHEST 1V INDICATIONS: rib fracture??hemothroax TECHNIQUE: One view of the chest was acquired. COMPARISON: [facility], CT, CT CHEST ABD PEL W CON, 08/04/2018, 10:46. FINDINGS: Surgical changes and devices: Cardiac pacer. Lungs and pleura: No pleural effusions or pneumothorax. Patchy right basilar opacities. Mediastinum: Mediastinal contours appear normal. Heart size is normal. Bones and chest wall: Right seventh rib fracture, better characterized on the comparison CT dated yesterday. IMPRESSION: Lower right rib fracture as before. Patchy mild right basilar opacities without definite focal consolidation. No pneumothorax. Cannot exclude trace right pleural fluid probably unchanged. Dictated by: Jeo Baeza M.D. on 08/05/2018 at 8:46 Approved by: Joe Baeza M.D. on 08/05/2018 at 8:49
[2018-08-05] MEDS: OXYCODONE IR 5 MG TABLET 10 MG PO ×4 (01:27→20:34)
[2018-08-05 05:20] LABS: INR 3.6 (0.9-1.3); Prothrombin Time 42.6 SECONDS (10.1-12.7)
[2018-08-05 05:22] LABS: Add Manual Diff / Slide Review NO; Basophils Percent Auto 0.6 % (0-2); Hematocrit 26.8 % (41-53); Hemoglobin 8.4 g/dL (13.5-17.5); Lymphocytes Percent Auto 23.3 % (25-40); Mean Corpuscular HGB Conc 31.5 % (30-36); Mean Corpuscular Hemoglobin 23.2 PG (26-34); Mean Corpuscular Volume 73.6 fL (80-100); Monocytes Percent Auto 7.4 % (3-14); Neutrophils Absolute Auto 4800 /uL (1500-7000); Neutrophils Percent Auto 63.7 % (50-75); Platelet Count 77 X10^3/uL (150-400); Red Blood Cell Count 3.64 X10^6/uL (4.5-5.9); Red Cell Distribution Width 18.1 % (11.6-14.8); White Blood Cell Count 7.5 X10^3/uL (4.5-11.0)
[2018-08-05 05:30] LABS: BUN Creatinine Ratio 15.2 (6-22); Blood Urea Nitrogen 32 mg/dL (9-20); Calcium 8.4 mg/dL (8.4-10.2); Carbon Dioxide 22 mmol/L (22-32); Chloride 98 mmol/L (98-107); Estimated Glomerular Filt Rate 30.6 mL/min (>60); Glucose 124 mg/dL (80-110); HEMOLYSIS < 15 (0-50); Sodium 133 mmol/L (137-145)
--- NOTE | 2018-08-05 08:32 | PM.PN.1 ---
Subjective Date Patient Seen: 08/05/18 Time Patient Seen: 08:32 Interval history: Patient seen and evaluated again this morning. Did well overnight. Moderate amount of pain. Says it is bad when he coughs. Has not moved much at all. Pretty much in the same position I left him last night. Although he is eating breakfast. He says he is hungry. As long he is not moving he does not have any pain. Vital signs have been stable. Blood pressure is a little bit low this morning. Reviewed laboratory tests. Orthopedic in surgery I do not think of seen him yet. Although I was told that they had evaluated him in the emergency department or have been contacted. Exam Vital Signs (past 8 hours): - 08/05/18 03:09 08/05/18 05:00 08/05/18 08:00 Temperature 98.7 F 97.9 F Pulse Rate 88 81 Respiratory Rate 20 18 Blood Pressure 106/49 L 104/53 L Pulse Oximetry 96 95 96 08/05/18 08:09 Temperature Pulse Rate Respiratory Rate Blood Pressure Pulse Oximetry 96 Oxygen Delivery Method Room Air Oxygen Flow Rate 1 Narrative Exam Narrative: Gen.: Alert fairly good historian this morning. HEENT: Pupils equal round and reactive or mucosa is moist neck is supple Cardio: Regular rate and rhythm heart murmur present Respiratory: Decreased breath sounds at the lung bases Abdomen: Soft nontender no rebound no guarding Extremities: Lower extremities chronic venous stasis and wounds. Objective Labs Result Diagrams: 08/05/18 04:41 08/05/18 04:41 Labs: Laboratory Results - last 24 hr 08/04/18 08/04/18 08/04/18 09:37 09:37 09:37 WBC 7.6 RBC 4.15 L Hgb 9.6 L Hct 30.5 L MCV 73.3 L MCH 23.1 L MCHC 31.4 RDW 18.0 H Plt Count 87 L Neut % (Auto) 73.7 Lymph % (Auto) 17.9 L [place] % (Auto) 5.6 Eos % (Auto) 2.2 Baso % (Auto) 0.6 Neut # (Auto) 5600 PT 49.8 H INR 4.2 H APTT 35 Sodium 135 L Potassium 3.7 Chloride 99 Carbon Dioxide 20 L BUN 34 H Creatinine 2.10 H Estimated GFR 30.6 L BUN/Creatinine Ratio 16.2 Glucose 129 H Calcium 8.3 L Total Bilirubin 1.2 AST 26 ALT 28 Alkaline Phosphatase 103 Total Protein 6.2 L Albumin 3.4 L Globulin 2.8 Albumin/Globulin Ratio 1.2 Nasal Screen MRSA (PCR) Blood Type Antibody Screen 08/04/18 08/04/18 08/05/18 09:38 14:45 04:41 WBC 7.5 RBC 3.64 L Hgb 8.4 L Hct 26.8 L MCV 73.6 L MCH 23.2 L MCHC 31.5 RDW 18.1 H Plt Count 77 L Neut % (Auto) 63.7 Lymph % (Auto) 23.3 L [place] % (Auto) 7.4 Eos % (Auto) 5.0 H Baso % (Auto) 0.6 Neut # (Auto) 4800 PT INR APTT Sodium Potassium Chloride Carbon Dioxide BUN Creatinine Estimated GFR BUN/Creatinine Ratio Glucose Calcium Total Bilirubin AST ALT Alkaline Phosphatase Total Protein Albumin Globulin Albumin/Globulin Ratio Nasal Screen MRSA (PCR) Negative for mrsa Blood Type B Positive Antibody Screen Negative 08/05/18 08/05/18 04:41 04:41 WBC RBC Hgb Hct MCV MCH MCHC RDW Plt Count Neut % (Auto) Lymph % (Auto) [place] % (Auto) Eos % (Auto) Baso % (Auto) Neut # (Auto) PT 42.6 H D INR 3.6 H APTT Sodium 133 L Potassium 4.0 Chloride 98 Carbon Dioxide 22 BUN 32 H Creatinine 2.10 H Estimated GFR 30.6 L BUN/Creatinine Ratio 15.2 Glucose 124 H Calcium 8.4 Total Bilirubin AST ALT Alkaline Phosphatase Total Protein Albumin Globulin Albumin/Globulin Ratio Nasal Screen MRSA (PCR) Blood Type Antibody Screen Assessment & Plan Plan: Assessment/Plan Narrative: Patient with ground level fall with no loss of consciousness. Patient sustained 6 through 10 right-sided rib fractures. Patient also sustained L1 and L2 right transverse vertebral fractures. Orthopedic and general surgery were consulted in the emergency department. Multiple rib fractures on the right [address] scan shows fluid on the lung. Repeat x-ray this morning does not show significant changes there or concern for hemo thorax. Pain with cough. Pain is well controlled. Oxygen status is stable. Lumbar spine transverse process L1-L2 fracture. Neurologically intact. Pain controlled monitor orthopedic siddiqui. Will need physical therapy. Help with move. I think at this point he does not need a back brace. But will help orthopedic come and evaluate him to see if there needs to be anything special for restrictions as far as physical therapy. Atrial fibrillation with chronic anticoagulation patient is in atrial fibrillation he has a pacemaker. Patient's INR still elevated given oral vitamin K yesterday. Will give vitamin K today. Hold his warfarin. Anemia. Acute blood loss due to hematoma due to his fall. Hemoglobin is down again today. Completely reverse his INR with giving IV vitamin K this morning Coronary artery disease hypertension and hyperlipidemia. Patient will be continued on his statin his beta-marcus. His blood pressure is well controlled currently. No current acute changes as far as heart status goes. Diabetes. He is currently not on any diabetic medication on his medication list. Will check his blood sugars and that just and provide appropriate treatment for his blood sugars as needed. He is currently being treated with chronic venous stasis in the foot ulcer by the wound care center. He has finished his last course of antibiotics today. Depression. He will be continued on his Wellbutrin and his the citalopram Chronic kidney disease stage 3. Creatinine is stable. COPD. Chronic and stable at this point. Congestive heart failure. Chronic diastolic. Will continue his Lasix. Monitor his fluid status here in the hospital. Did well overnight. Hemoglobin hematocrit has dropped. Repeat chest x-ray shows no significant fluid collection on the lung. Will have General surgery and Orthopedic surgery come by and evaluate patient. Will give or IV vitamin K today to review uses INR completely monitor closely hemoglobin hematocrit. Still has a significant hematoma on his right side. Quality VTE Deep Vein Thrombosis/Pulmonary Embolism Present on Admission: No
[2018-08-05] MEDS: PHYTONADIONE IV (08:49)
[2018-08-05] MEDS: DEXTROSE 5% IV (08:49)
[2018-08-05] MEDS: WATER IV (08:49)
[2018-08-05] MEDS: METOPROLOL IR 25 MG TABLET 12.5 MG PO ×2 (08:56→20:37)
[2018-08-05] MEDS: PANTOPRAZOLE 20 MG TABLET PO ×2 (08:56→20:40)
[2018-08-05] MEDS: MULTIVIT,CALC,MINS/IRON/FOLIC 1 TABLET 1 TAB PO (08:56)
[2018-08-05] MEDS: GABAPENTIN 100 MG CAPSULE PO ×2 (08:58→20:40)
[2018-08-05] MEDS: GABAPENTIN 600 MG TABLET PO ×2 (08:58→20:40)
[2018-08-05] MEDS: DOCUSATE 100 MG CAPSULE PO ×2 (08:58→20:40)
[2018-08-05] MEDS: ESCITALOPRAM 10 MG TABLET 20 MG PO (08:58)
[2018-08-05] MEDS: FUROSEMIDE 40 MG TABLET PO (08:59)
[2018-08-05] MEDS: MAGNESIUM OXIDE 400 MG TABLET PO ×3 (08:59→20:44)
--- NOTE | 2018-08-05 09:25 | CM.DANOTE ---
Addendum entered by JAMES Shaw 08/05/18 14:21: ADD: Per Dr. Barnett, no surgery planned at this time and recommending possible back corset to help with discomfort and ambulation. BF Original Note: Patient is a 78 year old male who was admitted on 08/04/18 for Fall, Rib/Vert Fx. Pt has [employer] for insurance and her PCP is Dr. Campbell. EMR was reviewed. Per MD, pt is sometimes a poor historian and seems to have multiple rib fx and vert fx and placed an order for Ortho/Surg Consult to determine if surgery needed. SW met bedside with pt and explained role and pt was alert and oriented x3 but was noticeably uncomfortable with fx and lung and somewhat sleepy from medication. Pt confirmed that he had been discharged to [facility] rehab after last admit to [facility] in Apr 2018 for a couple months and then discharged home about a month ago with ongoing private pay caregiver for housekeeping and chores. Patient's spouse had been in [facility] in Apr 2018 for SNF rehab but used up her [facility] days and now is at [facility] under Medicaid for intermediate care. Pt's grandson lives locally and provides support to the pt and his spouse. Patient states that he has begun the process of selling his house and moving himself into residential care, but location unclear at this point, may be [facility] to be with his but not for sure. House still needs to be sold. 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 SW provided the SNF Choice List and discussed SNFs closer to his [facility] and pt states that currently his preference is [facility] and requests SW make referral to [facility]. SW updated the white board and faxed pt facesheet to [facility] for review and called admissions requesting review of new referral. PASRR completed. NTL/INSIDE CHANNEL ACCOUNT MANAGER following up on Ortho Consult order and likely PT eval order after Ortho Consult. Plan: SW to follow closely after Ortho Consult and likely PT eval towards plan of SNF at d/c. SW to follow for [facility] review and likely need to call pt's Dtr/KELLEE Jean to update on d/c plan. JAMES Shaw Discharge Planning/Care Management CM Discharge Assessment Start: 08/05/18 09:17 Freq: Status: Active Protocol: Document 08/05/18 09:20 BF (Rec: 08/05/18 09:25 BF [id number]) Discharge Planning Assessment Assigned Well Tender JAMES Spicer DPOA/Assigned Designee Name Po Jean Contact Information [phone] Advance Directives? Yes: POLST/ POA Advance Directives on File No History Provided By Patient Family Member Medical Record Has Patient been admitted in last 30 No days? Prior Living Arrangements House Household Members caregiver Type of transporation used prior to Relies on Others admit Comment Patient resides at home alone while spouse is at [facility] and has a caregiver who helps with housekeeping and chores Independent with ADL's No Is patient alert and oriented? 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 Medicare Choice List Provided Yes SNF/HH Preference [facility] Contact Name/Phone Ashley Has Agency SNF been contacted Yes Whiteboard Updated in Patient Room with Yes name and ext. # of Well Tender Review Status In Process Please Provide Date Initial DC 08/05/18 Assessment Was Performed Next Review Type Continued Stay Review
--- NOTE | 2018-08-05 10:02 | P.CONS_ITS ---
History of Present Illness Date Patient Seen: 08/05/18 Time Patient Seen: 10:01 Chief complaint: Fall yesterday Reason for consult: Transverse process fractures lumbar spine Requesting provider: Eliazar Carlin Narrative: 78-year-old male with a recent fall and the back and spine pain. Patient is unable to recall the exact date of his fall to me this morning but when questioned does endorse that he knows today is Saturday. Endorses right- sided back and rib pain. He has a history of chronic kidney disease, atrial fibrillation on Coumadin, cardiac disease. He had a fall backwards down some stairs and was seen in the emergency department diagnosed with multiple rib fractures as well as L1-L2 transverse process fractures and a supra therapeutic INR. He was admitted to the medicine service and has been monitored in the ICU with General surgery/Trauma consult regarding his multiple rib fractures. He denies fevers chills numbness or tingling. It does apparently have a history of diabetes and neuropathy. He has chronic venous stasis and CHF. 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) Essential hypertension (Chronic 12/14/11) Diabetic foot ulcer (Chronic) Edema (Chronic) Leg wound, left (Chronic) Generalized weakness (Chronic) Paroxysmal atrial fibrillation (Chronic) Alcohol use (Chronic) Cellulitis of left lower extremity (Chronic) Chronic kidney disease, stage 3 (Chronic) Osteomyelitis of left foot (Chronic) Skin lesion of left lower extremity (Chronic) Chronic obstructive pulmonary disease (Chronic 07/08/15) Chronic diastolic congestive heart failure (Chronic 05/23/15) Uncontrolled type 2 diabetes mellitus with hyperglycemia, without long-term current use of insulin (Chronic 08/20/17) Osteoarthritis, knee (Chronic) Anemia in chronic kidney disease (Chronic) Prostate cancer (Chronic 04/03/11) Bilateral shoulder pain (Chronic) Current use of truck terminal manager anticoagulation (Chronic) Obstructive sleep apnea syndrome (Chronic 04/03/11) Gastroesophageal reflux disease without esophagitis (Chronic 04/03/11) Migraine with aura and without status migrainosus, not intractable (Chronic 04/07) Gout (Chronic 04/03/11) Dyskinesia of esophagus (Chronic 12/14/11) Chronic pain of both knees (Chronic 03/23/16) Chronic atrial fibrillation (Resolved 02/17/15) Morbid obesity with body mass index (BMI) of 40.0 to 44.9 in adult (Resolved ) Surgical History History of knee replacement (Resolved 10/12/13) History of prostatectomy (Resolved) Status post endoscopic retrograde cholangiopancreatography (Resolved 12/2014) Status post laparoscopic cholecystectomy (Resolved 12/2014) Status post placement of cardiac pacemaker (Resolved 11/2011) Social History marital status: number of children: 6 household members: caregiver lives independently: Yes caregiver/support person: Yes (Minimal) housing: house pets and animals: Yes education level: master's degree occupational status: other (Retired.) Previous occupational history: Technical Training and Safety Engineering. alberto/[employer]ar[employer]: [employer] leisure activities: reading and other (Watching TV) Smoking Status: Former smoker Tobacco: How many years used: 4 Smokeless tobacco user: other (Cigarettes and Pipe) quit status: quit date established (~1981) second hand exposure: No alcohol intake: current substance use type: does not use Meds Home Medications Medication Instructions Recorded Confirmed Type potassium chloride [K-Tab] 40 meq PO BID #810 10/29/17 08/04/18 History folic acid 0.4 mg PO DAILY #0 11/01/17 08/04/18 History metoprolol tartrate 12.5 mg PO BID #0 11/01/17 08/04/18 History nitroglycerin [Nitrostat] 0.4 mg SUBLINGUAL PRN PRN #0 11/01/17 08/04/18 History omeprazole 20 mg PO BID #60 cap 12/17/17 08/04/18 Rx atorvastatin [Lipitor] 20 mg PO BEDTIME #30 tab 04/02/18 08/04/18 Rx escitalopram oxalate [Lexapro] 20 mg PO DAILY #30 tab 04/02/18 08/04/18 Rx ipratropium bromide 2 spray INTRANASAL BID #1 inh 04/02/18 08/04/18 Rx lactulose 10 gram/15 mL oral 20 gram PO DAILY PRN #480 ml 07/07/18 08/04/18 Rx solution melatonin 3 mg tablet 3 mg PO BEDTIME PRN #20 tab 07/07/18 08/04/18 Rx metolazone 2.5 mg tablet 2.5 mg PO TUFR 07/07/18 08/04/18 History tramadol 50 mg tablet 50 mg PO Q6H PRN #30 tab 07/07/18 08/04/18 Rx trazodone 50 mg tablet 25 mg PO BEDTIME #30 tab 07/07/18 08/04/18 Rx furosemide 40 mg tablet 40 mg PO DAILY #30 tab 07/25/18 08/04/18 Rx Fish Oil 500 mg PO DAILY 08/04/18 08/04/18 History bupropion HCl [Wellbutrin SR] 150 mg PO BEDTIME 08/04/18 08/04/18 History calcium carbonate-vitamin D3 1 tab PO DAILY 08/04/18 08/04/18 History [Calcium 600 + D(3)] gabapentin 100 mg PO BID 08/04/18 08/04/18 History gabapentin 600 mg PO BID 08/04/18 08/04/18 History linezolid 600 mg PO Q12HR 08/04/18 08/04/18 History magnesium oxide 400 mg PO TID 08/04/18 08/04/18 History multivitamin with minerals 1 tab PO DAILY 08/04/18 08/04/18 History warfarin 2 mg PO DAILY 08/04/18 08/04/18 History Allergies Allergy/AdvReac Type Severity Reaction Status Date / Time camphor [CAMPHOR] Allergy Mild RASH Verified 07/10/18 13:29 cyclobenzaprine Allergy Mild HIVES Verified 07/10/18 13:29 [CYCLOBENZAPRINE] lisinopril [LISINOPRIL] Allergy Mild COUGH/DRY Verified 07/10/18 13:29 THROAT menthol [MENTHOL] Allergy Mild RASH Verified 07/10/18 13:29 methyl salicylate Allergy Mild RASH Verified 07/10/18 13:29 [METHYL SALICYLATE] Review of Systems Review of Systems All systems reviewed & are unremarkable except as noted in HPI and below Exam Vital Signs (past 8 hours): - 08/05/18 03:09 08/05/18 05:00 08/05/18 07:00 Temperature 98.7 F Pulse Rate 88 Respiratory Rate 20 Blood Pressure 106/49 L Pulse Oximetry 96 95 93 08/05/18 08:00 08/05/18 08:09 Temperature 97.9 F Pulse Rate 81 Respiratory Rate 18 Blood Pressure 104/53 L Pulse Oximetry 96 96 Oxygen Delivery Method Room Air Oxygen Flow Rate 1 Narrative Exam Narrative: General exam: Awake and alert male sitting up in bed. Seems mildly confused about date and time of injury but is able to endorse the current day of the week and responds appropriately to questions Respiratory exam: Unlabored on room air CV exam: Peripheral pulses palpable. Atrial fibrillation Abdomen exam: Obese Spine: No tenderness missed to palpation along the cervical spine. Full neck range of motion without pain. Moderate tenderness posterior ribs right side lumbar spine. Neurovascularly intact. Musculoskeletal: Moving all 4 extremities. Patient does have some ecchymosis bilaterally on the upper extremities and skin tear on the right elbow. Demonstrates flexion extension of the elbow and wrist and sensation and motor intact in the ulnar median radial nerve distributions bilaterally. Bilateral lower extremities demonstrate neurovascularly intact to gross sensation. Patient demonstrates 5/5 dorsiflexion and plantar flexion bilaterally. Has bilateral venous stasis disease and the peripheral edema. Objective Imaging CT scan - abdomen: My impression: Nondisplaced L1-L2 transverse process fractures on the right. Posterior rib fractures on the right Radiologist's impression: IMPRESSION: 1. Displaced fractures involving right lateral sixth and seventh ribs as well as minimally displaced fractures involving right posterior medial eighth through 10th ribs. Nondisplaced fractures involving right transverse processes of L1 and L2 vertebral bodies. 2. Small right pleural effusion with contusion/atelectasis in posterior lateral aspect of right lower lobe. Scarring/atelectasis in left lung base. No pneumothorax. 3. No mediastinal hematoma. Cardiomegaly, no pericardial effusion. 4. Diffuse anasarca. Small to moderate amount of free fluid in abdomen or pelvis. No gross free air. 5. Likely hepatic cysts as above. No definite solid organ injury within abdomen or pelvis. 6. Nonspecific mildly enlarged right inguinal lymph nodes. Findings were reported to Dr. Campos in the ER at 11:57 AM on 08/04/18. Dictated by: Larry Gloria M.D. on 08/04/2018 at 11:41 Approved by: Larry Gloria M.D. on 08/04/2018 at 11:58 Labs Result Diagrams: 08/05/18 04:41 08/05/18 04:41 Labs: Laboratory Results - last 24 hr 08/04/18 08/04/18 08/04/18 09:37 09:37 09:38 WBC RBC Hgb Hct MCV MCH MCHC RDW Plt Count Neut % (Auto) Lymph % (Auto) [place] % (Auto) Eos % (Auto) Baso % (Auto) Neut # (Auto) PT 49.8 H INR 4.2 H APTT 35 Sodium 135 L Potassium 3.7 Chloride 99 Carbon Dioxide 20 L BUN 34 H Creatinine 2.10 H Estimated GFR 30.6 L BUN/Creatinine Ratio 16.2 Glucose 129 H Calcium 8.3 L Total Bilirubin 1.2 AST 26 ALT 28 Alkaline Phosphatase 103 Total Protein 6.2 L Albumin 3.4 L Globulin 2.8 Albumin/Globulin Ratio 1.2 Nasal Screen MRSA (PCR) Blood Type B Positive Antibody Screen Negative 08/04/18 08/05/18 08/05/18 14:45 04:41 04:41 WBC 7.5 RBC 3.64 L Hgb 8.4 L Hct 26.8 L MCV 73.6 L MCH 23.2 L MCHC 31.5 RDW 18.1 H Plt Count 77 L Neut % (Auto) 63.7 Lymph % (Auto) 23.3 L [place] % (Auto) 7.4 Eos % (Auto) 5.0 H Baso % (Auto) 0.6 Neut # (Auto) 4800 PT 42.6 H D INR 3.6 H APTT Sodium Potassium Chloride Carbon Dioxide BUN Creatinine Estimated GFR BUN/Creatinine Ratio Glucose Calcium Total Bilirubin AST ALT Alkaline Phosphatase Total Protein Albumin Globulin Albumin/Globulin Ratio Nasal Screen MRSA (PCR) Negative for mrsa Blood Type Antibody Screen 08/05/18 04:41 WBC RBC Hgb Hct MCV MCH MCHC RDW Plt Count Neut % (Auto) Lymph % (Auto) [place] % (Auto) Eos % (Auto) Baso % (Auto) Neut # (Auto) PT INR APTT Sodium 133 L Potassium 4.0 Chloride 98 Carbon Dioxide 22 BUN 32 H Creatinine 2.10 H Estimated GFR 30.6 L BUN/Creatinine Ratio 15.2 Glucose 124 H Calcium 8.4 Total Bilirubin AST ALT Alkaline Phosphatase Total Protein Albumin Globulin Albumin/Globulin Ratio Nasal Screen MRSA (PCR) Blood Type Antibody Screen Assessment & Plan Plan: Assessment/Plan Narrative: Right side L1-L2 transverse process fractures: Patient is neurovascularly intact in these are nondisplaced fractures. Recommend conservative treatment with pain control, lumbar corset for comfort if needed. May mobilize as tolerate , no spinal precautions required. Time Spent With Patient Time with patient: less than 15 minutes
--- NOTE | 2018-08-05 10:22 | PT.IPTN ---
Current Diagnoses Multiple fractures of ribs, right side, initial encounter for closed fracture (08/04/18) Physical Therapy Treatment Note M3 PT-IP Subjective Start: 08/05/18 10:20 Freq: NEEDED Status: Active Protocol: Document 08/05/18 10:21 [facility] (Rec: 08/05/18 10:22 [facility] [id number]) Subjective Physical Therapy Visit Type Type Administrative Note Notes Hold pt until orthopedic consult. Last MD note notes consulting ortho for mobility limitations and possible bracing needs. Check back in PM.
[2018-08-05] MEDS: SODIUM CHLORIDE 0.9% FLUSH 10 ML IV ×2 (10:25→20:40)
--- NOTE | 2018-08-05 12:10 | PT.IIE ---
Current Diagnoses Multiple fractures of ribs, right side, initial encounter for closed fracture (08/04/18) Surgical History (Last Reviewed 08/04/18 @ 09:31 by Mitzi Campos DO) History of knee replacement (Resolved 10/12/13) History of prostatectomy (Resolved) Status post endoscopic retrograde cholangiopancreatography (Resolved 12/2014) Status post laparoscopic cholecystectomy (Resolved 12/2014) Status post placement of cardiac pacemaker (Resolved 11/2011) Medical History (Last Reviewed 08/05/18 @ 10:04 by Anahi Barnett MD) Major depression (Chronic) Coronary artery disease (Chronic) Hyperlipidemia (Chronic) 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) Essential hypertension (Chronic 12/14/11) Diabetic foot ulcer (Chronic) Edema (Chronic) Leg wound, left (Chronic) Generalized weakness (Chronic) Paroxysmal atrial fibrillation (Chronic) Alcohol use (Chronic) Cellulitis of left lower extremity (Chronic) Chronic kidney disease, stage 3 (Chronic) Osteomyelitis of left foot (Chronic) Skin lesion of left lower extremity (Chronic) Chronic obstructive pulmonary disease (Chronic 07/08/15) Chronic diastolic congestive heart failure (Chronic 05/23/15) Uncontrolled type 2 diabetes mellitus with hyperglycemia, without long-term current use of insulin (Chronic 08/20/17) Osteoarthritis, knee (Chronic) Anemia in chronic kidney disease (Chronic) Prostate cancer (Chronic 04/03/11) Bilateral shoulder pain (Chronic) Current use of care home anticoagulation (Chronic) Obstructive sleep apnea syndrome (Chronic 04/03/11) Gastroesophageal reflux disease without esophagitis (Chronic 04/03/11) Migraine with aura and without status migrainosus, not intractable (Chronic 04/03/11) Gout (Chronic 04/03/11) Dyskinesia of esophagus (Chronic 12/14/11) Chronic pain of both knees (Chronic 03/23/16) Chronic atrial fibrillation (Resolved 02/17/15) Morbid obesity with body mass index (BMI) of 40.0 to 44.9 in adult (Resolved 03/23/16) Physical Therapy Inpatient Evaluation/Re-Eval M1 PT/OT-IP Prior Functional Status Start: 08/05/18 10:20 Freq: NEEDED Status: Active Protocol: Document 08/05/18 11:54 [facility] (Rec: 08/05/18 12:10 [facility] [id number]) Medical Review Prior Functional Status Medical History Reviewed Yes Diet/Fluid Consistency Regular Communication WNL Mobility and Gait Pt amb with cane in the house and 4WW outside Activities of Daily Living and IADL's Reports indep with ADLs but assistance for cooking and cleaning Social History Household Members caregiver Living Arrangements House Number of Floors (Floors) One Floor Number of Stairs To Enter/Railing? 10-11 CATHRYN Home Environment Standard Height Toilet Walk in Shower Home Equipment Front Wheel Walker Four Wheel Walker Straight Cane Shower Seat without Backrest Cracker Sprayer Grab Bars Near Toilet M2 PT-IP Current Condition Start: 08/05/18 10:20 Freq: NEEDED Status: Active Protocol: Document 08/05/18 11:54 [facility] (Rec: 08/05/18 12:10 [facility] [id number]) Physical Therapy Current Condition Current Condition Evaluation Date 04/01/18 Precautions Other Precautions fall precautions, bed/chair alarm M3 PT-IP Subjective Start: 08/05/18 10:20 Freq: NEEDED Status: Active Protocol: Document 08/05/18 11:54 [facility] (Rec: 08/05/18 12:10 [facility] [id number]) Subjective Physical Therapy Visit Type Type Initial Evaluation Visit Start Time 11:17 Visit Stop Time 11:45 Total Visit Minutes 28 Number of WIND PROJECT MANAGER Visits 0 Physical Therapy Visit Comments Patient Comments Agrees to get up Therapy Pain Assessment Pain When Pain Assessed During Mobility Pain Present Pain Present Pain Reported Location Right Back Intensity 7 Scale Used Numeric (1 - 10) M4 PT-IP Mobility and Gait Start: 08/05/18 10:20 Freq: NEEDED Status: Active Protocol: Document 08/05/18 11:54 [facility] (Rec: 08/05/18 12:10 [facility] [id number]) PT-Bed Mobility Assessment Rolling Type of Rolling Log Rolling Level of Assist Maximal Assistance 1 Person Assistance Supine to Sit Supine to Sit Moderate Assistance 2 Person Assistance Bedrails Scooting Scooting to Edge of Bed Contact Guard Assistance PT-Transfer Assessment Sit to and From Stand Sit to and from Stand Moderate Assistance 2 Person Assistance Equipment Transfer Assistive Device Gait Belt Front Wheeled Walker Orthotic/Prosthetic Devices or Brace: No Transfers Transfer Destination Chair Transfer Technique Stand Step Pivot Transfer Ability Level of Assist Moderate Assistance 2 Person Assistance Comments Mobility Comments Pt able to transfer with mod A x2 with FWW with cueing for breathing during transfer & log roll Gait Assessment Comments Gait Comments unable d/t pain PT-Balance Assessment Sitting Balance and Reactions Static Sitting Balance Ability Good Dynamic Sitting Balance Ability Fair Standing Balance and Reactions Static Standing Balance Ability Poor Dynamic Standing Balance Ability Poor M5 PT-IP Objective Assessments Start: 08/05/18 10:20 Freq: NEEDED Status: Active Protocol: Document 08/05/18 11:54 [facility] (Rec: 08/05/18 12:10 [facility] [id number]) Orientation Orientation/Cognition Level of Alertness Alert Strength Lower Extremity Strength Assessment Bilaterally Impaired M6 PT-IP Treatment Start: 08/05/18 10:20 Freq: NEEDED Status: Active Protocol: Document 08/05/18 11:54 [facility] (Rec: 08/05/18 12:10 [facility] [id number]) Physical Therapy Treatment Education Education Provided Safety M7 PT-IP Assessment and Plan Start: 08/05/18 10:20 Freq: NEEDED Status: Active Protocol: Document 08/05/18 11:54 [facility] (Rec: 08/05/18 12:10 [facility] [id number]) PT Summary Assessment and Plan Potential Rehabilitation Potential Good Status of Condition at Evaluation Evolving Summary Impairments Pain ROM Strength Balance Bed Mobility Transfers Gait Activity Tolerance Assessment Summary Pt presents with L1 & L2 transverse process and ribs 6- 10 fractures. He has dec mobility d/t pain and weakness and is limited to transfering today d/t pain. He is likely to continue to improve, but will require rehab in order to return to prior level of function. He will likely need assistance at d/c d/t pain limiting his mobility and ability to participate in ADLs . Goals Bed Mobility Goal Minimal Assistance Transfer Goal Minimal Assistance Gait Goal Minimal Assistance Gait Distance 20 Days to Meet Goals 4 Frequency of Treatment Frequency Of Treatment Once a Day Treatment Plan Physical Therapy Treatment Plan Bed Mobility Training Transfer Training Gait Training Therapeutic Exercise Balance Retraining Discharge Planning Neuromuscular Re-ed Other Recommendations and Next Treatment MD note said possible brace Focus for comfort-follow up if brace may be needed/beneficial(may be too painful d/t rib fractures), Advance bed mobility & log roll training, transfers and possibly gait if pt appropriate Recommendations To Nursing Amount of Assist Needed 2 Person Assist Discharge Recommendations PT Discharge Recommendations SNF Rehab
--- NOTE | 2018-08-05 12:40 | OT.IP.EVAL ---
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) Essential hypertension (Chronic 12/14/11) Diabetic foot ulcer (Chronic) Edema (Chronic) Leg wound, left (Chronic) Generalized weakness (Chronic) Paroxysmal atrial fibrillation (Chronic) Alcohol use (Chronic) Cellulitis of left lower extremity (Chronic) Chronic kidney disease, stage 3 (Chronic) Osteomyelitis of left foot (Chronic) Skin lesion of left lower extremity (Chronic) Chronic obstructive pulmonary disease (Chronic 07/08/15) Chronic diastolic congestive heart failure (Chronic 05/23/15) Uncontrolled type 2 diabetes mellitus with hyperglycemia, without long-term current use of insulin (Chronic 08/20/17) Osteoarthritis, knee (Chronic) Anemia in chronic kidney disease (Chronic) Prostate cancer (Chronic 04/03/11) Bilateral shoulder pain (Chronic) Current use of assisted anticoagulation (Chronic) Obstructive sleep apnea syndrome (Chronic 04/03/11) Gastroesophageal reflux disease without esophagitis (Chronic 04/03/11) Migraine with aura and without status migrainosus, not intractable (Chronic 04/03/11) Gout (Chronic 04/03/11) Dyskinesia of esophagus (Chronic 12/14/11) Chronic pain of both knees (Chronic 03/23/16) Chronic atrial fibrillation (Resolved 02/17/15) Morbid obesity with body mass index (BMI) of 40.0 to 44.9 in adult (Resolved 03/23/16) Surgical History (Last Reviewed 08/04/18 @ 09:31 by Mitzi Campos DO) History of knee replacement (Resolved 10/12/13) History of prostatectomy (Resolved) Status post endoscopic retrograde cholangiopancreatography (Resolved 12/2014) Status post laparoscopic cholecystectomy (Resolved 12/2014) Status post placement of cardiac pacemaker (Resolved 11/2011) Occupational Therapy Inpatient Evaluation/Re-Eval M1 PT/OT-IP Prior Functional Status Start: 08/05/18 10:20 Freq: NEEDED Status: Active Protocol: Document 08/05/18 11:54 [facility] (Rec: 08/05/18 12:10 [facility] [id number]) Medical Review Prior Functional Status Medical History Reviewed Yes Diet/Fluid Consistency Regular Communication WNL Mobility and Gait Pt amb with cane in the house and 4WW outside Activities of Daily Living and IADL's Reports indep with ADLs but assistance for cooking and cleaning Social History Household Members caregiver Living Arrangements House Number of Floors (Floors) One Floor Number of Stairs To Enter/Railing? 10-11 CATHRYN Home Environment Standard Height Toilet Walk in Shower Home Equipment Front Wheel Walker Four Wheel Walker Straight Cane Shower Seat without Backrest Manufacturing Process Technician Grab Bars Near Toilet M1 PT/OT-IP Prior Functional Status Start: 08/05/18 12:19 Freq: NEEDED Status: Active Protocol: Document 08/05/18 12:19 [facility] (Rec: 08/05/18 12:40 [facility] [id number]) Medical Review Prior Functional Status Medical History Reviewed Yes Diet/Fluid Consistency Regular Communication WNL Mobility and Gait Pt amb with cane or FWW in the house and 4WW outside Activities of Daily Living and IADL's Reports indep with ADLs, driving, bills, and taking his own medications, but assistance for cooking and cleaning. Prior Functional Level (Other details) Pt has friend live in with him ,Rosalina and that she helps with IADL needs, but pt states if he asked that she could provide him with more asisst if needed. Social History Household Members friend(s) caregiver Living Arrangements House Number of Floors (Floors) One Floor Number of Stairs To Enter/Railing? 10-11 CATHRYN and bilatarel rails. Home Environment Standard Height Toilet Walk in Shower Home Equipment Front Wheel Walker Four Wheel Walker Straight Cane Shower Seat without Backrest Manufacturing Process Technician Grab Bars Near Toilet Employment Status Retired M2 OT-IP Current Condition Start: 08/05/18 12:19 Freq: Status: Active Protocol: Document 08/05/18 12:19 [facility] (Rec: 08/05/18 12:40 [facility] [id number]) Occupational Therapy Current Condition Current Condition Evaluation Date 08/05/18 Treatment Diagnosis Fractures ribs and traverse process of L1-L2 Diagnosis Onset Date 08/04/18 Post Operative Precautions Lumbar Precautions Log Roll No Twisting Lifting Restriction of 10 lbs Other Precautions fall precautions, bed/chair alarm M3 OT- IP Subjective and Pain Start: 08/05/18 12:19 Freq: Status: Active Protocol: Document 08/05/18 12:19 [facility] (Rec: 08/05/18 12:40 [facility] [id number]) OT- Subjective Occupational Therapy Visit Type Type Initial Evaluation Visit Start Time 11:17 Visit Stop Time 11:57 Total Visit Minutes 40 Occupational Therapy Visit Comments Patient Comments Pt agreeable to get up. Patient/Caregiver Goals Pt wanting to go to skilled rehab. OT Pain Assessment Pain When Pain Assessed At Rest Pain Present Pain Present Pain Reported Location Right Back Intensity 7 Scale Used Numeric (1 - 10) Description Radiating Management Techniques Re-positioning Timing of Activity with Medications M4 OT- IP ADL's Start: 08/05/18 12:19 Freq: Status: Active Protocol: Document 08/05/18 12:19 [facility] (Rec: 08/05/18 12:40 [facility] [id number]) OT ADL-Grooming General Evaluation Grooming Ability Standby Assistance Areas Needing Assistance Retrieving/Set-up of Grooming Items Comments OT Grooming Comments Pt needing assist to set-up items and then able to do all grooming from seated position. OT ADL-Oral Care General Eval Oral Care Ability Independent OT ADL-Dressing General Eval Lower Body Dressing Ability Total Assistance Areas Needing Assistance Socks Shoes Comments OT Dressing Comments At this time due to pain from fractres pt is dependent for all LB dressing needs. OT ADL-Toileting Comments OT Toileting Comments Nusing states pt has been using the urinal in bed. OT ADL-Bathing Comments OT Bathing Comments No appropriate at this time, M5 OT- IP IADL's Start: 08/05/18 12:19 Freq: Status: Active Protocol: Document 08/05/18 12:19 [facility] (Rec: 08/05/18 12:40 [facility] [id number]) OT-Instrumental Activities of Daily Living Medication Management Medication Management Comments Pt does his own medications. Money Management Money Management Comments Pt states pays his own bills. Meal Preparation Meal Preparation Caregiver Provides Assist Black And White Printer Operator Black And White Printer Operator Caregiver Provides Assist Driving Driving Comments Pt states still drives. M6 OT- IP Functional Cognition Start: 08/05/18 12:19 Freq: Status: Active Protocol: Document 08/05/18 12:19 [facility] (Rec: 08/05/18 12:40 [facility] [id number]) Cognitive Factors Limiting Selfcare Function Cognitive Ability Level of Alertness Alert Patient Orientation Name Age Birthday Month Date Year Day of Week Place Situation Attention Span Ability Capable of Focused Attention Capable of Sustained Attention Ability to Follow Commands Able to Follow Multi-Step Commands Safety Awareness Underestimates Need for Assistance Problem Solving Ability Needs Assist to Identify Solutions Cognitive Comments Cognitive Assessment Comments Pt able to follow 1-2 step directions and states has been making poor decisions lately which resulted in him falling down the stairs. Pt needing increased time to follow commands. OT- Vision and Hearing OT- Hearing Assessment OT- Hearing Assessment WFL OT- Vision Assessment Vision Assessment Comments Pt states has glasses that he is suppose to wear for reading and driving , however states has not used them in the past few months. M7 OT- IP Mobility and Balance Start: 08/05/18 12:19 Freq: Status: Active Protocol: Document 08/05/18 12:19 [facility] (Rec: 08/05/18 12:40 [facility] [id number]) OT- Bed Mobility Assessment Rolling Type of Rolling Roll to Right Level of Assistance Maximum Assistance 1 Person Assistance Bedrails Supine to Sit Supine to Sit Assist Moderate Assistance 2 Person Assistance Scooting Scooting to Edge of Bed Contact Guard Assistance 1 Person Assistance OT-Transfer Assessment Sit to and From Stand Sit to and from Stand Moderate Assistance 2 Person Assistance Transfers Transfer Ability Moderate Assistance 2 Person Assistance Technique Transfer Destination Chair Transfer Technique Stand Step Pivot Devices Transfer Assistive Devices Gait Belt Front Wheeled Walker Comments Mobility Comments Pt MAX A to roll with help of bed rail and bed pad. MODA x 2 to stand, assist to keep FWW in place as pt pushed up from FWW to stand and to balance and assist to guide FWW. OT- Balance Assessment Sitting Balance and Reactions Static Sitting Balance Ability Good Dynamic Sitting Balance Ability Fair Standing Balance and Reactions Static Standing Balance Ability Poor Dynamic Standing Balance Ability Poor M8 OT- IP Objective Assessments Start: 08/05/18 12:19 Freq: Status: Active Protocol: Document 08/05/18 12:19 [facility] (Rec: 08/05/18 12:40 [facility] [id number]) OT Gross Range of Motion Upper Extremity Range of Motion Assessment Within Functional Limits OT Strength Comments Strength Comments NT to rib and lumbar fractures . OT- Coordination Assessment Upper Extremity Finger to Nose Test Right UE Impaired Comments Coordination Comments Decreased for FMS and needing assist for set-up for grooming needs. OT-Muscle Tone Assessment Muscle Tone WNL Yes M9 OT- IP Assessment and Plan Start: 08/05/18 12:19 Freq: Status: Active Protocol: Document 08/05/18 12:19 [facility] (Rec: 08/05/18 12:40 [facility] [id number]) OT Summary Assessment and Plan Potential Rehabilitation Potential Good Analytic Complexity at Evaluation Low Summary OT Impairments Pain Strength Balance Coordination Functional Cognition Functional Mobility Grooming Dressing Toileting Bathing Toilet Transfers Shower Transfers Progress Towards Goals Slow Progress due to Pain Slow Progress due to Activity Tolerance Slow Progress due to Cognition Assessment Summary Pt low complexity and main barriers are steps, decreased activity tolerance, strength, balance and requiring 2 person assist for all ADl and functional mobility needs. Pt would benefit from skilled rehab prior to going home. Goals Grooming Goal Standby Assistance Dressing Goal Moderate Assistance Toileting Goal Minimal Assistance Bathing Goal Moderate Assistance Toilet Transfer Goal Minimal Assistance Shower Transfer Goal Minimal Assistance Patient/Caregiver Education Goal Caregiver Independent Assisting Patient Days to Meet Goals 7 Frequency of Treatment Frequency Of Treatment Once a Day Treatment Plan OT Treatment Plan ADL Training Functional Cognition Training Functional Mobility Patient/Family Education Discharge Planning Other Treatment Recommendations and Next Standing at sink for grooming, Treatment Focus cognition assessment Discharge Recommendations OT Discharge Recommendations SNF Rehab
--- NOTE | 2018-08-05 13:01 | CM.DPNOTE ---
DCP: Spoke to Ashley at [facility] regarding referral. She requested that the face sheet be faxed to her so she can review. Faxing face sheet to her now. Gris Hinkle RN/Nursing Specialist
--- NOTE | 2018-08-05 14:26 | PC.NURSE ---
pt refused to have this rn undress and assess wound to left lower extremity stating the wound clinic will take care of it on saturday and reporting that it is changed q week- gathered supplies as indicated from [facility] d/c note but he declines once again to have this rn perform wound care- fax sent yest to wound clinic - will follow up
[2018-08-05] MEDS: LACTULOSE 20 GM/30 ML SOLUTION PO (15:00)
[2018-08-05] MEDS: TRAZODONE 50 MG TABLET 25 MG PO (20:39)
[2018-08-05] MEDS: ATORVASTATIN 20 MG TABLET PO (20:39)
[2018-08-05] MEDS: buPROPion SR 150 MG TAB PO (20:40)
--- NOTE | 2018-08-05 21:21 | PC.NURSE ---
veronica note Right elbow has a skin tear distal to elbow and proximal to elbow. Xeroform drsg applied and covered with Allevyn foam drsg. Pt refuses removal of left lower leg drsg, stating it is changed weekly on Fridays at the [facility]. Pt up in chair until 20:00, then to BSC for loose large stool and a void. Then back to bed for transfer to room 223. Report given to Estefanía MANLEY.
[2018-08-06] VITALS (10 sets, daily range): BP systolic 83–109; BP diastolic 43–53; PULSE 74–83; RESP 16–20; TEMP 35.8–36.6; O2SAT 90–99
[2018-08-06] MEDS: OXYCODONE IR 5 MG TABLET 10 MG PO (02:36)
[2018-08-06 05:34] LABS: Add Manual Diff / Slide Review NO; Basophils Percent Auto 0.5 % (0-2); Eosinophils Percent Auto 1.2 % (2-4); Hematocrit 28.2 % (41-53); Hemoglobin 8.9 g/dL (13.5-17.5); Lymphocytes Percent Auto 12.1 % (25-40); Mean Corpuscular HGB Conc 31.5 % (30-36); Mean Corpuscular Hemoglobin 23.5 PG (26-34); Mean Corpuscular Volume 74.6 fL (80-100); Monocytes Percent Auto 7.7 % (3-14); Neutrophils Absolute Auto 6800 /uL (1500-7000); Neutrophils Percent Auto 78.5 % (50-75); Platelet Count 76 X10^3/uL (150-400); Red Blood Cell Count 3.78 X10^6/uL (4.5-5.9); Red Cell Distribution Width 17.8 % (11.6-14.8); White Blood Cell Count 8.6 X10^3/uL (4.5-11.0)
[2018-08-06 05:40] LABS: BUN Creatinine Ratio 16.4 (6-22); Blood Urea Nitrogen 41 mg/dL (9-20); Calcium 8.8 mg/dL (8.4-10.2); Carbon Dioxide 21 mmol/L (22-32); Chloride 98 mmol/L (98-107); Glucose 141 mg/dL (80-110); HEMOLYSIS < 15 (0-50); Potassium 4.6 mmol/L (3.4-5.1); Sodium 135 mmol/L (137-145)
[2018-08-06] MEDS: ONDANSETRON 4 MG/2 ML INJ IV ×2 (07:33→21:17)
--- NOTE | 2018-08-06 08:05 | P.PN_ITS ---
Subjective Date Patient Seen: 08/06/18 Time Patient Seen: 08:01 Interval history: Doing well today. Has some nauseous this this morning a little bit last night. Given some Zofran. Vomited once. Probably due to narcotics. Had a bowel movement yesterday. Eating well. Says he does not want to move at all. Mainly due to the pain. Appreciated consultation yesterday by Orthopedic surgery. Exam Vital Signs (past 8 hours): - 08/06/18 00:33 08/06/18 01:25 08/06/18 04:45 Temperature 96.4 F L 97.6 F Pulse Rate 79 79 Respiratory Rate 18 16 Blood Pressure 106/49 L 101/51 L Pulse Oximetry 99 95 92 Oxygen Delivery Method Room Air Oxygen Flow Rate 0 Narrative Exam Narrative: Gen.: Alert oriented fairly good historian today HEENT: Pupils equal round and reactive or mucosa is dry Cardio: S1-S2 regular rate and rhythm murmur present Respiratory: Lungs are clear to auscultation no wheezes or crackles normal respiratory effort. Abdomen: Soft mild distension. No rebound no guarding Extremities: Full range of motion no appreciable weakness no cyanosis or edema. Significant lower extremity venous compromise and chronic changes. Objective Labs Result Diagrams: 08/06/18 05:14 08/06/18 05:14 Labs: Laboratory Results - last 24 hr 08/06/18 08/06/18 05:14 05:14 WBC 8.6 RBC 3.78 L Hgb 8.9 L Hct 28.2 L MCV 74.6 L MCH 23.5 L MCHC 31.5 RDW 17.8 H Plt Count 76 L Neut % (Auto) 78.5 H Lymph % (Auto) 12.1 L Haakon % (Auto) 7.7 Eos % (Auto) 1.2 L Baso % (Auto) 0.5 Neut # (Auto) 6800 Sodium 135 L Potassium 4.6 Chloride 98 Carbon Dioxide 21 L BUN 41 H Creatinine 2.50 H Estimated GFR 25.0 L BUN/Creatinine Ratio 16.4 Glucose 141 H Calcium 8.8 Assessment & Plan Plan: Assessment/Plan Narrative: Patient with ground level fall with no loss of consciousness. Patient sustained 6 through 10 right-sided rib fractures. Patient also sustained L1 and L2 right transverse vertebral fractures. Orthopedic and general surgery were consulted in the emergency department. Multiple rib fractures on the right [address] scan shows fluid on the lung. X-ray shows no worsening of fluid accumulation on lungs no hemo thorax. Lumbar spine transverse process L1-L2 fracture. Orthopedic evaluation. Regular activity and exercises with physical therapy mobilized today. Atrial fibrillation with chronic anticoagulation patient is in atrial fibrillation he has a pacemaker. INR has been reversed. Off his warfarin. Will restart that here in a few days. Anemia. Acute blood loss due to hematoma due to his fall. Hemoglobin hematocrit is stable. Coronary artery disease hypertension and hyperlipidemia. Patient will be continued on his statin his beta-marcus. His blood pressure is well controlled currently. No current acute changes as far as heart status goes. Diabetes. He is currently not on any diabetic medication on his medication list. Will check his blood sugars and that just and provide appropriate treatment for his blood sugars as needed. He is currently being treated with chronic venous stasis in the foot ulcer by the wound care center. He has finished his last course of antibiotics today. Depression. He will be continued on his Wellbutrin and his the citalopram Chronic kidney disease stage 3. Creatinine is stable. COPD. Chronic and stable at this point. Congestive heart failure. Chronic diastolic. Will continue his Lasix. Monitor his fluid status here in the hospital. Increase activity today. Transition from IV pain medication to oral pain medication. Stop monitor technician. Anticipate discharge to [facility] here in 24 hr. Quality VTE Deep Vein Thrombosis/Pulmonary Embolism Present on Admission: No
--- NOTE | 2018-08-06 08:24 | PC.NURSE ---
Patient having c/o intermittent nausea with emesis this morning, states it started after I drank that aziza cleo last night. Medicated with zofran IV per new order, patient resting in bed at this time. Call light and urinal within reach. Continue to monitor.
--- NOTE | 2018-08-06 08:24 | PM.PN.1 ---
Subjective Date Patient Seen: 08/06/18 Time Patient Seen: 08:25 Interval history: Hospital day 3 following ground level fall at home. Patient sustained the right rib fractures 5, 6, 8, 9, 10 and right L1, L2 transverse process fracture. He had orthopedic consult by Dr. Barnett yesterday. Patient having discomfort with movements. He has not been out of bed yet with PT. Exam Vital Signs (past 8 hours): - 08/06/18 00:33 08/06/18 01:25 08/06/18 04:45 Temperature 96.4 F L 97.6 F Pulse Rate 79 79 Respiratory Rate 18 16 Blood Pressure 106/49 L 101/51 L Pulse Oximetry 99 95 92 08/06/18 07:40 Temperature 97.2 F L Pulse Rate 80 Respiratory Rate 20 Blood Pressure 109/53 L Pulse Oximetry 91 Oxygen Delivery Method Room Air Oxygen Flow Rate 0 Narrative Exam Narrative: Alert, oriented in no acute distress lying in bed. Chest. Pain on palpation of right chest wall without flail. Right arm. Bruising abrasion to right elbow area. Bass String Winder strong and equal. Good sensation and pulses to hand. Objective Labs Result Diagrams: 08/06/18 05:14 08/06/18 05:14 Labs: Laboratory Results - last 24 hr 08/06/18 08/06/18 05:14 05:14 WBC 8.6 RBC 3.78 L Hgb 8.9 L Hct 28.2 L MCV 74.6 L MCH 23.5 L MCHC 31.5 RDW 17.8 H Plt Count 76 L Neut % (Auto) 78.5 H Lymph % (Auto) 12.1 L Barnes % (Auto) 7.7 Eos % (Auto) 1.2 L Baso % (Auto) 0.5 Neut # (Auto) 6800 Sodium 135 L Potassium 4.6 Chloride 98 Carbon Dioxide 21 L BUN 41 H Creatinine 2.50 H Estimated GFR 25.0 L BUN/Creatinine Ratio 16.4 Glucose 141 H Calcium 8.8 Assessment & Plan Plan: Assessment/Plan Narrative: Assessment: 1. Multiple right rib fractures 2. Right L1, L2 transverse process fracture Plan: Will have patient began using Inspra motor to help prevent pneumonia. Control as needed. Discharged pending clearance by Dr. Carlin. Quality VTE Deep Vein Thrombosis/Pulmonary Embolism Present on Admission: No
[2018-08-06 09:40] LABS: INR 1.8 (0.9-1.3); Prothrombin Time 21.4 SECONDS (10.1-12.7)
[2018-08-06] MEDS: SODIUM CHLORIDE 0.9% FLUSH 10 ML IV ×2 (10:12→21:21)
--- NOTE | 2018-08-06 10:15 | PC.NURSE ---
Patient up in chair, refused all morning medications at this time. States stomach is feeling better but does not want to eat, drinking water only at this time. Completed education on IS use per order, patient not willing to attempt at this time, stating I just want to sleep. 92% on room air, encouraged to deep breath while awake. Denies pain at rest. Call light within reach.
--- NOTE | 2018-08-06 10:46 | PT.IPTN ---
Current Diagnoses Multiple fractures of ribs, right side, initial encounter for closed fracture (08/04/18) Physical Therapy Treatment Note M2 PT-IP Current Condition Start: 08/05/18 10:20 Freq: NEEDED Status: Active Protocol: Document 08/06/18 10:43 [facility] (Rec: 08/06/18 10:45 DL [id number]) Physical Therapy Current Condition Current Condition Evaluation Date 08/05/17 Treatment Diagnosis fx ribs 6-10 & fx transverse process L1-2 Onset Date 08/04/18 Precautions Lumbar Precautions Log Roll No Twisting Lifting Restriction of 10 lbs Other Precautions fall precautions, bed/chair alarm M3 PT-IP Subjective Start: 08/05/18 10:20 Freq: NEEDED Status: Active Protocol: Document 08/06/18 10:43 [facility] (Rec: 08/06/18 10:45 [facility] [id number]) Subjective Physical Therapy Visit Type Type Patient Refusal Notes Pt very sleepy at this time and refused to participate in therapy.
--- NOTE | 2018-08-06 11:38 | PC.NURSE ---
Notified by AUTO CARRIER DRIVER of low blood pressure, 83/53, while patient has been sitting up in chair. Patient denies lightheadedness or dizziness, just states he is very tired. patient assisted back to bed with 2 assist and walker. Blood pressure recheck once laying in bed 86/42 with HR of 80. Call placed to MD. Will continue to monitor.
--- NOTE | 2018-08-06 11:40 | OT.IP.TRT ---
Current Diagnoses Multiple fractures of ribs, right side, initial encounter for closed fracture (08/04/18) Occupational Therapy Treatment Note M2 OT-IP Current Condition Start: 08/05/18 12:19 Freq: Status: Active Protocol: Document 08/05/18 12:19 [facility] (Rec: 08/05/18 12:40 [facility] [id number]) Occupational Therapy Current Condition Current Condition Evaluation Date 08/05/18 Treatment Diagnosis Fractures ribs and traverse process of L1-L2 Diagnosis Onset Date 08/04/18 Post Operative Precautions Lumbar Precautions Log Roll No Twisting Lifting Restriction of 10 lbs Other Precautions fall precautions, bed/chair alarm M3 OT- IP Subjective and Pain Start: 08/05/18 12:19 Freq: Status: Active Protocol: Document 08/06/18 11:40 [facility] (Rec: 08/06/18 16:54 [facility] [id number]) OT- Subjective Occupational Therapy Visit Type Type Administrative Note Visit Start Time 11:40 Notes Attempted to see pt for tx, but RN requests hold at this time due to hypotension with BP 83/36 in bed. Will attempt again as medical status permits. No charge. M
--- NOTE | 2018-08-06 12:06 | CM.DPNOTE ---
Addendum entered by Dior Ross 08/06/18 15:00: DCP: Received return phone call from [facility] and they can accept. THOMASRR faxed. CABIN WORKER placed call to KELLEE/Miranda and provided her with update. P: [facility] when medically stable. Daughter/KELLEE Jean would like phone call on day of discharge # [phone]. Original Note: DCP/continued: Reviewed chart. Spoke with Ashley at [facility] she reports that they are unable to accept this patient when medically stable because of unpaid charges still owed. Ashley reports approximately ($14,000.00). CABIN WORKER met with patient briefly patient with low BP so appears very sleepy. RN updated. Therapy unable to work with patient today. Asked MARTY/Beatriz to fax referral to [facility]. Patient shook head in agreement. Patient eligible for SNF when medically stable after 08-07-18. P: CM team to follow closely. JAMES Goldstein Discharge Planning/Care Management CM Discharge Assessment Start: 08/05/18 09:17 Freq: Status: Active Protocol: Document 08/05/18 09:20 BF (Rec: 08/05/18 09:25 BF [id number]) Discharge Planning Assessment Assigned Network Security Architect JAMES Spicer/Assigned Designee Name Rdrosa Jean Contact Information [phone] Advance Directives? Yes: POLST/ POA Advance Directives on File No History Provided By Patient Family Member Medical Record Has Patient been admitted in last 30 No days? Prior Living Arrangements House Household Members caregiver Type of transporation used prior to Relies on Others admit Comment Patient resides at home alone while spouse is at [facility] and has a caregiver who helps with housekeeping and chores Independent with ADL's No Is patient alert and oriented? Yes: Mostly, some memory issues Needs Assistance With Managing Medications Home Chores / Shopping Caregiver for Another No Patient/Family Preference Jail Facility Comment Pt has been at [facility] multiple times and preference is [facility] again Barriers to Discharge No Comment Patient in the process of selling his home with plan for moving into pre sales systems engineer care Discharge Plan Jail Facility Transportation Arrangement likely provided by SNF if pt is safe for w/c transport Referrals Initiated Jail If patient plan is SNF: Has PASSR been Yes completed? Medicare Choice List Provided Yes SNF/HH Preference FCC Contact Name/Phone Ashley Has Agency SNF been contacted Yes Whiteboard Updated in Patient Room with Yes name and ext. # of Network Security Architect Review Status In Process Please Provide Date Initial DC 08/05/18 Assessment Was Performed Next Review Type Continued Stay Review
--- NOTE | 2018-08-06 12:10 | PC.NURSE ---
Dr. Carlin given update on patient, including low blood pressure. No new orders obtained at this time, just continue to monitor. Patient resting in bed now, denies pain. Bed alarm on for safety.
--- NOTE | 2018-08-06 12:18 | CM.DPC ---
Referral faxed to [facility]
--- NOTE | 2018-08-06 15:25 | PT.IPTN ---
Current Diagnoses Multiple fractures of ribs, right side, initial encounter for closed fracture (08/04/18) Physical Therapy Treatment Note M2 PT-IP Current Condition Start: 08/05/18 10:20 Freq: NEEDED Status: Active Protocol: Document 08/06/18 10:43 DLM (Rec: 08/06/18 10:45 DLM [id number]) Physical Therapy Current Condition Current Condition Evaluation Date 04/01/18 Treatment Diagnosis fx ribs 6-10 & fx transverse process L1-2 Onset Date 08/04/18 Precautions Lumbar Precautions Log Roll No Twisting Lifting Restriction of 10 lbs Other Precautions fall precautions, bed/chair alarm M3 PT-IP Subjective Start: 08/05/18 10:20 Freq: NEEDED Status: Active Protocol: Document 08/06/18 15:24 SA (Rec: 08/06/18 15:25 SA [id number]) Subjective Physical Therapy Visit Type Type Cancellation Notes Pt very sleepy and with continued low BP at 89/43 this afternoon. Hold PT. M4 PT-IP Mobility and Gait Start: 08/05/18 10:20 Freq: NEEDED Status: Active Protocol: Document 08/05/18 11:54 LR (Rec: 08/05/18 12:10 [facility] [id number]) PT-Bed Mobility Assessment Rolling Type of Rolling Log Rolling Level of Assist Maximal Assistance 1 Person Assistance Supine to Sit Supine to Sit Moderate Assistance 2 Person Assistance Bedrails Scooting Scooting to Edge of Bed Contact Guard Assistance PT-Transfer Assessment Sit to and From Stand Sit to and from Stand Moderate Assistance 2 Person Assistance Equipment Transfer Assistive Device Gait Belt Front Wheeled Walker Orthotic/Prosthetic Devices or Brace: No Transfers Transfer Destination Chair Transfer Technique Stand Step Pivot Transfer Ability Level of Assist Moderate Assistance 2 Person Assistance Comments Mobility Comments Pt able to transfer with mod A x2 with FWW with cueing for breathing during transfer & log roll Gait Assessment Comments Gait Comments unable d/t pain PT-Balance Assessment Sitting Balance and Reactions Static Sitting Balance Ability Good Dynamic Sitting Balance Ability Fair Standing Balance and Reactions Static Standing Balance Ability Poor Dynamic Standing Balance Ability Poor M5 PT-IP Objective Assessments Start: 08/05/18 10:20 Freq: NEEDED Status: Active Protocol: Document 08/05/18 11:54 LR (Rec: 08/05/18 12:10 [facility] [id number]) Orientation Orientation/Cognition Level of Alertness Alert Strength Lower Extremity Strength Assessment Bilaterally Impaired M6 PT-IP Treatment Start: 08/05/18 10:20 Freq: NEEDED Status: Active Protocol: Document 08/05/18 11:54 [facility] (Rec: 08/05/18 12:10 [facility] [id number]) Physical Therapy Treatment Education Education Provided Safety M7 PT-IP Assessment and Plan Start: 08/05/18 10:20 Freq: NEEDED Status: Active Protocol: Document 08/05/18 11:54 [facility] (Rec: 08/05/18 12:10 [facility] [id number]) PT Summary Assessment and Plan Potential Rehabilitation Potential Good Status of Condition at Evaluation Evolving Summary Impairments Pain ROM Strength Balance Bed Mobility Transfers Gait Activity Tolerance Assessment Summary Pt presents with L1 & L2 transverse process and ribs 6- 10 fractures. He has dec mobility d/t pain and weakness and is limited to transfering today d/t pain. He is likely to continue to improve, but will require rehab in order to return to prior level of function. He will likely need assistance at d/c d/t pain limiting his mobility and ability to participate in ADLs . Goals Bed Mobility Goal Minimal Assistance Transfer Goal Minimal Assistance Gait Goal Minimal Assistance Gait Distance 20 Days to Meet Goals 4 Frequency of Treatment Frequency Of Treatment Once a Day Treatment Plan Physical Therapy Treatment Plan Bed Mobility Training Transfer Training Gait Training Therapeutic Exercise Balance Retraining Discharge Planning Neuromuscular Re-ed Other Recommendations and Next Treatment MD note said possible brace Focus for comfort-follow up if brace may be needed/beneficial(may be too painful d/t rib fractures), Advance bed mobility & log roll training, transfers and possibly gait if pt appropriate Recommendations To Nursing Amount of Assist Needed 2 Person Assist Discharge Recommendations PT Discharge Recommendations SNF Rehab
[2018-08-06] MEDS: MAGNESIUM OXIDE 400 MG TABLET PO (15:45)
[2018-08-06] MEDS: SODIUM CHLORIDE 0.9% 1,000 ML 100 ML IV (23:45)
[2018-08-07] VITALS (13 sets, daily range): BP systolic 93–103; BP diastolic 44–51; PULSE 80–87; RESP 16–22; TEMP 36.1–36.7; O2SAT 90–100
--- NOTE | 2018-08-07 | DI.CT.S_ITS ---
PROCEDURE: CT ABDOMEN PELVIS WO CON INDICATIONS: ?sbo TECHNIQUE: After the administration of oral contrast, 5 mm thick sections acquired from the diaphragms to the symphysis. 5 mm coronal and sagittal reformats were performed. For radiation dose reduction, the following was used: automated exposure control, adjustment of mA and/or kV according to patient size. COMPARISON: [facility], CT, CT CHEST ABD PEL W CON, 08/04/2018, 10:46. [facility], CT, ABDOMEN/PELVIS WITH CONTRAST, 03/01/2009, 9:07. [facility], CT, CHEST ABDOMEN WITH CONTRAST, 01/16/2012, 10:11. FINDINGS: Image quality: Breathing motion artifact limits evaluation. ABDOMEN: Lung bases: There are small bilateral low density pleural effusions, slightly larger on the right than the left. Consolidation or compressive atelectasis is present at the bilateral lung bases. The heart is mildly enlarged. No pericardial effusion. Solid organs: Liver is normal in size. A low density cystic lesion is present within the left hepatic lobe which is incompletely characterized in the absence of contrast. There is a small amount of free perihepatic fluid. Gallbladder is surgically absent. Pancreas is normal in size. Spleen is normal in size. There is a small amount of free perisplenic fluid. No adrenal nodules. Both kidneys are atrophic without hydronephrosis or nephrolithiasis. Low-density cystic lesions are present within the bilateral kidneys suggesting simple renal cysts which are incompletely characterized. Peritoneum and bowel: Bowel loops demonstrate normal wall thickness and caliber. The appendix is not definitely visualized; however surgical clips are present in the region of the cecum in the lower quadrant suggesting prior appendectomy. There are scattered sigmoid diverticula. No evidence for diverticulitis. There is a small amount of low-density fluid within the pelvis. Nodes and vessels: No retroperitoneal or mesenteric adenopathy by size criteria. Aorta and inferior vena cava are normal in size. There are scattered atheromatous calcifications throughout the aorta and iliac arteries bilaterally. Miscellaneous: No ventral hernias. PELVIS: Genitourinary: Bladder wall thickness is normal. Miscellaneous: No inguinal adenopathy. There is a small fluid containing right inguinal hernia. Bones: No suspicious bony lesions. Sclerotic bone island is redemonstrated within the posterior left iliac bone. Multiple posterior right rib fractures are redemonstrated, unchanged from the study dated 08/04/18. No vertebral body compression fractures. IMPRESSION: 1. No bowel dilatation to suggest obstruction or ileus. 2. Diverticulosis. No acute diverticulitis. 3. Low-density bilateral pleural effusions and consolidation or atelectasis at the bilateral lung bases. These findings have increased in extent when compared with the prior study dated 08/04/18. 4. Trace ascites and perihepatic and perisplenic free fluid. Dictated by: Ivette Talavera M.D. on 08/07/2018 at 10:30 Approved by: Ivette Talavera M.D. on 08/07/2018 at 10:49
--- NOTE | 2018-08-07 05:17 | PC.NURSE ---
Pharmaceutical Specialty Representative Note: 2330: Dr. Gilmore notified by pm nurse of current blood pressure and pt having nausea/vomiting. Orders entered to start NS at 100cc/hr, Reglan IV prn, O2, and RT evaluate and treat. Pt placed on O2 2L/NC due to O2 sat of 90%. 0230: RT at bedside to assess pt. 0345: Awake, asking for assistance to sit up in recliner chair. Pt had some difficulty walking.
[2018-08-07 08:59] LABS: Add Manual Diff / Slide Review NO; Basophils Percent Auto 0.8 % (0-2); Eosinophils Percent Auto 0.1 % (2-4); Hematocrit 26.8 % (41-53); Hemoglobin 8.3 g/dL (13.5-17.5); Mean Corpuscular HGB Conc 30.9 % (30-36); Mean Corpuscular Hemoglobin 23.2 PG (26-34); Monocytes Percent Auto 10.3 % (3-14); Neutrophils Absolute Auto 5600 /uL (1500-7000); Neutrophils Percent Auto 71.8 % (50-75); Platelet Count 79 X10^3/uL (150-400); Red Blood Cell Count 3.58 X10^6/uL (4.5-5.9); Red Cell Distribution Width 18.2 % (11.6-14.8); White Blood Cell Count 7.7 X10^3/uL (4.5-11.0)
[2018-08-07 09:11] LABS: Alanine Aminotransferase 27 IU/L (21-72); Albumin 3.5 g/dL (3.5-5.0); Albumin Globulin Ratio 1.3 (1.0-2.8); Alkaline Phosphatase 93 U/L (38-126); Amylase 45 U/L (30-110); Aspartate Aminotransferase 27 IU/L (17-59); BUN Creatinine Ratio 16.3 (6-22); Bilirubin Total 1.4 mg/dL (0.2-1.3); Blood Urea Nitrogen 62 mg/dL (9-20); Calcium 8.2 mg/dL (8.4-10.2); Carbon Dioxide 14 mmol/L (22-32); Chloride 98 mmol/L (98-107); Estimated Glomerular Filt Rate 15.4 mL/min (>60); Globulin 2.8 g/dL (1.7-4.1); Glucose 137 mg/dL (80-110); HEMOLYSIS < 15 (0-50); Lipase 136 U/L (23-300); Sodium 133 mmol/L (137-145); Total Protein 6.3 g/dL (6.3-8.2)
--- NOTE | 2018-08-07 09:30 | PM.PN.1 ---
Subjective Date Patient Seen: 08/07/18 Time Patient Seen: 09:30 Interval history: Patient is tolerating the pain medications. Primary pain are his ribs particularly Main complaint now is nausea and vomiting his been vomiting several times. He denies any abdominal pain he is passing gas he has normal urination. Para vomiting has persisted despite antiemetics. Exam Vital Signs (past 8 hours): - 08/07/18 01:56 08/07/18 05:00 08/07/18 07:15 Temperature 97.6 F 97.5 F L Pulse Rate 80 81 Respiratory Rate 20 16 18 Blood Pressure 96/44 L 93/47 L Pulse Oximetry 96 95 100 08/07/18 08:28 Temperature Pulse Rate Respiratory Rate Blood Pressure Pulse Oximetry 98 Oxygen Delivery Method Nasal Cannula Oxygen Flow Rate 2 Narrative Exam Narrative: Patient is examined in his hospital bed he looks uncomfortable resting quietly. Lungs are clear heart regular rhythm abdominal exam finds very rare bowel sounds he has generalized discomfort no masses no rebound no guarding Objective Labs Result Diagrams: 08/07/18 08:50 08/07/18 08:50 Labs: Laboratory Results - last 24 hr 08/06/18 08/07/18 08/07/18 09:13 08:50 08:50 WBC 7.7 RBC 3.58 L Hgb 8.3 L Hct 26.8 L MCV 75.0 L MCH 23.2 L MCHC 30.9 RDW 18.2 H Plt Count 79 L Neut % (Auto) 71.8 Lymph % (Auto) 17.0 L [place] % (Auto) 10.3 Eos % (Auto) 0.1 L Baso % (Auto) 0.8 Neut # (Auto) 5600 PT 21.4 H D INR 1.8 H Sodium 133 L Potassium 5.0 Chloride 98 Carbon Dioxide 14 L BUN 62 H Creatinine 3.80 H Estimated GFR 15.4 L BUN/Creatinine Ratio 16.3 Glucose 137 H Calcium 8.2 L Total Bilirubin 1.4 H AST 27 ALT 27 Alkaline Phosphatase 93 Total Protein 6.3 Albumin 3.5 Globulin 2.8 Albumin/Globulin Ratio 1.3 Amylase 45 Lipase 136 labs noted as above. Hemoglobin has decreased BUN creatinine have increased Assessment & Plan Plan: Assessment/Plan Narrative: Patient having fair amount of vomiting. He is also hemoglobin has dropped somewhat. His acute kidney injury on top of chronic kidney injury has progressed presumably from dehydration. Lab studies ordered Abdominal CT ordered Will place him NPO for the time being Quality VTE Deep Vein Thrombosis/Pulmonary Embolism Present on Admission: No
--- NOTE | 2018-08-07 09:52 | PC.NURSE ---
Addendum entered by Ni Yang R.N. 08/07/18 14:26: Pt continues to be lethargic but he will wake up and answer questions appropriately. He only had a urine output of 135cc and bladder scanned for 320cc. Weber placed and pt has about 275cc in weber bag. He denies pain but when rolled onto his r.side he does wince. A 250cc bolus of NS infused earlier and he now has ivf infusing at 200cc/hr. Pts bp is low and pt is a bit dehydrated. Asked several times if he still wanted us to infuse the saline at 200cc/hr and he states yes. Pt is now on iv antibiotics and is tolerating clear liquids. He did have an episode of coughing up some brownish colored thick phlegm. Pt had a chest xray and the results are unchanged from previous xray per Dr. Gilmore. Original Note: Pt is A&Ox3, he denies pain. He has some bruising up his r.hip from falling down, and a few abrasions and skin tear to his r.arm towards elbow. He wears a compression dressing and link hose on his l.leg. Pt has been going to the wound clinic for a wound on his l.leg/cheema area. Dressing has not been removed yet. Pt sleeping and nauseous. PO medication has not been given to patient as he is npo. Lasix changed to IV as pts lower extremities both have 4+edema, that is shiny and pitting. He is down to CT at this time. Pts abdomen is distended, bt are hypoactive x4.
--- NOTE | 2018-08-07 10:01 | PT.IPTN ---
Current Diagnoses Multiple fractures of ribs, right side, initial encounter for closed fracture (08/04/18) Physical Therapy Treatment Note M3 PT-IP Subjective Start: 08/05/18 10:20 Freq: NEEDED Status: Active Protocol: Document 08/07/18 10:00 [facility] (Rec: 08/07/18 10:01 [facility] [id number]) Subjective Physical Therapy Visit Type Type Patient Unavailable Notes Pt at CT scan at time of PT checking on pt. Check on pt later today.
[2018-08-07] MEDS: FUROSEMIDE 40 MG/4 ML VIAL IV (10:20)
[2018-08-07] MEDS: SODIUM CHLORIDE 0.9% 1,000 ML 100 ML IV (12:18)
--- NOTE | 2018-08-07 12:29 | CM.DPC ---
Addendum entered by JAMES Mahoney 08/07/18 15:29: SW of the day said patient is active with [facility] and his assigned SW is Ellaradha Simsr? Her number is [phone] and [phone] but she was not in the office today. GENERAL FARMWORKER called and left voicemail. SW of the day was unable to tell me what services patient was currently receiving. Original Note: DCP/cont Phone call from [facility]/Bunny: While they are able to accept patient clinically, patient does not have any Medicare SNF days and does not have 60 days in between episodes to start another benefit. Bunny is also concerned about the large debt patient owes [facility] and patient's possible long-term needs. [facility] is also not contracted with patient's secondary insurance [employer]. Called [employer]: patient is eligible for SNF coverage with a cost share benefit of up to $250/day depending on in/out network. During summer 2017 noticed [facility]/[place]/Jennifer was investigating patient for possible self neglect. GENERAL FARMWORKER called [phone] to determine if patient has an open investigation or possible correctional case records supervisor. Left voicemail from SW of the day to return call. Patient is pending abdominal CT and is currently NPO. Plan: continue to follow as patient's lack of insurance coverage will be a large barrier to discharge plans.
--- NOTE | 2018-08-07 12:51 | DI.RAD.S_ITS ---
PROCEDURE: XR CHEST 1V INDICATIONS: fluid retention brown sputum TECHNIQUE: One view of the chest was acquired. COMPARISON: [facility], CR, XR CHEST 1V, 08/05/2018, 8:51. [facility], CR, XR CHEST 1V, 05/17/2018, 14:24. FINDINGS: Surgical changes and devices: Stable over time. Lungs and pleura: No pleural effusions or pneumothorax. Lungs are clear. Mediastinum: Mediastinal contours appear normal. Heart size is normal. Bones and chest wall: No suspicious bony lesions. Overlying soft tissues appear unremarkable. IMPRESSION: Pacemaking device and dual chamber leads stable over time, reduced inspiratory volume but stable in appearance with reference to the most recent prior chest plain films. Mild lung base atelectasis. No pneumonia found. Dictated by: Zachariah Mcfarland M.D. on 08/07/2018 at 14:16 Approved by: Zachariah Mcfarland M.D. on 08/07/2018 at 14:17
[2018-08-07] MEDS: SODIUM CHLORIDE 0.9% 250 ML IV (13:00)
[2018-08-07] MEDS: CEFTRIAXONE 1 GM/50 ML FROZ.PIGGY IV (14:43)
[2018-08-07] MEDS: AZITHROMYCIN 250 MG TABLET PO (14:43)
[2018-08-07] MEDS: SODIUM CHLORIDE 0.9% 1,000 ML 200 ML IV ×2 (14:43→18:55)
--- NOTE | 2018-08-07 14:46 | OT.IP.TRT ---
Current Diagnoses Multiple fractures of ribs, right side, initial encounter for closed fracture (08/04/18) Occupational Therapy Treatment Note M2 OT-IP Current Condition Start: 08/05/18 12:19 Freq: Status: Active Protocol: Document 08/05/18 12:19 [facility] (Rec: 08/05/18 12:40 [facility] [id number]) Occupational Therapy Current Condition Current Condition Evaluation Date 08/05/18 Treatment Diagnosis Fractures ribs and traverse process of L1-L2 Diagnosis Onset Date 08/04/18 Post Operative Precautions Lumbar Precautions Log Roll No Twisting Lifting Restriction of 10 lbs Other Precautions fall precautions, bed/chair alarm M3 OT- IP Subjective and Pain Start: 08/05/18 12:19 Freq: Status: Active Protocol: Document 08/07/18 14:45 [facility] (Rec: 08/07/18 14:46 [facility] [id number]) OT- Subjective Occupational Therapy Visit Type Type Administrative Note Notes Per nursing hold from OT services today due to pt too groogy, therefore attempt to see pt for OT tomorrow.
[2018-08-07 15:18] LABS: Add Manual Diff / Slide Review NO; Basophils Percent Auto 0.6 % (0-2); Eosinophils Percent Auto 0.5 % (2-4); Hemoglobin 8.1 g/dL (13.5-17.5); Lymphocytes Percent Auto 16.3 % (25-40); Mean Corpuscular Hemoglobin 23.2 PG (26-34); Mean Corpuscular Volume 75.1 fL (80-100); Monocytes Percent Auto 12.7 % (3-14); Neutrophils Absolute Auto 5400 /uL (1500-7000); Neutrophils Percent Auto 69.9 % (50-75); Platelet Count 79 X10^3/uL (150-400); Red Blood Cell Count 3.47 X10^6/uL (4.5-5.9); White Blood Cell Count 7.8 X10^3/uL (4.5-11.0)
--- NOTE | 2018-08-07 15:30 | PT.IPTN ---
Current Diagnoses Multiple fractures of ribs, right side, initial encounter for closed fracture (08/04/18) Physical Therapy Treatment Note M2 PT-IP Current Condition Start: 08/05/18 10:20 Freq: NEEDED Status: Active Protocol: Document 08/06/18 10:43 D[facility] (Rec: 08/06/18 10:45 DLM [id number]) Physical Therapy Current Condition Current Condition Evaluation Date 04/01/18 Treatment Diagnosis fx ribs 6-10 & fx transverse process L1-2 Onset Date 08/04/18 Precautions Lumbar Precautions Log Roll No Twisting Lifting Restriction of 10 lbs Other Precautions fall precautions, bed/chair alarm M3 PT-IP Subjective Start: 08/05/18 10:20 Freq: NEEDED Status: Active Protocol: Document 08/07/18 15:26 SA (Rec: 08/07/18 15:30 SA [id number]) Subjective Physical Therapy Visit Type Type Patient Unavailable Notes Pt with continued grogginess and low BP. Nursing hold. BP 89/50, HR 82 and 02 sats 97 % M4 PT-IP Mobility and Gait Start: 08/05/18 10:20 Freq: NEEDED Status: Active Protocol: Document 08/05/18 11:54 LR (Rec: 08/05/18 12:10 [facility] [id number]) PT-Bed Mobility Assessment Rolling Type of Rolling Log Rolling Level of Assist Maximal Assistance 1 Person Assistance Supine to Sit Supine to Sit Moderate Assistance 2 Person Assistance Bedrails Scooting Scooting to Edge of Bed Contact Guard Assistance PT-Transfer Assessment Sit to and From Stand Sit to and from Stand Moderate Assistance 2 Person Assistance Equipment Transfer Assistive Device Gait Belt Front Wheeled Walker Orthotic/Prosthetic Devices or Brace: No Transfers Transfer Destination Chair Transfer Technique Stand Step Pivot Transfer Ability Level of Assist Moderate Assistance 2 Person Assistance Comments Mobility Comments Pt able to transfer with mod A x2 with FWW with cueing for breathing during transfer & log roll Gait Assessment Comments Gait Comments unable d/t pain PT-Balance Assessment Sitting Balance and Reactions Static Sitting Balance Ability Good Dynamic Sitting Balance Ability Fair Standing Balance and Reactions Static Standing Balance Ability Poor Dynamic Standing Balance Ability Poor M5 PT-IP Objective Assessments Start: 08/05/18 10:20 Freq: NEEDED Status: Active Protocol: Document 08/05/18 11:54 LR (Rec: 08/05/18 12:10 [facility] [id number]) Orientation Orientation/Cognition Level of Alertness Alert Strength Lower Extremity Strength Assessment Bilaterally Impaired M6 PT-IP Treatment Start: 08/05/18 10:20 Freq: NEEDED Status: Active Protocol: Document 08/05/18 11:54 [facility] (Rec: 08/05/18 12:10 [facility] [id number]) Physical Therapy Treatment Education Education Provided Safety M7 PT-IP Assessment and Plan Start: 08/05/18 10:20 Freq: NEEDED Status: Active Protocol: Document 08/05/18 11:54 [facility] (Rec: 08/05/18 12:10 [facility] [id number]) PT Summary Assessment and Plan Potential Rehabilitation Potential Good Status of Condition at Evaluation Evolving Summary Impairments Pain ROM Strength Balance Bed Mobility Transfers Gait Activity Tolerance Assessment Summary Pt presents with L1 & L2 transverse process and ribs 6- 10 fractures. He has dec mobility d/t pain and weakness and is limited to transfering today d/t pain. He is likely to continue to improve, but will require rehab in order to return to prior level of function. He will likely need assistance at d/c d/t pain limiting his mobility and ability to participate in ADLs . Goals Bed Mobility Goal Minimal Assistance Transfer Goal Minimal Assistance Gait Goal Minimal Assistance Gait Distance 20 Days to Meet Goals 4 Frequency of Treatment Frequency Of Treatment Once a Day Treatment Plan Physical Therapy Treatment Plan Bed Mobility Training Transfer Training Gait Training Therapeutic Exercise Balance Retraining Discharge Planning Neuromuscular Re-ed Other Recommendations and Next Treatment MD note said possible brace Focus for comfort-follow up if brace may be needed/beneficial(may be too painful d/t rib fractures), Advance bed mobility & log roll training, transfers and possibly gait if pt appropriate Recommendations To Nursing Amount of Assist Needed 2 Person Assist Discharge Recommendations PT Discharge Recommendations SNF Rehab
[2018-08-07 15:39] LABS: BUN Creatinine Ratio 17.4 (6-22); Blood Urea Nitrogen 68 mg/dL (9-20); Calcium 7.9 mg/dL (8.4-10.2); Carbon Dioxide 16 mmol/L (22-32); Chloride 97 mmol/L (98-107); Creatine Kinase 50 U/L (55-170); Glucose 140 mg/dL (80-110); HEMOLYSIS < 15 (0-50); Sodium 131 mmol/L (137-145)
--- NOTE | 2018-08-07 17:32 | PC.NURSE ---
Addendum entered by Yary Arellano R.N. 08/07/18 21:35: Pt sleeping soundly at intervals through evening. HS CBG = 135, no S/S ordered. IV continues as per orders w/o incidence. Ring cath patent clear urine. Condition remains essentially unchanged. Call light w/in reach, bed alarm on for pt safety. Continue w/plan of care. Original Note: Pt resting quietly, SpO2 93% on 2L. Lungs w/fine crackles throughout. 4+ ankle/feet edema. AC CBG = 158, no S/S Ring cath patent clear urine, Call light w/in reach, bed alarm on for pt safety.
[2018-08-07 19:13] LABS: Troponin I 0.056 ng/mL (0.01-0.034)
--- NOTE | 2018-08-07 23:29 | DI.RAD.S_ITS ---
PROCEDURE: XR CHEST 1V INDICATIONS: fluid overload, history of renal failure TECHNIQUE: One view of the chest was acquired. COMPARISON: [facility], CR, XR CHEST 1V, 08/07/2018, 13:15. FINDINGS: Surgical changes and devices: Cardiac pacer is stable. Lungs and pleura: No pneumothorax. Trace bilateral pleural fluid collection. There is increasing cephalization of pulmonary vasculature and perihilar indistinctness compatible with a fluid overload. Mediastinum: Mediastinal contours appear normal. Heart size is normal. Bones and chest wall: No suspicious bony lesions. Overlying soft tissues appear unremarkable. IMPRESSION: 1. Worsening pulmonary edema. 2. Trace bilateral pleural effusions. Dictated by: Roya Diaz MD, PhD on 08/08/2018 at 7:24 Approved by: Roya Diaz MD, PhD on 08/08/2018 at 7:26
--- NOTE | 2018-08-07 23:47 | PC.NURSE ---
Very restless & confused, SPO2 87-88% in RA. 2 liters applied & SPO2 95-97%. 3-11 RN. notified MD. noted orders to stop IVF & SL, labs. ordered BMP & BNP & CXR. Lung sounds coarse rhonchi throughout lung costa & RR 22. Repositioned up higher in bed & turned to his Rt. side, will cont. POC & monitor.
[2018-08-08] VITALS (8 sets, daily range): BP systolic 102–109; BP diastolic 48–59; PULSE 80; RESP 22–25; TEMP 36.4–36.5; O2SAT 89–97
[2018-08-08 00:21] LABS: BUN Creatinine Ratio 17.1 (6-22); Blood Urea Nitrogen 77 mg/dL (9-20); Calcium 7.9 mg/dL (8.4-10.2); Carbon Dioxide 17 mmol/L (22-32); Chloride 99 mmol/L (98-107); Estimated Glomerular Filt Rate 12.7 mL/min (>60); Glucose 152 mg/dL (80-110); HEMOLYSIS < 15 (0-50); Potassium 5.3 mmol/L (3.4-5.1); Sodium 134 mmol/L (137-145)
[2018-08-08 00:48] LABS: B Type Natriuretic Peptide 264 (<100)
[2018-08-08] MEDS: SODIUM CHLORIDE 0.9% FLUSH 10 ML IV ×2 (04:18)
--- NOTE | 2018-08-08 04:32 | PC.NURSE ---
Dr. Gonzales called back reported lab. results & UOP only 10-15 cc. Tried to drained more from the tubing & checking for air lock. Noted 20 cc more was draining, pt. denies any dyspnea, but noted still coughing NPC. Still having coarse lung sounds, Dr. Gonzales also ordered Oxygen to keep sat. greater than 88%, 2 liters SPO2 93%. SCD's also ordered, pt. denies any pain @ rest, will cont. POC & monitor.
[2018-08-08] MEDS: SODIUM CHLORIDE 0.9% 1,000 ML 200 ML IV (04:52)
[2018-08-08] MEDS: AZITHROMYCIN 250 MG TABLET PO (10:39)
--- NOTE | 2018-08-08 12:00 | PT.IPTN ---
Current Diagnoses Multiple fractures of ribs, right side, initial encounter for closed fracture (08/04/18) Physical Therapy Treatment Note M2 PT-IP Current Condition Start: 08/05/18 10:20 Freq: NEEDED Status: Active Protocol: Document 08/06/18 10:43 DLM (Rec: 08/06/18 10:45 DLM [id number]) Physical Therapy Current Condition Current Condition Evaluation Date 04/01/18 Treatment Diagnosis fx ribs 6-10 & fx transverse process L1-2 Onset Date 08/04/18 Precautions Lumbar Precautions Log Roll No Twisting Lifting Restriction of 10 lbs Other Precautions fall precautions, bed/chair alarm M3 PT-IP Subjective Start: 08/05/18 10:20 Freq: NEEDED Status: Active Protocol: Document 08/08/18 11:59 AB (Rec: 08/08/18 12:00 AB [id number]) Subjective Physical Therapy Visit Type Notes per nurse: pt on hold for PT as pt is not medically stable at this time. stated that they plan to transfer pt to another hospital. will f/u
--- NOTE | 2018-08-08 12:48 | P.DS_ITS ---
History of Present Illness Chief complaint: Fall yesterday Narrative: Patient seen and evaluated. Patient is somewhat of a poor historian. Patient states he yesterday went to [employer] to get some food for the family. As he got home he was walking up the stairs into his house. He normally puts things on the stairs and then hold the hand rail as he goes up the stairs. In this case he did not he had 1 bag in 1 hand and another bag any other. He got the 2nd step and fell. Patient fell back onto asphalt ground. Sustaining injuries to his right side right shoulder right decide right lower back. He says he did not lose consciousness. And is not aware of hitting his head. Patient then laid there for short duration of time until his and grandson came out and found him he was able to get up the stairs in into the house. He said he was sore on the right side. He was able to get into bed where he then stayed in took some pain medication. Due to the rough night in the difficulty with pain the following morning he decided to call 911 because he was not able to get up and move and was brought here to the emergency department. His complaints today are shoulder pain and side pain. Says her 7/10 on the pain scale. Pain radiates towards his back. He is not having any hip pain knee pain. He is not having any headache blurry vision. Patient had did not pass out. He is not having chest pain or shortness of breath. Patient was recently in the [facility] and was released approximately 1 month ago. He is from a year with that process. He says he has a host of chronic medical problems. Discharge Providers Date of admission: 08/04/18 14:18 Primary care physician: Hernesto Campbell MD Consults: 08/08/18 10:53 Consult to Speech Therapy Evaluate & Treat Comment: Physician Instructions: Evaluate and treat 08/04/18 16:51 Consult to Occupational Therapy Evaluate & Treat Comment: Physician Instructions: Evaluate and treat Consult to Physical Therapy Evaluate & Treat Comment: Physician Instructions: Evaluate and Treat 08/04/18 16:52 Consult to Discharge Planning Routine Comment: 08/04/18 16:54 Consult to Dietitian, Adult Routine Comment: Reason For Exam: at high risk Consult to Certified Physician'S Assistant Routine Comment: sports nutritionist at home, grandson. has been at [facility] Discharge provider: Eliazar Carlin MD Discharge Date: 08/08/18 Summary Discharge Diagnosis: Fall sustaining multiple rib fractures on the right 6th through 10th rib and L1-L2 vertebral body fracture stable Anticoagulation due to atrial fibrillation atrial flutter and history of pulmonary emboli anticoagulation was reversed Acute blood loss anemia with chronic anemia due to fall. No transfusion required Acute kidney injury with chronic renal failure stage 3 Elevated BNP significant edema and pleural effusions consistent with congestive heart failure. Normal ejection fraction. Previous echo 2017 Pacemaker implantation history of Metabolic encephalopathy due to underlying renal failure Patient will be transferred to a higher level of care due to his worsening decline in renal function and respiratory distress due to presumed heart failure and kidney failure. Hospital Course: Patient was admitted after a fall. Where he fractured multiple ribs on the right as well as L1-L2 lumbar spine fracture. He was admitted for further evaluation and monitoring this. Orthopedic surgery states the lumbar spine fractures were stable and could participate in all activities. Rib fractures showed no hemo thorax there was bruising as the patient was on anticoagulation at the time of the fall. And he had a subsequent drop of his hemoglobin and hematocrit but it stabilized at 8 half. He was treated with pain medication initially IV and then orally for comfort. He was doing well with oral pain medication at the time of discharge. Patient has atrial fibrillation atrial flutter history of pulmonary emboli patient was on anticoagulation at the time of fall. On initial arrival to the hospital he had no acute bleeding hemoglobin hematocrit was stable. His INR was reversed with oral and IV vitamin K he was not given any blood products. His INR returned to normal and his hemoglobin hematocrit has stabilized during his hospital stay he had no rapid atrial fibrillation. He also has a pacemaker in place. His heart rate remained stable. During the hospital stay patient became nauseated and had some vomiting episodes. Afterwards he became short of breath. Head re-evaluation with chest x-ray and a CT scan to rule out possible aspiration pneumonia. His respiratory status stabilized on 2 L of oxygen. He was initially placed on antibiotics for possible aspiration pneumonia. Cannot disc glued this. But not take entirely sure that his respiratory status was compromised due to aspiration as it does not look like that clinically or on his CT scan. Congestive heart failure. Patient's last echocardiogram has ejection fraction of 60-65% with right-sided heart failure. Patient has pleural effusion on chest x-ray. BNP is not significantly elevated although in the past has been 6- 800. Patient has chronic venous stasis and significant venous changes. He looks fluid overloaded. He was placed on his initial diuretic regiment why he was here in the hospital but then has gradual increasing of his BUN and creatinine from baseline up to 4. He was then started on IV fluids by the on- call physician because of concerns rub urinary output and low blood pressure. He is currently on IV fluids. Anemia previous history of anemia of chronic disease with acute blood loss anemia due to the hematoma from the rib for all his current hemoglobin hematocrit is stable. Lower extremity chronic venous stasis. With significant edema and wound on left heel. Hypertension blood pressure is moderately low his blood pressures medication are being held. Hyperlipidemia he is normally on a statin this was provided while he was in the hospital Depression. Patient was placed back on his regular antidepressant medication Exam Vital Signs (past 8 hours): - 08/08/18 07:38 08/08/18 09:16 08/08/18 09:17 Temperature 97.5 F L Pulse Rate 80 Respiratory Rate 22 Blood Pressure 104/53 L Pulse Oximetry 96 89 L 94 08/08/18 10:13 08/08/18 11:05 Temperature 97.5 F L Pulse Rate 80 Respiratory Rate 24 Blood Pressure 109/59 L Pulse Oximetry 96 95 Fraction of Inspired Oxygen 28 Oxygen Delivery Method Nasal Cannula Oxygen Flow Rate 2 Narrative Exam Narrative: Gen.: Alert no apparent distress difficult historian and quite sleepy. Has nasal cannula oxygen in place HEENT: Pupils equal round and reactive or mucosa is somewhat dry. Cardio: S1-S2 irregular rate and rhythm systolic murmur present Respiratory: Rhonchorous breath sounds with mild increased work of bracing Abdomen: Abdomen is soft mild distension. No significant tenderness or guarding Extremities: With 2+ lower extremity edema with chronic changes. Objective Labs Result Diagrams: 08/07/18 15:02 08/07/18 23:46 Labs: Laboratory Results - last 24 hr 08/07/18 08/07/18 08/07/18 15:02 15:02 18:30 WBC 7.8 RBC 3.47 L Hgb 8.1 L Hct 26.0 L MCV 75.1 L MCH 23.2 L MCHC 31.0 RDW 18.0 H Plt Count 79 L Neut % (Auto) 69.9 Lymph % (Auto) 16.3 L [place] % (Auto) 12.7 Eos % (Auto) 0.5 L Baso % (Auto) 0.6 Neut # (Auto) 5400 Sodium 131 L Potassium 5.0 Chloride 97 L Carbon Dioxide 16 L BUN 68 H Creatinine 3.90 H Estimated GFR 15.0 L BUN/Creatinine Ratio 17.4 Glucose 140 H Calcium 7.9 L Total Creatine Kinase 50 L CK-MB (CK-2) TNP CK-MB (CK-2) Rel Index TNP Troponin I 0.060 H 0.056 H B-Natriuretic Peptide 08/07/18 08/07/18 23:46 23:46 WBC RBC Hgb Hct MCV MCH MCHC RDW Plt Count Neut % (Auto) Lymph % (Auto) [place] % (Auto) Eos % (Auto) Baso % (Auto) Neut # (Auto) Sodium 134 L Potassium 5.3 H Chloride 99 Carbon Dioxide 17 L BUN 77 H Creatinine 4.50 H Estimated GFR 12.7 L BUN/Creatinine Ratio 17.1 Glucose 152 H Calcium 7.9 L Total Creatine Kinase CK-MB (CK-2) CK-MB (CK-2) Rel Index Troponin I B-Natriuretic Peptide 264 H Discharge Plan Discharge Plan Patient Disposition: [facility] Transfer to: [facility] Discharge Med Rec/Prescriptions Prescriptions: Continue potassium chloride [K-Tab] 20 MEQ tablet extended release 40 meq PO BID Qty: 810 RF: 0 metoprolol tartrate 25 MG tablet 12.5 mg PO BID Qty: 0 RF: 0 folic acid 0.4 MG tablet 0.4 mg PO DAILY Qty: 0 RF: 0 nitroglycerin [Nitrostat] 0.4 MG tablet, sublingual 0.4 mg Sublingual PRN PRN (Reason: Chest Pain) Qty: 0 RF: 0 omeprazole 20 mg capsule,delayed release(DR/EC) 20 mg PO BID Qty: 60 RF: 5 furosemide 40 mg tablet 40 mg PO DAILY Qty: 30 RF: 6 metolazone 2.5 mg tablet 2.5 mg PO TUFR RF: 0 trazodone 50 mg tablet 25 mg PO BEDTIME Qty: 30 RF: 3 tramadol 50 mg tablet 50 mg PO Q6H PRN (Reason: pain) Qty: 30 RF: 0 lactulose 10 gram/15 mL solution 20 gram PO DAILY PRN (Reason: constipation) Qty: 480 RF: 0 melatonin 3 mg tablet 3 mg PO BEDTIME PRN (Reason: sleep) Qty: 20 RF: 0 atorvastatin [Lipitor] 20 mg Tablet 20 mg PO BEDTIME Qty: 30 RF: 0 escitalopram oxalate [Lexapro] 10 mg Tablet 20 mg PO DAILY Qty: 30 RF: 0 ipratropium bromide 42 mcg (0.06 %) [place],Non-Aerosol 2 spray INTRANASAL BID Qty: 1 RF: 0 linezolid 600 mg tablet 600 mg PO Q12HR RF: 0 warfarin 2 mg tablet 2 mg PO DAILY RF: 0 calcium carbonate-vitamin D3 [Calcium 600 + D(3)] 600 mg(1,500mg) -200 unit Tablet 1 tab PO DAILY RF: 0 gabapentin 100 mg Capsule 100 mg PO BID RF: 0 Fish Oil 500 mg PO DAILY RF: 0 gabapentin 300 mg Capsule 600 mg PO BID RF: 0 multivitamin with minerals Tablet 1 tab PO DAILY RF: 0 magnesium oxide 400 mg magnesium Tablet 400 mg PO TID RF: 0 bupropion HCl [Wellbutrin SR] 150 mg tablet sustained-release 12 hr 150 mg PO BEDTIME RF: 0 Discharge Orders: Discharge (Order); Ordered 08/08/18 Ordered By: Eliazar Carlin Discharge Data Primary Care Provider: Hernesto Campbell Attending Provider: Eliazar Carlin Admit Date/Time: 08/04/18 14:18 Quality VTE Deep Vein Thrombosis/Pulmonary Embolism Present on Admission: No
--- NOTE | 2018-08-08 14:12 | ST.IPCSEOM ---
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) Essential hypertension (Chronic Medical 12/14/11) Diabetic foot ulcer (Chronic Medical) Edema (Chronic Medical) Leg wound, left (Chronic Medical) Generalized weakness (Chronic Medical) Paroxysmal atrial fibrillation (Chronic Medical) Alcohol use (Chronic Medical) Cellulitis of left lower extremity (Chronic Medical) Chronic kidney disease, stage 3 (Chronic Medical) Osteomyelitis of left foot (Chronic Medical) Skin lesion of left lower extremity (Chronic Medical) Chronic obstructive pulmonary disease (Chronic Medical 07/08/15) Chronic diastolic congestive heart failure (Chronic Medical 05/23/15) Uncontrolled type 2 diabetes mellitus with hyperglycemia, without long-term current use of insulin (Chronic Medical 08/20/17) Osteoarthritis, knee (Chronic Medical) Anemia in chronic kidney disease (Chronic Medical) Prostate cancer (Chronic Medical 04/03/11) Status post prostatectomy Bilateral shoulder pain (Chronic Medical) 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) Obstructive sleep apnea syndrome (Chronic Medical 04/03/11) Gastroesophageal reflux disease without esophagitis (Chronic Medical 04/03/11) Migraine with aura and without status migrainosus, not intractable (Chronic Medical 04/03/11) Gout (Chronic Medical 04/03/11) Dyskinesia of esophagus (Chronic Medical 12/14/11) Chronic pain of both knees (Chronic Medical 03/23/16) Chronic atrial fibrillation (Resolved Medical 02/17/15) Morbid obesity with body mass index (BMI) of 40.0 to 44.9 in adult (Resolved Medical 03/23/16) 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 Carlin Reason for Referral Coughing with intake Setting Assessment Location Acute Care Visit Type Note Type Initial Evaluation Patient Information Identification Type Name History Patient came in on 08/04 following a fall at his home during which he fractured multiple ribs on the right as well as L1-L2 lumbar spine. He became nauseated during his hospital stay and had vomiting episodes with shortness of breath. Chest x-ray showed pleural effusion. He was placed on a clear liquid diet due to nausea. Nursing staff reports he is being transferred to a higher level of care due to his worsening decline in renal function and respiratory distress due to presumed heart failure and kidney failure. Nursing requested a swallow evaluation be completed if possible prior to transfer. Subjective Observations Patient seen lying down in bed with his eye closed. He opened his eyes when I introduced myself, but his eyes were closed for the majority of the assessment and he appeared very lethargic . He responded to questions and followed directions ~60% of the time. Evaluation Liquids Trialed Ice Chips Thin Administration Type Tea Spoon Oral Phase Comments Patient's mouth noted to be dry with dried secretions on the corners of his mouth, despite nursing staff completing oral care. Oral mechanism evaluation revealed moderately reduced lingual and labial strength and range of motion. This is likely due to patient's lethargy. Also observed mild left facial droop. Pharyngeal Phase Comments Patient observed to have wet breath sounds prior to PO trials. Able to cough when asked. Not able to cough up mucous. Did not swallow on command when asked, but had prompt swallow response to tsp sip of thin. Patient consumed two teaspoon sips of thin liquids, but trials were discontinued as patient was not able remain alert enough for safe intake. Observed delayed cough following trials . Findings Rehabilitation Potential Fair Impressions Patient is not safe for oral intake at this time due to inability to remain alert during PO trials. Recommend: repeat swallow evaluation when patient's alertness improves. He may also be a good candidate for instrumental assessment when alertness improves to fully assess swallow function and rule out aspiration which is difficult to assess at bedside given his cough and wet breath sounds.
[2018-08-08] MEDS: FUROSEMIDE 40 MG/4 ML VIAL IV (14:20)
--- NOTE | 2018-08-08 14:28 | PT.IPTN ---
Current Diagnoses Multiple fractures of ribs, right side, initial encounter for closed fracture (08/04/18) Physical Therapy Treatment Note M2 PT-IP Current Condition Start: 08/05/18 10:20 Freq: NEEDED Status: Active Protocol: Document 08/06/18 10:43 DLM (Rec: 08/06/18 10:45 DLM [id number]) Physical Therapy Current Condition Current Condition Evaluation Date 04/01/18 Treatment Diagnosis fx ribs 6-10 & fx transverse process L1-2 Onset Date 08/04/18 Precautions Lumbar Precautions Log Roll No Twisting Lifting Restriction of 10 lbs Other Precautions fall precautions, bed/chair alarm M3 PT-IP Subjective Start: 08/05/18 10:20 Freq: NEEDED Status: Active Protocol: Document 08/08/18 14:28 AB (Rec: 08/08/18 14:28 AB [id number]) Subjective Physical Therapy Visit Type Notes nurse stated that pt will be transferring to [facility] today .
--- NOTE | 2018-08-08 14:35 | PC.NURSE ---
0800- Pt is lethargic and sleepy. He will wake up and talk briefly. He was more Alert yesterday. into see patient this morning. He is still on a clear liquid diet, and states to hold all meds this morning accept antibiotics. Given Azithromycin po and pt did having some coughing after drinking his water. Speech up to see patient but he was to groggy for her to do an eval. Pt did swallow his pill well. He continues to have 4+ pitting edema to his lower extremities, he wears a link hose on the r. leg and has a wound to his l cheema that he has been going to the wound clinic for. 1200- back to see patient he is being transferred to [facility] in [place]. Talked to Dr. Carlin about pts iv antibiotics and lasix. He states to hold the antibiotics and give the lasix. Lasix given about 15 minutes ago. and this Rn called pts family and left messages telling them that he will be transferred to [facility]. Family has not called back yet. Ambulance will be here around 1500 and report is going to be called on pt right now at 1440. Pt had valuables in safe. Pt to tired to count his belongings. So this is going to be sent up in the original sealed package.
--- NOTE | 2018-08-08 15:07 | PC.NURSE ---
Ambulance here now and pt is leaving on stretcher. IV remained in and pt is on tele for the ride up. 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 All belonging's sent with patient including personal items from the safe.
== END 2018-08-08 15:12 | disposition short-term general hospital (02) | DRG 183 ==
LOC: ED 12:55 → AC 13:38 → ED 14:00 → ICU 14:19 → AC 08-05 20:35
PROVIDERS: Family Medicine; Admitting Provider Family Medicine; Emergency Provider Emergency Medicine; PCP Internal Medicine; Visit Provider Family Medicine
DX: S22.41XA Multiple fractures of ribs, right side, initial encounter for closed fracture (principal); G93.41 Metabolic encephalopathy; S32.019A Unspecified fracture of first lumbar vertebra, initial encounter for closed fracture; Z68.41 Body mass index [BMI] 40.0-44.9, adult; S32.029A Unspecified fracture of second lumbar vertebra, initial encounter for closed fracture; D62 Acute posthemorrhagic anemia; I13.0 Hypertensive heart and chronic kidney disease with heart failure and stage 1 through stage 4 chronic kidney disease, or unspecified chronic kidney disease; I50.32 Chronic diastolic (congestive) heart failure; N17.9 Acute kidney failure, unspecified; I48.92 Unspecified atrial flutter; N18.3 Chronic kidney disease, stage 3 (moderate); S20.211A Contusion of right front wall of thorax, initial encounter; J44.9 Chronic obstructive pulmonary disease, unspecified; W10.9XXA Fall (on) (from) unspecified stairs and steps, initial encounter; F32.9 Major depressive disorder, single episode, unspecified; E78.5 Hyperlipidemia, unspecified; I25.10 Atherosclerotic heart disease of native coronary artery without angina pectoris; E11.42 Type 2 diabetes mellitus with diabetic polyneuropathy; G47.33 Obstructive sleep apnea (adult) (pediatric); K21.9 Gastro-esophageal reflux disease without esophagitis; Z87.891 Personal history of nicotine dependence; Z79.01 Long term (current) use of anticoagulants; E66.01 Morbid (severe) obesity due to excess calories; Z95.0 Presence of cardiac pacemaker; R11.2 Nausea with vomiting, unspecified; Z86.711 Personal history of pulmonary embolism
CPT/HCPCS: 36415; 36591; 71045; 71260; 74176; 74177; 80048; 80053; 81003; 82150; 82550; 82962; 83690; 83880; 84484; 85025; 85610; 85730; 86850; 86900; 86901; 87797; 92610; 93005; 94760; 94762; 96374; 96376; 97162; 97165; 97535; 99223; 99232; 99233; 99238; 99285; J1170; J1940; J2270; J2405; J3430; Q9967